=== PATIENT | female | born 1955 | race Caucasian/White ===

== ENCOUNTER → 2023-05-16 12:22 | Outpatient (BNVA) | payer MEDICARE, OTHER, SELFPAY | PROVIDERS: Visit Provider Physical Therapy Assistant ==

== ENCOUNTER 2023-05-16 15:34 | Outpatient (CLI) | payer MEDICARE, SELFPAY ==
[2023-05-16 14:25] LABS: Abs Immature Grans 0.03 10^3/uL (0.0-0.06); Absolute Basophil Count 0.03 10^3/uL (0.0-0.2); Absolute Eosinophil Count 0.03 10^3/uL (0.0-0.7); Absolute Lymphocyte Count 2.27 10^3/uL (1.2-3.4); Absolute Monocyte Count 0.96 10^3/uL (0.1-0.8); Basophils % 0.4; ESR 16 mm/hr (0-30); Eosinophils % 0.4; HCT 35.2 % (36.0-46.0); HGB 11.5 g/dL (11.2-15.7); Immature Grans % 0.4; Lymphocytes % 32.3; MCH 31.7 pg (27.0-33.0); MCHC 32.7 % (32.0-36.0); MCV 97 fL (80-95); MPV 10.1 fL (8.0-11.0); Monocytes % 13.7; Neutrophils % 52.8; Platelet Count 176 10^3/uL (130-400); RBC 3.63 10^6/uL (3.93-5.22); RDW 13.3 % (11.7-14.6); RDW-SD 47.7 fL; WBC 7.02 10^3/uL (4.4-10.8)
[2023-05-16 14:40] LABS: Hemoglobin A1C 5.8 % (<5.7)
[2023-05-16 14:55] LABS: ALT 18 U/L (14-59); AST 19 U/L (15-37); Albumin 3.2 g/dL (3.4-5.0); Alkaline Phosphatase 75 U/L (46-116); Anion Gap 7.2 mmol/L (3-11); BUN 14 mg/dL (7-18); Bilirubin, Total 0.3 mg/dL (0.2-1.0); CO2 28.8 mmol/L (21.0-32.0); CREATININE 0.8 mg/dL (0.55-1.02); Calcium 8.7 mg/dL (8.5-10.1); Chloride 102 mmol/L (98-107); Estimated GFR 80.71 (mL/min/1.73m2); Glucose 91 mg/dL (74-106); Potassium 4.3 mmol/L (3.5-5.1); Sodium 138 mmol/L (136-145); Total Protein 6.6 g/dL (6.4-8.2)
--- OUTSIDE RECORDS SUMMARY | 2023-05-16 15:42 | XMS_ITS | Continuity of Care Document ---
Author Name [facility] Address [address] [place] [id number] Care Team Providers Care Chemistry Quality Control Analyst Name Role Phone Avila Gomez Primary Care Physician [phone] Encounter 07/08/20 - 07/08/[address] [address]- Discharge Disposition: Home Attending Physician: MAHAMED DE LEON Admitting Physician: MAHAMED DE LEON Allergies, Adverse Reactions, Alerts Substance Reaction Severity Status NSAIDs Active sulfa drug Anaphyllaxis Active Medications albuterol 90 mcg/inh inhalation aerosol 2 puff(s), INH, q4hr (interval), PRN PRN: for wheezing, # 8 gm, 0 Refill(s), Aerosol Start Date: 07/24/19 Status: Ordered Belsomra 20 mg oral tablet mg ) tab(s), Oral, Once a day (at bedtime) Start Date: 07/24/19 Status: Ordered Dexilant 60 mg oral delayed release capsule ( 60 mg ) 1 cap(s), Oral, Daily, Cap-DR Start Date: 07/24/19 Status: Ordered Lyrica 150 mg oral capsule ( 150 mg ) 1 cap(s), Oral, TID, Cap Start Date: 07/24/19 Status: Ordered SEROquel 300 mg oral tablet ( 300 mg ) 1 tab(s), Oral, Once a day (at bedtime), Tab Start Date: 07/24/19 Status: Ordered traZODone ( 250 mg ), Oral Start Date: 07/24/19 Status: Ordered Trintellix 20 mg oral tablet ( 20 mg ) 1 tab(s), Oral, Daily, Tab Start Date: 07/24/19 Status: Ordered valACYclovir 500 mg oral tablet ( 500 mg ) 1 tab(s), Oral, BID, Tab Start Date: 07/24/19 Status: Ordered Problem List Condition Effective Dates Status Health Status Inform ant COPD (chronic obstructive pu lmonary disease)(Confirmed) Active Bone marrow transplant status(Confirmed) Active Non Hodgkin's lymphoma(Confirmed) Active Procedures Procedure Date Related Diagnosis Body Site Status Foot 1 Completed Hysterectomy Completed Neck 2 Completed 1surgery 2surgery Results Radiology Reports true* Exam Date Time Procedure Performing Provider Status 07/08/20 11:[address] PE Chest w/Cont Robbie Marques (Verified) Notes: (CT PE Chest w/Cont) Reason For Exam: Chronic respiratory failure with hypoxia CT PE Chest w/Cont CT PE Chest w/Cont 07/08/2020 HISTORY: Chronic respiratory failure with hypoxia. COMPARISON: CT chest 05/27/2020 TECHNIQUE: Thin multi detector images of the thorax have been obtained following a bolus of nonionic contrast with sagittal, coronal, 3D and MIP reconstructions. FINDINGS: There is good opacification of the pulmonary arterial system. No pulmonary emboli or aortic dissection is noted. The examination reveals scattered areas of mixed interstitial and alveolar infiltrate throughout the right lung. There is a small area of rounded soft tissue density in the medial aspect of the rightupper lobe. This most likely represents rounded consolidation since this region was clear on previous study on 05/27. No pleural fluid collection is present. The left lung is completely clear at this time. No mediastinal or perihilar adenopathy is present. Partial images of the upper abdomen are unremarkable at this time. IMPRESSION: No CT evidence pulmonary embolus. Scattered infiltrates throughout the right lung. Small area of rounded consolidation in the right upper lobe. No left-sided infiltrate. Correlate for possible Covid infection/pneumonia. Follow-up chest x-ray recommended This CT exam was performed using one or more of the following dose reduction techniques: Automated exposure control, adjustment to the mA and/or kV according to patient size, or use of iterative reconstruction technique. Final Signed (Electronic Signature): Aramis Eastman MD 07/08/20 11:12 a Technologist: XIAO Social History Social History Type Response Smoking Status Former smoker, quit more than 30 days ago entered on: 07/24/19 Sex
--- OUTSIDE RECORDS SUMMARY | 2023-05-16 15:42 | XMS_ITS | Continuity of Care Document ---
Author Name Unknown Organization [facility] Address [address] [place] [id number] Care Team Providers Care Board Certified Family Physician Name Role Phone vAila Gomez Primary Care Physician Encounter 09/01/22 - 09/06/[address] [id number]- Encounter Diagnosis Chronic obstructive pulmonary disease with (acute) exacerbation(Final) - Hypoxemia(Final) - COPD exacerbation(Discharge Diagnosis) - 09/01/22 Discharge Disposition: Home Attending Physician: Reuben Lai MD Admitting Physician: Reuben Lai MD Allergies, Adverse Reactions, Alerts Substance Reaction Severity Status codeine Unknown Active Macrobid Mild Active Nalbuphine Hydrochloride Unknown Act gwendolyn NSAIDs Bleeding Moderate Active sulfa drug Anaphyllaxis Active Assessment and Plan Extracted from: Title:Discharge Note Author:Robinson Vasquez MD Date:11/06/21 Discharge Plan Discharge home on September 06, 2022 AECOPD -Likely secondary to??acute bronchitis -Portable chest x-ray on September 01 reveals no acute cardiopulmonary process -CRP 8.46->2.32->0.25 -Procalcitonin 0.25->6.54->0.30 -Sputum culture requested 09/01 (gram stain comments on 1+ GPC, 3+ WBC), small amount mixed aaliyah with??no pathogen recovered to date -[employer] resp swab requested 09/01, RSV positive -Influenza swab negative 09/01 -COVID-19 swab negative 09/01 -Patient given dose of??IV Rocephin in emergency department.?? 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 With no evidence of invasive Pseudomonas infection identified to date, will discontinue Levaquin on??November 5,??continue treatment with??empiric ceftriaxone and azithromycin -Solu-Medrol 40 mg IV every 8 hours, increased to 60 mg IV every 8 hours on??September 02 -Schedule bronchodilator -Patient request to??continue Trelegy Ellipta 100/62.5/25 mcg 1 puff daily -Patient request to have albuterol MDI at bedside, continue 2 puffs up to every 4 hours as needed??as rescue inhaler -Antitussive as needed -Supplemental oxygen as needed -Patient is comfortable returning home on September 06, 2022.?? Patient specifically requests refills of Robaxin and diazepam??at discharge until she can see her PCP??within the next month.?? To this extent, prescription for Robaxin 750 mg 1 p.o. 3 times daily number 90 tablets no refills,??diazepam 5 mg strength 1/2 tablet twice daily number 30 tablets no refills written.?? Patient will continue cefdinir??300 mg twice daily for 6 days, azithromycin 250 mg daily for??6 days, prednisone taper??at 20 mg twice daily for 3 days then 10 mg twice daily for 3 days then 10 mg every morning x4 days.?? She may continue Tessalon 200 mg??4 times daily??scheduled for the next 10 days, with Tussionex 5 mL up to every 12 hours as needed for refractory cough number 4 ounces no refills.?? She will continue nystatin 5 mL swish and swallow??4 times daily for 10 days, continue probiotic of choice for the next 10 days.?? Resume other home medication as prior to admission.?? Continue home oxygen 1 L flow at rest, 2 L with exertion.?? 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 I did agree to enter this order in EMR as outpatient??radiologic procedure.?? Follow-up primary care provider within the next week. ??Follow-up outpatient pulmonology within the next 2 to 4 weeks. ?? Acute on chronic hypoxia -Chronically maintained on 2 L flow at night and as needed for daytime dyspnea. ??Admitted on 4 L flow BNC -On 2 liter BNC continuous 09/04 -Admission ABG on September 01 reveals pH 7.38 PCO2 46 PO2 88,??bicarb 27.2 oxygen saturation 97% on 40% FiO2 -Treatment above -Supplemental oxygen as needed -Walk oximetry prior to discharge ?? Hypomagnesemia -Magnesium 1.4, 1.8, 1.8, 2.1, 2.5 -Replace and trend ?? Mild thrombocytopenia -Platelet 137, 141, 144, 141, 143 -Trend ?? Mild elevation liver function test -Total bilirubin 0.73, 0.38, 0.39, 0.34, 0.39 -AST 107, no reagent, 20, 17, no reagent -ALT 77, 50, 18, 29, 38 -Trend ?? Chronic pain syndrome (chronic neck pain) -Patient reports that she is scheduled for cervical spine surgery in the upcoming months -Continue oxycodone 10 mg strength up to every 4 hours as needed for pain -Continue Robaxin-750 milligrams 3 times daily, hold for excess sedation -Continue Lyrica 150 mg 3 times daily, hold for excess sedation ?? GERD -Substitute Protonix 40 mg daily for home medication??dexlansoprazole??60 mg daily ?? Mood disorder -Continue Valium 2.5 mg twice daily (on 2mg BID at home), hold for excess sedation ?? Essential hypertension -Continue diltiazem ER 120 mg daily ?? Chronic insomnia -Continue trazodone 100 mg daily at bedtime -Patient request-to continue Belsomra 20 mg daily at bedtime,??may use home supply ?? Chronic constipation -Continue MiraLAX 17 g daily -Continue Colace 100 mg up to twice daily as needed ?? All Diagnoses This Visit COPD exacerbation Patient Discharge Condition Stable Discharge Disposition Follow-up primary care provider within the next week. ??Home oxygen with portable tank, 1 L at rest, 2 L with exertion. ??Follow-up outpatient pulmonology within the next month Patient Education Smoking Tobacco Information, Adult Health Risks of Smoking Steps to Quit Smoking, [id number] Admission Education Packet (JASKARAN) EKG Copy at discharge (JASKARAN) Chronic Obstructive Pulmonary Disease Exacerbation, [id number] Follow Up With When Contact Information CT chest Within 10 to 12 days Additional Instructions: Outpatient CT chest in 2 weeks (I put in order) Avila Gomez MD Within 1 to 2 weeks [address] [place] [address]- Additional Instructions: Pulmonology Within 1 month Additional Instructions: Extracted from: Title:ED Provider Note Author:Dwight Delgadillo Date:09/01/22 1.??COPD exacerbation??J44.1 Ordered: Decision to Admit, 09/01/22 13:06:00 EDT, Med/Surg, AEMing RIBERA Laneau MD, Observation ?? Orders: Sodium Chloride 0.9% 1,000 mL, 1,000, mL, IV, STAT, Start date 09/01/22 10:10:00 EDT, 999 mL/hr, 1, hr, Total volume (mL): 1,000, 80.29 kg, 1.92, m2, 09/01/22 10:10:00 EDT Diet Order, 09/01/22 12:30:00 EDT, Regular, Constant Indicator Midline Catheter Insert, 09/01/22 11:00:00 EDT, Once Review with Dr Lai?? admit med surg obs Diagnostic Tests Pending * CBC w/Diff Standard 09/02/22 * Comprehensive Metabolic Panel Standard 09/02/22 * Magnesium Level 09/02/22 Future Scheduled Tests Radiology* US Renal Comp 03/03/22 * US Bladder +Residual Post Voiding 03/03/22 * CT Chest w/o Cont 07/14/22 * CT Chest Hi-Res w/o Contrast 09/20/22 Functional Status 09/06/22 History of Fall in Last 3 Months Green N o 09/05/22 ADLs Independent 09/02/22 Toileting ADL Index Independent (2) Continence ADL Index Independent (2) 09/01/22 Level of Assistance - Self Care-Mobility No change from baseline Bathing ADL Index Independent (2) Dressing ADL Index Independent (2) Transferring Bed or Chair ADL Index Inde pendent (2) Recent Travel History No recent travel Other exposure to Infectious Disease COV ID-19 Symptoms Present Family Member Travel History No recent t ravel Medications !-Zofran ODT 4 mg oral tablet, disintegrating ( 4 mg ) 1 tab(s), Oral, q8hr (scheduled), PRN PRN: as needed for nausea/vomiting, # 20 tab(s), 0 Refill(s), 02/15/23, Tab-DIS Start Date: 02/15/22 Stop Date: 02/15/23 Status: Ordered acetaminophen-oxycodone 325 mg-10 mg oral tablet 1 tab(s), Oral, q4hr (interval), Instructions: TAKE 1 TABLET BY MOUTH EVERY 4 HOURS NEEDED FOR PAIN, PRN: Pain - Severe Start Date: 09/01/22 Status: Ordered albuterol 0.083% inhalation solution ( 2.5 mg ), NEB, q6hr (scheduled), Instructions: J44.9, PRN PRN: as needed for wheezing, # 120 EA, 1 Refill(s), Pharmacy: [place], [place], Soln, 165.1, cm, 09/01/22 14:54:00 EDT, Height/Length Dosing, 80.29, kg, 09/01/22 14:... Start Date: 09/06/22 Stop Date: 11/05/22 Status: Ordered albuterol 90 mcg/inh inhalation aerosol 2 puff(s), INH, q4hr (interval), PRN PRN: for wheezing, # 8 gm, 0 Refill(s), Aerosol Start Date: 07/24/19 Status: Ordered azithromycin 250 mg oral tablet ( 250 mg ) 1 tab(s), Oral, Daily, # 6 tab(s), 0 Refill(s), Pharmacy: [place], [place], Tab, 165.1, cm, 09/01/22 14:54:00 EDT, Height/Length Dosing, 80.29, kg, 09/01/22 14:54:00 EDT, Weight Dosing Start Date: 09/06/22 Stop Date: 09/12/22 Status: Ordered Belsomra 20 mg oral tablet ( 20 mg ) 1 tab(s), Oral, Once a day (at bedtime) Start Date: 01/04/22 Status: Ordered benzonatate 200 mg oral capsule ( 200 mg ) 1 cap(s), Oral, QID, PRN PRN: as needed for cough, # 40 cap(s), 0 Refill(s), Pharmacy: [facility], [place], Cap, 165.1, cm, 09/01/22 14:54:00 EDT, Height/Length Dosing, 80.29, kg, 09/01/22 14:54:00 EDT, Weight Dosing Start Date: 09/06/22 Stop Date: 09/16/22 Status: Ordered cefdinir 300 mg oral capsule ( 300 mg ) 1 cap(s), Oral, q12hr (scheduled), # 12 cap(s), 0 Refill(s), Pharmacy: [facility], [place], Cap, 165.1, cm, 09/01/22 14:54:00 EDT, Height/Length Dosing, 80.29, kg, 09/01/22 14:54:00 EDT, Weight Dosing Start Date: 09/06/22 Stop Date: 09/12/22 Status: Ordered chlorpheniramine-hydrocodone 8 mg-10 mg/5 mL oral suspension, extended release 5 mL, Oral, q12hr (interval), x 10 day(s), PRN: for cough, # 120 mL, 0 Refill(s), 09/16/22, Pharmacy: [place], [place], 165.1, cm, 09/01/22 14:54:00 EDT, Height/Length Dosing, 80.29, kg, 09/01/22 14:54:00 EDT, Weight Dosing Start Date: 09/06/22 Stop Date: 09/16/22 Status: Ordered Dexilant 60 mg oral delayed release capsule ( 60 mg ) 1 cap(s), Daily, 0 Refill(s) Start Date: 02/28/22 Status: Ordered diazePAM 5 mg oral tablet ( 2.5 mg ) 0.5 tab(s), Oral, BID, PRN PRN: anxiety, # 30 tab(s), 0 Refill(s), GURU, Pharmacy: [place], [place], Tab, 165.1, cm, 09/01/22 14:54:00 EDT, Height/Length Dosing, 80.29, kg, 09/01/22 14:54:00 EDT, Weight Dosing Start Date: 09/06/22 Stop Date: 10/06/22 Status: Ordered DilTIAZem (Eqv-Cardizem CD) 120 mg/24 hours oral capsule, extended release ( 120 mg ) 1 cap(s), Oral, Daily, 0 Refill(s) Start Date: 09/01/22 Status: Ordered docusate sodium 100 mg oral capsule ( 100 mg ) 1 cap(s), Oral, BID, PRN PRN: constipation, 0 Refill(s), Cap Start Date: 04/06/22 Status: Ordered Florastor 250 mg oral capsule ( 250 mg ) 1 cap(s), Oral, BID, # 20 cap(s), 0 Refill(s), Pharmacy: [place], [place], Cap, 165.1, cm, 09/01/22 14:54:00 EDT, Height/Length Dosing, 80.29, kg, 09/01/22 14:54:00 EDT, Weight Dosing Start Date: 09/06/22 Stop Date: 09/16/22 Status: Ordered magnesium oxide 400 mg oral tablet ( 400 mg ) 1 tab(s), Oral, HS, 0 Refill(s), Tab Start Date: 09/01/22 Status: Ordered methocarbamol 750 mg oral tablet ( 750 mg ) 1 tab(s), Oral, TID, Instructions: TAKE 1 TABLET BY MOUTH THREE TIMES DAILY, # 90 tab(s), 0 Refill(s), Pharmacy: [place], [place], Tab, 165.1, cm, 09/01/22 14:54:00 EDT, Height/Length Dosing, 80.29, kg, 09/01/22 14... Start Date: 09/06/22 Stop Date: 10/06/22 Status: Ordered MiraLax ( 17 gm ) 1 packet(s), Oral, Daily, Instructions: UGH, 0 Refill(s), Powder-Recon Start Date: 04/06/22 Status: Ordered nystatin 100,000 units/mL oral suspension ( 500,000 unit(s) ) 5 mL, Oral, QID, # 200 mL, 0 Refill(s), Pharmacy: [place], [place], Susp, 165.1, cm, 09/01/22 14:54:00 EDT, Height/Length Dosing, 80.29, kg, 09/01/22 14:54:00 EDT, Weight Dosing Start Date: 09/06/22 Stop Date: 09/16/22 Status: Ordered predniSONE 20 mg oral tablet ( 20 mg ) 1 tab(s), Oral, BID, Instructions: 1 tab (20mg) BID x 3 days, then 1/2 tab (10mg) BID x 3days, then 1/2 tab (10mg) qAM x 4 days, # 11 tab(s), 0 Refill(s), Pharmacy: [facility] [place], [place], Tab, 165.1, cm, 09/01/22 14:54:... Start Date: 09/06/22 Stop Date: 09/16/22 Status: Ordered pregabalin 150 mg oral capsule ( 150 mg ) 1 cap(s), Oral, TID Start Date: 01/04/22 Status: Ordered traZODone 100 mg oral tablet ( 100 mg ) 1 tab(s), Oral, Once a day (at bedtime) Start Date: 01/04/22 Status: Ordered Trelegy Ellipta 100 mcg-62.5 mcg-25 mcg/inh inhalation powder 1 puff(s), INH, Daily Start Date: 01/04/22 Status: Ordered Mental Status 09/06/22 Level of Consciousness Alert Problem List Condition Confirmation Course Effective Dates Status Health St atus Informant COPD exacerbation Confirmed Active Arthritis Confirmed Active Chest wall pain Confirmed Active COPD (chronic obstructive pulmonary disease) Confirmed Active Kidney cysts Confirmed Active Dehydration Confirmed Active Diarrhea Confirmed Active Cervical spine disease Confirmed Active Dysphonia Confirmed Active Bone marrow transplant status Confirmed Active Herpes Confirmed Active History of kidney stones Confirmed Active IBS (irritable bowel syndrome) Confirmed Active Nausea and vomiting Confirmed Active Non Hodgkin's lymphoma Confirmed Active Frequent UTI Confirmed Active Urinary retention Confirmed Active Procedures Procedure Date Related Diagnosis Body Site Status Bladder tract Completed Foot 1 Completed Gallbladder absent Comple juan alberto Hysterectomy Completed Neck 2 Completed Shoulder Completed Tonsillectomy Completed 1surgery 2surgery Results Laboratory List Name Date Automated Differential Standard 09/06/22 C-Reactive Protein (CRP) 09/06/22 CBC w/Diff Standard 09/06/22 Comprehensive Metabolic Panel Standard ( CMP Standard) 09/06/22 Magnesium Level 09/06/22 Procalcitonin 09/06/22 .Manual Differential (UGH) 09/05/22 Automated Differential Standard 09/05/22 CBC w/Diff Standard 09/05/22 Comprehensive Metabolic Panel Standard ( CMP Standard) 09/05/22 Magnesium Level 09/05/22 Automated Differential Standard 09/04/22 CBC w/Diff Standard 09/04/22 Comprehensive Metabolic Panel Standard ( CMP Standard) 09/04/22 Magnesium Level 09/04/22 Automated Differential Standard 09/03/22 C-Reactive Protein (CRP) 09/03/22 CBC w/Diff Standard 09/03/22 Comprehensive Metabolic Panel Standard ( CMP Standard) 09/03/22 Magnesium Level 09/03/22 Procalcitonin 09/03/22 Automated Differential Standard 09/02/22 CBC w/Diff Standard 09/02/22 Comprehensive Metabolic Panel Standard 1 11/02/21 Magnesium Level 09/02/22 Arterial Bld Gas (UGH) 09/01/22 Automated Differential Standard 09/01/22 CBC w/Diff Standard 09/01/22 Lactic Acid Screen 09/01/22 Procalcitonin 09/01/22 Automated Differential Standard 09/01/22 C-Reactive Protein 09/01/22 CBC w/Diff Standard 09/01/22 Comprehensive Metabolic Panel Standard ( CMP Standard) 09/01/22 Magnesium Level 09/01/22 NT Pro-BNP (BNP) 09/01/22 Troponin I 09/01/22 Influenza A&B 09/01/22 SARS-CoV-2 (COVID-19) RNA (ID Now) (COVI D-19 SARS-CoV-2 RNA (ID Now)) 09/01/22 Most recent to oldest [Reference Range]: 1 2 3 4 5 6 7 O2 Sat Art [95-99 %] 97 % (09/01/22 10:48 AM) Slide Review? Manual Diff (09/05/22 7:30 AM) Creatinine Level [0.6-1.0 mg/dL] 0.8 mg/dL (09/06/22 8:22 AM) 0.8 mg/dL (09/05/22 7:30 AM) 0.8 mg/dL (09/04/22 7:00 AM) 1.0 mg/dL (09/03/22 12:46 PM) 0.9 mg/dL (09/02/22 9:08 AM) 0.8 mg/dL ( 2 9:44 AM) Puncture Site R Radial (09/01/22 10:48 AM) RDW/CV [11.5-14.5 %] 13.2 % (09/06/22 8:22 AM) 13.6 % (09/05/22 7:30 AM) 13.8 % (09/04/22 7:00 AM) 14.0 % (09/03/22 12:46 PM) 13.4 % (09/02/22 9:08 AM) 13.8 % ( 2 10:25 AM) 13.8 % ( 2 9:44 AM) Corinna. Calcium [8.5-10.2 mg/dL] 9.0 mg/dL (09/06/22 8:22 AM) 9.0 mg/dL (09/05/22 7:30 AM) 9.4 mg/dL (09/04/22 7:00 AM) 9.1 mg/dL (09/03/22 12:46 PM) 8.8 mg/dL (09/02/22 9:08 AM) 9.1 mg/dL ( 2 9:44 AM) RBC Morph Normal (09/05/22 7:30 AM) Albumin Level [3.4-5.0 mg/dL] 3.4 mg/dL (09/06/22 8:22 AM) 3.6 mg/dL (09/05/22 7:30 AM) 3.4 mg/dL (09/04/22 7:00 AM) 3.7 mg/dL (09/03/22 12:46 PM) 3.7 mg/dL (09/02/22 9:08 AM) 3.8 mg/dL ( 2 9:44 AM) Alk Phos [40-120 IU/L] 52 IU/L (09/06/22 8:22 AM) 58 IU/L (09/05/22 7:30 AM) 55 IU/L (09/04/22 7:00 AM) 61 IU/L (09/03/22 12:46 PM) 75 IU/L (09/02/22 9:08 AM) 85 IU/L ( 2 9:44 AM) Band Man [0-2 %] 6 % *HI* (09/05/22 7:30 AM) Bili Total [0.20-1.00 mg/dL] 0.39 mg/dL (09/06/22 8:22 AM) 0.40 mg/dL (09/05/22 7:30 AM) 0.34 mg/dL (09/04/22 7:00 AM) 0.39 mg/dL (09/03/22 12:46 PM) 0.38 mg/dL (09/02/22 9:08 AM) 0.73 mg/dL ( 9:44 AM) BUN [7-18 mg/dL] 21 mg/dL *HI* (09/06/22 8:22 AM) 20 mg/dL *HI* (09/05/22 7:30 AM) 20 mg/dL *HI* (09/04/22 7:00 AM) 21 mg/dL *HI* (09/03/22 12:46 PM) 12 mg/dL (09/02/22 9:08 AM) 14 mg/dL ( 9:44 AM) Chloride Level [98-107 mmol/L] 98 mmol/L (09/06/22 8:22 AM) 99 mmol/L (09/05/22 7:30 AM) 102 mmol/L (09/04/22 7:00 AM) 101 mmol/L (09/03/22 12:46 PM) 101 mmol/L (09/02/22 9:08 AM) 99 mmol/L ( 9:44 AM) CO2 [21.0-32.0 mmol/L] 34.8 mmol/L *HI* (09/06/22:22 AM) 31.6 mmol/L (09/05/22 7:30 AM) 28.2 mmol/L (09/04/22 7:00 AM) 30.6 mmol/L (09/03/22 12:46 PM) 28.7 mmol/L (09/02/22 9:08 AM) 27.5 mmol/L ( 9:44 AM) Glucose Level [70-110 mg/dL] 152 mg/dL *HI* (09/06/22:22 AM) 164 mg/dL *HI* (09/05/22 7:30 AM) 171 mg/dL *HI* (09/04/22 7:00 AM) 194 mg/dL *HI* (09/03/22 12:46 PM) 196 mg/dL *HI* (09/02/22 9:08 AM) 118 mg/dL *HI* ( 9:44 AM) HCO3 Art [22.0-26.0 mmol/L] 27.2 mmol/L *HI* (09/01/22 10:48 AM) Hct [35.0-49.0 %] 44.7 % (09/06/22 8:22 AM) 42.7 % (09/05/22 7:30 AM) 40.8 % (09/04/22 7:00 AM) 39.4 % (09/03/22 12:46 PM) 40.0 % (09/02/22 9:08 AM) 39.6 % ( 10:25 AM) 40.6 % ( 9:44 AM) Hgb [12.0-16.0 g/dL] 14.1 g/dL (09/06/22 8:22 AM) 13.3 g/dL (09/05/22 7:30 AM) 12.5 g/dL (09/04/22 7:00 AM) 12.1 g/dL (09/03/22 12:46 PM) 12.6 g/dL (09/02/22 9:08 AM) 12.7 g/dL ( 10:25 AM) 12.6 g/dL ( 9:44 AM) Lymph Man [12-44 %] 14 % (09/05/22 7:30 AM) Magnesium [1.8-2.4] 2.5 *HI* (09/06/22 8:22 AM) 2.0 (09/05/22 7:30 AM) 2.1 (09/04/22 7:00 AM) 1.8 (09/03/22 12:46 PM) 1.8 (09/02/22 9:08 AM) 1.4 *LOW* ( 9:44 AM) MCH [26.0-33.0 pg] 31.2 pg (09/06/22 8:22 AM) 30.9 pg (09/05/22 7:30 AM) 31.4 pg (09/04/22 7:00 AM) 30.9 pg (09/03/22 12:46 PM) 31.7 pg (09/02/22 9:08 AM) 31.7 pg ( 10:25 AM) 31.3 pg ( 9:44 AM) MCHC [31.0-36.0 g/dL] 31.5 g/dL (09/06/22 8:22 AM) 31.1 g/dL (09/05/22 7:30 AM) 30.6 g/dL *LOW* (09/04/22 7:00 AM) 30.7 g/dL *LOW* (09/03/22 12:46 PM) 31.5 g/dL (09/02/22 9:08 AM) 32.1 g/dL ( 2 10:25 AM) 31.0 g/dL ( 2 9:44 AM) MCV [82-100] 99 (09/06/22 8:22 AM) 99 (09/05/22 7:30 AM) 102 *HI* (09/04/22 7:00 AM) 101 *HI* (09/03/22 12:46 PM) 100 (09/02/22 9:08 AM) 99 ( 10:25 AM) 101 *HI* ( 9:44 AM) Monocyte Man [0-10 %] 6 % (09/05/22 7:30 AM) MPV [8.0-12.3 fL] 10.3 fL (09/06/22 8:22 AM) 10.5 fL (09/05/22 7:30 AM) 10.5 fL (09/04/22 7:00 AM) 10.4 fL (09/03/22 12:46 PM) 10.3 fL (09/02/22 9:08 AM) 10.4 fL ( 2 10:25 AM) 10.3 fL ( 2 9:44 AM) pCO2 Art [35.0-45.0 mmHg] 46.0 mmHg 1 *CRIT* (09/01/22 10:48 AM) pH Art [7.35-7.45] 7.38 (09/01/22 10:48 AM) Platelet [150-450 x10^3/mcL] 143 x10^3/mcL *LOW* (09/06/22 8:22 AM) 146 x10^3/mcL *LOW* (09/05/22 7:30 AM) 141 x10^3/mc L *LOW* (09/04/22 7:00 AM) 144 x10^3/mc L *LOW* (09/03/22 12:46 PM) 141 x10^3/mcL *LOW* (09/02/22 9:08 AM) 137 x10^3/m cL *LOW* ( 10:25 AM) 137 x10^3/m cL *LOW* ( 9:44 AM) pO2 Art [80-100 mmHg] 88 mmHg (09/01/22 10:48 AM) Potassium Level [3.5-5.2 mmol/L] 4.2 mmol/L (09/06/22 8:22 AM) 4.1 mmol/L (09/05/22 7:30 AM) 4.3 mmol/L (09/04/22 7:00 AM) 3.8 mmol/L (09/03/22 12:46 PM) 3.8 mmol/L (09/02/22 9:08 AM) 4.5 mmol/L ( 9:44 AM) RBC [4.00-5.20 x10^6/mcL] 4.52 x10^6/mcL (09/06/22 8:22 AM) 4.30 x10^6/mcL (09/05/22 7:30 AM) 3.98 x10^6/mc L *LOW* (09/04/22 7:00 AM) 3.91 x10^6/mc L *LOW* (09/03/22 12:46 PM) 3.98 x10^6/mcL *LOW* (09/02/22 9:08 AM) 4.01 x10^6/m cL (11/3/2 2 10:25 AM) 4.03 x10^6/m cL ( 2 9:44 AM) Segs Man [55-75 %] 74 % (09/05/22 7:30 AM) Sodium Level [136-145 mEq/L] 137 mEq/L (09/06/22 8:22 AM) 136 mEq/L (09/05/22 7:30 AM) 139 mEq/L (09/02/22 9:08 AM) Sodium Level [136-145] 135 *LOW* (09/04/22 7:00 AM) 138 (09/03/22 12:46 PM) 136 (09/01/22 9:44 AM) Protein Total [6.4-8.2 g/dL] 6.7 g/dL (09/06/22 8:22 AM) 7.4 g/dL (09/05/22 7:30 AM) 6.9 g/dL (09/04/22 7:00 AM) 6.9 g/dL (09/03/22 12:46 PM) 7.1 g/dL (09/02/22 9:08 AM) 7.5 g/dL ( 9:44 AM) WBC [4.3-11.0 x10^3/mcL] 7.0 x10^3/mcL (09/06/22 8:22 AM) 6.8 x10^3/mcL (09/05/22 7:30 AM) 7.0 x10^3/mc L (09/04/22 7:00 AM) 8.7 x10^3/mc L (09/03/22 12:46 PM) 6.9 x10^3/mcL (09/02/22 9:08 AM) 7.9 x10^3/m cL ( 2 10:25 AM) 8.0 x10^3/m cL ( 2 9:44 AM) Fio2 Art [21-100 %] 40 % (09/01/22 10:48 AM) Troponin-I [0.00-60.40 pg/mL] 7.50 pg/mL (09/01/22 9:44 AM) Anion Gap 8 *NA* (09/06/22 8:22 AM) 10 *NA* (09/05/22 7:30 AM) 9 *NA* (09/04/22 7:00 AM) 10 *NA* (09/03/22 12:46 PM) 13 *NA* (09/02/22 9:08 AM) 14 *NA* ( 9:44 AM) Calcium Level [8.5-10.2 mg/dL] 8.5 mg/dL (09/06/22 8:22 AM) 8.7 mg/dL (09/05/22 7:30 AM) 8.9 mg/dL (09/04/22 7:00 AM) 8.9 mg/dL (09/03/22 12:46 PM) 8.6 mg/dL (09/02/22 9:08 AM) 8.9 mg/dL ( 9:44 AM) ALT/SGPT [12-78 IU/L] 38 IU/L (09/06/22 8:22 AM) 27 IU/L (09/05/22 7:30 AM) 29 IU/L (09/04/22 7:00 AM) 18 IU/L (09/03/22 12:46 PM) 50 IU/L (09/02/22 9:08 AM) 77 IU/L ( 9:44 AM) AST/SGOT [15-37 IU/L] no reagent IU/L *NA* (09/06/22 8:22 AM) no reagent IU/L *NA* (09/05/22 7:30 AM) 17 IU/L (09/04/22 7:00 AM) 20 IU/L (09/03/22 12:46 PM) no reagent IU/L *NA* (09/02/22 9:08 AM) 107 IU/L *HI* ( 9:44 AM) Auto Eos % [0.0-7.0 %] 0.1 % (09/06/22 8:22 AM) 0.0 % (09/05/22 7:30 AM) 0.1 % (09/04/22 7:00 AM) 0.0 % (09/03/22 12:46 PM) 0.1 % (09/02/22 9:08 AM) 0.1 % ( 10:25 AM) 0.3 % ( 9:44 AM) Auto Lymph % [10.0-50.0 %] 15.8 % (09/06/22 8:22 AM) 14.8 % (09/05/22 7:30 AM) 13.8 % (09/04/22 7:00 AM) 8.4 % *LOW* (09/03/22 12:46 PM) 7.2 % *LOW* (09/02/22 9:08 AM) 9.3 % *LOW* ( 10:25 AM) 13.1 % ( 9:44 AM) Auto Neut % [37.0-80.0 %] 69.8 % (09/06/22 8:22 AM) 74.3 % (09/05/22 7:30 AM) 77.9 % (09/04/22 7:00 AM) 84.8 % *HI* (09/03/22 12:46 PM) 84.9 % *HI* (09/02/22 9:08 AM) 84.0 % *HI* ( 10:25 AM) 79.4 % ( 9:44 AM) Eos Abs# [0.00-0.50 K/uL] 0.01 K/uL (09/06/22 8:22 AM) 0.00 K/uL (09/05/22 7:30 AM) 0.01 K/uL (09/04/22 7:00 AM) 0.00 K/uL (09/03/22 12:46 PM) 0.01 K/uL (09/02/22 9:08 AM) 0.01 K/uL ( 10:25 AM) 0.02 K/uL ( 9:44 AM) Lymph Abs# [1.00-4.00 K/uL] 1.11 K/uL (09/06/22 8:22 AM) 1.01 K/uL (09/05/22 7:30 AM) 0.97 K/uL *LOW* (09/04/22 7:00 AM) 0.73 K/uL *LOW* (09/03/22 12:46 PM) 0.50 K/uL *LOW* (09/02/22 9:08 AM) 0.73 K/uL *LOW* ( 10:25 AM) 1.05 K/uL ( 9:44 AM) Dolores Abs# [0.20-1.00 K/uL] 0.60 K/uL (09/06/22 8:22 AM) 0.43 K/uL (09/05/22 7:30 AM) 0.46 K/uL (09/04/22 7:00 AM) 0.52 K/uL (09/03/22 12:46 PM) 0.50 K/uL (09/02/22 9:08 AM) 0.48 K/uL ( 10:25 AM) 0.53 K/uL ( 9:44 AM) Plt Morph [Normal] Normal (09/05/22 7:30 AM) Auto Baso % [0.0-2.5 %] 0.4 % (09/06/22 8:22 AM) 0.6 % (09/05/22 7:30 AM) 0.1 % (09/04/22 7:00 AM) 0.0 % (09/03/22 12:46 PM) 0.0 % (09/02/22 9:08 AM) 0.1 % ( 10:25 AM) 0.3 % ( 9:44 AM) Auto Dolores % [0.0-12.0 %] 8.5 % (09/06/22 8:22 AM) 6.3 % (09/05/22 7:30 AM) 6.5 % (09/04/22 7:00 AM) 6.0 % (09/03/22 12:46 PM) 7.2 % (09/02/22 9:08 AM) 6.1 % ( 10:25 AM) 6.6 % ( 9:44 AM) Baso Abs# [0.00-0.20 K/uL] 0.03 K/uL (09/06/22 8:22 AM) 0.04 K/uL (09/05/22 7:30 AM) 0.01 K/uL (09/04/22 7:00 AM) 0.00 K/uL (09/03/22 12:46 PM) 0.00 K/uL (09/02/22 9:08 AM) 0.01 K/uL ( 10:25 AM) 0.02 K/uL ( 9:44 AM) Neut Abs# [2.00-7.50 K/uL] 4.90 K/uL (09/06/22 8:22 AM) 5.06 K/uL (09/05/22 7:30 AM) 5.48 K/uL (09/04/22 7:00 AM) 7.35 K/uL (09/03/22 12:46 PM) 5.86 K/uL (09/02/22 9:08 AM) 6.60 K/uL ( 10:25 AM) 6.36 K/uL ( 9:44 AM) CRP [0.05-0.80 mg/dL] 0.25 mg/dL (09/06/22 8:22 AM) 2.32 mg/dL *HI* (09/03/22 12:46 PM) 8.46 mg/dL *HI* (09/01/22 9:44 AM) Lactic Acid [0.4-1.9 mmol/L] 0.7 mmol/L (09/01/22 10:25 AM) TCO2 Art [23.0-27.0 mmol/L] 28.6 mmol/L *HI* (09/01/22 10:48 AM) Base Excess Art [-2.0-2.0 mEq/L] 1.6 mEq/L (09/01/22 10:48 AM) Influenza A [negative] negative (09/01/22 9:29 AM) Influenza B [negative] negative (09/01/22 9:29 AM) Rik Test Art Not Indicated (09/01/22 10:48 AM) GFR AA [>=60 mL/min/1.73 ] 83 mL/min/1.73 (09/06/22 8:22 AM) 82 mL/min/1.73 (09/05/22 7:30 AM) 84 mL/min/1 .73 ( 7:00 AM) 64 mL/min/1 .73 ( 12:46 PM) 72 mL/min/1.73 (09/02/22 9:08 AM) 83 mL/min/ 1.73 ( 9:44 AM) GFR Non AA [>=60 mL/min/1.73 ] 69 mL/min/1.73 (09/06/22 8:22 AM) 68 mL/min/1.73 (09/05/22 7:30 AM) 70 mL/min/1 .73 ( 7:00 AM) 53 mL/min/1 .73 *LOW* (09/03/22 12:46 PM) 59 mL/min/1.73 *LOW* (09/02/22 9:08 AM) 69 mL/min/ 1.73 ( 9:44 AM) NT Pro-BNP [<=125 pg/mL] 221 pg/mL *HI* (09/01/22 9:44 AM) NRBC Abs # 0 K/uL *NA* (09/06/22 8:22 AM) 0 K/uL *NA* (09/05/22 7:30 AM) 0 K/uL *NA* (09/04/22 7:00 AM) 0 K/uL *NA* (09/03/22 12:46 PM) 0 K/uL *NA* (09/02/22 9:08 AM) 0 K/uL *NA* ( 10:25 AM) 0 K/uL *NA* ( 9:44 AM) IG Auto [0.00-0.50 K/uL] 0.38 K/uL (09/06/22 8:22 AM) 0.27 K/uL (09/05/22 7:30 AM) 0.11 K/uL (09/04/22 7:00 AM) 0.07 K/uL (09/03/22 12:46 PM) 0.04 K/uL (09/02/22 9:08 AM) 0.03 K/uL ( 10:25 AM) 0.02 K/uL ( 9:44 AM) Auto IG % [0.0-5.0 %] 5.4 % *HI* (09/06/22 8:22 AM) 4.0 % (09/05/22 7:30 AM) 1.6 % (09/04/22 7:00 AM) 0.8 % (09/03/22 12:46 PM) 0.6 % (09/02/22 9:08 AM) 0.4 % ( 10:25 AM) 0.3 % ( 9:44 AM) SARS-CoV-2 (COVID-19) RNA (ID Now) [Negative] Negative (09/01/22 9:29 AM) Employed in healthcare? No *NA* (09/01/22 9:29 AM) Symptomatic as defined by CDC? Yes *NA* (09/01/22 9:29 AM) Date of onset (Lab) 31-AUG-2022 *Unknown* (09/01/22 9:29 AM) Hospitalized due to COVID-19? Unknown *NA* (09/01/22 9:29 AM) In ICU? No *NA* (09/01/22 9:29 AM) Group care resident? No *NA* (09/01/22 9:29 AM) status? Not *NA* (09/01/22 9:29 AM) Procalcitonin [<=0.50 ng/mL] 0.30 ng/mL (09/06/22 8:22 AM) 6.54 ng/mL *HI* (09/03/22 12:46 PM) 0.25 ng/mL (09/01/22 10:25 AM) 1Result Comment: Results called to arnel corley by mem at 09/01/2022 10:59:19 EDT. Read back and verified. Orders for Microbiology Reports Name Date Sputum Culture 09/01/22 Microbiology Reports TEST:Sputum Culture STATUS:Auth (Verified) BODY SITE: SOURCE:Sputum COLLECTED DATE/TIME:09/01/22 8:58 PM FINAL REPORT Small amount Mixed aaliyah with no predominant organism No pathogens recovered at 48 hours STAIN REPORT Gram Positive Cocci - 1+. WBC - 3+. Radiology Reports * Exam Date Time Procedure Performing Provider Status 09/01/22 10:14 AM XR Chest 1 View Portable Rossana Santizo; Auth (Verified) Notes: (XR Chest 1 View Portable) Reason For Exam: Shortness of Breath XR Chest 1 View Portable XR Chest 1 View Portable HISTORY: Shortness of Breath Study: Single view of the chest. Comparison:None Findings: The cardiomediastinal silhouette is normal.No focal consolidations, pleural effusions or pneumothorax. Osseous structures demonstrate no acute abnormality. IMPRESSION: 1. No acute cardiopulmonary process. Electronically signed by: ANNE RUEDA (Sep 01, 2022 10:25:53) Final Signed (Electronic Signature): Anne Rueda MD 09/01/22 10:25 a Technologist: [place] SANCHEZ Vital Signs Most recent to oldest [Reference Range]: 1 2 3 Temperature Oral [35.8-37.3 DegC] 36.4 DegC (09/06/22 11:12 AM) 36.5 DegC (09/06/22 8:46 AM) 36.5 DegC (09/06/22 4:07 AM) Temperature Oral (DegF) [96.4-99.1 DegF] 97.52 DegF (09/06/22 11:12 AM) 97.7 DegF (09/06/22 8:46 AM) 97.7 DegF (09/06/22 4:07 AM) Peripheral Pulse Rate [60-100 bpm] 77 bpm (09/06/22 12:40 PM) 88 bpm (09/06/22 11:12 AM) 75 bpm (09/06/22 8:46 AM) Heart Rate Monitored [60-100 bpm] 77 bpm (09/06/22 12:27 PM) 100 bpm (09/01/22 2:00 PM) 99 bpm (09/01/22 1:30 PM) Respiratory Rate [14-20 br/min] 20 br/min (09/06/22 12:40 PM) 17 br/min (09/06/22 11:12 AM) 15 br/min (09/06/22 8:46 AM) Blood Pressure [90-140/60-90 mmHg] 139/75mmHg (09/06/22 11:12 AM) 168/80mmHg *HI* (09/06/22 8:46 AM) 156/78mmHg *HI* (09/06/22 4:07 AM) Mean Arterial Pressure, Cuff [65-100 mmHg] 104 mmHg *HI* (09/06/22 4:07 AM) 106 mmHg *HI* (09/05/22 8:00 PM) 103 mmHg *HI* (09/05/22 3:38 PM) BP Site Left arm (09/06/22 11:12 AM) Right arm (09/06/22 8:46 AM) Right arm (09/06/22 4:07 AM) SpO2 [92-100 %] 92 % (09/06/22 12:40 PM) 90 % *LOW* (09/06/22 12:13 PM) 92 % (09/06/22 11:12 AM) Oxygen Flow Rate 1 L/min (09/06/22 2:34 PM) 1 L/min (09/06/22 12:40 PM) 1 L/min (09/06/22 12:13 PM) Oxygen Therapy Nasal cannula (09/06/22 2:34 PM) Nasal cannula (09/06/22 12:40 PM) Nasal cannula (09/06/22 12:27 PM) FIO2. 24 % (09/05/22 8:03 PM) 24 % (09/05/22 7:54 PM) 24 % (09/05/22 7:54 PM) BP Method Automatic (09/06/22 11:12 AM) Automatic (09/06/22 8:46 AM) Automatic (09/03/22 4:00 AM) Height 165.100 cm (09/01/22 2:54 PM) 165.100 cm (09/01/22 9:53 AM) Height/Length Dosing 165.100 cm (09/01/22 2:54 PM) 165.100 cm (09/01/22 9:57 AM) Weight 89.5 kg (09/05/22 6:21 AM) 88.3 kg (09/04/22 5:38 AM) 86 kg (09/03/22 6:15 AM) Weight Measured (lbs) 194.668 lb (09/04/22 5:38 AM) 189.597 lb (09/03/22 6:15 AM) 190.479 lb (09/03/22 2:45 AM) Weight Dosing 80.290 kg (09/01/22 2:54 PM) 80.290 kg (09/01/22 9:57 AM) Scale Type Bed (09/01/22 2:54 PM) Weight Estimated 83.460 kg (09/01/22 3:17 PM) Body Mass Index 29.460 kg/m2 (09/01/22 2:54 PM) 29.460 kg/m2 (09/01/22 9:53 AM) Admission Height/Length 165.10 cm (09/01/22 2:54 PM) Admission Weight 80.29 kg (09/01/22 2:54 PM) Admission Body Mass Index 29.46 kg/m2 (09/01/22 2:54 PM) Triage Ht 165.10 cm (09/01/22 9:53 AM) Triage Weight 80.29 kg (09/01/22 9:53 AM) Triage BMI 29.46 (09/01/22 9:53 AM) Social History Social History Type Response Smoking Status Smoking tobacco use: Former tobacco user;Never; Number used per day: 1 PPD; Number of years: 40; 1 entered on: 09/01/22 Sex 1currently smoking 5-6 per day 09/01/22 Hospital Discharge Instructions Patient Education 09/06/2022 16:31:26 Smoking Tobacco Information, Adult Smoking Tobacco Information, Adult Smoking tobacco can be harmful to your health. Tobacco contains a poisonous (toxic), colorless chemical called nicotine. Nicotine is addictive. It changes the brain and can make it hard to stop smoking. Tobacco also has other toxic chemicals that can hurt your body and raise your risk of many cancers. How can smoking tobacco affect me? Smoking tobacco puts you at risk for: ??? Cancer. Smoking is most commonly associated with lung cancer, but can also lead to cancer in other parts of the body. ??? Chronic obstructive pulmonary disease (COPD). This is a long-term lung condition that makes it hard to breathe. It also gets worse over time. ??? High blood pressure (hypertension), heart disease, stroke, or heart attack. ??? Lung infections, such as pneumonia. ??? Cataracts. This is when the lenses in the eyes become clouded. ??? Digestive problems. This may include peptic ulcers, heartburn, and gastroesophageal reflux disease (GERD). ??? Oral health problems, such as gum disease and tooth loss. ??? Loss of taste and smell. Smoking can affect your appearance by causing: ??? Wrinkles. ??? Yellow or stained teeth, fingers, and fingernails. Smoking tobacco can also affect your social life, because: ??? It may be challenging to find places to smoke when away from home. Many workplaces, restaurants, hotels, and public places are tobacco-free. ??? Smoking is expensive. This is due to the cost of tobacco and the long-term costs of treating health problems from smoking. ??? Secondhand smoke may affect those around you. Secondhand smoke can cause lung cancer, breathingproblems, and heart disease. Children of smokers have a higher risk for: ??? Sudden infant syndrome (SIDS). ??? Ear infections. ??? Lung infections. If you currently smoke tobacco, quitting now can help you: ??? Lead a longer and healthier life. ??? Look, smell, breathe, and feel better over time. ??? Save money. ??? Protect others from the harms of secondhand smoke. What actions can I take to prevent health problems? Quit smoking ??? Do not start smoking. Quit if you already do. ??? Make a plan to quit smoking and commit to it. Look for programs to help you and ask your healthcare provider for recommendations and ideas. ??? Set a date and write down all the reasons you want to quit. ??? Let your friends and family know you are quitting so they can help and support you. Consider finding friends who also want to quit. It can be easier to quit with someone else, so that you can support each other. ??? Talk with your health care provider about using nicotine replacement medicines to help you quit, such as gum, lozenges, patches, sprays, or pills. ??? Do not replace cigarette smoking with electronic cigarettes, which are commonly called e-cigarettes. The safety of e-cigarettes is not known, and some may contain harmful chemicals. ??? If you try to quit but return to smoking, stay positive. It is common to slip up when you firstquit, so take it one day at a time. ??? Be prepared for cravings. When you feel the urge to smoke, chew gum or suck on hard candy. Lifestyle ??? Stay busy and take care of your body. ??? Drink enough fluid to keep your urine pale yellow. ??? Get plenty of exercise and eat a healthy diet. This can help prevent weight gain after quitting. ??? Monitor your eating habits. Quitting smoking can cause you to have a larger appetite than when you smoke. ??? Find ways to relax. Go out with friends or family to a movie or a restaurant where people do not smoke. ??? Ask your health care provider about having regular tests (screenings) to check for cancer. Thismay include blood tests, imaging tests, and other tests. ??? Find ways to manage your stress, such as meditation, yoga, or exercise. Where to find support To get support to quit smoking, consider: ??? Asking your health care provider for more information and resources. ??? Taking classes to learn more about quitting smoking. ??? Looking for local organizations that offer resources about quitting smoking. ??? Joining a support group for people who want to quit smoking in your local community. ??? Calling the [employer] counselor helpline: 4-176-Idhn-Now ( ) Where to find more information You may find more information about quitting smoking from: ??? HelpGuide.org: www.helpguide.org ??? Smokefree.gov: smokefree.gov ??? [place] Lung Association: www.lung.org Contact a health care provider if you: ??? Have problems breathing. ??? Notice that your lips, nose, or fingers turn blue. ??? Have chest pain. ??? Are coughing up blood. ??? Feel faint or you pass out. ??? Have other health changes that cause you to worry. Summary ??? Smoking tobacco can negatively affect your health, the health of those around you, your finances, and your social life. ??? Do not start smoking. Quit if you already do. If you need help quitting, ask your health care provider. ??? Think about joining a support group for people who want to quit smoking in your local community. There are many effective programs that will help you to quit this behavior. This information is not intended to replace advice given to you by your health care provider. Make sure you discuss any questions you have with your health care provider. Document Revised: 01/05/2022 Document Reviewed: 09/07/2021 [employer] Patient Education ?? 2021 [employer]. 09/06/2022 16:31:26 Health Risks of Smoking Health Risks of Smoking Smoking tobacco is very bad for your health. Tobacco smoke contains many toxic chemicals that can damage every part of your body. Secondhand smoke can be harmful to those around you. Tobacco or nicotine use can cause many long-term (chronic) diseases. Smoking is difficult to quit because a chemical in tobacco, called nicotine, causes addiction or dependence. When you smoke and inhale, nicotine is absorbed quickly into the bloodstream through your lungs. Both inhaled and non-inhaled nicotine may be addictive. How can quitting affect me? There are health benefits of quitting smoking. Some benefits happen right away and others take time. Benefits may include: ??? Blood flow, blood pressure, heart rate, and lung capacity may begin to improve. However, any lung damage that has already occurred cannot be repaired. ??? Temporary respiratory symptoms, such as nasal congestion and cough, may improve over time. ??? Your risk of heart disease, stroke, and cancer is reduced. ??? The overall quality of your health may improve. ??? You may save money, as you will not spend money on tobacco products and may spend less money onsmoking-related health issues. What can increase my risk? Smoking harms nearly every organ in the body. People who smoke tobacco have a shorter life expectancy and an increased risk of many serious medical problems. These include: ??? More respiratory infections, such as colds and pneumonia. ??? Cancer. ??? Heart disease. ??? Stroke. ??? Chronic respiratory diseases. ??? Delayed wound healing and increased risk of complications during surgery. ??? Problems with reproduction, , and childbirth, such as infertility, early (premature) births, stillbirths, and defects. Secondhand smoke exposure to children increases the risk of: ??? Sudden syndrome (SIDS). ??? Infections in the nose, throat, or airways (respiratory infections). ??? Chronic respiratory symptoms. What actions can I take to quit? Smoking is an addiction that affects both your body and your mind, and long-time habits can be hardto change. Your health care provider can recommend: ??? Nicotine replacement products, such as patches, gum, and nasal sprays. Use these products only as directed. Do not replace cigarette smoking with electronic cigarettes, which are commonly called e-cigarettes. The safety of e- cigarettes is not known, and some may contain harmful chemicals. ??? Programs and community resources, which may include group support, education, or talk therapy. ??? Prescription medicines to help reduce cravings. ??? A combination of two or more quit methods, which will increase the success of quitting. Where to find support Follow the recommendations from your health care provider about support groups and other assistance. You can also visit: ??? [place] Quitline Consortium: www.SpeakGloballine.[employer] or call 5-388-GFWL-NOW. ??? U.S. Department of Health and Human Services: www.smokefree.gov ??? [place] Lung Association: www.freedomfromsmoking.org ??? [place] Heart Association: www.heart.org Where to find more information ??? Centers for Disease Control and Prevention: www.cdc.gov ??? World Health Organization: www.who.int Summary ??? Smoking tobacco is very bad for your health. Tobacco smoke contains many toxic chemicals that can damage every part of the body. ??? Smoking is difficult to quit because a chemical in tobacco, called nicotine, causes addiction or dependence. ??? There are immediate and long-term health benefits of quitting smoking. ??? A combination of two or more quit methods increases the success of quitting. This information is not intended to replace advice given to you by your health care provider. Make sure you discuss any questions you have with your health care provider. Document Revised: 11/30/2020 Document Reviewed: 11/30/2020 [employer] Patient Education ?? 2021 [employer] 09/06/2022 16:31:26 Steps to Quit Smoking, [id number] Steps to Quit Smoking Smoking tobacco is the leading cause of preventable . It can affect almost every organ in the body. Smoking puts you and people around you at risk for many serious, long-lasting (chronic) diseases. Quitting smoking can be hard, but it is one of the best things that you can do for your health. It is never too late to quit. How do I get ready to quit? When you decide to quit smoking, make a plan to help you succeed. Before you quit: ??? Pick a date to quit. Set a date within the next 2 weeks to give you time to prepare. ??? Write down the reasons why you are quitting. Keep this list in places where you will see it often. ??? Tell your family, friends, and co-workers that you are quitting. Their support is important. ??? Talk with your doctor about the choices that may help you quit. ??? Find out if your health insurance will pay for these treatments. ??? Know the people, places, things, and activities that make you want to smoke (triggers). Avoid them. What first steps can I take to quit smoking? Throw away all cigarettes at home, at work, and in your car. ??? Throw away the things that you use when you smoke, such as ashtrays and lighters. ??? Clean your car. Make sure to empty the ashtray. ??? Clean your home, including curtains and carpets. What can I do to help me quit smoking? Talk with your doctor about taking medicines and seeing a counselor at the same time. You are more likely to succeed when you do both. ??? If you are or , talk with your doctor about counseling or other ways to quit smoking. Do not take medicine to help you quit smoking unless your doctor tells you to do so. To quit smoking: Quit right away ??? Quit smoking totally, instead of slowly cutting back on how much you smoke over a period of time. ??? Go to counseling. You are more likely to quit if you go to counseling sessions regularly. Take medicine You may take medicines to help you quit. Some medicines need a prescription, and some you can buy [id number]. Some medicines may contain a drug called nicotine to replace the nicotine in cigarettes. Medicines may: ??? Help you to stop having the desire to smoke (cravings). ??? Help to stop the problems that come when you stop smoking (withdrawal symptoms). Your doctor may ask you to use: ??? Nicotine patches, gum, or lozenges. ??? Nicotine inhalers or sprays. ??? Non-nicotine medicine that is taken by mouth. Find resources Find resources and other ways to help you quit smoking and remain smoke-free after you quit. These resources are most helpful when you use them often. They include: ??? Online chats with a counselor. ??? Phone quitlines. ??? Printed self-help materials. ??? Support groups or group counseling. ??? Text messaging programs. ??? Mobile phone apps. Use apps on your mobile phone or tablet that can help you stick to your quitplan. There are many free apps for mobile phones and tablets as well as websites. Examples include Quit Guide from the CDC and smokefree.gov What things can I do to make it easier to quit? Talk to your family and friends. Ask them to support and encourage you. ??? Call a phone quitline (0-871-BWLINOW), reach out to support groups, or work with a counselor. ??? Ask people who smoke to not smoke around you. ??? Avoid places that make you want to smoke, such as: ??? Bars. ??? Parties. ??? Smoke-break areas at work. ??? Spend time with people who do not smoke. ??? Lower the stress in your life. Stress can make you want to smoke. Try these things to help yourstress: ??? Getting regular exercise. ??? Doing deep-breathing exercises. ??? Doing yoga. ??? Meditating. ??? Doing a body scan. To do this, close your eyes, focus on one area of your body at a time from head to toe. Notice which parts of your body are tense. Try to relax the muscles in those areas. How will I feel when I quit smoking? Day 1 to 3 weeks Within the first 24 hours, you may start to have some problems that come from quitting tobacco. These problems are very bad 2???3 days after you quit, but they do not often last for more than 2???3 weeks. You may get these symptoms: ??? Mood swings. ??? Feeling restless, nervous, angry, or annoyed. ??? Trouble concentrating. ??? Dizziness. ??? Strong desire for high-sugar foods and nicotine. ??? Weight gain. ??? Trouble pooping (constipation). ??? Feeling like you may vomit (nausea). ??? Coughing or a sore throat. ??? Changes in how the medicines that you take for other issues work in your body. ??? Depression. ??? Trouble sleeping (insomnia). Week 3 and afterward After the first 2???3 weeks of quitting, you may start to notice more positive results, such as: ??? Better sense of smell and taste. ??? Less coughing and sore throat. ??? Slower heart rate. ??? Lower blood pressure. ??? Clearer skin. ??? Better breathing. ??? Fewer sick days. Quitting smoking can be hard. Do not give up if you fail the first time. Some people need to try a few times before they succeed. Do your best to stick to your quit plan, and talk with your doctor ifyou have any questions or concerns. Summary ??? Smoking tobacco is the leading cause of preventable . Quitting smoking can be hard, but itis one of the best things that you can do for your health. ??? When you decide to quit smoking, make a plan to help you succeed. ??? Quit smoking right away, not slowly over a period of time. ??? When you start quitting, seek help from your doctor, family, or friends. This information is not intended to replace advice given to you by your health care provider. Make sure you discuss any questions you have with your health care provider. Document Revised: 07/10/2020 Document Reviewed: 01/04/2020 [employer] Patient Education ?? 2021 [employer]. 09/01/2022 12:13:14 Admission Education Packet (JASKARAN) [facility] Brochure [facility] Safety Awareness Program Information Sheet 09/01/2022 12:13:14 EKG Copy at discharge (JASKARAN) Copy of EKG given to patient. 09/01/2022 12:13:14 Chronic Obstructive Pulmonary Disease Exacerbation, [id number] Chronic Obstructive Pulmonary Disease Exacerbation Chronic obstructive pulmonary disease (COPD) is a long-term (chronic) lung problem. In COPD, the flow of air from the lungs is limited. COPD exacerbations are times that breathing gets worse and you need more than your normal treatment. Without treatment, they can be life-threatening. If they happen often, your lungs can become more damaged. What are the causes? Having infections that affect your airways and lungs. ??? Being exposed to: ??? Smoke. ??? Air pollution. ??? Chemical fumes. ??? Dust. ??? Things that can cause an allergic reaction (allergens). ??? Not taking your usual COPD medicines as told. ??? Having medical problems already, such as heart failure or infections not involving the lungs. In many cases, the cause is not known. What increases the risk? Smoking. ??? Being an older adult. ??? Having frequent prior COPD exacerbations. What are the signs or symptoms? Increased coughing. ??? Increased mucus from your lungs. ??? Increased wheezing. ??? Increased shortness of breath. ??? Fast breathing and finding it hard to breathe. ??? Chest tightness. ??? Less energy than usual. ??? Sleep disruption from symptoms. ??? Confusion. ??? Increased sleepiness. Often, these symptoms happen or get worse even with the use of medicines. How is this treated? Treatment for this condition depends on how bad it is and the cause of the symptoms. You may need to stay in the hospital for treatment. Treatment may include: ??? Taking medicines. ??? Using oxygen. ??? Being treated with different ways to clear your airway, such as using a mask to deliver oxygen. Follow these instructions at home: Medicines ??? Take [id number] and prescription medicines only as told by your doctor. ??? Use all inhaled medicines the correct way. ??? If you were prescribed an antibiotic or steroid medicine, take it as told by your doctor. Do not stop taking it even if you start to feel better. Lifestyle ??? Do not smoke or use any products that contain nicotine or tobacco. If you need help quitting, ask your doctor. ??? Eat healthy foods. ??? Exercise regularly. ??? Get enough sleep. Most adults need 7 or more hours per night. ??? Avoid tobacco smoke and other things that can bother your lungs. ??? Several times a day, wash your hands with soap and water for at least 20 seconds. If you cannotuse soap and water, use hand packing and final assembly supervisor. This may help keep you from getting an infection. ??? During flu season, avoid areas that are crowded with people. General instructions ??? Drink enough fluid to keep your pee (urine) pale yellow. Do not do this if your doctor has toldyou not to. ??? Use a cool mist machine (vaporizer). ??? If you use oxygen or a machine that turns medicine into a mist (nebulizer), continue to use it as told. ??? Keep all follow-up visits. How is this prevented? Keep up with shots (vaccinations) as told by your doctor. Be sure to get a yearly flu (influenza) shot. ??? If you smoke, quit smoking. Smoking makes the problem worse. ??? Follow all instructions for rehabilitation. These are steps you can take to make your body workbetter. ??? Work with your doctor to develop and follow an action plan. This tells you what steps to take when you experience certain symptoms. Contact a doctor if: ??? Your COPD symptoms get worse than normal. Get help right away if: ??? You are short of breath and it gets worse, even when you are resting. ??? You have trouble talking. ??? You have chest pain. ??? You cough up blood. ??? You have a fever. ??? You keep vomiting. ??? You feel weak or you pass out (faint). ??? You feel confused. ??? You are not able to sleep because of your symptoms. ??? You have trouble doing daily activities. These symptoms may be an emergency. Get help right away. Call your local emergency services (911 int [place] ??? Do not wait to see if the symptoms will go away. ??? Do not drive yourself to the hospital. Summary ??? COPD exacerbations are times that breathing gets worse and you need more treatment than normal. ??? COPD exacerbations can be very serious and may cause your lungs to become more damaged. ??? Do not smoke. If you need help quitting, ask your doctor. ??? Stay up to date on your shots. Get a flu shot every year. This information is not intended to replace advice given to you by your health care provider. Make sure you discuss any questions you have with your health care provider. Document Revised: 09/08/2021 Document Reviewed: 08/24/2021 [employer] Patient Education ?? 2021 [employer]. Follow Up Care 09/01/2022 09:21:13 With:CT chest Address: When:10 to 12 days Comments:Outpatient CT chest in 2 weeks (I put in order) With:Avila Gomez MD Address: [address] [place] [address]- When:1 to 2 weeks With:Pulmonology Address: When:1 month Discharge summary * Robinson Vasquez MD: PERFORM Event Display: Discharge Summary Authored Date: [id number] ALINSAYDA Reynolds :1955 Age:67 years Sex:Female Visit Date:09/01/2022 Primary Care Physician: Avila Gomez MD Hospital Course This is a 67-year-old female??who presents as an admission from the emergency department for concerns of COPD exacerbation.?? Patient has a history of O2 dependent COPD, typically maintained on 2 L at night??and as needed for daytime dyspnea.?? Patient noted??increasing shortness of breath, cough and congestion starting Monday of this week.?? She had to wear her??oxygen at 2 L flow continuous throughout the day on Monday.?? By Monday, she had to increase her oxygen to 3 L flow continuous dueto worsening dyspnea, and patient woke up this morning with??worsening shortness of breath, having to turn her supplemental oxygen up to 4 L flow??to help with persistent dyspnea.?? Her respiratory sy mptoms have been associated with increasing??congested cough, occasionally productive with dark thick sputum. ??She denies any fever or chills. ??She denies any chest pain. ??She denies any increase in peripheral edema, orthopnea or PND. ??She denies any acute abdominal complaints other than??decrease in urine output over the course of the last??week or so.?? Patient can identify no aggravatingor relieving factors behind her symptoms, other than shortness of breath continues to worsen despite??treatment at home to date. ?? Patient presented to emergency department with oxygen saturation as low as 82% on room air.?? She was ultimately??placed on 4 L flow??by nasal cannula.?? Screening labs were benign??other than magnesium of 1.4.?? ABG revealed pH 7.38, PCO2 46, PO2 88,??bicarb 27.2 oxygen saturation 97% on 40% FiO2.?? Influenza and COVID-19 swabs were negative. ??Portable chest x-ray reveals??no acute cardiopulmonary process.?? Patient was placed on IV fluids in emergency department, given dose of IV Rocephin, hydrocodone 10 mg strength, single DuoNeb, and Solu-Medrol??125 mg IV.?? Emergency department provider requested IMS admission for concerns of COPD exacerbation ?? Patient was admitted to [facility] on September 01. ??She was placed on??IV Levaquin,??IV Solu-Medrol,??inhaled corticosteroid, scheduled bronchodilator. ??Patient required??scheduled doses of several different antitussives to control cough.?? She was continued on home medication regimen, including her??her??home dose of oxycodone 10 mg strength up to every 4 hours as needed for pain.?? She was??continued on??diazepam 2.5 mg??twice daily to help with anxiety.?? Chest x- ray revealed no focal pulmonary consolidation.?? Work-up for acute pulmonary infection included??bio [facility] respiratory panel,returning positive for RSV.?? Sputum culture??returned with no pathologic growth.?? With no evidence of invasive Pseudomonas??lower respiratory tract infection,??Levaquin was discontinued and patient??changed to IV Rocephin with IV azithromycin. ?? Respiratory symptoms??slowly improved over the next several days. ??Supplemental oxygen needs improved.?? Patient remains afebrile with benign chemistries.?? Walk oximetry??September 06 revealed??patient does reasonably well on 1 L supplemental oxygen at rest, 2 L supplemental oxygen with exertion. ?? Patient is comfortable returning home on September 06, 2022.?? Patient specifically requests refills of Robaxin and diazepam??at discharge until she can see her PCP??within the next month.?? To this extent, prescription for Robaxin 750 mg 1 p.o. 3 times daily number 90 tablets no refills,??diazepam 5mg strength 1/2 tablet twice daily number 30 tablets no refills written.?? Patient will continue cefdinir??300 mg twice daily for 6 days, azithromycin 250 mg daily for??6 days, prednisone taper??at 20 mg twice daily for 3 days then 10 mg twice daily for 3 days then 10 mg every morning x4 days.?? She may continue Tessalon 200 mg??4 times daily??scheduled for the next 10 days, with Tussionex 5 mL up to every 12 hours as needed for refractory cough number 4 ounces no refills.?? She will continue nystatin 5 mL swish and swallow??4 times daily for 10 days, continue probiotic of choice for the next10 days.?? Resume other home medication as prior to admission.?? Continue home oxygen 1 L flow at rest, 2 L with exertion.?? 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 I did agree to enter this order in EMR as outpatient??radiologic procedure.?? Follow-up primary care provider within the next week. ??Follow-up outpatient pulmonology within the next 2 to 4 weeks. Physical Exam Vitals & Measurements T:??36.4?C ??(Oral)?? TMIN:??36.4?C ??(Oral)?? TMAX:??36.5?C ??(Oral)?? HR:??77??(Peripheral)?? RR:??20?? BP:??139/75?? SpO2:??92%?? O2 Flow Rate:??1?? O2 Therapy:??Nasal cannula?? General: Alert and oriented, well nourished,??Noacute distress?? Eye:??PERRL, EOMI,??Normalconjunctiva?? HENT: Normocephalic,??Normalhearing, moist oral mucosa,Noscleral icterus,Nosinus tenderness?? Neck: Supple, non-tender,Nocarotid bruits,No?? JVD,Nolymphadenopathy?? Lungs: Mild residual bronchial congestion, much improved from admission. ??Resolved expiratory wheeze,Non-laboredrespiration?? Heart:Normalrate,Regularrhythm,Nomurmur,Nogallop,Noedema?? Abdomen: Soft, non-tender, non-distended,Normal??bowel sounds,Nomasses Musculoskeletal:Normalrange of motion and strength,Notenderness,Noswelling?? Skin: Skin is warm, dry and pink,Norashes,Nolesions?? Neurologic: Awake, alert and oriented X4, CN II-XII intact,Noacute focal neurologic deficit?? Psychiatric: Cooperative, appropriate mood and affect Medications Inpatient !-DuoNeb, 3 mL, NEB, QID !-Robitussin DM, 10 mL, Oral, QID, PRN !-Rocephin !-Tessalon, 200 mg= 2 cap(s), Oral, QID, PRN acetaminophen-oxycodone 325 mg-10 mg oral tablet, 1 tab(s), Oral, q4hr (interval), PRN albuterol 0.083% inhalation solution, 2.5 mg= 3 mL, NEB, q2hr (interval), PRN albuterol 90 mcg/inh inhalation aerosol, 180 mcg= 2 puff(s), INH, q4hr (interval), PRN Belsomra 20 mg oral tablet, 1 tab, Oral, Once a day (at bedtime) diazePAM, 2.5 mg= 0.5 tab(s), Oral, BID dilTIAZem, 120 mg= 1 cap(s), Oral, Daily docusate, 100 mg= 1 cap(s), Oral, BID, PRN heparin, 5000 unit(s)= 1 mL, Subcutaneous, q12hr (scheduled) magnesium oxide, 400 mg, Oral, HS methocarbamol, 750 mg= 1.5 tab(s), Oral, TID MiraLax, 17 gm= 1 packet(s), Oral, Daily Mucinex, 600 mg= 1 tab(s), Oral, BID nystatin 100,000 units/mL oral susp., [id number] unit(s)= 5 mL, Oral, QID pantoprazole, 40 mg= 1 tab(s), Oral, Daily patient specific respiratory, 1 EA, N/A, As Directed, PRN pregabalin, 150 mg= 3 cap(s), Oral, TID refrigerated med, 1 EA, N/A, As Directed, PRN refrigerated med, 1 EA, N/A, As Directed, PRN SOLU-Medrol, 40 mg= 1 mL, IV Push, q8hr (interval) traZODone, 100 mg= 2 tab(s), Oral, Once a day (at bedtime) Trelegy Ellipta 100 mcg-62.5 mcg-25 mcg/inh inhalation powder, 1 puff, INH, Daily Tussionex, 5 mL, Oral, q12hr (scheduled) Tylenol, 650 mg= 2 tab(s), Oral, q4hr (interval), PRN Zithromax + Sodium Chloride 0.9% 250 mL Zofran, 4 mg= 2 mL, IV Push, q6hr (interval), PRN Home !-Zofran ODT 4 mg oral tablet, disintegrating, 4 mg= 1 tab(s), Oral, q8hr (scheduled), PRN acetaminophen-oxycodone 325 mg-10 mg oral tablet, 1 tab(s), Oral, q4hr (interval), PRN albuterol 0.083% inhalation solution, 2.5 mg, NEB, q6hr (scheduled), PRN, 1 refills albuterol 90 mcg/inh inhalation aerosol, 2 puff(s), INH, q4hr (interval), PRN azithromycin 250 mg oral tablet, 250 mg= 1 tab(s), Oral, Daily Belsomra 20 mg oral tablet, 20 mg= 1 tab(s), Oral, Once a day (at bedtime) benzonatate 200 mg oral capsule, 200 mg= 1 cap(s), Oral, QID, PRN cefdinir 300 mg oral capsule, 300 mg= 1 cap(s), Oral, q12hr (scheduled) chlorpheniramine-hydrocodone 8 mg-10 mg/5 mL oral suspension, extended release, 5 mL, Oral, q12hr (interval), PRN Dexilant 60 mg oral delayed release capsule, 60 mg= 1 cap(s), Daily diazePAM 5 mg oral tablet, 2.5 mg= 0.5 tab(s), Oral, BID, PRN DilTIAZem (Eqv-Cardizem CD) 120 mg/24 hours oral capsule, extended release, 120 mg= 1 cap(s), Oral,Daily docusate sodium 100 mg oral capsule, 100 mg= 1 cap(s), Oral, BID, PRN Florastor 250 mg oral capsule, 250 mg= 1 cap(s), Oral, BID magnesium oxide 400 mg oral tablet, 400 mg= 1 tab(s), Oral, HS methocarbamol 750 mg oral tablet, 750 mg= 1 tab(s), Oral, TID MiraLax, 17 gm= 1 packet(s), Oral, Daily nystatin 100,000 units/mL oral suspension, 599459 unit(s)= 5 mL, Oral, QID predniSONE 20 mg oral tablet, 20 mg= 1 tab(s), Oral, BID pregabalin 150 mg oral capsule, 150 mg= 1 cap(s), Oral, TID traZODone 100 mg oral tablet, 100 mg= 1 tab(s), Oral, Once a day (at bedtime) Trelegy Ellipta 100 mcg-62.5 mcg-25 mcg/inh inhalation powder, 1 puff(s), INH, Daily Procedure/Surgical History ???Bladder tract???Foot???Gallbladder absent???Hysterectomy???Neck???Shoulder???Tonsillectomy Social History Alcohol Current, Liquor, Daily Electronic Cigarette/Vaping Electronic Cigarette Use: Never. 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 Nutrition/Health Caffeine intake amount: 6-8 12 oz of coffee daily,UnSweet tea a lot daily, sodas occasiona. Substance Abuse Never Tobacco Former tobacco user Tobacco Use:. 1 PPD per day. 40 year(s). Never Smokeless Tobacco Use:.- Comments: currently smoking 5-6 per day 09/01/22 Lab Results Last 24 Hours?? Chemistry ? Event Name?? Event Result?? Date/Time?? Sodium Level 137 mEq/L 09/06/22 08:22:00 Potassium Level 4.2 mmol/L 09/06/22 08:22:00 Chloride Level 98 mmol/L 09/06/22 08:22:00 CO2 34.8 mmol/L??High 09/06/22 08:22:00 Anion Gap 8 09/06/22 08:22:00 Glucose Level 152 mg/dL??High 09/06/22 08:22:00 BUN 21 mg/dL??High 09/06/22 08:22:00 Creatinine Level 0.8 mg/dL 09/06/22 08:22:00 GFR AA 83 mL/min/1.73 09/06/22 08:22:00 GFR Non AA 69 mL/min/1.73 09/06/22 08:22:00 Calcium Level 8.5 mg/dL 09/06/22 08:22:00 Magnesium 2.5??High 09/06/22 08:22:00 Bili Total 0.39 mg/dL 09/06/22 08:22:00 Alk Phos 52 IU/L 09/06/22 08:22:00 AST/SGOT no reagent 09/06/22 08:22:00 ALT/SGPT 38 IU/L 09/06/22 08:22:00 Protein Total 6.7 g/dL 09/06/22 08:22:00 Albumin Level 3.4 mg/dL 09/06/22 08:22:00 Corinna. Calcium 9 mg/dL 09/06/22 08:22:00 Procalcitonin 0.3 ng/mL 09/06/22 08:22:00 CRP 0.25 mg/dL 09/06/22 08:22:00 ? Hematology ? Event Name?? Event Result?? Date/Time?? WBC 7 x10^3/mcL 09/06/22 08:22:00 RBC 4.52 x10^6/mcL 09/06/22 08:22:00 Hgb 14.1 g/dL 09/06/22 08:22:00 Hct 44.7 % 09/06/22 08:22:00 MCV 99 09/06/22 08:22:00 MCH 31.2 pg 09/06/22 08:22:00 MCHC 31.5 g/dL 09/06/22 08:22:00 RDW/CV 13.2 % 09/06/22 08:22:00 Platelet 143 x10^3/mcL??Low 09/06/22 08:22:00 MPV 10.3 fL 09/06/22 08:22:00 Auto Lymph % 15.8 % 11/08/22 08:22:00 Auto Neut % 69.8 % 09/06/22 08:22:00 Auto Dolores % 8.5 % 09/06/22 08:22:00 Auto Eos % 0.1 % 09/06/22 08:22:00 Auto Baso % 0.4 % 09/06/22 08:22:00 Auto IG % 5.4 %??High 09/06/22 08:22:00 Lymph Abs# 1.11 K/uL 09/06/22 08:22:00 Neut Abs# 4.9 K/uL 09/06/22 08:22:00 Dolores Abs# 0.6 K/uL 09/06/22 08:22:00 Eos Abs# 0.01 K/uL 09/06/22 08:22:00 Baso Abs# 0.03 K/uL 09/06/22 08:22:00 IG Auto 0.38 K/uL 09/06/22 08:22:00 NRBC Abs # 0 K/uL 09/06/22 08:22:00 ? Diagnostic Results X-Ray: ?? XR Chest 1 View Portable ?? 09/01/22 10:25:53 XR Chest 1 View Portable ?? HISTORY: Shortness of Breath ?? Study: Single view of the chest. ?? Comparison:None ?? Findings: ?? The cardiomediastinal silhouette is normal.No focal consolidations, pleural effusions or pneumothorax. Osseous structures demonstrate no acute abnormality. ?? IMPRESSION: ?? 1. No acute cardiopulmonary process. ? Electronically signed by: ?? Signed By: Anne Rueda MD Computed Tomography:?? Ultrasound:?? MRI:?? Echo:?? Nuclear Medicine:?? Mammography:? Discharge Plan Discharge home on September 06, 2022 AECOPD -Likely secondary to??acute bronchitis -Portable chest x-ray on September 01 reveals no acute cardiopulmonary process -CRP 8.46->2.32->0.25 -Procalcitonin 0.25->6.54->0.30 -Sputum culture requested 09/01 (gram stain comments on 1+ GPC, 3+ WBC), small amount mixed aaliyah with??no pathogen recovered to date -[employer] resp swab requested 09/01, RSV positive -Influenza swab negative 09/01 -COVID-19 swab negative 09/01 -Patient given dose of??IV Rocephin in emergency department.?? 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 With no evidence of invasive Pseudomonas infection identified to date, will discontinue Levaquin on??September 03,??continue treatment with??empiric ceftriaxone and azithromycin -Solu-Medrol 40 mg IV every 8 hours, increased to 60 mg IV every 8 hours on??September 02 -Schedule bronchodilator -Patient request to??continue Trelegy Ellipta 100/62.5/25 mcg 1 puff daily -Patient request to have albuterol MDI at bedside, continue 2 puffs up to every 4 hours as needed??as rescue inhaler -Antitussive as needed -Supplemental oxygen as needed -Patient is comfortable returning home on September 06, 2022.?? Patient specifically requests refillsof Robaxin and diazepam??at discharge until she can see her PCP??within the next month.?? To this extent, prescription for Robaxin 750 mg 1 p.o. 3 times daily number 90 tablets no refills,??diazepam 5 mg strength 1/2 tablet twice daily number 30 tablets no refills written.?? Patient will continue cefdinir??300 mg twice daily for 6 days, azithromycin 250 mg daily for??6 days, prednisone taper??at 20 mg twice daily for 3 days then 10 mg twice daily for 3 days then 10 mg every morning x4 days.?? She may continue Tessalon 200 mg??4 times daily??scheduled for the next 10 days, with Tussionex 5 mL up to every 12 hours as needed for refractory cough number 4 ounces no refills.?? She will continue nystatin 5 mL swish and swallow??4 times daily for 10 days, continue probiotic of choice for the next 10 days.?? Resume other home medication as prior to admission.?? Continue home oxygen 1 L flow at rest, 2 L with exertion.?? 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 I did agree to enter this order in EMR as outpatient??radiologic procedure.?? Follow-up primary care provider within the next week. ??Follow-up outpatient pulmonology within the next 2 to 4 weeks. ?? Acute on chronic hypoxia -Chronically maintained on 2 L flow at night and as needed for daytime dyspnea. ??Admitted on 4 L flow BNC -On 2 liter BNC continuous 09/04 -Admission ABG on September 01 reveals pH 7.38 PCO2 46 PO2 88,??bicarb 27.2 oxygen saturation 97% on 40% FiO2 -Treatment above -Supplemental oxygen as needed -Walk oximetry prior to discharge ?? Hypomagnesemia -Magnesium 1.4, 1.8, 1.8, 2.1, 2.5 -Replace and trend ?? Mild thrombocytopenia -Platelet 137, 141, 144, 141, 143 -Trend ?? Mild elevation liver function test -Total bilirubin 0.73, 0.38, 0.39, 0.34, 0.39 -AST 107, no reagent, 20, 17, no reagent -ALT 77, 50, 18, 29, 38 -Trend ?? Chronic pain syndrome (chronic neck pain) -Patient reports that she is scheduled for cervical spine surgery in the upcoming months -Continue oxycodone 10 mg strength up to every 4 hours as needed for pain -Continue Robaxin-750 milligrams 3 times daily, hold for excess sedation -Continue Lyrica 150 mg 3 times daily, hold for excess sedation ?? GERD -Substitute Protonix 40 mg daily for home medication??dexlansoprazole??60 mg daily ?? Mood disorder -Continue Valium 2.5 mg twice daily (on 2mg BID at home), hold for excess sedation ?? Essential hypertension -Continue diltiazem ER 120 mg daily ?? Chronic insomnia -Continue trazodone 100 mg daily at bedtime -Patient request-to continue Belsomra 20 mg daily at bedtime,??may use home supply ?? Chronic constipation -Continue MiraLAX 17 g daily -Continue Colace 100 mg up to twice daily as needed ?? All Diagnoses This Visit COPD exacerbation Patient Discharge Condition Stable Discharge Disposition Follow-up primary care provider within the next week. ??Home oxygen with portable tank, 1 L at rest, 2 L with exertion. ??Follow-up outpatient pulmonology within the next month Patient Education Smoking Tobacco Information, Adult Health Risks of Smoking Steps to Quit Smoking, [id number] Admission Education Packet (JASKARAN) EKG Copy at discharge (JASKARAN) Chronic Obstructive Pulmonary Disease Exacerbation, [id number] Follow Up With When Contact Information CT chest Within 10 to 12 days Additional Instructions: Outpatient CT chest in 2 weeks (I put in order) Aivla Gomez MD Within 1 to 2 weeks [address] [place] [id number] Additional Instructions: Pulmonology Within 1 month Additional Instructions: Medication Reconciliation New Prescription azithromycin (azithromycin 250 mg oral tablet)1 tab(s) Oral Daily for 6 Days. Refills: 0. ?? benzonatate (benzonatate 200 mg oral capsule)1 cap Oral 4 times a day as needed as needed for coughfor 10 Days. Refills: 0. ?? cefdinir (cefdinir 300 mg oral capsule)1 cap Oral Every 12 hours for 6 Days. Refills: 0. ?? chlorpheniramine-hydrocodone (chlorpheniramine-hydrocodone 8 mg-10 mg/5 mL oral suspension, extended release)5 Milliliter Oral every 12 hours as needed for cough for 10 Days. Refills: 0. ?? nystatin (nystatin 100,000 units/mL oral suspension)5 Milliliter Oral 4 times a day for 10 Days. Refills: 0. ?? predniSONE (predniSONE 20 mg oral tablet)1 tab(s) Oral 2 times a day for 10 Days. 1 tab (20mg) BID x 3 days, then 1/2 tab (10mg) BID x 3 days, then 1/2 tab (10mg) qAM x 4 days. Refills: 0. ?? saccharomyces boulardii lyo (Florastor 250 mg oral capsule)1 cap Oral 2 times a day for 10 Days. Refills: 0. ?? Changed albuterol (albuterol 0.083% inhalation solution)2.5 Milligram Nebulized inhalation Every 6 hours asneeded as needed for wheezing for 30 Days. J44.9. Refills: 1. ?? albuterol (albuterol 90 mcg/inh inhalation aerosol)2 puff(s) Inhalation every 4 hours as needed forwheezing. Refills: 0. ?? diazePAM (diazePAM 5 mg oral tablet)0.5 tab(s) Oral 2 times a day as needed anxiety for 30 Days. Refills: 0. ?? magnesium oxide (magnesium oxide 400 mg oral tablet)1 tab(s) Oral At bedtime. ?? methocarbamol (methocarbamol 750 mg oral tablet)1 tab(s) Oral 3 times a day for 30 Days. TAKE 1 TABLET BY MOUTH THREE TIMES DAILY. Refills: 0. ?? Unchanged acetaminophen-oxycodone (acetaminophen-oxycodone 325 mg-10 mg oral tablet)1 tab(s) Oral every 4 hours as needed Pain - Severe. TAKE 1 TABLET BY MOUTH EVERY 4 HOURS NEEDED FOR PAIN. ?? dexlansoprazole (Dexilant 60 mg oral delayed release capsule)1 cap Daily. ?? dilTIAZem (DilTIAZem (Eqv-Cardizem CD) 120 mg/24 hours oral capsule, extended release)1 cap Oral Daily. ?? docusate (docusate sodium 100 mg oral capsule)1 cap Oral 2 times a day as needed constipation. ?? fluticasone/umeclidinium/vilanterol (Trelegy Ellipta 100 mcg-62.5 mcg-25 mcg/inh inhalation powder)1 puff(s) Inhalation Daily. ?? ondansetron (!-Zofran ODT 4 mg oral tablet, disintegrating)1 tab(s) Oral Every 8 hours as needed asneeded for nausea/vomiting. Refills: 0. ?? polyethylene glycol 3350 (MiraLax)17 gram Oral Daily. UGH. ?? pregabalin (pregabalin 150 mg oral capsule)1 cap Oral 3 times a day. ?? suvorexant (Belsomra 20 mg oral tablet)1 tab(s) Oral once a day (at bedtime). ?? traZODone (traZODone 100 mg oral tablet)1 tab(s) Oral once a day (at bedtime). ?? Discontinued estradiol (Depo-Estradiol 5 mg/mL intramuscular solution)5 Milligram Intramuscular every 4 weeks. INJECT 1ML (5mg) INTRAMUSCULARLY ONCE EVERY 28 DAYS DIRECTED. ?? guaiFENesin (Mucinex)600 Milligram Oral 2 times a day as needed congestion for 7 Days. UGH. [Electronically Signed by: 09/06/2022 15:52 EST] Robinson Vasquez MD, MD [Verified on: 09/06/2022 15:52 EST] Robinson Vasquez MD, MD Discharge instructions * Event Display: Discharge Instructions Authored Date: [id number] architect manager Note * Madalyn Verdin: PERFORM Event Display: Case Management Note Authored Date: [id number] * Madalyn Verdin: PERFORM Event Display: Case Management Note Authored Date: [id number] * Madalyn Verdin: PERFORM Event Display: Case Management Note Authored Date: [id number] Physician Emergency department Note * Dwight Delgadillo MD: PERFORM Event Display: ED Note - Physician Authored Date: [id number] SAYDA OGDEN :1955 Age:67 years Sex:Female Visit Date:09/01/2022 Primary Care Physician: Avila Gomez MD Basic Information Time Seen: Dwight Delgadillo MD / 09/01/2022 09:55 Chief Complaint Pt c/o sore throat, cough, chest congestion, and shortness of breath since 08/29. Pt saw PCP and was given Zithromax History Of Present Illness: Cough congestion Dyspnea getting worse; VACCINATED uses home O2 Review of Systems: Constitutional: [No fevers, chills, sweats] Eye: [No recent visual problems] ENT: [No ear pain, nasal congestion, sore throat] Respiratory: [No shortness of breath, cough] COPD Cardiovascular: [No Chest pain, palpitations, syncope] Gastrointestinal: [No nausea, vomiting, diarrhea] Genitourinary: [No hematuria] Elder/Lymph: [Negative for bruising tendency, swollen lymph glands] Endocrine: [Negative for excessive thirst, excessive hunger]?? Lymphoma;; bone marrow transplant 2013 Musculoskeletal: [No back pain, neck pain, joint pain, muscle pain, decreased range of motion] Integumentary: [No rash, pruritus, abrasions] Neurologic: [Alert & oriented X 4] Psychiatric: [No anxiety, depression] Physical Exam Vitals & Measurements T:??36.7?C ??(Oral)?? HR:??100??(Peripheral)?? HR:??100??(Monitored)?? RR:??18?? BP:??118/100??SpO2:??92%?? HT:??165.100??cm?? WT:??80.290??kg?? BMI:??29.460?? O2 Flow Rate:??92?? O2 Therapy:??Nasal cannula?? General: Alert and oriented, well nourished, no acute distress._ Eye: PERRL, EOMI, normal conjunctiva._ HEENT: Normocephalic, clear tympanic membranes, normal hearing, moist oral mucosa, no scleral icterus, no sinus tenderness._ Neck: Supple, non-tender, no carotid bruits, no JVD, no lymphadenopathy._ Lungs: expiratory wheezing; rhonchi, non-labored respiration._ Heart: Normal rate, regular rhythm, no murmur, gallop or edema._ Genitourinary: No CVA tenderness, Abdomen: Soft, non-tender, non-distended, normal bowel sounds, no masses._ Musculoskeletal: Normal range of motion and strength, no tenderness or swelling._ Skin: Skin is warm, dry and pink, no rashes or lesions._ Neurologic: Awake, alert and oriented X4, CN II-XII intact._ Psychiatric: Cooperative, appropriate mood and affect._ Assessment/Plan 1.??COPD exacerbation??J44.1 Ordered: Decision to Admit, 09/01/22 13:06:00 EDT, Med/Surg, AEBACILIO, Reuben Lai MD, Observation ?? Orders: Sodium Chloride 0.9% 1,000 mL, 1,000, mL, IV, STAT, Start date 09/01/22 10:10:00 EDT, 999 mL/hr, 1,hr, Total volume (mL): 1,000, 80.29 kg, 1.92, m2, 09/01/22 10:10:00 EDT Diet Order, 09/01/22 12:30:00 EDT, Regular, Constant Indicator Midline Catheter Insert, 09/01/22 11:00:00 EDT, Once Review with Dr Lai?? admit med surg obs Medication Reconciliation Unchanged acetaminophen-oxycodone (acetaminophen-oxycodone 325 mg-10 mg oral tablet)1 tab(s) Oral every 4 hours as needed Pain - Severe. TAKE 1 TABLET BY MOUTH EVERY 4 HOURS NEEDED FOR PAIN. ?? albuterol (albuterol 90 mcg/inh inhalation aerosol)2 puff(s) Inhalation every 4 hours as needed forwheezing. Refills: 0. ?? dexlansoprazole (Dexilant 60 mg oral delayed release capsule)1 cap Daily. ?? diazePAM (diazePAM 2 mg oral tablet)1 tab(s) Oral 2 times a day. ?? dilTIAZem (DilTIAZem (Eqv-Cardizem CD) 120 mg/24 hours oral capsule, extended release)1 cap Oral Daily. ?? docusate (docusate sodium 100 mg oral capsule)1 cap Oral 2 times a day as needed constipation. ?? estradiol (Depo-Estradiol 5 mg/mL intramuscular solution)INJECT 1ML (5mg) INTRAMUSCULARLY ONCE EVERY 28 DAYS DIRECTED. ?? fluticasone/umeclidinium/vilanterol (Trelegy Ellipta 100 mcg-62.5 mcg-25 mcg/inh inhalation powder)INHALE 1 PUFF ONCE DAILY. ?? guaiFENesin (Mucinex)600 Milligram Oral 2 times a day for 7 Days. UGH. ?? magnesium oxide (magnesium oxide 400 mg oral tablet)400 Milligram Oral 2 times a day for 30 Days. UGH. Refills: 0. ?? methocarbamol (methocarbamol 750 mg oral tablet)1 tab(s). TAKE 1 TABLET BY MOUTH THREE TIMES DAILY. ?? ondansetron (!-Zofran ODT 4 mg oral tablet, disintegrating)1 tab(s) Oral Every 8 hours as needed asneeded for nausea/vomiting. Refills: 0. ?? polyethylene glycol 3350 (MiraLax)17 gram Oral Daily. UGH. ?? pregabalin (pregabalin 150 mg oral capsule)TAKE 1 CAPSULE BY MOUTH THREE TIMES DAILY. ?? suvorexant (Belsomra 20 mg oral tablet)TAKE 1 TABLET BY MOUTH AT BEDTIME. ?? traZODone (traZODone 100 mg oral tablet)1 tab(s) Oral once a day (at bedtime). TAKE 2 & 1/2 (TWO & ONE-HALF) TABLETS BY MOUTH ONCE DAILY AT NIGHT. Problem List/Past Medical History Ongoing Arthritis Bone marrow transplant status Cervical spine disease Chest wall pain COPD (chronic obstructive pulmonary disease) COPD exacerbation Dehydration Diarrhea Dysphonia Frequent UTI Herpes History of kidney stones IBS (irritable bowel syndrome) Kidney cysts Nausea and vomiting Non Hodgkin's lymphoma Urinary retention Historical No qualifying data Procedure/Surgical History ???Bladder tract???Foot???Gallbladder absent???Hysterectomy???Neck???Shoulder???Tonsillectomy Medication Administration Given Sodium Chloride 0.9%, 1000 mL, IV !-DuoNeb, 3 mL, NEB !-Rocephin, IV Piggyback Lortab 10/325 mg, 1 tab(s), Oral SOLU-Medrol, 125 mg, IV Push Allergies NSAIDs??(Bleeding) Macrobid sulfa drug Nalbuphine Hydrochloride codeine Social History Alcohol Current, Liquor, Daily Electronic Cigarette/Vaping Electronic Cigarette Use: Never. 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 Nutrition/Health Caffeine intake amount: 6-8 12 oz of coffee daily,UnSweet tea a lot daily, sodas occasiona. Tobacco Former tobacco user Tobacco Use:. Family History COPD - Chronic obstructive pulmonary disease: Father. Heart disease: Mother. Family Member(s): ?? MOTHER, at age: 80 Years. Cause of : Heart disease Family Member(s): ?? FATHER, at age: 81 Years. Cause of : COPD Diagnostic Results XR Chest 1 View Portable 09/01/2022 10:27 EDT XR Chest 1 View Portable ?? 09/01/22 10:25:53 XR Chest 1 View Portable ?? HISTORY: Shortness of Breath ?? Study: Single view of the chest. ?? Comparison:None ?? Findings: ?? The cardiomediastinal silhouette is normal.No focal consolidations, pleural effusions or pneumothorax. Osseous structures demonstrate no acute abnormality. ?? IMPRESSION: ?? 1. No acute cardiopulmonary process. ? Electronically signed by: ?? Signed By: Anne Rueda MD ECG EKG?? 1010 Rhythm: [Normal] Rate: [109_] [place]: [Normal] [place]: [Normal] Lab Results COVID-19 Testing?? LATEST RESULTS?? HISTORICAL RESULTS?? SARS-CoV-2 (COVID-19) RNA (ID Now)?? 09/01/22 09:29?? Negative?? 04/19/22?? Negative?? Employed in healthcare??? 09/01/22 09:29?? No?? 04/19/22?? No?? Symptomatic as defined by CDC??? 09/01/22 09:29?? Yes?? 04/19/22?? Unknown?? Date of onset (Lab)?? 09/01/22 09:29?? 08/31/22?? 04/19/22?? 04/18/22?? Hospitalized due to COVID-19??? 09/01/22 09:29?? Unknown?? 04/19/22?? No?? In ICU??? 09/01/22 09:29?? No?? 04/19/22?? No?? Group care resident??? 09/01/22 09:29?? No?? 04/19/22?? No?? status??? 09/01/22 09:29?? Not ?? 04/19/22?? Not ? Routine Chemistry?? LATEST RESULTS?? HISTORICAL RESULTS?? Sodium Level?? 09/01/22 09:44?? 136?? 04/21/22?? 137?? Potassium Level?? 09/01/22 09:44?? 4.5?? 04/21/22?? 4.7?? Chloride Level?? 09/01/22 09:44?? 99?? 04/21/22?? 102?? CO2?? 09/01/22 09:44?? 27.5?? 04/21/22?? 27.9?? Anion Gap?? 09/01/22 09:44?? 14?? 04/21/22?? 12?? Glucose Level?? 09/01/22 09:44?? 118 ??High?? 04/21/22?? 150 ??High?? BUN?? 09/01/22 09:44?? 14?? 04/21/22?? 22 ??High?? Creatinine Level?? 09/01/22 09:44?? 0.8?? 04/21/22?? 1.1 ??High?? GFR AA?? 09/01/22 09:44?? 83?? 04/21/22?? 63?? GFR Non AA?? 09/01/22 09:44?? 69?? 04/21/22?? 52 ??Low?? Calcium Level?? 09/01/22 09:44?? 8.9?? 04/21/22?? 9.1?? Magnesium?? 09/01/22 09:44?? 1.4 ??Low?? 04/21/22?? 1.5 ??Low?? Bili Total?? 09/01/22 09:44?? 0.73?? 04/21/22?? 0.37?? Alk Phos?? 09/01/22 09:44?? 85?? 04/21/22?? 43?? AST/SGOT?? 09/01/22 09:44?? 107 ??High?? 04/21/22?? 8 ??Low?? ALT/SGPT?? 09/01/22 09:44?? 77?? 04/21/22?? 23?? Protein Total?? 09/01/22 09:44?? 7.5?? 04/21/22?? 6.5?? Albumin Level?? 09/01/22 09:44?? 3.8?? 04/21/22?? 3.2 ??Low?? Lactic Acid?? 09/01/22 10:25?? 0.7?? 04/15/22?? 1.4?? Corinna. Calcium?? 09/01/22 09:44?? 9.1?? 04/21/22?? 9.7? Cardiac Isoenzymes?? LATEST RESULTS?? HISTORICAL RESULTS?? Troponin-I?? 09/01/22 09:44?? 7.50?? 04/19/22?? 10.60?? NT Pro-BNP?? 09/01/22 09:44?? 221 ??High?? 04/19/22?? 219 ??High? Other Chemistry?? LATEST RESULTS?? HISTORICAL RESULTS?? CRP?? 09/01/22 09:44?? 8.46 ??High?? 03/26/22?? 3.18 ??High? CBC?? LATEST RESULTS?? HISTORICAL RESULTS?? WBC?? 09/01/22 10:25?? 7.9?? 04/21/22?? 8.8?? RBC?? 09/01/22 10:25?? 4.01?? 04/21/22?? 3.54 ??Low?? Hgb?? 09/01/22 10:25?? 12.7?? 04/21/22?? 11.3 ??Low?? Hct?? 09/01/22 10:25?? 39.6?? 04/21/22?? 36.5?? MCV?? 09/01/22 10:25?? 99?? 04/21/22?? 103 ??High?? MCH?? 09/01/22 10:25?? 31.7?? 04/21/22?? 31.9?? MCHC?? 09/01/22 10:25?? 32.1?? 04/21/22?? 31.0?? RDW/CV?? 09/01/22 10:25?? 13.8?? 04/21/22?? 14.9 ??High?? Platelet?? 09/01/22 10:25?? 137 ??Low?? 04/21/22?? 121 ??Low?? MPV?? 09/01/22 10:25?? 10.4?? 04/21/22?? 11.4? Differential?? LATEST RESULTS?? HISTORICAL RESULTS?? Auto Lymph %?? 09/01/22 10:25?? 9.3 ??Low?? 04/21/22?? 12.9?? Auto Neut %?? 09/01/22 10:25?? 84.0 ??High?? 04/21/22?? 79.5?? Auto Dolores %?? 09/01/22 10:25?? 6.1?? 04/21/22?? 6.8?? Auto Eos %?? 09/01/22 10:25?? 0.1?? 04/21/22?? 0.0?? Auto Baso %?? 09/01/22 10:25?? 0.1?? 04/21/22?? 0.1?? Auto IG %?? 09/01/22 10:25?? 0.4?? 04/21/22?? 0.7?? Lymph Abs#?? 09/01/22 10:25?? 0.73 ??Low?? 04/21/22?? 1.13?? Neut Abs#?? 09/01/22 10:25?? 6.60?? 04/21/22?? 6.99?? Dolores Abs#?? 09/01/22 10:25?? 0.48?? 04/21/22?? 0.60?? Eos Abs#?? 09/01/22 10:25?? 0.01?? 04/21/22?? 0.00?? Baso Abs#?? 09/01/22 10:25?? 0.01?? 04/21/22?? 0.01?? IG Auto?? 09/01/22 10:25?? 0.03?? 04/21/22?? 0.06?? NRBC Abs #?? 09/01/22 10:25?? 0?? 04/21/22?? 0? Immunology General?? LATEST RESULTS?? HISTORICAL RESULTS?? Influenza A?? 09/01/22 09:29?? negative?? 04/15/22?? negative?? Influenza B?? 09/01/22 09:29?? negative?? 04/15/22?? negative? Blood Gases?? LATEST RESULTS?? HISTORICAL RESULTS?? Rik Test Art?? 09/01/22 10:48?? Not Indicated?? 04/19/22?? Not Indicated?? pH Art?? 11/03/22 10:48?? 7.38?? 04/19/22?? 7.37?? pCO2 Art?? 09/01/22 10:48?? 46.0 ??Critical?? 04/19/22?? 43.6?? pO2 Art?? 09/01/22 10:48?? 88?? 04/19/22?? 110 ??High?? HCO3 Art?? 09/01/22 10:48?? 27.2 ??High?? 04/19/22?? 25.1?? Base Excess Art?? 09/01/22 10:48?? 1.6?? 04/19/22?? 0.0?? TCO2 Art?? 09/01/22 10:48?? 28.6 ??High?? 04/19/22?? 26.0?? Fio2 Art?? 09/01/22 10:48?? 40?? 04/19/22?? 28?? O2 ??Sat Art?? 09/01/22 10:48?? 97?? 04/19/22?? 98?? Puncture Site?? 09/01/22 10:48?? R Radial?? 04/19/22?? R Radial? [Electronically Signed by: 09/01/2022 13:07 EDT] Dwight Delgadillo MD, MD [Verified on: 09/01/2022 13:07 EDT] Dwight Delgadillo MD, MD Electrocardiogram-EKG * Event Display: Electrocardiogram-EKG Please click on link to see image. History and physical note * Robinson Vasquez MD: PERFORM Event Display: History and Physical Authored Date: [id number] SAYDA OGDEN :1955 Age:67 years Sex:Female Visit Date:09/01/2022 Primary Care Physician: Avila Gomez MD Chief Complaint COPD Exacerbation History of Present Illness This is a 67-year-old female??who presents as an admission from the emergency department for concerns of COPD exacerbation.?? Patient has a history of O2 dependent COPD, typically maintained on 2 L at night??and as needed for daytime dyspnea.?? Patient noted??increasing shortness of breath, cough and congestion starting Monday of this week.?? She had to wear her??oxygen at 2 L flow continuous throughout the day on Monday.?? By Monday, she had to increase her oxygen to 3 L flow continuous dueto worsening dyspnea, and patient woke up this morning with??worsening shortness of breath, having to turn her supplemental oxygen up to 4 L flow??to help with persistent dyspnea.?? Her respiratory sy mptoms have been associated with increasing??congested cough, occasionally productive with dark thick sputum. ??She denies any fever or chills. ??She denies any chest pain. ??She denies any increase in peripheral edema, orthopnea or PND. ??She denies any acute abdominal complaints other than??decrease in urine output over the course of the last??week or so.?? Patient can identify no aggravatingor relieving factors behind her symptoms, other than shortness of breath continues to worsen despite??treatment at home to date. ?? Patient presented to emergency department with oxygen saturation as low as 82% on room air.?? She was ultimately??placed on 4 L flow??by nasal cannula.?? Screening labs were benign??other than magnesium of 1.4.?? ABG revealed pH 7.38, PCO2 46, PO2 88,??bicarb 27.2 oxygen saturation 97% on 40% FiO2.?? Influenza and COVID-19 swabs were negative. ??Portable chest x-ray reveals??no acute cardiopulmonary process.?? Patient was placed on IV fluids in emergency department, given dose of IV Rocephin, hydrocodone 10 mg strength, single DuoNeb, and Solu-Medrol??125 mg IV.?? Emergency department provider requested IMS admission for concerns of COPD exacerbation Review of Systems Constitutional:Nofevers,Nochills,Nosweats?? Eye:No?? recent visual problems,Noscotoma?? ENT:Noear pain,Nonasal congestion,Nosore throat?? Respiratory:Positive forshortness of breath,Positive forcough Cardiovascular:NoChest??pain,Nopalpitations,Nosyncope?? Gastrointestinal:Nonausea,Novomiting,Nodiarrhea?? Genitourinary:Nohematuria,Nodysuria Elder/Lymph:Nobruising tendency,Noswollen lymph glands?? Endocrine:Noexcessive thirst,Noexcessive hunger?? Musculoskeletal:Positive forneck pain,Nojoint pain,Nomuscle pain,Nodecreased range of motion?? Integumentary:Norash,Nopruritus,Noabrasions?? Neurologic:??notremor,Noataxia ?? Physical Exam Vitals & Measurements T:??36.8?C ??(Oral)?? TMIN:??36.7?C ??(Oral)?? TMAX:??36.8?C ??(Oral)?? HR:??94??(Peripheral)?? RR:??20?? BP:??120/78?? SpO2:??90%?? HT:??165.100??cm?? WT:??83.460??kg??(Estimated)?? BMI:??29.460?? O2 Flow Rate:??4?? O2 Therapy:??Nasal cannula?? General: Alert and oriented, well nourished,??Noacute distress?? Eye:??PERRL, EOMI,??Normalconjunctiva?? HENT: Normocephalic,??Normalhearing, moist oral mucosa,Noscleral icterus,Nosinus tenderness?? Neck: Supple, non-tender,Nocarotid bruits,No?? JVD,Nolymphadenopathy?? Lungs: Moderate bronchial congestion with end expiratory wheeze,Non-laboredrespiration?? Heart:Normalrate,Regularrhythm,Nomurmur,Nogallop,Noedema?? Abdomen: Soft, non-tender, non-distended,Normal??bowel sounds,Nomasses Musculoskeletal:Normalrange of motion and strength,Notenderness,Noswelling?? Skin: Skin is warm, dry and pink,Norashes,Nolesions?? Neurologic: Awake, alert and oriented X4, CN II-XII intact,Noacute focal neurologic deficit?? Psychiatric: Cooperative, appropriate mood and affect Assessment/Plan AECOPD -Likely secondary to??acute bronchitis -Portable chest x-ray on September 01 reveals no acute cardiopulmonary process -CRP 8.46 -Procalcitonin 0.25 -Sputum culture requested 09/01 -[employer] resp swab requested 09/01 -Influenza swab negative 09/01 -COVID-19 swab negative 09/01 -Patient given dose of??IV Rocephin in emergency department.?? 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 Acute on chronic hypoxia -Chronically maintained on 2 L flow at night and as needed for daytime dyspnea. ??Admitted on 4 L flow [facility] -Admission ABG on September 01 reveals pH 7.38 PCO2 46 PO2 88,??bicarb 27.2 oxygen saturation 97% on 40% FiO2 -Treatment above -Supplemental oxygen as needed -Walk oximetry prior to discharge ?? Hypomagnesemia -Magnesium 1.4 -Replace and trend ?? Mild thrombocytopenia -Platelet 137 -Trend ?? Mild elevation liver function test -Total bilirubin 0.73 -AST 107 -ALT 77 -Trend ?? Chronic pain syndrome (chronic neck pain) -Patient reports that she is scheduled for cervical spine surgery in the upcoming months -Continue oxycodone 10 mg strength up to every 4 hours as needed for pain -Continue Robaxin-750 milligrams 3 times daily, hold for excess sedation -Continue Lyrica 1 and 50 mg 3 times daily, hold for excess sedation ?? GERD -Substitute Protonix 40 mg daily for home medication??dexlansoprazole??60 mg daily ?? Mood disorder -Continue Valium 2 mg twice daily, hold for excess sedation ?? Essential hypertension -Continue diltiazem ER 120 mg daily ?? Chronic insomnia -Continue trazodone 100 mg daily at bedtime -Patient request-to continue Belsomra 20 mg daily at bedtime,??may use home supply ?? Chronic constipation -Continue MiraLAX 17 g daily -Continue Colace 100 mg up to twice daily as needed ?? OTHER -SCDs, heparin subcu for DVT prophylaxis Problem List/Past Medical History Ongoing Arthritis Bone marrow transplant status Cervical spine disease Chest wall pain COPD (chronic obstructive pulmonary disease) COPD exacerbation Dehydration Diarrhea Dysphonia Frequent UTI Herpes History of kidney stones IBS (irritable bowel syndrome) Kidney cysts Nausea and vomiting Non Hodgkin's lymphoma Urinary retention Historical No qualifying data Procedure/Surgical History ???Bladder tract???Foot???Gallbladder absent???Hysterectomy???Neck???Shoulder???Tonsillectomy Medications Inpatient !-DuoNeb, 3 mL, NEB, QID !-Levaquin, 750 mg= 150 mL, IV Piggyback, q24hr (interval) !-Robitussin DM, 10 mL, Oral, q4hr (interval), PRN !-Tessalon, 200 mg= 2 cap(s), Oral, q8hr (interval), PRN acetaminophen-oxycodone 325 mg-10 mg oral tablet, 1 tab(s), Oral, q4hr (interval), PRN albuterol 90 mcg/inh inhalation aerosol, 180 mcg= 2 puff(s), INH, q4hr (interval), PRN Belsomra 20 mg oral tablet, 1 tab, Oral, Once a day (at bedtime) diazePAM, 2.5 mg= 0.5 tab(s), Oral, BID dilTIAZem, 120 mg= 1 cap(s), Oral, Daily docusate, 100 mg= 1 cap(s), Oral, BID, PRN heparin, 5000 unit(s)= 1 mL, Subcutaneous, q12hr (scheduled) magnesium oxide, 400 mg, Oral, HS magnesium sulfate, 1 gm= 100 mL, IV Piggyback, q1hr (interval) methocarbamol, 750 mg= 1.5 tab(s), Oral, TID MiraLax, 17 gm= 1 packet(s), Oral, Daily Mucinex, 600 mg= 1 tab(s), Oral, BID pantoprazole, 40 mg= 1 tab(s), Oral, Daily patient specific respiratory, 1 EA, N/A, As Directed, PRN Pharmacy to Dose - [facility], Pharmacy to dose, N/A, Daily, PRN pregabalin, 150 mg= 3 cap(s), Oral, TID refrigerated med, 1 EA, N/A, As Directed, PRN refrigerated med, 1 EA, N/A, As Directed, PRN SOLU-Medrol, 40 mg= 1 mL, IV Push, q8hr (interval) traZODone, 100 mg= 2 tab(s), Oral, Once a day (at bedtime) Trelegy Ellipta 100 mcg-62.5 mcg-25 mcg/inh inhalation powder, 1 puff, INH, Daily Tylenol, 650 mg= 2 tab(s), Oral, q4hr (interval), PRN Zofran, 4 mg= 2 mL, IV Push, q6hr (interval), PRN Home !-Zofran ODT 4 mg oral tablet, disintegrating, 4 mg= 1 tab(s), Oral, q8hr (scheduled), PRN acetaminophen-oxycodone 325 mg-10 mg oral tablet, 1 tab(s), Oral, q4hr (interval), PRN albuterol 0.083% inhalation solution, 2.5 mg= 3 mL, NEB, q6hr (scheduled), PRN albuterol 90 mcg/inh inhalation aerosol, 2 puff(s), INH, q4hr (interval), PRN Belsomra 20 mg oral tablet, 20 mg= 1 tab(s), Oral, Once a day (at bedtime) Depo-Estradiol 5 mg/mL intramuscular solution, 5 mg, IM, q4wk (scheduled) Dexilant 60 mg oral delayed release capsule, 60 mg= 1 cap(s), Daily diazePAM 2 mg oral tablet, 2 mg= 1 tab(s), Oral, BID DilTIAZem (Eqv-Cardizem CD) 120 mg/24 hours oral capsule, extended release, 120 mg= 1 cap(s), Oral,Daily docusate sodium 100 mg oral capsule, 100 mg= 1 cap(s), Oral, BID, PRN magnesium oxide 400 mg oral tablet, 400 mg= 1 tab(s), Oral, HS methocarbamol 750 mg oral tablet, 750 mg= 1 tab(s) MiraLax, 17 gm= 1 packet(s), Oral, Daily Mucinex, 600 mg= 1 tab(s), Oral, BID, PRN pregabalin 150 mg oral capsule, 150 mg= 1 cap(s), Oral, TID traZODone 100 mg oral tablet, 100 mg= 1 tab(s), Oral, Once a day (at bedtime) Trelegy Ellipta 100 mcg-62.5 mcg-25 mcg/inh inhalation powder, 1 puff(s), INH, Daily Allergies NSAIDs??(Bleeding) Macrobid sulfa drug Nalbuphine Hydrochloride codeine Social History Alcohol Current, Liquor, Daily Electronic Cigarette/Vaping Electronic Cigarette Use: Never. 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 Nutrition/Health Caffeine intake amount: 6-8 12 oz of coffee daily,UnSweet tea a lot daily, sodas occasiona. Substance Abuse Never Tobacco Former tobacco user Tobacco Use:. 1 PPD per day. 40 year(s). Never Smokeless Tobacco Use:.- Comments: currently smoking 5-6 per day 09/01/22 Family History COPD - Chronic obstructive pulmonary disease: Father. Heart disease: Mother. Family Member(s): ?? MOTHER, at age: 80 Years. Cause of : Heart disease Family Member(s): ?? FATHER, at age: 81 Years. Cause of : COPD Lab Results Last 24 Hours?? Chemistry ? Event Name?? Event Result?? Date/Time?? Sodium Level 136 09/01/22 09:44:00 Potassium Level 4.5 mmol/L 09/01/22 09:44:00 Chloride Level 99 mmol/L 09/01/22 09:44:00 CO2 27.5 mmol/L 09/01/22 09:44:00 Anion Gap 14 09/01/22 09:44:00 Glucose Level 118 mg/dL??High 09/01/22 09:44:00 BUN 14 mg/dL 09/01/22 09:44:00 Creatinine Level 0.8 mg/dL 09/01/22 09:44:00 GFR AA 83 mL/min/1.73 09/01/22 09:44:00 GFR Non AA 69 mL/min/1.73 09/01/22 09:44:00 Calcium Level 8.9 mg/dL 09/01/22 09:44:00 Magnesium 1.4??Low 09/01/22 09:44:00 Bili Total 0.73 mg/dL 09/01/22 09:44:00 Alk Phos 85 IU/L 09/01/22 09:44:00 AST/SGOT 107 IU/L??High 09/01/22 09:44:00 ALT/SGPT 77 IU/L 09/01/22 09:44:00 Protein Total 7.5 g/dL 09/01/22 09:44:00 Albumin Level 3.8 mg/dL 09/01/22 09:44:00 Lactic Acid 0.7 mmol/L 09/01/22 10:25:00 Corinna. Calcium 9.1 mg/dL 09/01/22 09:44:00 Troponin-I 7.5 pg/mL 09/01/22 09:44:00 NT Pro-BNP 221 pg/mL??High 09/01/22 09:44:00 Procalcitonin 0.25 ng/mL 09/01/22 10:25:00 CRP 8.46 mg/dL??High 09/01/22 09:44:00 ? Hematology ? Event Name?? Event Result?? Date/Time?? WBC 7.9 x10^3/mcL 09/01/22 10:25:00 RBC 4.01 x10^6/mcL 09/01/22 10:25:00 Hgb 12.7 g/dL 09/01/22 10:25:00 Hct 39.6 % 09/01/22 10:25:00 MCV 99 09/01/22 10:25:00 MCH 31.7 pg 09/01/22 10:25:00 MCHC 32.1 g/dL 09/01/22 10:25:00 RDW/CV 13.8 % 09/01/22 10:25:00 Platelet 137 x10^3/mcL??Low 09/01/22 10:25:00 MPV 10.4 fL 09/01/22 10:25:00 Auto Lymph % 9.3 %??Low 09/01/22 10:25:00 Auto Neut % 84 %??High 09/01/22 10:25:00 Auto Dolores % 6.1 % 09/01/22 10:25:00 Auto Eos % 0.1 % 09/01/22 10:25:00 Auto Baso % 0.1 % 09/01/22 10:25:00 Auto IG % 0.4 % 09/01/22 10:25:00 Lymph Abs# 0.73 K/uL??Low 09/01/22 10:25:00 Neut Abs# 6.6 K/uL 09/01/22 10:25:00 Dolores Abs# 0.48 K/uL 09/01/22 10:25:00 Eos Abs# 0.01 K/uL 09/01/22 10:25:00 Baso Abs# 0.01 K/uL 09/01/22 10:25:00 IG Auto 0.03 K/uL 09/01/22 10:25:00 NRBC Abs # 0 K/uL 09/01/22 10:25:00 ? Blood Gases ? Event Name?? Event Result?? Date/Time?? Rik Test Art Not Indicated 09/01/22 10:48:00 pH Art 7.38 09/01/22 10:48:00 pCO2 Art 46 mmHg??Critical 09/01/22 10:48:00 pO2 Art 88 mmHg 09/01/22 10:48:00 HCO3 Art 27.2 mmol/L??High 09/01/22 10:48:00 Base Excess Art 1.6 mEq/L 09/01/22 10:48:00 TCO2 Art 28.6 mmol/L??High 09/01/22 10:48:00 Fio2 Art 40 % 09/01/22 10:48:00 O2 ??Sat Art 97 % 09/01/22 10:48:00 Puncture Site R Radial 09/01/22 10:48:00 ? All Other Results ? Event Name?? Event Result?? Date/Time?? Influenza A negative - [place] 09/01/22 09:29:00 Influenza B negative - [place] 09/01/22 09:29:00 ? COVID-19 Results ? Event Name?? Event Result?? Date/Time?? SARS-CoV-2 (COVID-19) RNA (ID Now) Negative 09/01/22 09:29:00 Employed in healthcare? No 09/01/22 09:29:00 Symptomatic as defined by CDC? Yes 09/01/22 09:29:00 Date of onset (Lab) 08/31/22 09/01/22 09:29:00 Hospitalized due to COVID-19? Unknown 09/01/22 09:29:00 In ICU? No 09/01/22 09:29:00 Group care resident? No 09/01/22 09:29:00 status? Not 09/01/22 09:29:00 ? Diagnostic Results X-Ray: ?? XR Chest 1 View Portable ?? 09/01/22 10:25:53 XR Chest 1 View Portable ?? HISTORY: Shortness of Breath ?? Study: Single view of the chest. ?? Comparison:None ?? Findings: ?? The cardiomediastinal silhouette is normal.No focal consolidations, pleural effusions or pneumothorax. Osseous structures demonstrate no acute abnormality. ?? IMPRESSION: ?? 1. No acute cardiopulmonary process. ? Electronically signed by: ANNE RUEDA (Sep 01, 2022 10:25:53) ?? Signed By: Anne Rueda MD Computed Tomography:?? Ultrasound:?? MRI:?? Echo:?? Nuclear Medicine:?? Mammography:? [Electronically Signed by: 09/01/2022 18:04 EDT] Robinson Vasquez MD, MD [Verified on: 09/01/2022 18:04 EDT] Robinson Vasquez MD, MD Progress note * Robinson Vasquez MD: PERFORM Event Display: Progress Note-Physician Authored Date: [id number] SAYDA OGDEN :1955 Age:67 years Sex:Female Visit Date:09/01/2022 Primary Care Physician: Avila Gomez MD Subjective This is a 67-year-old female seen in follow-up on??September 05. ??Patient is resting comfortably. ??She reports improved cough (and improved neck pain) scheduled Tussionex. ??She remained afebrile overnight.?? Supplemental oxygen needs at rest continue to improve, patient titrated down to 1 L flow by nasal cannula.?? Not unexpectedly??in my opinion,??she continues to notice??increased??O2 demand with exertion (beyond 1 L).?? She denies any acute abdominal complaints. ?? We discussed possibly going home as early as tomorrow. ??We will schedule formal walk oximetry tomorrow morning. ??I would not be surprised if patient??requires??higher flow O2 at discharge than her baseline, though I do expect this to be a transient??increase in supplemental O2 requirement that will improve over time??as she gets further out of this acute exacerbation Objective Vitals & Measurements T:??36.5?C ??(Oral)?? TMIN:??36.1?C ??(Oral)?? TMAX:??36.7?C ??(Oral)?? HR:??80??(Peripheral)?? RR:??15?? BP:??162/74?? SpO2:??95%?? WT:??89.5??kg?? O2 Flow Rate:??1?? O2 Therapy:??Nasal cannula?? Physical Exam General: Alert and oriented, well nourished,??Noacute distress?? Eye:??PERRL, EOMI,??Normalconjunctiva?? HENT: Normocephalic,??Normalhearing, moist oral mucosa,Noscleral icterus,Nosinus tenderness?? Neck: Supple, non-tender,Nocarotid bruits,No?? JVD,Nolymphadenopathy?? Lungs: Residual bronchial congestion, though improved from admission. ??Expiratory wheeze??resolvedat present,Non-laboredrespiration?? Heart:Normalrate,Regularrhythm,Nomurmur,Nogallop,Noedema?? Abdomen: Soft, non-tender, non-distended,Normal??bowel sounds,Nomasses Musculoskeletal:Normalrange of motion and strength,Notenderness,Noswelling?? Skin: Skin is warm, dry and pink,Norashes,Nolesions?? Neurologic: Awake, alert and oriented X4, CN II-XII intact,Noacute focal neurologic deficit?? Psychiatric: Cooperative, appropriate mood and affect Lab Results Last 24 Hours?? Chemistry ? Event Name?? Event Result?? Date/Time?? Sodium Level 136 mEq/L 09/05/22 07:30:00 Potassium Level 4.1 mmol/L 09/05/22 07:30:00 Chloride Level 99 mmol/L 09/05/22 07:30:00 CO2 31.6 mmol/L 09/05/22 07:30:00 Anion Gap 10 09/05/22 07:30:00 Glucose Level 164 mg/dL??High 09/05/22 07:30:00 BUN 20 mg/dL??High 09/05/22 07:30:00 Creatinine Level 0.8 mg/dL 09/05/22 07:30:00 GFR AA 82 mL/min/1.73 09/05/22 07:30:00 GFR Non AA 68 mL/min/1.73 09/05/22 07:30:00 Calcium Level 8.7 mg/dL 09/05/22 07:30:00 Magnesium 2 09/05/22 07:30:00 Bili Total 0.4 mg/dL 09/05/22 07:30:00 Alk Phos 58 IU/L 09/05/22 07:30:00 AST/SGOT no reagent 09/05/22 07:30:00 ALT/SGPT 27 IU/L 09/05/22 07:30:00 Protein Total 7.4 g/dL 09/05/22 07:30:00 Albumin Level 3.6 mg/dL 09/05/22 07:30:00 Corinna. Calcium 9 mg/dL 09/05/22 07:30:00 ? Hematology ? Event Name?? Event Result?? Date/Time?? WBC 6.8 x10^3/mcL 09/05/22 07:30:00 RBC 4.3 x10^6/mcL 09/05/22 07:30:00 Hgb 13.3 g/dL 09/05/22 07:30:00 Hct 42.7 % 09/05/22 07:30:00 MCV 99 09/05/22 07:30:00 MCH 30.9 pg 09/05/22 07:30:00 MCHC 31.1 g/dL 09/05/22 07:30:00 RDW/CV 13.6 % 09/05/22 07:30:00 Platelet 146 x10^3/mcL??Low 09/05/22 07:30:00 MPV 10.5 fL 09/05/22 07:30:00 Auto Lymph % 14.8 % 09/05/22 07:30:00 Auto Neut % 74.3 % 09/05/22 07:30:00 Auto Dolores % 6.3 % 09/05/22 07:30:00 Auto Eos % 0 % 09/05/22 07:30:00 Auto Baso % 0.6 % 09/05/22 07:30:00 Auto IG % 4 % 09/05/22 07:30:00 Lymph Abs# 1.01 K/uL 09/05/22 07:30:00 Neut Abs# 5.06 K/uL 09/05/22 07:30:00 Dolores Abs# 0.43 K/uL 09/05/22 07:30:00 Eos Abs# 0 K/uL 09/05/22 07:30:00 Baso Abs# 0.04 K/uL 09/05/22 07:30:00 IG Auto 0.27 K/uL 09/05/22 07:30:00 Lymph Man 14 % 09/05/22 07:30:00 Monocyte Man 6 % 09/05/22 07:30:00 Segs Man 74 % 09/05/22 07:30:00 Band Man 6 %??High 09/05/22 07:30:00 NRBC Abs # 0 K/uL 09/05/22 07:30:00 RBC Morph Normal 09/05/22 07:30:00 Plt Morph Normal 09/05/22 07:30:00 Slide Review? Manual Diff 09/05/22 07:30:00 ? Assessment/Plan AECOPD -Likely secondary to??acute infectious bronchitis -Portable chest x-ray on September 01 reveals no acute cardiopulmonary process -CRP 8.46->2.32 -Procalcitonin 0.25->6.54 -Sputum culture requested 09/01 (gram stain comments on 1+ GPC, 3+ WBC), small amount mixed aaliyah with??no pathogen recovered to date -[employer] resp swab requested 09/01, RSV positive -Influenza swab negative 09/01 -COVID-19 swab negative 09/01 -Patient given dose of??IV Rocephin in emergency department.?? 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 With no evidence of invasive Pseudomonas infection identified to date, will discontinue Levaquin on??September 03,??continue treatment with??empiric ceftriaxone and azithromycin -Solu-Medrol 40 mg IV every 8 hours, increased to 60 mg IV every 8 hours on??September 02, decrease to 40 mg IV every 8 hours on 09/05 -Schedule bronchodilator -Patient request to??continue Trelegy Ellipta 100/62.5/25 mcg 1 puff daily -Patient request to have albuterol MDI at bedside, continue 2 puffs up to every 4 hours as needed??as rescue inhaler -Antitussive as needed.?? Scheduled Tussionex 5 mL??every 12 hours started??September 04 -Supplemental oxygen as needed ?? Acute on chronic hypoxia -Chronically maintained on 2 L flow at night and as needed for daytime dyspnea. ??Admitted on 4 L flow BNC -On 2 liter BNC continuous at rest 09/04 -On 1 liter flow BNC continuous at rest 09/05 -Admission ABG on September 01 reveals pH 7.38 PCO2 46 PO2 88,??bicarb 27.2 oxygen saturation 97% on 40% FiO2 -Treatment above -Supplemental oxygen as needed -Walk oximetry prior to discharge ?? Hypomagnesemia -Magnesium 1.4, 1.8, 1.8, 2.1, 2.0 -Replace and trend ?? Mild thrombocytopenia -Platelet 137, 141, 144, 141, 146 -Trend ?? Mild elevation liver function test -Total bilirubin 0.73, 0.38, 0.39, 0.34, 0.40 -AST 107, no reagent, 20, 17, no reagent -ALT 77, 50, 18, 29, 27 -Trend ?? Chronic pain syndrome (chronic neck pain) -Patient reports that she is scheduled for cervical spine surgery in the upcoming months -Continue oxycodone 10 mg strength up to every 4 hours as needed for pain -Continue Robaxin-750 milligrams 3 times daily, hold for excess sedation -Continue Lyrica 150 mg 3 times daily, hold for excess sedation ?? GERD -Substitute Protonix 40 mg daily for home medication??dexlansoprazole??60 mg daily ?? Mood disorder -Continue Valium 2.5 mg twice daily (on 2mg BID at home), hold for excess sedation ?? Essential hypertension -Continue diltiazem ER 120 mg daily ?? Chronic insomnia -Continue trazodone 100 mg daily at bedtime -Patient request-to continue Belsomra 20 mg daily at bedtime,??may use home supply ?? Chronic constipation -Continue MiraLAX 17 g daily -Continue Colace 100 mg up to twice daily as needed ?? OTHER -SCDs, heparin subcu for DVT prophylaxis [Electronically Signed by: 09/05/2022 15:51 EST] Robinson Vasquez MD, MD [Verified on: 09/05/2022 15:51 EST] Robinson Vasquez MD, MD * Robinson Vasquez MD: PERFORM Event Display: Progress Note-Physician Authored Date: [id number] ALIN SAYDA A :1955 Age:67 years Sex:Female Visit Date:09/01/2022 Primary Care Physician: Avila Gomez MD Subjective This is a 67-year-old female seen in follow-up on??September 04. ??Patient is resting comfortably. ??She continues to have??congested but rarely productive cough.?? She perceives the cough is??exacerbating chronic neck pain.?? She otherwise reports slowly improving??shortness of breath and dyspnea onexertion. ??She denies any acute abdominal complaints. ??She remained afebrile overnight. ?? Patient remains on 2 L??supplemental oxygen.?? She typically only requires 2 L supplemental oxygen at night Objective Vitals & Measurements T:??36.6?C ??(Oral)?? TMIN:??36.3?C ??(Oral)?? TMAX:??36.6?C ??(Oral)?? HR:??86??(Peripheral)?? RR:??20?? BP:??154/72?? SpO2:??95%?? WT:??88.3??kg?? O2 Flow Rate:??2?? O2 Therapy:??Nasal cannula?? Physical Exam General: Alert and oriented, well nourished,??Noacute distress?? Eye:??PERRL, EOMI,??Normalconjunctiva?? HENT: Normocephalic,??Normalhearing, moist oral mucosa,Noscleral icterus,Nosinus tenderness?? Neck: Supple, non-tender,Nocarotid bruits,No?? JVD,Nolymphadenopathy?? Lungs:??Slowly improving bronchial congestion, slowly improving expiratory wheeze,Non-laboredrespiration?? Heart:Normalrate,Regularrhythm,Nomurmur,Nogallop,Noedema?? Abdomen: Soft, non-tender, non-distended,Normal??bowel sounds,Nomasses Musculoskeletal:Normalrange of motion and strength,Notenderness,Noswelling?? Skin: Skin is warm, dry and pink,Norashes,Nolesions?? Neurologic: Awake, alert and oriented X4, CN II-XII intact,Noacute focal neurologic deficit?? Psychiatric: Cooperative, appropriate mood and affect Lab Results Last 24 Hours?? Chemistry ? Event Name?? Event Result?? Date/Time?? Sodium Level 135??Low 09/04/22 07:00:00 Potassium Level 4.3 mmol/L 09/04/22 07:00:00 Chloride Level 102 mmol/L 09/04/22 07:00:00 CO2 28.2 mmol/L 09/04/22 07:00:00 Anion Gap 9 09/04/22 07:00:00 Glucose Level 171 mg/dL??High 09/04/22 07:00:00 BUN 20 mg/dL??High 09/04/22 07:00:00 Creatinine Level 0.8 mg/dL 09/04/22 07:00:00 GFR AA 84 mL/min/1.73 09/04/22 07:00:00 GFR Non AA 70 mL/min/1.73 09/04/22 07:00:00 Calcium Level 8.9 mg/dL 09/04/22 07:00:00 Magnesium 2.1 09/04/22 07:00:00 Bili Total 0.34 mg/dL 09/04/22 07:00:00 Alk Phos 55 IU/L 09/04/22 07:00:00 AST/SGOT 17 IU/L 09/04/22 07:00:00 ALT/SGPT 29 IU/L 09/04/22 07:00:00 Protein Total 6.9 g/dL 09/04/22 07:00:00 Albumin Level 3.4 mg/dL 09/04/22 07:00:00 Corinna. Calcium 9.4 mg/dL 09/04/22 07:00:00 ? Hematology ? Event Name?? Event Result?? Date/Time?? WBC 7 x10^3/mcL 09/04/22 07:00:00 RBC 3.98 x10^6/mcL??Low 09/04/22 07:00:00 Hgb 12.5 g/dL 09/04/22 07:00:00 Hct 40.8 % 09/04/22 07:00:00 MCV 102??High 09/04/22 07:00:00 MCH 31.4 pg 09/04/22 07:00:00 MCHC 30.6 g/dL??Low 09/04/22 07:00:00 RDW/CV 13.8 % 09/04/22 07:00:00 Platelet 141 x10^3/mcL??Low 09/04/22 07:00:00 MPV 10.5 fL 09/04/22 07:00:00 Auto Lymph % 13.8 % 09/04/22 07:00:00 Auto Neut % 77.9 % 09/04/22 07:00:00 Auto Dolores % 6.5 % 09/04/22 07:00:00 Auto Eos % 0.1 % 09/04/22 07:00:00 Auto Baso % 0.1 % 09/04/22 07:00:00 Auto IG % 1.6 % 09/04/22 07:00:00 Lymph Abs# 0.97 K/uL??Low 09/04/22 07:00:00 Neut Abs# 5.48 K/uL 09/04/22 07:00:00 Dolores Abs# 0.46 K/uL 09/04/22 07:00:00 Eos Abs# 0.01 K/uL 09/04/22 07:00:00 Baso Abs# 0.01 K/uL 09/04/22 07:00:00 IG Auto 0.11 K/uL 09/04/22 07:00:00 NRBC Abs # 0 K/uL 09/04/22 07:00:00 ? Assessment/Plan AECOPD -Likely secondary to??acute bronchitis -Portable chest x-ray on September 01 reveals no acute cardiopulmonary process -CRP 8.46->2.32 -Procalcitonin 0.25->6.54 -Sputum culture requested 09/01 (gram stain comments on 1+ GPC, 3+ WBC), small amount mixed aaliyah with??no pathogen recovered to date -[employer] resp swab requested 09/01, RSV positive -Influenza swab negative 09/01 -COVID-19 swab negative 09/01 -Patient given dose of??IV Rocephin in emergency department.?? 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 With no evidence of invasive Pseudomonas infection identified to date, will discontinue Levaquin on??September 03,??continue treatment with??empiric ceftriaxone and azithromycin -Solu-Medrol 40 mg IV every 8 hours, increased to 60 mg IV every 8 hours on??September 02 -Schedule bronchodilator -Patient request to??continue Trelegy Ellipta 100/62.5/25 mcg 1 puff daily -Patient request to have albuterol MDI at bedside, continue 2 puffs up to every 4 hours as needed??as rescue inhaler -Antitussive as needed -Supplemental oxygen as needed ?? Acute on chronic hypoxia -Chronically maintained on 2 L flow at night and as needed for daytime dyspnea. ??Admitted on 4 L flow BNC -On 2 liter BNC continuous 09/04 -Admission ABG on September 01 reveals pH 7.38 PCO2 46 PO2 88,??bicarb 27.2 oxygen saturation 97% on 40% FiO2 -Treatment above -Supplemental oxygen as needed -Walk oximetry prior to discharge ?? Hypomagnesemia -Magnesium 1.4, 1.8, 1.8, 2.1 -Replace and trend ?? Mild thrombocytopenia -Platelet 137, 141, 144, 141 -Trend ?? Mild elevation liver function test -Total bilirubin 0.73, 0.38, 0.39, 0.34 -AST 107, no reagent, 20, 17 -ALT 77, 50, 18, 29 -Trend ?? Chronic pain syndrome (chronic neck pain) -Patient reports that she is scheduled for cervical spine surgery in the upcoming months -Continue oxycodone 10 mg strength up to every 4 hours as needed for pain -Continue Robaxin-750 milligrams 3 times daily, hold for excess sedation -Continue Lyrica 150 mg 3 times daily, hold for excess sedation ?? GERD -Substitute Protonix 40 mg daily for home medication??dexlansoprazole??60 mg daily ?? Mood disorder -Continue Valium 2.5 mg twice daily (on 2mg BID at home), hold for excess sedation ?? Essential hypertension -Continue diltiazem ER 120 mg daily ?? Chronic insomnia -Continue trazodone 100 mg daily at bedtime -Patient request-to continue Belsomra 20 mg daily at bedtime,??may use home supply ?? Chronic constipation -Continue MiraLAX 17 g daily -Continue Colace 100 mg up to twice daily as needed ?? OTHER -SCDs, heparin subcu for DVT prophylaxis [Electronically Signed by: 09/04/2022 15:38 EST] Robinson Vasquez MD, MD [Verified on: 09/04/2022 15:38 EST] Robinson Vasquez MD, MD * Robinson Vasquez MD: PERFORM Event Display: Progress Note-Physician Authored Date: [id number] SAYDA OGDEN :1955 Age:67 years Sex:Female Visit Date:09/01/2022 Primary Care Physician: Avila Gomez MD Subjective This is a 67-year-old female??seen in follow-up on September 03. ??Patient is sitting??at bedside, finishing lunch. ??She reports slow but gradual improvement in cough, congestion, dyspnea on exertion.?? Supplemental oxygen needs are stable, currently on 3 L flow. ??She remained afebrile overnight. ??She denies any acute abdominal complaints. ?? Sputum culture??reveals??no pathogens to date.?? We did discuss that??patient may have viral??(RSV)induced??COPD exacerbation.?? With no invasive Pseudomonas identified to date, patient would??prefer to??switch empiric antibiotic from Levaquin to??ceftriaxone and azithromycin, which seems reasonable Objective Vitals & Measurements T:??36.5?C ??(Oral)?? TMIN:??36.5?C ??(Oral)?? TMAX:??36.8?C ??(Oral)?? HR:??92??(Peripheral)?? RR:??15?? BP:??118/64?? SpO2:??95%?? WT:??86??kg?? O2 Flow Rate:??3?? O2 Therapy:??Nasal cannula?? Physical Exam General: Alert and oriented, well nourished,??Noacute distress?? Eye:??PERRL, EOMI,??Normalconjunctiva?? HENT: Normocephalic,??Normalhearing, moist oral mucosa,Noscleral icterus,Nosinus tenderness?? Neck: Supple, non-tender,Nocarotid bruits,No?? JVD,Nolymphadenopathy?? Lungs: Improved??bronchial congestion, no audible wheeze??at present,Non-laboredrespiration?? Heart:Normalrate,Regularrhythm,Nomurmur,Nogallop,Noedema?? Abdomen: Soft, non-tender, non-distended,Normal??bowel sounds,Nomasses Musculoskeletal:Normalrange of motion and strength,Notenderness,Noswelling?? Skin: Skin is warm, dry and pink,Norashes,Nolesions?? Neurologic: Awake, alert and oriented X4, CN II-XII intact,Noacute focal neurologic deficit?? Psychiatric: Cooperative, appropriate mood and affect Assessment/Plan AECOPD -Likely secondary to??acute bronchitis -Portable chest x-ray on September 01 reveals no acute cardiopulmonary process -CRP 8.46 -Procalcitonin 0.25 -Sputum culture requested 09/01 (gram stain comments on 1+ GPC, 3+ WBC), small amount mixed aaliyah with??no pathogen recovered today -[employer] resp swab requested 09/01, RSV positive -Influenza swab negative 09/01 -COVID-19 swab negative 09/01 -Patient given dose of??IV Rocephin in emergency department.?? 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 With no evidence of invasive Pseudomonas infection identified to date, will discontinue Levaquin on??September 03,??continue treatment with??empiric ceftriaxone and azithromycin -Solu-Medrol 40 mg IV every 8 hours, increased to 60 mg IV every 8 hours on??September 02 -Schedule bronchodilator -Patient request to??continue Trelegy Ellipta 100/62.5/25 mcg 1 puff daily -Patient request to have albuterol MDI at bedside, continue 2 puffs up to every 4 hours as needed??as rescue inhaler -Antitussive as needed -Supplemental oxygen as needed ?? Acute on chronic hypoxia -Chronically maintained on 2 L flow at night and as needed for daytime dyspnea. ??Admitted on 4 L flow [facility] -Admission ABG on September 01 reveals pH 7.38 PCO2 46 PO2 88,??bicarb 27.2 oxygen saturation 97% on 40% FiO2 -Treatment above -Supplemental oxygen as needed -Walk oximetry prior to discharge ?? Hypomagnesemia -Magnesium 1.4, 1.8 -Replace and trend ?? Mild thrombocytopenia -Platelet 137, 141 -Trend ?? Mild elevation liver function test -Total bilirubin 0.73, 0.38 -AST 107, no reagent -ALT 77, 50 -Trend ?? Chronic pain syndrome (chronic neck pain) -Patient reports that she is scheduled for cervical spine surgery in the upcoming months -Continue oxycodone 10 mg strength up to every 4 hours as needed for pain -Continue Robaxin-750 milligrams 3 times daily, hold for excess sedation -Continue Lyrica 1 and 50 mg 3 times daily, hold for excess sedation ?? GERD -Substitute Protonix 40 mg daily for home medication??dexlansoprazole??60 mg daily ?? Mood disorder -Continue Valium 2.5 mg twice daily (on 2mg BID at home), hold for excess sedation ?? Essential hypertension -Continue diltiazem ER 120 mg daily ?? Chronic insomnia -Continue trazodone 100 mg daily at bedtime -Patient request-to continue Belsomra 20 mg daily at bedtime,??may use home supply ?? Chronic constipation -Continue MiraLAX 17 g daily -Continue Colace 100 mg up to twice daily as needed ?? OTHER -SCDs, heparin subcu for DVT prophylaxis [Electronically Signed by: 09/03/2022 12:39 EDT] Robinson Vasquez MD, MD [Verified on: 09/03/2022 12:39 EDT] Robinson Vasquez MD, MD Portable XR Chest Views * Anne Rueda MD: VERIFY, VERIFY Anne Rueda MD: VERIFY DomainUser, Generated: PERFORM Event Display: Radiology Report Authored Date: [id number] XR Chest 1 View Portable HISTORY: Shortness of Breath Study: Single view of the chest. Comparison:None Findings: The cardiomediastinal silhouette is normal.No focal consolidations, pleural effusions or pneumothorax. Osseous structures demonstrate no acute abnormality. IMPRESSION: 1. No acute cardiopulmonary process. Electronically signed by: ANNE RUEDA (Sep 01, 2022 10:25:53) Final Signed (Electronic Signature): Anne Rueda MD 09/01/22 10:25 a Technologist: [place] SANCHEZ Patient Care team information Personnel Name: Avila Gomez MD Address: Address: [address] [place] [address]
--- OUTSIDE RECORDS SUMMARY | 2023-05-16 15:42 | XMS_ITS | Continuity of Care Document ---
Author Name Unknown Organization [facility] Address [address] [place] [id number] Care Team Providers Care Director Of Employee Development Name Role Phone Avila Gomez Primary Care Physician Encounter 09/15/22 - 12/25/[address] [id number]- Discharge Disposition: Home Attending Physician: Robinson Vasquez MD Admitting Physician: Robinson Vasquez MD Allergies, Adverse Reactions, Alerts Substance Reaction Severity Status codeine Unknown Active Macrobid Mild Active Nalbuphine Hydrochloride Unknown Act gwendolyn NSAIDs Bleeding Moderate Active sulfa drug Anaphyllaxis Active Assessment and Plan Future Scheduled Tests Radiology* US Renal Comp 03/03/22 * US Bladder +Residual Post Voiding 03/03/22 * CT Chest w/o Cont 07/14/22 * CT Chest Hi-Res w/o Contrast 09/26/22 Medications !-Zofran ODT 4 mg oral tablet, [...] wheezing, # 120 EA, 1 Refill(s), Pharmacy: [place], Soln, 165.1, cm, 09/01/22 14:54:00 EDT, [...] Daily, # 6 tab(s), 0 Refill(s), [place], Tab, 165.1, cm, 09/01/22 14:54:00 EDT, [...] cough, # 40 cap(s), 0 Refill(s), Pharmacy: [place], Cap, 165.1, cm, 09/01/22 14:54:00 EDT, Height/Length Dosing, 80.29, kg, 09/01/22 14:54:00 EDT, Weight Dosing Start Date: 09/06/22 Stop Date: 09/16/22 Status: Ordered cefdinir 300 mg oral capsule ( 300 mg ) 1 cap(s), Oral, q12hr (scheduled), # 12 cap(s), 0 Refill(s), Pharmacy: [place], Cap, 165.1, cm, 09/01/22 14:54:00 EDT, Height/Length Dosing, 80.29, kg, 09/01/22 14:54:00 EDT, Weight Dosing Start Date: 09/06/22 Stop Date: 09/12/22 Status: Ordered Dexilant 60 mg oral delayed release capsule ( 60 mg ) 1 cap(s), Daily, 0 Refill(s) Start Date: 02/28/22 Status: Ordered diazePAM 5 mg oral tablet ( 2.5 mg ) 0.5 tab(s), Oral, BID, PRN PRN: anxiety, # 30 tab(s), 0 Refill(s), GURU, Pharmacy: [place], [place], Tab, 165.1, cm, 09/01/22 14:54:00 EDT, [...] BID, # 20 cap(s), 0 Refill(s), Pharmacy: [facility] [place], [place], Cap, 165.1, cm, 09/01/22 14:54:00 EDT, [...] DAILY, # 90 tab(s), 0 Refill(s), Pharmacy: [place], Tab, 165.1, cm, 09/01/22 14:54:00 EDT, Height/Length Dosing, 80.29, kg, 09/01/22 14... Start Date: 09/06/22 Stop Date: 10/06/22 Status: Ordered MiraLax ( 17 gm ) 1 packet(s), Oral, Daily, Instructions: UGH, 0 Refill(s), Powder-Recon Start Date: 04/06/22 Status: Ordered nystatin 100,000 units/mL oral suspension ( 500,000 unit(s) ) 5 mL, Oral, QID, # 200 mL, 0 Refill(s), Pharmacy: [place], Susp, 165.1, cm, 09/01/22 14:54:00 EDT, [...] days, # 11 tab(s), 0 Refill(s), Pharmacy: [place], Tab, 165.1, cm, 09/01/22 14:54:... Start [...] INH, Daily Start Date: 01/04/22 Status: Ordered Problem List Condition Confirmation Course Effective Dates [...] Completed Shoulder Completed Tonsillectomy Completed 1surgery 2surgery Social History Social History Type Response Smoking Status Smoking tobacco use: Former tobacco user;Never; Number used per day: 1 PPD; Number of years: 40; 1 entered on: 09/01/22 Sex 1currently smoking 5-6 per day 09/01/22 Patient Care team information Care Team Personnel Name: Avila Gomez MD Position: [facility] Physician OB LP Member Role: Primary Care Physician Address: Address: [address] [place] [address] Name: Lizzie Cancino Position: [facility] Care Management Member Role: Hair Stylist Care Team Related Persons Name: TAMELA OGDEN Address: Home [address] [place] [address] [address] [place], [place] [id number]
--- OUTSIDE RECORDS SUMMARY | 2023-05-16 15:42 | XMS_ITS | Continuity of Care Document ---
Author Name Unknown Organization [facility] Address [address] [place] [id number] Care Team Providers Care Catering Barista Name Role Phone Avila Gomez Primary Care Physician Encounter 08/11/20 - 11/09/20 [place] [id number]- Discharge Disposition: Home Attending Physician: MAHAMED DE LEON Admitting Physician: MAHAMED DE LEON Allergies, Adverse Reactions, Alerts Substance Reaction Severity Status NSAIDs Active sulfa drug Anaphyllaxis Active Medications albuterol 90 mcg/inh inhalation aerosol 2 puff(s), INH, q4hr (interval), PRN PRN: for wheezing, # 8 gm, 0 Refill(s), Aerosol Start Date: 07/24/19 Status: Ordered baclofen ( 20 mg ), Oral, Once a day (at bedtime), 0 Refill(s) Start Date: 07/09/20 Status: Ordered Belsomra 20 mg oral tablet mg ) tab(s), Oral, Once a day (at bedtime) Start Date: 07/24/19 Status: Ordered busPIRone ( 20 mg ), Oral, Once a day (at bedtime), 0 Refill(s) Start Date: 07/09/20 Status: Ordered Dexilant 60 mg oral delayed [...] 1 Completed Hysterectomy Completed Neck 2 Completed Shoulder Completed 1surgery 2surgery Social History Social History Type Response Smoking Status Former smoker, quit more than 30 days ago entered on: 07/09/20 Sex
--- OUTSIDE RECORDS SUMMARY | 2023-05-16 15:42 | XMS_ITS | Continuity of Care Document ---
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 Name Role Phone Avila Gomez Primary Care Physician [phone] Encounter 04/26/22 - 04/26/22 [facility] [address] [address] [place] Discharge Disposition: Home Attending Physician: Skinny Mullins MD Allergies, Adverse Reactions, Alerts Substance Reaction Severity Status codeine Unknown Active Macrobid Mild Active Nalbuphine Hydrochloride Unknown Act gwendolyn NSAIDs Bleeding Moderate Active sulfa drug Anaphyllaxis Active Assessment and Plan Future Appointments Future Scheduled Tests Radiology* US Renal Comp 03/03/22 * US Bladder +Residual Post Voiding 03/03/22 * XR Hip Comp Min 2 Views Rt +Pelvis 08/20/21 Medications !-Levaquin 750 mg oral tablet ( 750 mg ) 1 tab(s), Oral, q24hr (interval), # 9 tab(s), 0 Refill(s), Pharmacy: [facility] - [place], [place], Tab, 170, cm, 04/19/22 6:03:00 EDT, Height/Length Dosing, 89.1, kg, 04/19/22 6:03:00 EDT, Weight Dosing Start Date: 04/21/22 Stop Date: 04/30/22 Status: Ordered !-Zofran ODT 4 mg oral tablet, disintegrating ( 4 mg ) 1 tab(s), Oral, q8hr (scheduled), PRN PRN: as needed for nausea/vomiting, # 20 tab(s), 0 Refill(s), 02/15/23, Tab-DIS Start Date: 02/15/22 Stop Date: 02/15/23 Status: Ordered albuterol 90 mcg/inh inhalation aerosol 2 puff(s), INH, q4hr (interval), PRN PRN: for wheezing, # 8 gm, 0 Refill(s), Aerosol Start Date: 07/24/19 Status: Ordered Ativan 1 mg oral tablet ( 1 mg ) 1 tab(s), Oral, BID, Instructions: Take one tab twice daily x5 days, then one tab daily x5days, then 1/2 tab daily x5 days., # 18 tab(s), 0 Refill(s), Tab Start Date: 04/21/22 Stop Date: 05/06/22 Status: Ordered baclofen 20 mg oral tablet Instructions: TAKE 1 TABLET BY MOUTH NIGHTLY Start Date: 01/04/22 Status: Ordered Belsomra 20 mg oral tablet Instructions: TAKE 1 TABLET BY MOUTH AT BEDTIME Start Date: 01/04/22 Status: Ordered benzonatate 200 mg oral capsule ( 200 mg ) 1 cap(s), Oral, TID, PRN PRN: as needed for cough, # 30 cap(s), 0 Refill(s), Pharmacy: [place], [place], Cap, 170, cm, 04/19/22 6:03:00 EDT, Height/Length Dosing,89.1, kg, 04/19/22 6:03:00 EDT, Weight Dosing Start Date: 04/21/22 Stop Date: 05/01/22 Status: Ordered Depo-Estradiol 5 mg/mL intramuscular solution Instructions: INJECT 1ML (5mg) INTRAMUSCULARLY ONCE EVERY 28 DAYS DIRECTED Start Date: 04/02/22 Status: Ordered Dexilant 60 mg oral delayed release capsule ( 60 mg ) 1 cap(s), Daily, 0 Refill(s) Start Date: 02/28/22 Status: Ordered Diflucan 100 mg oral tablet ( 100 mg ) 1 tab(s), Oral, Daily, # 10 tab(s), 0 Refill(s), Pharmacy: [place], [place], Tab, 170, cm, 04/19/22 6:03:00 EDT, Height/Length Dosing, 89.1, kg, 04/19/22 6:03:00 EDT, Weight Dosing Start Date: 04/21/22 Stop Date: 05/01/22 Status: Ordered docusate sodium 100 mg oral capsule ( 100 mg ) 1 cap(s), Oral, BID, PRN PRN: constipation, 0 Refill(s), Cap Start Date: 04/06/22 Status: Ordered Estrace Vaginal 0.1 mg/g vaginal cream See Instructions, Instructions: 0.5 gm VAG twice a week (at bedtime), # 42.5 gm, 11 Refill(s), Pharmacy: [place], [place], 165, cm, 02/15/22 17:19:00 EDT, Height/Length Dosing, 84.8, kg, 02/15/22 17:19:00 EDT, Weight Dosing Start Date: 02/28/22 Status: Ordered fenofibrate 54 mg oral tablet Instructions: TAKE 1 TABLET BY MOUTH ONCE DAILY Start Date: 01/04/22 Status: Ordered Florastor 250 mg oral capsule ( 250 mg ) 1 cap(s), Oral, BID, Instructions: UGH, # 60 cap(s), 0 Refill(s), Pharmacy: [place], [place], Cap, 170, cm, 04/19/22 6:03:00 EDT, Height/Length Dosing, 89.1, kg, 04/19/22 6:03:00 EDT, Weight Dosing Start Date: 04/21/22 Status: Ordered losartan 50 mg oral tablet ( 50 mg ) 1 tab(s), Oral, Daily, # 30 tab(s), 5 Refill(s), Pharmacy: [place], [place], Tab, 165, cm, 04/02/22 8:42:00 EDT, Height/Length Dosing, 85.8, kg, 04/02/22 11:45:00 EDT, Weight Dosing Start Date: 04/11/22 Status: Ordered magnesium oxide 400 mg oral tablet ( 400 mg ), Oral, BID, Instructions: UGH, # 60 tab(s), 0 Refill(s), Pharmacy: [place], [place], Tab, 170, cm, 04/19/22 6:03:00 EDT, Height/Length Dosing, 89.1, kg, 04/19/22 6:03:00 EDT, Weight Dosing Start Date: 04/21/22 Stop Date: 05/21/22 Status: Ordered MiraLax ( 17 gm ) 1 packet(s), Oral, Daily, Instructions: UGH, 0 Refill(s), Powder-Recon Start Date: 04/06/22 Status: Ordered Mucinex ( 600 mg ) 1 tab(s), Oral, BID, Instructions: UGH, 0 Refill(s), Tab-ER Start Date: 04/06/22 Stop Date: 04/13/22 Status: Ordered Percocet 10 mg-325 mg oral tablet 1 tab(s), Oral, q6hr (interval), # 12 tab(s), 0 Refill(s), 04/15/23, Tab Start Date: 04/15/22 Stop Date: 04/15/23 Status: Ordered predniSONE 20 mg oral tablet ( 20 mg ) 1 tab(s), Oral, BID, Instructions: Take one tab twice daily x5 days, then one tab daily x5 days, then 1/2 tab daily x5 days., # 18 tab(s), 0 Refill(s), Pharmacy: [facility] - [place], [place], 170, cm, 04/19/22 6:03:00 EDT, Leonila. Start Date: 04/21/22 Stop Date: 05/06/22 Status: Ordered pregabalin 150 mg oral capsule Instructions: TAKE 1 CAPSULE BY MOUTH THREE TIMES DAILY Start Date: 01/04/22 Status: Ordered tiZANidine 4 mg oral tablet Instructions: TAKE 1 TABLET BY MOUTH EVERY 6 HOURS NEEDED FOR PAIN -- NOT TO EXCEED TWICE DAILY Start Date: 01/04/22 Status: Ordered traZODone 100 mg oral tablet ( 100 mg ) 1 tab(s), Oral, Once a day (at bedtime), Instructions: TAKE 2 & 1/2 (TWO & ONE-HALF) TABLETS BY MOUTH ONCE DAILY AT NIGHT Start Date: 01/04/22 Status: Ordered Trelegy Ellipta 100 mcg-62.5 mcg-25 mcg/inh inhalation powder Instructions: INHALE 1 PUFF ONCE DAILY Start Date: 01/04/22 Status: Ordered Problem List Condition Effective Dates Status Health Status Inform ant COPD exacerbation(Confirmed) Active Arthritis(Confirmed) Active Chest wall pain(Confirmed) Active COPD (chronic obstructive pu lmonary disease)(Confirmed) Active Kidney cysts(Confirmed) Active Dehydration(Confirmed) Active Diarrhea(Confirmed) Active 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 Sex Care Team Personnel Name: Avila Gomez MD Address: [address] [place] [id number]
--- OUTSIDE RECORDS SUMMARY | 2023-05-16 15:42 | XMS_ITS | Continuity of Care Document ---
Author Name Unknown Organization [facility] Address [address] [place] [id number] Care Team Providers Care House Designer Name Role Phone Avila Gomez Primary Care Physician Encounter 04/15/22 - 04/15/[address] [id number]- Encounter Diagnosis COPD exacerbation(Discharge Diagnosis) - 04/15/22 Chest wall pain(Discharge Diagnosis) - 04/15/22 Discharge Disposition: Home Attending Physician: Chris Roldan MD Admitting Physician: Chris Roldan MD Allergies, Adverse Reactions, Alerts Substance Reaction Severity Status codeine Unknown Active morphine Unknown Active Macrobid Mild Active Nalbuphine Hydrochloride Unknown Act gwendolyn NSAIDs Bleeding Moderate Active sulfa drug Anaphyllaxis Active Assessment and Plan Extracted from: Title:ED Provider Note Author:Rober Caldwell NP Date:04/15/22 Assessment/Plan 1.??COPD exacerbation??J44.1 2.??Chest wall pain??R07.89 Orders: Percocet 10 mg-325 mg oral tablet, 1 tab(s), Oral, q6hr (interval), # 12 tab(s), 0 Refill(s), 04/15/23, Tab azithromycin 500 mg oral tablet, ( 500 mg ) 1 tab(s), Oral, Daily, x 7 day(s), # 7 tab(s), 0 Refill(s), 04/22/22, Tab nitroglycerin 0.4 mg sublingual tablet, 0.4 mg = 1 tab(s), Tab, Sublingual, q5min (interval), PRN chest pain, Start date 04/15/22 15:33:00 EDT, 04/15/22 15:33:00 EDT Discharge Patient, 04/15/22 18:53:00 EDT, Condition on Discharge: Stable, to Home Troponin I, Blood, Timed Study collect, 04/15/22 15:38:00 EDT, Once, Stop date 04/15/22 15:38:00 EDT, Lab Collect Patient Education Chronic Obstructive Pulmonary Disease Exacerbation, [id number] Follow Up With When Contact Information Tylenol/Motrin for Pain/Fever relief Additional Instructions: Drink Fluids Additional Instructions: Future Appointments Diagnostic Tests Pending * C-Reactive Protein QST 04/15/22 Future Scheduled Tests Radiology* US Renal Comp 03/03/22 * US Bladder +Residual Post Voiding 03/03/22 * XR Hip Comp Min 2 Views Rt +Pelvis 08/20/21 Functional Status 04/15/22 Recent Travel History No recent travel Other exposure to Infectious Disease Non e Family Member Travel History No recent t [...] Aerosol Start Date: 07/24/19 Status: Ordered azithromycin 500 mg oral tablet ( 500 mg ) 1 tab(s), Oral, Daily, x 7 day(s), # 7 tab(s), 0 Refill(s), 04/22/22, Tab Start Date: 04/15/22 Stop Date: 04/22/22 Status: Ordered baclofen 20 mg oral tablet Instructions: TAKE 1 TABLET BY MOUTH NIGHTLY Start Date: 01/04/22 Status: Ordered Belsomra 20 mg oral tablet Instructions: TAKE 1 TABLET BY MOUTH AT BEDTIME Start Date: 01/04/22 Status: Ordered chlorpheniramine-hydrocodone 8 mg-10 mg/5 mL oral suspension, extended release 5 mL, Oral, q12hr (interval), PRN: for cough, # 120 mL, 0 Refill(s), 04/22/22, Pharmacy: [facility] - [place], [place], 165, cm, 04/02/22 8:42:00 EDT, Height/Length Dosing, 85.8, kg, 04/02/22 11:45:00 EDT, Weight Dosing Start Date: 04/11/22 Stop Date: 04/22/22 Status: Ordered Depo-Estradiol 5 mg/mL intramuscular solution Instructions: INJECT 1ML (5mg) INTRAMUSCULARLY ONCE EVERY 28 DAYS DIRECTED Start Date: 04/02/22 Status: Ordered Dexilant 60 mg oral delayed release capsule ( 60 mg ) 1 cap(s), Daily, 0 Refill(s) Start Date: 02/28/22 Status: Ordered docusate sodium 100 mg oral capsule ( 100 mg ) 1 cap(s), Oral, BID, PRN PRN: constipation, 0 Refill(s), Cap Start Date: 04/06/22 Status: Ordered Estrace Vaginal 0.1 mg/g vaginal cream See Instructions, Instructions: 0.5 gm VAG twice a week (at bedtime), # 42.5 gm, 11 Refill(s), Pharmacy: [facility] [place], [place], 165, cm, 02/15/22 17:19:00 EDT, Height/Length Dosing, 84.8, kg, 02/15/22 17:19:00 EDT, Weight Dosing Start Date: 02/28/22 Status: Ordered fenofibrate 54 mg oral tablet Instructions: TAKE 1 TABLET BY MOUTH ONCE DAILY Start Date: 01/04/22 Status: Ordered losartan 50 mg oral tablet ( 50 mg ) 1 tab(s), Oral, Daily, # 30 tab(s), 5 Refill(s), Pharmacy: [facility] - [place], [place], Tab, 165, cm, 04/02/22 8:42:00 EDT, Height/Length Dosing, 85.8, kg, 04/02/22 11:45:00 EDT, Weight Dosing Start Date: 04/11/22 Status: Ordered MiraLax ( 17 gm ) [...] Status: Ordered predniSONE 20 mg oral tablet See Instructions, Instructions: Take 20mg BID x7 days, then 10mg (1/2tab) BID x7 days, then 10mg (1/2tab) daily x7 days, # 25 tab(s), 0 Refill(s), 04/27/22, Pharmacy: [place], [place], Tab, 165, cm, 04/02/22 8:42:00 Derrell LOPES Start Date: 04/06/22 Stop Date: 04/27/22 Status: Ordered pregabalin 150 mg oral capsule [...] 1surgery 2surgery Results Laboratory List Name Date Troponin I 04/15/22 Influenza A&B 04/15/22 SARS-CoV-2 (COVID-19) RNA (ID Now) (COVI D-19 SARS-CoV-2 RNA (ID Now)) 04/15/22 Arterial Bld Gas (UGH) 04/15/22 Automated Differential Standard 04/15/22 CBC w/Diff Standard 04/15/22 Comprehensive Metabolic Panel Standard ( CMP Standard) 04/15/22 D-Dimer 04/15/22 Lactic Acid Screen 04/15/22 Magnesium Level 04/15/22 NT Pro-BNP (BNP) 04/15/22 PT/INR 04/15/22 Troponin I 04/15/22 Most recent to oldest [Reference Range]: 1 2 O2 Sat Art [95-99 %] 93 % *LOW* (04/15/22 3:50 PM) Creatinine Level [0.6-1.0 mg/dL] 0.8 mg/ dL (04/15/22 3:50 PM) Puncture Site LT Brachial (04/15/22 3:50 PM) RDW/CV [11.5-14.5 %] 14.7 % *HI* (04/15/22 3:50 PM) Corinna. Calcium [8.5-10.2 mg/dL] 9.1 mg/dL (04/15/22 3:50 PM) D-Dimer [0.19-0.50 mg/L] 0.56 mg/L 1 *CRIT* (04/15/22 3:50 PM) INR 0.96 *NA* (04/15/22 3:50 PM) Albumin Level [3.4-5.0 mg/dL] 3.3 mg/dL *LOW* (04/15/22 3:50 PM) Alk Phos [40-120 IU/L] 53 IU/L (04/15/22 3:50 PM) Bili Total [0.20-1.00 mg/dL] 0.32 mg/dL (04/15/22 3:50 PM) BUN [7-18 mg/dL] 17 mg/dL (04/15/22 3:50 PM) Chloride Level [98-107 mmol/L] 102 mmol/ L (04/15/22 3:50 PM) CO2 [21.0-32.0 mmol/L] 29.8 mmol/L (04/15/22 3:50 PM) Glucose Level [70-110 mg/dL] 97 mg/dL (04/15/22 3:50 PM) HCO3 Art [22.0-26.0 mmol/L] 25.1 mmol/L (04/15/22 3:50 PM) Hct [35.0-49.0 %] 41.1 % (04/15/22 3:50 PM) Hgb [12.0-16.0 g/dL] 13.2 g/dL (04/15/22 3:50 PM) Magnesium [1.8-2.4] 1.5 *LOW* (04/15/22 3:50 PM) MCH [26.0-33.0 pg] 31.5 pg (04/15/22 3:50 PM) MCHC [31.0-36.0 g/dL] 32.1 g/dL (04/15/22 3:50 PM) MCV [82-100] 98 (04/15/22 3:50 PM) MPV [8.0-12.3 fL] 10.5 fL (04/15/22 3:50 PM) pCO2 Art [35.0-45.0 mmHg] 32.3 mmHg *LOW* (04/15/22 3:50 PM) pH Art [7.35-7.45] 7.50 *HI* (04/15/22 3:50 PM) Platelet [150-450 x10^3/mcL] 176 x10^3/m cL (04/15/22 3:50 PM) pO2 Art [80-100 mmHg] 61 mmHg 2 *CRIT* (04/15/22 3:50 PM) Potassium Level [3.5-5.2 mmol/L] 4.2 mmo l/L (04/15/22 3:50 PM) PT 10.1 second(s) *NA* (04/15/22 3:50 PM) RBC [4.00-5.20 x10^6/mcL] 4.19 x10^6/mcL (04/15/22 3:50 PM) Sodium Level [136-145 mEq/L] 136 mEq/L (04/15/22 3:50 PM) Protein Total [6.4-8.2 g/dL] 6.6 g/dL (04/15/22 3:50 PM) WBC [4.3-11.0 x10^3/mcL] 10.2 x10^3/mcL (04/15/22 3:50 PM) Fio2 Art [21-100 %] 24 % (04/15/22 3:50 PM) Troponin-I [0.00-60.40 pg/mL] 5.40 pg/mL (04/15/22 4:33 PM) 6.10 pg/mL (04/15/22 3:50 PM) Anion Gap 8 *NA* (04/15/22 3:50 PM) Calcium Level [8.5-10.2 mg/dL] 8.5 mg/dL (04/15/22 3:50 PM) ALT/SGPT [12-78 IU/L] 30 IU/L (04/15/22 3:50 PM) AST/SGOT [15-37 IU/L] No Reagent IU/L *NA* (04/15/22 3:50 PM) Auto Eos % [0.0-7.0 %] 0.4 % (04/15/22 3:50 PM) Auto Lymph % [10.0-50.0 %] 15.4 % (04/15/22 3:50 PM) Auto Neut % [37.0-80.0 %] 73.7 % (04/15/22 3:50 PM) Eos Abs# [0.00-0.50 K/uL] 0.04 K/uL (04/15/22 3:50 PM) Lymph Abs# [1.00-4.00 K/uL] 1.57 K/uL (04/15/22 3:50 PM) Starr Abs# [0.20-1.00 K/uL] 0.88 K/uL (04/15/22 3:50 PM) Auto Baso % [0.0-2.5 %] 0.2 % (04/15/22 3:50 PM) Auto Starr % [0.0-12.0 %] 8.6 % (04/15/22 3:50 PM) Baso Abs# [0.00-0.20 K/uL] 0.02 K/uL (04/15/22 3:50 PM) Neut Abs# [2.00-7.50 K/uL] 7.50 K/uL (04/15/22 3:50 PM) Lactic Acid [0.4-1.9 mmol/L] 1.4 mmol/L (04/15/22 3:50 PM) TCO2 Art [23.0-27.0 mmol/L] 26.0 mmol/L (04/15/22 3:50 PM) Base Excess Art [-2.0-2.0 mEq/L] 2.0 mEq /L (04/15/22 3:50 PM) Influenza A [negative] negative (04/15/22 4:14 PM) Influenza B [negative] negative (04/15/22 4:14 PM) Rik Test Art Not Indicated (04/15/22 3:50 PM) GFR AA [>=60 mL/min/1.73 ] 83 mL/min/1.73 (04/15/22 3:50 PM) GFR Non AA [>=60 mL/min/1.73 ] 69 mL/min/1.73 (04/15/22 3:50 PM) NT Pro-BNP [<=125 pg/mL] 582 pg/mL *HI* (04/15/22 3:50 PM) NRBC Abs # 0 K/uL *NA* (04/15/22 3:50 PM) IG Auto [0.00-0.50 K/uL] 0.17 K/uL (04/15/22 3:50 PM) Auto IG % [0.0-5.0 %] 1.7 % (04/15/22 3:50 PM) SARS-CoV-2 (COVID-19) RNA (ID Now) [Nega tive] Negative (04/15/22 4:14 PM) Employed in healthcare? No *NA* (04/15/22 4:14 PM) Symptomatic as defined by CDC? Yes *NA* (04/15/22 4:14 PM) Date of onset (Lab) 13-APR-2022 *Unknown* (04/15/22 4:14 PM) Hospitalized due to COVID-19? Unknown *NA* (04/15/22 4:14 PM) In ICU? No *NA* (04/15/22 4:14 PM) Group care resident? No *NA* (04/15/22 4:14 PM) status? Not *NA* (04/15/22 4:14 PM) 1Result Comment: Results called to prisca campa by tdg_ at 1636_. Read back and verified. 2Result Comment: Results called to Ailin Truong by ANQL_ at 04/15/2022 16:31:48 EDT_. Read back and verified. Radiology Reports * Exam Date Time Procedure Performing Provider Status 04/15/22 6:[address] PE Chest w/Cont Rahel Snow; Auth ( Verified) Notes: (CT PE Chest w/Cont) Reason For Exam: shortness of breath CT PE Chest w/Cont CT PE Chest w/Cont CLINICAL INDICATION: shortness of breath PROCEDURE: Non gated axial images of the chest were obtained with intravenous contrast according topulmonary embolism protocol. MIPS were reconstructed Dose reduction techniques including Automated Exposure Control (AEC) and adjustment of mA and kV were utlized. COMPARISON:None FINDINGS: No evidence of a pulmonary embolism to the level of the segmental pulmonary arteries. The heart is normal in size . No pericardial effusion . No suspicious mediastinal or axillary lymphnodes. Scattered subtle tree-in-bud nodularity. No focal consolidations, pleural effusions or pneumothorax .Airways are patent . No suspicious pulmonary nodules or masses . Limited images of the upper abdomen are unremarkable. No aggressive osseous lesions. IMPRESSION: 1. No evidence of pulmonary embolism. 2. Scattered subtle tree-in-bud nodularity for which acute infection is suspected. Electronically signed by: KHALIF RUEDA (Apr 15, 2022 18:26:29) Final Signed (Electronic Signature): Khalif Rueda MD 04/15/22 6:26 pm Technologist: DG * Exam Date Time Procedure Performing Provider Status 04/15/22 3:53 PM XR Chest 1 View Portable Michael Ballard; Auth (Verified) Notes: (XR Chest 1 View Portable) Reason For Exam: Shortness of Breath, Chest Pain XR Chest 1 View Portable XR Chest 1 View Portable HISTORY: Shortness of Breath, Chest Pain Study: PA and lateral views of the chest. Comparison:None Findings: The cardiomediastinal silhouette is normal.No focal consolidations, pleural effusions or pneumothorax. Osseous structures demonstrate no acute abnormality. IMPRESSION: 1. No acute cardiopulmonary process. Electronically signed by: KHALIF RUEDA (Apr 15, 2022 17:22:24) Final Signed (Electronic Signature): Khalif Rueda MD 04/15/22 5:22 pm Technologist: NOA Vital Signs Most recent to oldest [Reference Range]: 1 2 3 Temperature Temporal [36.3-37.8 DegC] 36.8 DegC (04/15/22 3:10 PM) Peripheral Pulse Rate [60-100 bpm] 85 bpm (04/15/22 5:13 PM) 87 bpm (04/15/22 4:45 PM) 87 bpm (04/15/22 4:00 PM) Heart Rate Monitored [60-100 bpm] 86 bpm (04/15/22 5:51 PM) 88 bpm (04/15/22 5:13 PM) 87 bpm (04/15/22 4:45 PM) Respiratory Rate [14-20 br/min] 14 br/min (04/15/22 5:51 PM) 13 br/min *LOW* (04/15/22 5:13 PM) 14 br/min (04/15/22 4:45 PM) Blood Pressure [90-140/60-90 mmHg] 155/57mmHg *HI* (04/15/22 6:03 PM) 147/54mmHg *HI* (04/15/22 5:51 PM) 181/76mmHg *HI* (04/15/22 5:13 PM) Mean Arterial Pressure, Cuff [65-100 mmHg] 90 mmHg (04/15/22 6:03 PM) 85 mmHg (04/15/22 5:51 PM) 111 mmHg *HI* (04/15/22 5:13 PM) SpO2 [92-100 %] 99 % (04/15/22 5:13 PM) 99 % (04/15/22 4:45 PM) 94 % (04/15/22 4:00 PM) Oxygen Flow Rate 2 L/min (04/15/22 3:10 PM) Oxygen Therapy Nasal cannula (04/15/22 3:10 PM) Height 165.000 cm (04/15/22 3:10 PM) Height/Length Dosing 165.000 cm (04/15/22 3:14 PM) Weight 83.000 kg (04/15/22 3:10 PM) Weight Dosing 83.000 kg (04/15/22 3:14 PM) Triage Ht 165 cm (04/15/22 3:10 PM) Triage Weight 83 kg (04/15/22 3:10 PM) Triage BMI 30.49 (04/15/22 3:10 PM) Social History Social History Type Response Smoking Status Smoking tobacco use: Former tobacco user;Never; Number used per day: 1 PPD; Number of years: 40; entered on: 04/11/22 Sex Hospital Discharge Instructions Patient Education 04/15/2022 17:55:02 Chronic Obstructive Pulmonary Disease Exacerbation, [id number]-[id number] Chronic Obstructive Pulmonary Disease Exacerbation Chronic obstructive pulmonary disease (COPD) is a long-term (chronic) lung problem. In COPD, the flow of air from the lungs is limited. COPD exacerbations are times that breathing gets worse and you need more than your normal treatment. Without treatment, they can be life threatening. If they happen often, your lungs can become more damaged. If your COPD gets worse, your doctor may treat you with: ??? Medicines. ??? Oxygen. ??? Different ways to clear your airway, such as using a mask. Follow these instructions at home: Medicines ??? Take [id number] and prescription medicines only as told by your doctor. ??? If you take an antibiotic or steroid medicine, do not stop taking the medicine even if you start to feel better. ??? Keep up with shots (vaccinations) as told by your doctor. Be sure to get a yearly (annual) flu shot. Lifestyle ??? Do not smoke. If you need help quitting, ask your doctor. ??? Eat healthy foods. ??? Exercise regularly. ??? Get plenty of sleep. ??? Avoid tobacco smoke and other things that can bother your lungs. ??? Wash your hands often with soap and water. This will help keep you from getting an infection. If you cannot use soap and water, use hand mechanical maintenance worker. ??? During flu season, avoid areas that are crowded with people. General instructions ??? Drink enough fluid to keep your pee (urine) clear or pale yellow. Do not do this if your doctorhas told you not to. ??? Use a cool mist machine (vaporizer). ??? If you use oxygen or a machine that turns medicine into a mist (nebulizer), continue to use it as told. ??? Follow all instructions for rehabilitation. These are steps you can take to make your body workbetter. ??? Keep all follow-up visits as told by your doctor. This is important. Contact a doctor if: ??? Your COPD symptoms get worse than normal. Get help right away if: ??? You are short of breath and it gets worse. ??? You have trouble talking. ??? You have chest pain. ??? You cough up blood. ??? You have a fever. ??? You keep throwing up (vomiting). ??? You feel weak or you pass out (faint). ??? You feel confused. ??? You are not able to sleep because of your symptoms. ??? You are not able to do daily activities. Summary ??? COPD exacerbations are times that breathing gets worse and you need more treatment than normal. ??? COPD exacerbations can be very serious and may cause your lungs to become more damaged. ??? Do not smoke. If you need help quitting, ask your doctor. ??? Stay up-to-date on your shots. Get a flu shot every year. This information is not intended to replace advice given to you by your health care provider. Make sure you discuss any questions you have with your health care provider. Document Revised: 09/28/2018 Document Reviewed: 11/20/2017 [employer] Patient Education ?? 2020 [employer] Follow Up Care 04/15/2022 15:10:23 With:Tylenol/Motrin for Pain/Fever relief Address:Unknown When: Unknown With:Drink Fluids Address:Unknown When: Unknown Note * Khalif Rueda MD: VERIFY, VERIFY DomainUser, Generated: PERFORM Event Display: Radiology Report Authored Date: [id number] XR Chest 1 View Portable HISTORY: Shortness of Breath, Chest Pain Study: PA and lateral views of the chest. Comparison:None Findings: The cardiomediastinal silhouette is normal.No focal consolidations, pleural effusions or pneumothorax. Osseous structures demonstrate no acute abnormality. IMPRESSION: 1. No acute cardiopulmonary process. Electronically signed by: KHALIF RUEDA (Apr 15, 2022 17:22:24) Final Signed (Electronic Signature): Khalif Rueda MD 04/15/22 5:22 pm Technologist: NOA HICKS * Khalif Rueda MD: VERIFY, VERIFY Khalif Rueda MD: VERIFY DomainUser, Generated: PERFORM Event Display: Radiology Report Authored Date: [id number] CT PE Chest w/Cont CLINICAL INDICATION: shortness of breath PROCEDURE: Non gated axial images of the chest were obtained with intravenous contrast according topulmonary embolism protocol. MIPS were reconstructed Dose reduction techniques including Automated Exposure Control (AEC) and adjustment of mA and kV were utlized. COMPARISON:None FINDINGS: No evidence of a pulmonary embolism to the level of the segmental pulmonary arteries. The heart is normal in size . No pericardial effusion . No suspicious mediastinal or axillary lymphnodes. Scattered subtle tree-in-bud nodularity. No focal consolidations, pleural effusions or pneumothorax .Airways are patent . No suspicious pulmonary nodules or masses . Limited images of the upper abdomen are unremarkable. No aggressive osseous lesions. IMPRESSION: 1. No evidence of pulmonary embolism. 2. Scattered subtle tree-in-bud nodularity for which acute infection is suspected. Electronically signed by: KHALIF RUEDA (Apr 15, 2022 18:26:29) Final Signed (Electronic Signature): Kahlif Rueda MD 04/15/22 6:26 pm Technologist: Care Team Personnel Name: Avila Gomez MD Address: [address] [place] [address]
--- OUTSIDE RECORDS SUMMARY | 2023-05-16 15:42 | XMS_ITS | Continuity of Care Document ---
Author Name Unknown Organization [facility] Address [address] [place] [id number] Care Team Providers Care Teamcenter Solution Architect Name Role Phone Avila Gomez Primary Care Physician Encounter 07/08/20 - 07/08/[address] [phone]- Discharge Disposition: Home Attending Physician: MAHAMED DE [...]
--- OUTSIDE RECORDS SUMMARY | 2023-05-16 15:42 | XMS_ITS | Continuity of Care Document ---
Author Name Unknown Organization [facility] Address [address] [place] [id number] Care Team Providers Care Mineralogy Professor Name Role Phone Avila Gomez Primary Care Physician Encounter 10/21/21 - 10/21/[address] [phone]- Encounter Diagnosis Musculoskeletal pain(Discharge Diagnosis) - 10/21/21 Discharge Disposition: Home Attending Physician: Deni Vasquez MD Admitting Physician: Deni Vasquez MD Allergies, Adverse Reactions, Alerts Substance Reaction Severity Status NSAIDs Active sulfa drug Anaphyllaxis Active Assessment and Plan Extracted from: Title:ED Provider Note Author:Joselo Barksdale ate:10/21/21 Assessment/Plan 1.??Musculoskeletal pain??M79.18 Orders: Dilaudid, 0.5 mg = 0.5 mL, Syringe, IV Push, Once, Start date 10/21/21 19:09:00 EST, Physician Stop, Stop date 10/21/21 19:09:00 EST, 10/21/21 19:09:[address] PE Chest w/Cont, 10/21/21 17:17:00 EST, Stat, Once, 10/21/21 17:17:00 EST, Chest pain dyspnea, Transport Mode: Wheelchair, Rad Type Patient stable in ED with stable vital signs.?? Patient's creatinine??2.0.?? Unsure what her baseline is.?? Did not want to do a CT PE study??with that degree of renal dysfunction.?? Suggested the patient hospital admission and try and obtain VQ scan tomorrow??but she declines and wants to go home.?? Did stress to patient that I could not rule out??PE??with today's findings??and she would need further work-up for that??but she states she just wants to go home. ??Patient did request??more Dilaudid prior to discharge. Patient Education Myofascial Pain Syndrome and Fibromyalgia Follow Up With When Contact Information Follow up with primary care provider Additional Instructions: Future Scheduled Tests Radiology* XR Hip Comp Min 2 Views Rt +Pelvis 08/20/21 Functional Status 10/21/21 Recent Travel History No recent travel Other exposure to Infectious Disease Non e Family Member Travel History No recent t ravel Medications acetaminophen-oxycodone 325 mg-10 mg oral tablet 0 Refill(s) Start Date: 10/21/21 Status: Ordered albuterol 90 mcg/inh inhalation aerosol [...] Cap-DR Start Date: 07/24/19 Status: Ordered Lyrica Oral, 0 Refill(s) Start Date: 10/21/21 Status: Ordered Lyrica 150 mg oral capsule [...] Neck 2 Completed Shoulder Completed 1surgery 2surgery Results Laboratory List Name Date Troponin I 10/21/21 Automated Differential Standard 10/21/21 CBC w/Diff Standard 10/21/21 Comprehensive Metabolic Panel Standard 1 12/22/20 D-Dimer 10/21/21 Magnesium Level 10/21/21 Troponin I 10/21/21 Most recent to oldest [Reference Range]: 1 2 Creatinine Level [0.6-1.0 mg/dL] 2.0 mg/ dL *HI* (10/21/21 4:43 PM) RDW/CV [11.5-14.5 %] 12.8 % (10/21/21 4:43 PM) Corinna. Calcium [8.5-10.2 mg/dL] 9.2 mg/dL (10/21/21 4:43 PM) D-Dimer [0.19-0.50 mg/L] 0.56 mg/L 1 *CRIT* (10/21/21 4:43 PM) Albumin Level [3.4-5.0 mg/dL] 4.2 mg/dL (10/21/21 4:43 PM) Alk Phos [40-120 IU/L] 69 IU/L (10/21/21 4:43 PM) Bili Total [0.20-1.00 mg/dL] 0.68 mg/dL (10/21/21 4:43 PM) BUN [7-18 mg/dL] 29 mg/dL *HI* (10/21/21 4:43 PM) Chloride Level [98-107 mmol/L] 99 mmol/L (10/21/21 4:43 PM) CO2 [21.0-32.0 mmol/L] 23.3 mmol/L (10/21/21 4:43 PM) Glucose Level [70-110 mg/dL] 123 mg/dL *HI* (10/21/21 4:43 PM) Hct [35.0-49.0 %] 38.3 % (10/21/21 4:43 PM) Hgb [12.0-16.0 g/dL] 12.4 g/dL (10/21/21 4:43 PM) Magnesium [1.8-2.4] 1.7 *LOW* (10/21/21 4:43 PM) MCH [26.0-33.0 pg] 31.4 pg (10/21/21 4:43 PM) MCHC [31.0-36.0 g/dL] 32.4 g/dL (10/21/21 4:43 PM) MCV [82-100] 97 (10/21/21 4:43 PM) MPV [8.0-12.3 fL] 10.9 fL (10/21/21 4:43 PM) Platelet [150-450 x10^3/mcL] 152 x10^3/m cL (10/21/21 4:43 PM) Potassium Level [3.5-5.2 mmol/L] 3.9 mmo l/L (10/21/21 4:43 PM) RBC [4.00-5.20 x10^6/mcL] 3.95 x10^6/mcL *LOW* (10/21/21 4:43 PM) Sodium Level [136-145] 136 (10/21/21 4:43 PM) Protein Total [6.4-8.2 g/dL] 7.4 g/dL (10/21/21 4:43 PM) WBC [4.3-11.0 x10^3/mcL] 6.4 x10^3/mcL (10/21/21 4:43 PM) Troponin-I [00.00-60.40 pg/mL] 10.20 pg/ mL (10/21/21 5:55 PM) 09.80 pg/mL (10/21/21 4:43 PM) Anion Gap 18 *NA* (10/21/21 4:43 PM) Calcium Level [8.5-10.2 mg/dL] 9.4 mg/dL (10/21/21 4:43 PM) ALT/SGPT [12-78 IU/L] 28 IU/L (10/21/21 4:43 PM) AST/SGOT [15-37 IU/L] 37 IU/L (10/21/21 4:43 PM) Auto Eos % [0.0-7.0 %] 1.4 % (10/21/21 4:43 PM) Auto Lymph % [10.0-50.0 %] 32.5 % (10/21/21 4:43 PM) Auto Neut % [37.0-80.0 %] 51.1 % (10/21/21 4:43 PM) Eos Abs# [0.00-0.50 K/uL] 0.09 K/uL (10/21/21 4:43 PM) Lymph Abs# [1.00-4.00 K/uL] 2.09 K/uL (10/21/21 4:43 PM) [place] Abs# [0.20-1.00 K/uL] 0.91 K/uL (10/21/21 4:43 PM) Auto Baso % [0.0-2.5 %] 0.6 % (10/21/21 4:43 PM) Auto [place] % [0.0-12.0 %] 14.1 % *HI* (10/21/21 4:43 PM) Baso Abs# [0.00-0.20 K/uL] 0.04 K/uL (10/21/21 4:43 PM) Neut Abs# [2.00-7.50 K/uL] 3.29 K/uL (10/21/21 4:43 PM) GFR AA [>=60 mL/min/1.73 ] 30 mL/min/1.73 *LOW* (10/21/21 4:43 PM) GFR Non AA [>=60 mL/min/1.73 ] 25 mL/min/1.73 *LOW* (10/21/21 4:43 PM) NRBC Abs # 0 K/uL *NA* (10/21/21 4:43 PM) IG Auto [0.00-0.50 K/uL] 0.02 K/uL (10/21/21 4:43 PM) Auto IG % [0.0-5.0 %] 0.3 % (10/21/21 4:43 PM) 1Result Comment: Results called to alex cavazos rn by [employer] at 10/21/2021 17:39:45 EST. Read back andverified. Radiology Reports * Exam Date Time Procedure Performing Provider Status 10/21/21 4:20 PM XR Chest 1 View Portable Oziel Charles pace; Auth (Verified) Notes: (XR Chest 1 View Portable) Reason For Exam: Chest Pain/STEMI Protocol XR Chest 1 View Portable XR Chest 1 View Portable 10/21/2021 PORTABLE CHEST AP SINGLE VIEW HISTORY: Chest Pain/STEMI Protocol. COMPARISON: No previous studies available for comparison. FINDINGS: A limited, portable AP sitting view of the chest has been obtained. Today's study revealsno acute infiltrate or other active cardiopulmonary process at this time. The mediastinum and pulmonary vessels are unremarkable. A reverse left shoulder arthroplasty is present. Prior ACDF cervical spine IMPRESSION: No acute intrathoracic process noted at this time. Final Signed (Electronic Signature): Aramis Eastman MD 10/21/21 5:44 pm Technologist: Vital Signs Most recent to oldest [Reference Range]: 1 2 3 Temperature Oral [35.8-37.3 DegC] 37.1 DegC (10/21/21 4:04 PM) Peripheral Pulse Rate [60-100 bpm] 101 bpm *HI* (10/21/21 7:20 PM) 110 bpm *HI* (10/21/21 7:00 PM) 108 bpm *HI* (10/21/21 6:45 PM) Heart Rate Monitored [60-100 bpm] 110 bpm *HI* (10/21/21 7:00 PM) 107 bpm *HI* (10/21/21 6:45 PM) 106 bpm *HI* (10/21/21 6:30 PM) Respiratory Rate [14-20 br/min] 18 br/min (10/21/21 7:00 PM) 12 br/min *LOW* (10/21/21 6:45 PM) 19 br/min (10/21/21 6:30 PM) Blood Pressure [90-140/60-90 mmHg] 139/62mmHg (10/21/21 6:45 PM) 139/62mmHg (10/21/21 6:30 PM) 118/51mmHg (10/21/21 6:15 PM) Mean Arterial Pressure, Cuff [65-100 mmHg] 88 mmHg (10/21/21 6:45 PM) 88 mmHg (10/21/21 6:30 PM) 73 mmHg (10/21/21 6:15 PM) SpO2 [92-100 %] 94 % (10/21/21 7:20 PM) 91 % *LOW* (10/21/21 7:00 PM) 93 % (10/21/21 6:45 PM) Oxygen Flow Rate 3 L/min (10/21/21 7:20 PM) 3 L/min (10/21/21 7:17 PM) 3 L/min (10/21/21 7:00 PM) Oxygen Therapy Nasal cannula (10/21/21 7:20 PM) Nasal cannula (10/21/21 7:17 PM) Nasal cannula (10/21/21 7:00 PM) Height 165.100 cm (10/21/21 4:04 PM) Height/Length Dosing 165.100 cm (10/21/21 4:11 PM) Weight 84.820 kg (10/21/21 7:20 PM) 84.820 kg (10/21/21 4:04 PM) Weight Dosing 84.820 kg (10/21/21 7:20 PM) 84.820 kg (10/21/21 4:11 PM) Triage Ht 165.10 cm (10/21/21 4:04 PM) Triage Weight 84.82 kg (10/21/21 4:04 PM) Triage BMI 31.12 (10/21/21 4:04 PM) Social History Social History Type Response Smoking Status Former smoker, quit more than 30 days ago entered on: 10/21/21 Sex Hospital Discharge Instructions Patient Education 10/21/2021 18:12:19 Myofascial Pain Syndrome and Fibromyalgia Myofascial Pain Syndrome and Fibromyalgia Myofascial pain syndrome and fibromyalgia are both pain disorders. This pain may be felt mainly in your muscles. ??? Myofascial pain syndrome: ??? Always has tender points in the muscle that will cause pain when pressed (trigger points). The pain may come and go. ??? Usually affects your neck, upper back, and shoulder areas. The pain often radiates into your arms and hands. ??? Fibromyalgia: ??? Has muscle pains and tenderness that come and go. ??? Is often associated with fatigue and sleep problems. ??? Has trigger points. ??? Tends to be long-lasting (chronic), but is not life-threatening. Fibromyalgia and myofascial pain syndrome are not the same. However, they often occur together. If you have both conditions, each can make the other worse. Both are common and can cause enough pain and fatigue to make day-to-day activities difficult. Both can be hard to diagnose because their symptoms are common in many other conditions. What are the causes? The exact causes of these conditions are not known. What increases the risk? You are more likely to develop this condition if: ??? You have a family history of the condition. ??? You have certain triggers, such as: ??? Spine disorders. ??? An injury (trauma) or other physical stressors. ??? Being under a lot of stress. ??? Medical conditions such as osteoarthritis, rheumatoid arthritis, or lupus. What are the signs or symptoms? Fibromyalgia The main symptom of fibromyalgia is widespread pain and tenderness in your muscles. Pain is sometimes described as stabbing, shooting, or burning. You may also have: ??? Tingling or numbness. ??? Sleep problems and fatigue. ??? Problems with attention and concentration (fibro fog). Other symptoms may include:? Bowel and bladder problems. ??? Headaches. ??? Visual problems. ??? Problems with odors and noises. ??? Depression or mood changes. ??? Painful menstrual periods (dysmenorrhea). ??? Dry skin or eyes. These symptoms can vary over time. Myofascial pain syndrome Symptoms of myofascial pain syndrome include: ??? Tight, ropy bands of muscle. ??? Uncomfortable sensations in muscle areas. These may include aching, cramping, burning, numbness, tingling, and weakness. ??? Difficulty moving certain parts of the body freely (poor range of motion). How is this diagnosed? This condition may be diagnosed by your symptoms and medical history. You will also have a physicalexam. In general: ??? Fibromyalgia is diagnosed if you have pain, fatigue, and other symptoms for more than 3 months,and symptoms cannot be explained by another condition. ??? Myofascial pain syndrome is diagnosed if you have trigger points in your muscles, and those trigger points are tender and cause pain elsewhere in your body (referred pain). How is this treated? Treatment for these conditions depends on the type that you have. ??? For fibromyalgia: ??? Pain medicines, such as NSAIDs. ??? Medicines for treating depression. ??? Medicines for treating seizures. ??? Medicines that relax the muscles. ??? For myofascial pain: ??? Pain medicines, such as NSAIDs. ??? Cooling and stretching of muscles. ??? Trigger point injections. ??? Sound wave (ultrasound) treatments to stimulate muscles. Treating these conditions often requires a team of health care providers. These may include: ??? Your primary care provider. ??? Physical therapist. ??? Complementary health care providers, such as massage therapists or acupuncturists. ??? Psychiatrist for cognitive behavioral therapy. Follow these instructions at home: Medicines ??? Take ungj-gaw-qudwzim and prescription medicines only as told by your health care provider. ??? Do not drive or use heavy machinery while taking prescription pain medicine. ??? If you are taking prescription pain medicine, take actions to prevent or treat constipation. Your health care provider may recommend that you: ??? Drink enough fluid to keep your urine pale yellow. ??? Eat foods that are high in fiber, such as fresh fruits and vegetables, whole grains, and beans. ??? Limit foods that are high in fat and processed sugars, such as fried or sweet foods. ??? Take an ywxf-kdq-jxrvtse or prescription medicine for constipation. Lifestyle ??? Exercise as directed by your health care provider or physical therapist. ??? Practice relaxation techniques to control your stress. You may want to try: ??? Biofeedback. ??? Visual imagery. ??? Hypnosis. ??? Muscle relaxation. ??? Yoga. ??? Meditation. ??? Maintain a healthy lifestyle. This includes eating a healthy diet and getting enough sleep. ??? Do not use any products that contain nicotine or tobacco, such as cigarettes and e-cigarettes. If you need help quitting, ask your health care provider. General instructions ??? Talk to your health care provider about complementary treatments, such as acupuncture or massage. ??? Consider joining a support group with others who are diagnosed with this condition. ??? Do not do activities that stress or strain your muscles. This includes repetitive motions and heavy lifting. ??? Keep all follow-up visits as told by your health care provider. This is important. Where to find more information ??? National Fibromyalgia Association: www.fmaware.org ??? Arthritis Foundation: www.arthritis.org ??? [place] [employer]: www.theacpa.org Contact a health care provider if: ??? You have new symptoms. ??? Your symptoms get worse or your pain is severe. ??? You have side effects from your medicines. ??? You have trouble sleeping. ??? Your condition is causing depression or anxiety. Summary ??? Myofascial pain syndrome and fibromyalgia are pain disorders. ??? Myofascial pain syndrome has tender points in the muscle that will cause pain when pressed (trigger points). Fibromyalgia also has muscle pains and tenderness that come and go, but this conditionis often associated with fatigue and sleep disturbances. ??? Fibromyalgia and myofascial pain syndrome are not the same but often occur together, causing pain and fatigue that make day-to-day activities difficult. ??? Treatment for fibromyalgia includes taking medicines to relax the muscles and medicines for pain, depression, or seizures. Treatment for myofascial pain syndrome includes taking medicines for pain, cooling and stretching of muscles, and injecting medicines into trigger points. ??? Follow your health care provider's instructions for taking medicines and maintaining a healthy lifestyle. This information is not intended to replace advice given to you by your health care provider. Make sure you discuss any questions you have with your health care provider. Document Released: 10/16/2006 Document Revised: 02/07/2020 Document Reviewed: 10/31/2018 [employer] Patient Education ?? 2020 [employer] Follow Up Care 10/21/2021 15:57:55 With:Follow up with primary care provider Address:Unknown When: Unknown
--- OUTSIDE RECORDS SUMMARY | 2023-05-16 15:42 | XMS_ITS | Continuity of Care Document ---
Author Name Unknown Organization [facility] Address [address] [place] [id number] Care Team Providers Care Manager Music Name Role Phone Non-Staff (July 44), Physician Primary Care Ph ysician Unavailable Encounter 05/16/20 - 05/16/[address] [phone]- Encounter Diagnosis Scalp laceration(Discharge Diagnosis) - 05/16/20 Fall from ground level(Discharge Diagnosis) - 05/16/20 Head injury due to trauma(Discharge Diagnosis) - 05/16/20 Discharge Disposition: Home Attending Physician: Chris Roldan MD Admitting Physician: Chris Roldan MD Allergies, Adverse Reactions, Alerts Substance Reaction Severity Status NSAIDs Active sulfa drug Anaphyllaxis Active Assessment and Plan Extracted from: Title:ED Physician Note Author:Joselo Barksdale Date:05/16/20 Assessment/Plan 1.??Fall from ground level??W18.30XA 2.??Scalp laceration??S01.01XA 3.??Head injury due to trauma??S09.90XA Orders: Robaxin, 500 mg = 5 mL, Soln, IM, Daily, Start date 05/16/20 18:50:[address] Head or Brain w/o Cont XR Ribs 3 Views Lt 1 cm stellate laceration to left forehead??cleaned with Hibiclens??and Steri- Strips applied by nursing staff.?? CT of the brain unremarkable.?? Radiographs of the left ribs do not demonstrate obvious acute??process.?? Patient feels better after medications.?? Patient seems stable for discharge??with stable vital signs Patient Education Concussion, Adult, Xkfq-fx-[id number] Follow Up With When Contact Information Follow up with primary care provider Additional Instructions: Functional Status 05/16/20 Other exposure to Infectious Disease Non e Medications albuterol 90 mcg/inh inhalation aerosol 2 [...] Exam Date Time Procedure Performing Provider Status 05/16/20 8:13 PM XR Ribs 3 Views Lt Nix, Mekhi; Auth ( Verified) Notes: (XR Ribs 3 Views Lt) Reason For Exam: fall pain XR Ribs 3 Views Lt XR Ribs 3 Views Lt 05/16/2020 History: Fall, pain. 4 views. No rib fractures are identified. Lungs are clear and fully expanded bilaterally. IMPRESSION: Negative left ribs. Final Signed (Electronic Signature): Donya Montana MD 05/17/20 8:03 am Technologist: CRISTOBAL Vital Signs Most recent to oldest [Reference Range]: 1 2 3 Temperature Tympanic [36.6-38.1 DegC] 36.6 DegC (05/16/20 5:18 PM) Peripheral Pulse Rate [60-100 bpm] 90 bpm (05/16/20 8:30 PM) 92 bpm (05/16/20 8:15 PM) 90 bpm (05/16/20 8:00 PM) Respiratory Rate [14-20 br/min] 18 br/min (05/16/20 5:18 PM) Blood Pressure [90-140/60-90 mmHg] 144/67mmHg *HI* (05/16/20 8:15 PM) 144/72mmHg *HI* (05/16/20 7:45 PM) 149/78mmHg *HI* (05/16/20 7:30 PM) SpO2 [92-100 %] 100 % (05/16/20 8:30 PM) 100 % (05/16/20 8:15 PM) 97 % (05/16/20 8:00 PM) Height 165.000 cm (05/16/20 5:18 PM) Height/Length Dosing 165.000 cm (05/16/20 5:22 PM) Weight 87.000 kg (05/16/20 5:18 PM) Weight Dosing 87.000 kg (05/16/20 5:22 PM) Triage Ht 165 cm (05/16/20 5:18 PM) Triage Weight 87 kg (05/16/20 5:18 PM) Triage BMI 31.96 (05/16/20 5:18 PM) Social History Social History Type Response Smoking Status Former smoker, quit more than 30 days ago entered on: 07/24/19 Sex Hospital Discharge Instructions Patient Education 05/16/2020 18:08:13 Concussion, Adult, Ycoq-ew-Cpvk Concussion, Adult A concussion is a brain injury from a direct hit (blow) to the head or body. This injury causes thebrain to shake quickly back and forth inside the skull. It is caused by: ??? A hit to the head. ??? A quick and sudden movement (jolt) of the head or neck. How fast you will get better from a concussion depends on many things. Recovery can take time. It is important to wait to return to activity until a doctor says it is safe and your symptoms are all gone. Follow these instructions at home: Activity ??? Limit activities that need a lot of thought or concentration. You may need to talk with your work over rig operator or teachers about this. Limit activities such as: ??? Homework or work for your job. ??? Watching TV. ??? Computer work. ??? Playing memory games and puzzles. ??? Rest. Rest helps the brain to heal. Make sure you: ??? Get plenty of sleep at night. Do not stay up late. ??? Rest during the day. Take naps or rest breaks when you feel tired. ??? Do not do activities that could cause a second concussion, such as riding a bike or playing sports. It can be dangerous if you get another concussion before the first one has healed. ??? Ask your doctor when you can return to your normal activities, like driving, riding a bike, or using machinery. Your ability to react may be slower. Do not do these activities if you are dizzy. Your doctor will likely give you a plan for slowly going back to activities. General instructions ??? Take meij-rzg-mcjqlen and prescription medicines only as told by your doctor. ??? Do not drink alcohol until your doctor says you can. ??? Watch your symptoms and tell other people to do the same. Other problems (complications) can happen after a concussion. Older adults with a brain injury may have a higher risk of serious problems, such as a blood clot in the brain. ??? Tell your work over rig operator, teachers, school nurse, school counselor, lean coach, or physical trainer about your injury and symptoms. Tell them about what you can or cannot do. They should watch you for: ??? More problems with attention or concentration. ??? More trouble remembering or learning new information. ??? More time needed to do tasks or assignments. ??? Being more annoyed (irritable) or having a harder time dealing with stress. ??? Any other symptoms that get worse. ??? Keep all follow-up visits as told by your doctor. This is important. Prevention ??? It is very important that you donot get another brain injury, especially before you have healed. In rare cases, another injury can cause permanent brain damage, brain swelling, or . You havethe most risk if you get another head injury in the first 7???10 days after you were hurt before. To avoid injuries: ??? Avoid activities that could make you get a second concussion, like contact sports. ??? When you have returned to sports or activities: ??? Avoid plays or moves that can cause you to crash into another person. This is how most concussions happen. ??? Follow the rules and be respectful of other players. ??? Get regular exercise that includes strength and balance training. ??? Wear a helmet when you do activities like: ??? Biking. ??? Skiing. ??? Skateboarding. ??? Skating. ??? Helmets can help protect you from serious skull and brain injuries, but they do not protect your from a concussion. Even when wearing a helmet, you should avoid being hit in the head. Contact a doctor if: ??? Your symptoms get worse or they do not get better. ??? You have new symptoms. ??? You have another injury. Get help right away if: ??? You have bad headaches or your headaches get worse. ??? You have weakness in any part of your body. ??? You are confused. ??? Your coordination gets worse. ??? You keep throwing up (vomiting). ??? You feel more sleepy than normal. ??? You twitch or shake violently (convulse) or have a seizure. ??? Your speech is not clear (is slurred). ??? You have strange behavior changes. ??? You have changes in how you see (vision). ??? You pass out (lose consciousness). Summary ??? A concussion is a brain injury from a direct hit (blow) to the head or body. ??? This condition is treated with rest and careful watching of symptoms. ??? If you keep having symptoms, call your doctor. This information is not intended to replace advice given to you by your health care provider. Make sure you discuss any questions you have with your health care provider. Document Released: 10/04/2010 Document Revised: 11/27/2018 Document Reviewed: 11/27/2018 [email or web address] Patient Education ?? 2019 [email or web address] Follow Up Care 05/16/2020 17:16:45 With:Follow up with primary care provider Address:Unknown When: Unknown
--- OUTSIDE RECORDS SUMMARY | 2023-05-16 15:42 | XMS_ITS | Continuity of Care Document ---
Author Name Unknown Organization [facility], [place] Address [address] [place] [id number] Care Team Providers [facility] Marker Name Role Phone Avila Gomez Primary Care Physician Encounter 03/18/22 - 03/19/[address] [id number]- Encounter Diagnosis Nausea and vomiting(Discharge Diagnosis) - 03/18/22 Epigastric pain(Discharge Diagnosis) - 03/18/22 Shortness of breath(Discharge Diagnosis) - 03/18/22 Hypomagnesemia(Discharge Diagnosis) - 03/18/22 Discharge Disposition: Home Attending Physician: Chris Roldan MD Admitting Physician: Chris Roldan MD Allergies, Adverse Reactions, Alerts Substance Reaction Severity Status Macrobid Mild Active NSAIDs Bleeding Moderate Active sulfa drug Anaphyllaxis Active Assessment and Plan Extracted from: Title:ED Provider Note Author:RADAMES CARDOZO Date:03/18/22 Assessment/Plan 1.??Epigastric pain??R10.13 Ordered: Discharge Patient, 03/18/22 23:48:00 EDT, Condition on Discharge: Stable, to Home, Epigastric pain Shortness of breath Nausea and vomiting Hypomagnesemia ?? 2.??Shortness of breath??R06.02 Ordered: Discharge Patient, 03/18/22 23:48:00 EDT, Condition on Discharge: Stable, to Home, Epigastric pain Shortness of breath Nausea and vomiting Hypomagnesemia ?? 3.??Nausea and vomiting??R11.2 Ordered: Discharge Patient, 03/18/22 23:48:00 EDT, Condition on Discharge: Stable, to Home, Epigastric pain Shortness of breath Nausea and vomiting Hypomagnesemia ?? 4.??Hypomagnesemia??E83.42 Ordered: Discharge Patient, 03/18/22 23:48:00 EDT, Condition on Discharge: Stable, to Home, Epigastric pain Shortness of breath Nausea and vomiting Hypomagnesemia ?? Orders: Carafate 1 g oral tablet, ( 1 gm ) 1 tab(s), Oral, QIDACHS, # 40 tab(s), 0 Refill(s), Pharmacy: [facility] [place], [place], Tab, 165, cm, 03/18/22 19:17:00 EDT, Height/Length Dosing, 82.5, kg, 03/18/22 19:17:00 EDT, Weight Dosing Blood Culture x 2, Blood, Stat collect, 03/18/22 19:42:00 EDT, Once, Stop date 03/18/22 19:42:00 EDT, Lab Collect Troponin I, Blood, Timed Study collect, 03/18/22 22:42:00 EDT, Once, Stop date 03/18/22 22:42:00 EDT, Lab Collect XR Chest 1 View Portable, 03/18/22 19:43:00 EDT, Stat, Once, 03/18/22 19:43:00 EDT, Shortness of Breath, Transport Mode: Portable, Rad Type Patient Discharge Condition Stable Discharge Disposition Home ?? Pt was discharged in stable condition ?? Patient and/or family were given verbal and written discharge instructions, which include diagnosis, plan of care and appropriate treatment options. They verbalized the understanding. They were encouraged to take any prescribed medicines as directed. They were informed that their ED visit today cannot rule out all pathology and that it is important to see their PCP or the referred provider in the next 1-2 days. They are to return to the Emergency Department for any changes, concerns, or if unable to obtain timely follow-up.? Patient Education Abdominal Pain, Adult, [id number] Follow Up With When Contact Information Avila Gomez MD Within 1 to 2 days [address] [place] [address]- ?? Additional Instructions: Call for follow up appointment??with your primary care provider for close recheck. ??Strict return emergency department??as needed if symptoms worsen, fail to improve, or should you have development??of any other new concerning symptoms. ??You should also follow-up with your GI specialist??in [place] that you have previously been evaluated by for further work-up as indicated. ?? Thank you for choosing our Emergency Department! It is important that you follow up with an outpatient physician so that we can assure your condition improves, as every diagnosis cannot be excluded in your ED visit today. Take your discharge instructions to the follow-up as it has important information about what occurred in your visit today. Please assure you take any medications prescribed as directed. Please return to the ED if you symptoms worsen, change, do not improve, or if you are unable to obtain timely follow-up ? Future Appointments Diagnostic Tests Pending * Blood Culture x 2 03/18/22 Future Scheduled Tests Radiology* US Renal Comp 03/03/22 * US Bladder +Residual Post Voiding 03/03/22 * XR Hip Comp Min 2 Views Rt +Pelvis 08/20/21 Functional Status 03/18/22 Recent Travel History No recent travel Other [...] mg-10 mg oral tablet 1 tab(s), Oral, q6hr (interval), PRN: for pain, 0 Refill(s), Tab Start Date: 02/28/22 Status: Ordered acetaminophen-oxycodone 325 mg-10 mg oral tablet 2 tab(s), Oral, q6hr (interval), PRN: for pain, 0 Refill(s), Tab Start Date: 01/04/22 Status: Ordered albuterol 90 mcg/inh inhalation aerosol 2 puff(s), INH, q4hr (interval), PRN PRN: for wheezing, # 8 gm, 0 Refill(s), Aerosol Start Date: 07/24/19 Status: Ordered baclofen 20 mg oral tablet Instructions: TAKE 1 TABLET BY MOUTH NIGHTLY Start Date: 01/04/22 Status: Ordered Belsomra 20 mg oral tablet Instructions: TAKE 1 TABLET BY MOUTH AT BEDTIME Start Date: 01/04/22 Status: Ordered Belsomra 20 mg oral tablet mg ) tab(s), Oral, Once a day (at bedtime) Start Date: 07/24/19 Status: Ordered Carafate 1 g oral tablet ( 1 gm ) 1 tab(s), Oral, QIDACHS, # 40 tab(s), 0 Refill(s), Pharmacy: [facility] [place], [place], Tab, 165, cm, 03/18/22 19:17:00 EDT, Height/Length Dosing, 82.5, kg, 03/18/22 19:17:00 EDT, Weight Dosing Start Date: 03/18/22 Stop Date: 03/28/22 Status: Ordered Dexilant 60 mg oral delayed release capsule ( 60 mg ) 1 cap(s), Daily, 0 Refill(s) Start Date: 02/28/22 Status: Ordered Estrace Vaginal 0.1 mg/g vaginal cream See Instructions, Instructions: 0.5 gm VAG twice a week (at bedtime), # 42.5 gm, 11 Refill(s), Pharmacy: [place], [place], 165, cm, 02/15/22 17:19:00 EDT, Height/Length Dosing, 84.8, kg, 02/15/22 17:19:00 EDT, Weight Dosing Start Date: 02/28/22 Status: Ordered fenofibrate 54 mg oral tablet Instructions: TAKE 1 TABLET BY MOUTH ONCE DAILY Start Date: 01/04/22 Status: Ordered Lomotil 2.5 mg-0.025 mg oral tablet 1 tab(s), Oral, QID, PRN: for loose stool, # 10 tab(s), 0 Refill(s), 02/15/23, Tab Start Date: 02/15/22 Stop Date: 02/15/23 Status: Ordered LORazepam 0.5 mg oral tablet Instructions: TAKE TWO TABLETS BY MOUTH ONCE NEEDED FOR AGITATION Start Date: 01/04/22 Status: Ordered Lyrica Oral, 0 Refill(s) Start Date: 10/21/21 Status: Ordered Movantik 12.5 mg oral tablet ( 12.5 mg ) 1 tab(s), qAM (scheduled), 0 Refill(s) Start Date: 02/28/22 Status: Ordered Movantik 12.5 mg oral tablet Instructions: TAKE 1 TABLET BY MOUTH ONCE DAILY IN THE MORNING Start Date: 01/04/22 Status: Ordered pregabalin 150 mg oral capsule Instructions: TAKE 1 CAPSULE BY MOUTH THREE TIMES DAILY Start Date: 01/04/22 Status: Ordered promethazine 25 mg oral tablet ( 25 mg ) 1 tab(s), Oral, q4hr (interval), PRN PRN: for nausea/vomiting, # 20 tab(s), 0 Refill(s), Tab Start Date: 02/15/22 Status: Ordered QUEtiapine 400 mg oral tablet, extended release Instructions: TAKE 1 TABLET BY MOUTH NIGHTLY Start Date: 01/04/22 Status: Ordered tiZANidine 4 mg oral tablet Instructions: TAKE 1 TABLET BY MOUTH EVERY 6 HOURS NEEDED FOR PAIN -- NOT TO EXCEED TWICE DAILY Start Date: 01/04/22 Status: Ordered traZODone 100 mg oral tablet Instructions: TAKE 2 & 1/2 (TWO & ONE-HALF) TABLETS BY MOUTH ONCE DAILY AT NIGHT Start Date: 01/04/22 Status: Ordered Trelegy Ellipta 100 mcg-62.5 mcg-25 mcg/inh inhalation powder Instructions: INHALE 1 PUFF ONCE DAILY Start Date: 01/04/22 Status: Ordered Problem List Condition Effective Dates Status Health Status Inform ant Arthritis(Confirmed) Active COPD (chronic obstructive pu lmonary disease)(Confirmed) [...] Results Laboratory List Name Date Troponin I 03/18/22 Troponin I 03/18/22 Arterial Bld Gas (UGH) 03/18/22 Lactic Acid Screen 03/18/22 Automated Differential Standard 03/18/22 C-Reactive Protein 03/18/22 CBC w/Diff Standard 03/18/22 Comprehensive Metabolic Panel Standard ( CMP Standard) 03/18/22 Lipase Level 03/18/22 Magnesium Level 03/18/22 NT Pro-BNP (BNP) 03/18/22 Urinalysis Microscopic 03/18/22 Urinalysis with Culture, If Indicated St [place]ard 03/18/22 Troponin I 03/18/22 Most recent to oldest [Reference Range]: 1 2 3 UA Epithelials [None Seen] Few *ABN* (03/18/22 7:44 PM) O2 Sat Art [95-99 %] 91 % *LOW* (03/18/22 8:25 PM) Urine Source Clean Catch (03/18/22 7:44 PM) Creatinine Level [0.6-1.0 mg/dL] 0.8 mg/dL (03/18/22 7:44 PM) Puncture Site LT Brachial (03/18/22 8:25 PM) RDW/CV [11.5-14.5 %] 14.2 % (03/18/22 7:44 PM) Corin[place]. Calcium [8.5-10.2 mg/dL] 8.7 mg/dL (03/18/22 7:44 PM) UA Bacteria [None Seen] None Seen (03/18/22 7:44 PM) UA Blood [Negative] Negative (03/18/22 7:44 PM) UA Color [Colorless] Yellow (03/18/22 7:44 PM) UA Glucose [Negative] Negative (03/18/22 7:44 PM) UA Ketones [Negative] Negative (03/18/22 7:44 PM) UA Leuk Est [Negative] Negative (03/18/22 7:44 PM) UA Nitrite [Negative] Negative (03/18/22 7:44 PM) UA Protein [Negative] 2+ *ABN* (03/18/22 7:44 PM) UA RBC [0-5] 0-5 (03/18/22 7:44 PM) UA Urobilinogen [0.2] 0.2 (03/18/22 7:44 PM) UA WBC [None Seen] 0-5 (03/18/22 7:44 PM) UA pH 6.0 (03/18/22 7:44 PM) Albumin Level [3.4-5.0 mg/dL] 4.5 mg/dL (03/18/22 7:44 PM) Alk Phos [40-120 IU/L] 72 IU/L (03/18/22 7:44 PM) Bili Total [0.20-1.00 mg/dL] 0.79 mg/dL (03/18/22 7:44 PM) BUN [7-18 mg/dL] 13 mg/dL (03/18/22 7:44 PM) Chloride Level [98-107 mmol/L] 104 mmol/L (03/18/22 7:44 PM) CO2 [21.0-32.0 mmol/L] 26.0 mmol/L (03/18/22 7:44 PM) Glucose Level [70-110 mg/dL] 111 mg/dL *HI* (03/18/22 7:44 PM) HCO3 Art [22.0-26.0 mmol/L] 24.0 mmol/L (03/18/22 8:25 PM) Hct [35.0-49.0 %] 43.8 % (03/18/22 7:44 PM) Hgb [12.0-16.0 g/dL] 13.7 g/dL (03/18/22 7:44 PM) Lipase Level [73-393 IU/L] 98 IU/L (03/18/22 7:44 PM) Magnesium [1.8-2.4] 1.3 *LOW* (03/18/22 7:44 PM) MCH [26.0-33.0 pg] 30.8 pg (03/18/22 7:44 PM) MCHC [31.0-36.0 g/dL] 31.3 g/dL (03/18/22 7:44 PM) MCV [82-100] 98 (03/18/22 7:44 PM) MPV [8.0-12.3 fL] 10.3 fL (03/18/22 7:44 PM) pCO2 Art [35.0-45.0 mmHg] 37.0 mmHg (03/18/22 8:25 PM) pH Art [7.35-7.45] 7.42 (03/18/22 8:25 PM) Platelet [150-450 x10^3/mcL] 187 x10^3/m cL (03/18/22 7:44 PM) pO2 Art [80-100 mmHg] 61 mmHg 1 *CRIT* (03/18/22 8:25 PM) Potassium Level [3.5-5.2 mmol/L] 4.0 mmol/L (03/18/22 7:44 PM) RBC [4.00-5.20 x10^6/mcL] 4.45 x10^6/mcL (03/18/22 7:44 PM) Sodium Level [136-145 mEq/L] 141 mEq/L (03/18/22 7:44 PM) Protein Total [6.4-8.2 g/dL] 7.9 g/dL (03/18/22 7:44 PM) WBC [4.3-11.0 x10^3/mcL] 10.0 x10^3/mcL (03/18/22 7:44 PM) UA Spec Grav 1.020 (03/18/22 7:44 PM) Fio2 Art [21-100 %] 21 % (03/18/22 8:25 PM) Troponin-I [0.00-60.40 pg/mL] 9.10 pg/mL (03/18/22 11:17 PM) 9.20 pg/mL (03/18/22 9:40 PM) 8.20 pg/mL (03/18/22 7:42 PM) Anion Gap 15 *NA* (03/18/22 7:44 PM) Calcium Level [8.5-10.2 mg/dL] 9.1 mg/dL (03/18/22 7:44 PM) ALT/SGPT [12-78 IU/L] 60 IU/L (03/18/22 7:44 PM) AST/SGOT [15-37 IU/L] 96 IU/L *HI* (03/18/22 7:44 PM) Auto Eos % [0.0-7.0 %] 0.0 % (03/18/22 7:44 PM) Auto Lymph % [10.0-50.0 %] 18.0 % (03/18/22 7:44 PM) Auto Neut % [37.0-80.0 %] 75.1 % (03/18/22 7:44 PM) Eos Abs# [0.00-0.50 K/uL] 0.00 K/uL (03/18/22 7:44 PM) Lymph Abs# [1.00-4.00 K/uL] 1.81 K/uL (03/18/22 7:44 PM) [place] Abs# [0.20-1.00 K/uL] 0.59 K/uL (03/18/22 7:44 PM) UA Clarity [Clear] Clear (03/18/22 7:44 PM) Auto Baso % [0.0-2.5 %] 0.5 % (03/18/22 7:44 PM) Auto [place] % [0.0-12.0 %] 5.9 % (03/18/22 7:44 PM) Baso Abs# [0.00-0.20 K/uL] 0.05 K/uL (03/18/22 7:44 PM) Neut Abs# [2.00-7.50 K/uL] 7.53 K/uL *HI* (03/18/22 7:44 PM) Micro? Not Indicated *ABN* (03/18/22 7:44 PM) CRP [0.05-0.80 mg/dL] 0.15 mg/dL (03/18/22 7:44 PM) Lactic Acid [0.4-1.9 mmol/L] 1.2 mmol/L (03/18/22 8:25 PM) TCO2 Art [23.0-27.0 mmol/L] 25.1 mmol/L (03/18/22 8:25 PM) Base Excess Art [-2.0-2.0 mEq/L] -0.2 mEq/L (03/18/22 8:25 PM) Rik Test Art Acceptable (03/18/22 8:25 PM) GFR AA [>=60 mL/min/1.73 ] 82 mL/min/1.73 (03/18/22 7:44 PM) GFR Non AA [>=60 mL/min/1.73 ] 68 mL/min/1.73 (03/18/22 7:44 PM) Culture? [Not Indicated] Not Indicated (03/18/22 7:44 PM) NT Pro-BNP [<=125 pg/mL] 134 pg/mL *HI* (03/18/22 7:44 PM) NRBC Abs # 0 K/uL *NA* (03/18/22 7:44 PM) IG Auto [0.00-0.50 K/uL] 0.05 K/uL (03/18/22 7:44 PM) Auto IG % [0.0-5.0 %] 0.5 % (03/18/22 7:44 PM) UA Bilirubin [Negative] Negative (03/18/22 7:44 PM) 1Result Comment: Results called to marcus villasenor rn by siri barcenas at 03/18/2022 20:43:58 EDT. Read back andverified. Radiology Reports * Exam Date Time Procedure Performing Provider Status 03/18/22 8:12 PM XR Chest 1 View Portable Phuong Griffin; Auth (Verified) Notes: (XR Chest 1 View Portable) Reason For Exam: Shortness of Breath XR Chest 1 View Portable HISTORY Shortness of Breath STUDY XR Chest 1 View Portable COMPARISON October 21, 2021. TECHNIQUE A single frontal view of the chest was obtained. FINDINGS The heart is normal in size. There is no focal infiltrate. There is no effusion. There is no pneumothorax. The osseous structures are intact. The patient is status post remote total left shoulder arthroplasty. There is evidence for anterior cervical interbody fusion of C7 and T1 with a fixation plate held by 4 screws. IMPRESSION No focal infiltrate or effusion. Electronically signed by: Swathi Cesar (March 19, 2022 02:13:38) Final Signed (Electronic Signature): Hyun Cesar MD 03/19/22 2:13 am Technologist: [place] * Exam Date Time Procedure Performing Provider Status 03/18/22 10:[address] Abdomen +Pelvis w/ Cont Fransico Joseph A; Auth (Verified) Notes: (CT Abdomen +Pelvis w/ Cont) Reason For Exam: Abdominal pain, acute, nonlocalized CT Abdomen +Pelvis w/ Cont EXAM: CT ABDOMEN AND PELVIS WITH INTRAVENOUS CONTRAST HISTORY: Acute abdominal pain. TECHNIQUE: Spiral axial CT images are obtained through the abdomen and pelvis with the administration of oral contrast and intravenous contrast. Additional coronal and sagittal reformatted images arereconstructed. DOSIMETRY: Total DLP 637 mGycm; CTDI 12.68 mGy COMPARISON: None available. FINDINGS: GASTROINTESTINAL TRACT: There is no evidence for hiatal hernia, bowel herniation, bowel obstruction, appendicitis: Colitis or diverticulitis. GENITOURINARY SYSTEM: There is an approximately 1.7 cm exophytic left lower pole renal cyst and an approximately 2.3 cm and 7.3 mm intraparenchymal cysts within the left middle pole kidney; approximately 1.8 cm right lower pole renal cyst; multiple tiny bilateral renal cysts. The kidneys are otherwise unremarkable. There is no ureteral calculus or stigmata of obstructive uropathy. Mildly thickened appearance of the urinary bladder wall (9.7 mm) which may represent sequela of incomplete bladder distention, but cannot rule out postinflammatory change or cystitis in the appropriate clinical setting. Clinical correlation is advised. CT ABDOMEN: Status post cholecystectomy. Diffuse hepatic steatosis with hepatomegaly (right lobe measures 20.9 cm CC); rule out nonalcoholic steatosis hepatitis; no focal hepatic mass seen. Severe aortoiliac atherosclerotic disease, without aneurysm formation or dissection. The spleen, pancreas, adrenal glands, gallbladder, and inferior vena cava are within normal limits for a CT scan. There is no intra-abdominal or retroperitoneal lymphadenopathy, free fluid, or free air seen. No abdominal herniation is noted. CT PELVIS: Status post hysterectomy. No pelvic sidewall or inguinal lymphadenopathy is seen. No inguinal herniation is noted. No free fluid or free air is seen. BONES AND JOINTS: The visualized bony structures are within normal limits. LUNG BASES: The lung bases are clear. IMPRESSION: 1. Mildly thickened appearance of the urinary bladder wall (9.7 mm) which may represent sequela of incomplete bladder distention, but cannot rule out postinflammatory change or cystitis in the appropriate clinical setting. Clinical correlation is advised. 2. No evidence for pyelonephritis, renal stone disease or obstructive uropathy. 3. No evidence for acute appendicitis, bowel herniation/obstruction, colitis or diverticulitis seen. 4. No free fluid, free air, mass lesions, or lymphadenopathy seen. 5. Status post cholecystectomy and hysterectomy. 6. Diffuse hepatic steatosis with hepatomegaly (right lobe measures 20.9 cm CC); rule out nonalcoholic steatosis hepatitis; no focal hepatic mass seen. Electronically signed by: Kathy San (March 18, 2022 22:23:16) Final Signed (Electronic Signature): Kathy San MD 03/18/22 10:23 p Technologist: CAR Vital Signs Most recent to oldest [Reference Range]: 1 2 3 Temperature Oral [35.8-37.3 DegC] 37.1 DegC (03/18/22 7:10 PM) Peripheral Pulse Rate [60-100 bpm] 106 bpm *HI* (03/19/22 12:05 AM) 106 bpm *HI* (03/18/22 10:58 PM) 110 bpm *HI* (03/18/22 10:51 PM) Heart Rate Monitored [60-100 bpm] 103 bpm *HI* (03/19/22 12:05 AM) 107 bpm *HI* (03/18/22 10:58 PM) 109 bpm *HI* (03/18/22 10:51 PM) Respiratory Rate [14-20 br/min] 13 br/min *LOW* (03/19/22 12:05 AM) 23 br/min *HI* (03/18/22 10:58 PM) 23 br/min *HI* (03/18/22 10:51 PM) Blood Pressure [90-140/60-90 mmHg] 156/82mmHg *HI* (03/19/22 12:05 AM) 172/83mmHg *HI* (03/18/22 7:10 PM) Mean Arterial Pressure, Cuff [65-100 mmHg] 107 mmHg *HI* (03/19/22 12:05 AM) SpO2 [92-100 %] 95 % (03/19/22 12:05 AM) 96 % (03/18/22 10:58 PM) 97 % (03/18/22 10:51 PM) Oxygen Therapy Room air (03/18/22 7:10 PM) Height 165.000 cm (03/18/22 7:10 PM) Height/Length Dosing 165.000 cm (03/18/22 7:17 PM) Weight 82.500 kg (03/18/22 7:10 PM) Weight Dosing 82.500 kg (03/18/22 7:17 PM) Triage Ht 165 cm (03/18/22 7:10 PM) Triage Weight 82.5 kg (03/18/22 7:10 PM) Triage BMI 30.3 (03/18/22 7:10 PM) Social History Social History Type Response Tobacco Former tobacco user Tobacco Use:. 1/2 per day. 40 year(s). Sex Hospital Discharge Instructions Patient Education 03/18/2022 22:47:50 Abdominal Pain, Adult, [id number]-[id number] Abdominal Pain, Adult Many things can cause belly (abdominal) pain. Most times, belly pain is not dangerous. Many cases of belly pain can be watched and treated at home. Sometimes, though, belly pain is serious. Your doctor will try to find the cause of your belly pain. Follow these instructions at home: Medicines ??? Take bujg-hex-dqubnrg and prescription medicines only as told by your doctor. ??? Do not take medicines that help you poop (laxatives) unless told by your doctor. General instructions ??? Watch your belly pain for any changes. ??? Drink enough fluid to keep your pee (urine) pale yellow. ??? Keep all follow-up visits as told by your doctor. This is important. Contact a doctor if: ??? Your belly pain changes or gets worse. ??? You are not hungry, or you lose weight without trying. ??? You are having trouble pooping (constipated) or have watery poop (diarrhea) for more than 2???3days. ??? You have pain when you pee or poop. ??? Your belly pain wakes you up at night. ??? Your pain gets worse with meals, after eating, or with certain foods. ??? You are vomiting and cannot keep anything down. ??? You have a fever. ??? You have blood in your pee. Get help right away if: ??? Your pain does not go away as soon as your doctor says it should. ??? You cannot stop vomiting. ??? Your pain is only in areas of your belly, such as the right side or the left lower part of the belly. ??? You have bloody or black poop, or poop that looks like tar. ??? You have very bad pain, cramping, or bloating in your belly. ??? You have signs of not having enough fluid or water in your body (dehydration), such as: ??? Dark pee, very little pee, or no pee. ??? Cracked lips. ??? Dry mouth. ??? Sunken eyes. ??? Sleepiness. ??? Weakness. ??? You have trouble breathing or chest pain. Summary ??? Many cases of belly pain can be watched and treated at home. ??? Watch your belly pain for any changes. ??? Take efvw-nem-pwkckfs and prescription medicines only as told by your doctor. ??? Contact a doctor if your belly pain changes or gets worse. ??? Get help right away if you have very bad pain, cramping, or bloating in your belly. This information is not intended to replace advice given to you by your health care provider. Make sure you discuss any questions you have with your health care provider. Document Revised: 02/24/2020 Document Reviewed: 02/24/2020 [employer] Patient Education ?? 2020 [employer]. Follow Up Care 03/18/2022 18:55:12 With:Avila Gomez MD Address: [address] [place] [address]- When:1 to 2 days Comments:Call for follow up appointment??with your primary care provider for close recheck. ??Strict return emergency department??as needed if symptoms worsen, fail to improve, or should you have development??of any other new concerning symptoms. ??You should also follow-up with your GI specialist??in [place] that you have previously been evaluated by for further work-up as indicated.Thank you for choosing our Emergency Department! It is important that you follow up with an outpatient physician so that we can assure your condition improves, as every diagnosis cannot be excluded in your ED visit today.Take your discharge instructions to the follow-up as it has important information about what occurred in your visit today. Please assure you take any medications prescribed as directed. Please returnto the ED if you symptoms worsen, change, do not improve, or if you are unable to obtain timely follow-up Note * Hyun Cesar MD: VERIFY, VERIFY DomainUser, Generated: PERFORM Event Display: Radiology Report Authored Date: HISTORY Shortness of Breath STUDY XR Chest 1 View Portable COMPARISON October 21, 2021. TECHNIQUE A single frontal view of the chest was obtained. FINDINGS The heart is normal in size. There is no focal infiltrate. There is no effusion. There is no pneumothorax. The osseous structures are intact. The patient is status post remote total left shoulder arthroplasty. There is evidence for anterior cervical interbody fusion of C7 and T1 with a fixation plate held by 4 screws. IMPRESSION No focal infiltrate or effusion. Electronically signed by: Swathi Cesar (March 19, 2022 02:13:38) Final Signed (Electronic Signature): Hyun Cesar MD 03/19/22 2:13 am Technologist: Kathy Barrera MD: VERIFY, VERIFY Kathy San MD: VERIFY DomainUser, Generated: PERFORM Event Display: Radiology Report Authored Date: EXAM: CT ABDOMEN AND PELVIS WITH INTRAVENOUS CONTRAST HISTORY: Acute abdominal pain. TECHNIQUE: Spiral axial CT images are obtained through the abdomen and pelvis with the administration of oral contrast and intravenous contrast. Additional coronal and sagittal reformatted images arereconstructed. DOSIMETRY: Total DLP 637 mGycm; CTDI 12.68 mGy COMPARISON: None available. FINDINGS: GASTROINTESTINAL TRACT: There is no evidence for hiatal hernia, bowel herniation, bowel obstruction, appendicitis: Colitis or diverticulitis. GENITOURINARY SYSTEM: There is an approximately 1.7 cm exophytic left lower pole renal cyst and an approximately 2.3 cm and 7.3 mm intraparenchymal cysts within the left middle pole kidney; approximately 1.8 cm right lower pole renal cyst; multiple tiny bilateral renal cysts. The kidneys are otherwise unremarkable. There is no ureteral calculus or stigmata of obstructive uropathy. Mildly thickened appearance of the urinary bladder wall (9.7 mm) which may represent sequela of incomplete bladder distention, but cannot rule out postinflammatory change or cystitis in the appropriate clinical setting. Clinical correlation is advised. CT ABDOMEN: Status post cholecystectomy. Diffuse hepatic steatosis with hepatomegaly (right lobe measures 20.9 cm CC); rule out nonalcoholic steatosis hepatitis; no focal hepatic mass seen. Severe aortoiliac atherosclerotic disease, without aneurysm formation or dissection. The spleen, pancreas, adrenal glands, gallbladder, and inferior vena cava are within normal limits for a CT scan. There is no intra-abdominal or retroperitoneal lymphadenopathy, free fluid, or free air seen. No abdominal herniation is noted. CT PELVIS: Status post hysterectomy. No pelvic sidewall or inguinal lymphadenopathy is seen. No inguinal herniation is noted. No free fluid or free air is seen. BONES AND JOINTS: The visualized bony structures are within normal limits. LUNG BASES: The lung bases are clear. IMPRESSION: 1. Mildly thickened appearance of the urinary bladder wall (9.7 mm) which may represent sequela of incomplete bladder distention, but cannot rule out postinflammatory change or cystitis in the appropriate clinical setting. Clinical correlation is advised. 2. No evidence for pyelonephritis, renal stone disease or obstructive uropathy. 3. No evidence for acute appendicitis, bowel herniation/obstruction, colitis or diverticulitis seen. 4. No free fluid, free air, mass lesions, or lymphadenopathy seen. 5. Status post cholecystectomy and hysterectomy. 6. Diffuse hepatic steatosis with hepatomegaly (right lobe measures 20.9 cm CC); rule out nonalcoholic steatosis hepatitis; no focal hepatic mass seen. Electronically signed by: Kathy San (March 18, 2022 22:23:16) Final Signed (Electronic Signature): Kathy San MD 03/18/22 10:23 p Technologist: CAR Care Team Personnel Name: Aivla Gomez MD Address: [address] [place] [address]
--- OUTSIDE RECORDS SUMMARY | 2023-05-16 15:42 | XMS_ITS | Continuity of Care Document ---
Author Name Unknown Organization [facility] Address [address] [place] [id number] Care Team Providers Care Bench Worker Binding Name Role Phone Avila Gomez Primary Care Physician [phone] Encounter 02/28/22 - 05/29/[address] [address]- Discharge Disposition: Home Attending Physician: Abe Jackson MD Admitting Physician: Abe Jackson MD Allergies, Adverse Reactions, Alerts Substance Reaction Severity Status codeine Unknown Active NSAIDs Bleeding Moderate Active sulfa drug Anaphyllaxis Active Macrobid Mild Active Nalbuphine Hydrochloride Unknown Act gwendolyn Assessment and Plan Future Appointments Future Scheduled Tests Radiology* US Renal Comp 03/03/22 * US Bladder +Residual Post Voiding 03/03/22 * XR Hip Comp Min 2 Views Rt +Pelvis 08/20/21 Medications !-Levaquin 750 mg oral tablet ( 750 mg ) 1 tab(s), Oral, q24hr (interval), # 9 tab(s), 0 Refill(s), Pharmacy: [facility] - [place], [place], Tab, 170, cm, 04/19/22 6:03:00 EDT, [...] cough, # 30 cap(s), 0 Refill(s), Pharmacy: [place], [place], Cap, 170, cm, 04/19/22 6:03:00 EDT, [...] Daily, # 10 tab(s), 0 Refill(s), Pharmacy: [place], [place], Tab, 170, cm, 04/19/22 6:03:00 EDT, [...] bedtime), # 42.5 gm, 11 Refill(s), Pharmacy: [place], [place], 165, cm, 02/15/22 17:19:00 EDT, Height/Length Dosing, 84.8, kg, 02/15/22 17:19:00 EDT, Weight Dosing Start Date: 02/28/22 Status: Ordered fenofibrate 54 mg oral tablet Instructions: TAKE 1 TABLET BY MOUTH ONCE DAILY Start Date: 01/04/22 Status: Ordered Florastor 250 mg oral capsule ( 250 mg ) 1 cap(s), Oral, BID, Instructions: UGH, # 60 cap(s), 0 Refill(s), Pharmacy: [place], [place], Cap, 170, cm, 04/19/22 6:03:00 EDT, Height/Length Dosing, 89.1, kg, 04/19/22 6:03:00 EDT, Weight Dosing Start Date: 04/21/22 Status: Ordered losartan 50 mg oral tablet ( 50 mg ) 1 tab(s), Oral, Daily, # 30 tab(s), 5 Refill(s), Pharmacy: [place], [place], Tab, 165, cm, 04/02/22 8:42:00 EDT, Height/Length Dosing, 85.8, kg, 04/02/22 11:45:00 EDT, Weight Dosing Start Date: 04/11/22 Status: Ordered magnesium oxide 400 mg oral tablet ( 400 mg ), Oral, BID, Instructions: UGH, # 60 tab(s), 0 Refill(s), Pharmacy: [place], [place], Tab, 170, cm, 04/19/22 6:03:00 EDT, [...] days., # 18 tab(s), 0 Refill(s), Pharmacy: [facility] [place], [place], 170, cm, 04/19/22 6:03:00 EDT, Derrell Start Date: 04/21/22 Stop Date: 05/06/22 Status: [...] Active Diarrhea(Confirmed) Active Cervical spine disease(Confirmed) Active Dysphonia(Confirmed) Active Bone marrow transplant status(Confirmed) Active Herpes(Confirmed) [...] Team Personnel Name: Avila Gomez MD Address: [address] [place] [id number]
--- OUTSIDE RECORDS SUMMARY | 2023-05-16 15:42 | XMS_ITS | Continuity of Care Document ---
Author Name Unknown Organization [facility] Address [address] [place] [id number] Care Team Providers Care Peoplesoft Developer Name Role Phone Avila Gomez Primary Care Physician Encounter 07/08/20 - 07/08/[address] [address]- Discharge Disposition: Home Attending Physician: MAHAMED DE [...]
--- OUTSIDE RECORDS SUMMARY | 2023-05-16 15:42 | XMS_ITS | Continuity of Care Document ---
Author Name Unknown Organization [facility] Address [address] [place] [id number] Care Team Providers Care Sports Doctor Name Role Phone Avila Gomez Primary Care Physician Encounter 03/26/22 - 03/26/[address] [id number]- Encounter Diagnosis COPD exacerbation(Discharge Diagnosis) - 03/26/22 Cough(Discharge Diagnosis) - 03/26/22 Discharge Disposition: Home Attending Physician: Chris Roldan MD Admitting Physician: Chris Roldan MD Allergies, Adverse Reactions, Alerts Substance Reaction Severity Status Macrobid Mild Active NSAIDs Bleeding Moderate Active sulfa drug Anaphyllaxis Active Assessment and Plan Extracted from: Title:ED Provider Note Author:Chris Roldan MD Date:03/26/22 Assessment/Plan 1.??COPD exacerbation??J44.1 2.??Cough??R05.9 Orders: magnesium oxide, 800 mg, Tab, Oral, Once, Start date 03/26/22 10:45:00 EDT, Physician Stop, Stop date 03/26/22 10:45:00 EDT, 03/26/22 10:45:00 EDT potassium chloride, 40 mEq = 2 tab(s), Tab-ER, Oral, Once, Start date 03/26/22 10:45:00 EDT, Physician Stop, Stop date 03/26/22 10:45:00 EDT, 03/26/22 10:45:00 EDT Blood Culture x 2, Blood, Stat collect, 03/26/22 9:12:00 EDT, Once, Stop date 03/26/22 9:12:00 EDT, Lab Collect ? * Final Report * ?? Reason For Exam sob cough ?? XR Chest 1 View Portable HISTORY ?Cough SOB? STUDY ?Portable AP chest? COMPARISON ?03/18/2022? FINDINGS ?Continued normal heart size and contour with clear lungs and pleural spaces. There is no mediastinal or hilar lesion identified.? IMPRESSION ?No change; no acute chest findings.? Electronically signed by: HERNANDO MARQUES (March 26, 2022 10:28:11) ?? Signature Line Final ? Signed (Electronic Signature): ??Hernando Marques MD ? 03/26/22 10:28 a Technologist: XIAO LATHAM ? Patient Education Chronic Obstructive Pulmonary Disease Follow Up With When Contact Information Avila Gomez MD [address] [place] [address]- ?? Additional Instructions: Follow-up as needed Future Appointments Diagnostic Tests Pending * Blood Culture x 2 03/26/22 Future Scheduled Tests Radiology* US Renal Comp 03/03/22 * US Bladder +Residual Post Voiding 03/03/22 * XR Hip Comp Min 2 Views Rt +Pelvis 08/20/21 Functional Status 03/26/22 Recent Travel History No recent travel Other exposure to Infectious Disease Non e Family Member Travel History No recent t ravel Medications !-Levaquin 750 mg oral tablet ( 750 mg ) 1 tab(s), Oral, q24hr (interval), x 6 day(s), # 6 tab(s), 0 Refill(s), 04/01/22, Tab Start Date: 03/26/22 Stop Date: 04/01/22 Status: Ordered !-Tussionex PennKinetic 10 mg-8 mg/5 mL oral suspension, extended release 5 mL, Oral, q12hr (scheduled), PRN: as needed for cold symptoms, # 100 mL, 0 Refill(s), 04/05/22, Susp-ER Start Date: 03/26/22 Stop Date: 04/05/22 Status: Ordered !-Zofran ODT 4 mg oral [...] ( 1 mg ) 1 tab(s), Oral, Daily, PRN PRN: as needed for anxiety, # 6 tab(s), 0 Refill(s), 04/01/22, Tab Start Date: 03/26/22 Stop Date: 04/01/22 Status: Ordered baclofen 20 mg oral tablet [...] QIDACHS, # 40 tab(s), 0 Refill(s), Pharmacy: [facility] [place], [place], Tab, 165, cm, 03/18/22 19:17:00 EDT, [...] bedtime), # 42.5 gm, 11 Refill(s), Pharmacy: [place], [place], 165, cm, 02/15/22 17:19:00 EDT, Height/Length [...] 0 Refill(s) Start Date: 10/21/21 Status: Ordered Medrol Dosepak 4 mg oral tablet 1 packet(s), Oral, Daily, x 6 day(s), Instructions: as directed on package labeling, # 21 tab(s), 0Refill(s), 04/01/22, Tab Start Date: 03/26/22 Stop Date: 04/01/22 Status: Ordered Movantik 12.5 mg oral tablet [...] ONCE DAILY Start Date: 01/04/22 Status: Ordered Mental Status 03/26/22 Level of Consciousness Alert Problem List Condition Effective Dates Status Health [...] Laboratory List Name Date Automated Differential Standard 03/26/22 C-Reactive Protein 03/26/22 CBC w/Diff Standard 03/26/22 Comprehensive Metabolic Panel Standard ( CMP Standard) 03/26/22 Lactic Acid Screen 03/26/22 Magnesium Level 03/26/22 Most recent to oldest [Reference Range]: 1 Creatinine Level [0.6-1.0 mg/dL] 0.8 mg/ dL (03/26/22 9:32 AM) RDW/CV [11.5-14.5 %] 14.9 % *HI* (03/26/22 9:32 AM) Corinna. Calcium [8.5-10.2 mg/dL] 9.5 mg/dL (03/26/22 9:32 AM) Albumin Level [3.4-5.0 mg/dL] 4.0 mg/dL (03/26/22 9:32 AM) Alk Phos [40-120 IU/L] 67 IU/L (03/26/22 9:32 AM) Bili Total [0.20-1.00 mg/dL] 0.59 mg/dL (03/26/22 9:32 AM) BUN [7-18 mg/dL] 14 mg/dL (03/26/22 9:32 AM) Chloride Level [98-107 mmol/L] 96 mmol/L *LOW* (03/26/22 9:32 AM) CO2 [21.0-32.0 mmol/L] 33.7 mmol/L *HI* (03/26/22 9:32 AM) Glucose Level [70-110 mg/dL] 117 mg/dL *HI* (03/26/22 9:32 AM) Hct [35.0-49.0 %] 41.6 % (03/26/22 9:32 AM) Hgb [12.0-16.0 g/dL] 13.7 g/dL (03/26/22 9:32 AM) Magnesium [1.8-2.4] 1.6 *LOW* (03/26/22 9:32 AM) MCH [26.0-33.0 pg] 32.0 pg (03/26/22 9:32 AM) MCHC [31.0-36.0 g/dL] 32.9 g/dL (03/26/22 9:32 AM) MCV [82-100] 97 (03/26/22 9:32 AM) MPV [8.0-12.3 fL] 10.2 fL (03/26/22 9:32 AM) Platelet [150-450 x10^3/mcL] 136 x10^3/m cL *LOW* (03/26/22 9:32 AM) Potassium Level [3.5-5.2 mmol/L] 3.2 mmo l/L *LOW* (03/26/22 9:32 AM) RBC [4.00-5.20 x10^6/mcL] 4.28 x10^6/mcL (03/26/22 9:32 AM) Sodium Level [136-145] 135 *LOW* (03/26/22 9:32 AM) Protein Total [6.4-8.2 g/dL] 7.6 g/dL (03/26/22 9:32 AM) WBC [4.3-11.0 x10^3/mcL] 4.4 x10^3/mcL (03/26/22 9:32 AM) Anion Gap 8 *NA* (03/26/22 9:32 AM) Calcium Level [8.5-10.2 mg/dL] 9.5 mg/dL (03/26/22 9:32 AM) ALT/SGPT [12-78 IU/L] 46 IU/L (03/26/22 9:32 AM) AST/SGOT [15-37 IU/L] 42 IU/L *HI* (03/26/22 9:32 AM) Auto Eos % [0.0-7.0 %] 0.5 % (03/26/22 9:32 AM) Auto Lymph % [10.0-50.0 %] 27.1 % (03/26/22 9:32 AM) Auto Neut % [37.0-80.0 %] 51.5 % (03/26/22 9:32 AM) Eos Abs# [0.00-0.50 K/uL] 0.02 K/uL (03/26/22 9:32 AM) Lymph Abs# [1.00-4.00 K/uL] 1.19 K/uL (03/26/22 9:32 AM) [place] Abs# [0.20-1.00 K/uL] 0.88 K/uL (03/26/22 9:32 AM) Auto Baso % [0.0-2.5 %] 0.2 % (03/26/22 9:32 AM) Auto [place] % [0.0-12.0 %] 20.0 % *HI* (03/26/22 9:32 AM) Baso Abs# [0.00-0.20 K/uL] 0.01 K/uL (03/26/22 9:32 AM) Neut Abs# [2.00-7.50 K/uL] 2.26 K/uL (03/26/22 9:32 AM) CRP [0.05-0.80 mg/dL] 3.18 mg/dL *HI* (03/26/22 9:32 AM) Lactic Acid [0.4-1.9 mmol/L] 1.2 mmol/L (03/26/22 9:32 AM) GFR AA [>=60 mL/min/1.73 ] 87 mL/min/1.73 (03/26/22 9:32 AM) GFR Non AA [>=60 mL/min/1.73 ] 72 mL/min/1.73 (03/26/22 9:32 AM) NRBC Abs # 0 K/uL *NA* (03/26/22 9:32 AM) IG Auto [0.00-0.50 K/uL] 0.03 K/uL (03/26/22 9:32 AM) Auto IG % [0.0-5.0 %] 0.7 % (03/26/22 9:32 AM) Radiology Reports * Exam Date Time Procedure Performing Provider Status 03/26/22 10:03 AM XR Chest 1 View Portable Bridges, Ava ly; Auth (Verified) Notes: (XR Chest 1 View Portable) Reason For Exam: sob cough XR Chest 1 View Portable HISTORY Cough SOB STUDY Portable AP chest COMPARISON 03/18/2022 FINDINGS Continued normal heart size and contour with clear lungs and pleural spaces. There is no mediastinal or hilar lesion identified. IMPRESSION No change; no acute chest findings. Electronically signed by: HERNANDO MARQUES (March 26, 2022 10:28:11) Final Signed (Electronic Signature): Hernando Marques MD 03/26/22 10:28 a Technologist: XIAO LATHAM Vital Signs Most recent to oldest [Reference Range]: 1 2 3 Temperature Oral [35.8-37.3 DegC] 36.1 DegC (03/26/22:02 AM) Peripheral Pulse Rate [60-100 bpm] 89 bpm (03/26/22 12:07 PM) 89 bpm (03/26/22 11:30 AM) 85 bpm (03/26/22 11:00 AM) Respiratory Rate [14-20 br/min] 17 br/min (03/26/22 12:07 PM) 18 br/min (03/26/22:02 AM) Blood Pressure [90-140/60-90 mmHg] 120/67mmHg (03/26/22:07 PM) 120/67mmHg (03/26/22 11:30 AM) 115/76mmHg (03/26/22 11:00 AM) Mean Arterial Pressure, Cuff [65-100 mmHg] 89 mmHg (03/26/22 11:00 AM) SpO2 [92-100 %] 95 % (03/26/22:07 PM) 95 % (03/26/22:30 AM) 97 % (03/26/22:00 AM) Oxygen Flow Rate 3 L/min (03/26/22 9:02 AM) Oxygen Therapy Nasal cannula (03/26/22 12:07 PM) Nasal cannula (03/26/22:02 AM) Height 165.000 cm (03/26/22 9:02 AM) Height/Length Dosing 165.000 cm (03/26/22 9:10 AM) Weight 83.000 kg (03/26/22 12:07 PM) 83.000 kg (03/26/22 9:02 AM) Weight Dosing 83.000 kg (03/26/22 12:07 PM) 83.000 kg (03/26/22 9:10 AM) Triage Ht 165 cm (03/26/22 9:02 AM) Triage Weight 83 kg (03/26/22 9:02 AM) Triage BMI 30.49 (03/26/22 9:02 AM) Social History Social History Type Response Tobacco Former tobacco user Tobacco Use:. 1/2 per day. 40 year(s). Sex Hospital Discharge Instructions Patient Education 03/26/2022 09:52:24 Chronic Obstructive Pulmonary Disease Chronic Obstructive Pulmonary Disease Chronic obstructive pulmonary disease (COPD) is a long-term (chronic) condition that affects the lungs. COPD is a general term that can be used to describe many different lung problems that cause lung swelling (inflammation) and limit airflow, including chronic bronchitis and emphysema. If you haveCOPD, your lung function will probably never return to normal. In most cases, it gets worse over time. However, there are steps you can take to slow the progression of the disease and improve your quality of life. What are the causes? This condition may be caused by: ??? Smoking. This is the most common cause. ??? Certain genes passed down through families. What increases the risk? The following factors may make you more likely to develop this condition: ??? Secondhand smoke from cigarettes, pipes, or cigars. ??? Exposure to chemicals and other irritants such as fumes and dust in the work environment. ??? Chronic lung conditions or infections. What are the signs or symptoms? Symptoms of this condition include: ??? Shortness of breath, especially during physical activity. ??? Chronic cough with a large amount of thick mucus. Sometimes the cough may not have any mucus (dry cough). ??? Wheezing. ??? Rapid breaths. ??? Ivan or bluish discoloration (cyanosis) of the skin, especially in your fingers, toes, or lips. ??? Feeling tired (fatigue). ??? Weight loss. ??? Chest tightness. ??? Frequent infections. ??? Episodes when breathing symptoms become much worse (exacerbations). ??? Swelling in the ankles, feet, or legs. This may occur in later stages of the disease. How is this diagnosed? This condition is diagnosed based on: ??? Your medical history. ??? A physical exam. You may also have tests, including: ??? Lung (pulmonary) function tests. This may include a spirometry test, which measures your ability to exhale properly. ??? Chest X-ray. ??? CT scan. ??? Blood tests. How is this treated? This condition may be treated with: ??? Medicines. These may include inhaled rescue medicines to treat acute exacerbations as well as long-term, or maintenance, medicines to prevent flare- ups of COPD. ??? Bronchodilators help treat COPD by dilating the airways to allow increased airflow and make your breathing more comfortable. ??? Steroids can reduce airway inflammation and help prevent exacerbations. ??? Smoking cessation. If you smoke, your health care provider may ask you to quit, and may also recommend therapy or replacement products to help you quit. ??? Pulmonary rehabilitation. This may involve working with a team of health care providers and specialists, such as respiratory, occupational, and physical therapists. ??? Exercise and physical activity. These are beneficial for nearly all people with COPD. ??? Nutrition therapy to gain weight, if you are underweight. ??? Oxygen. Supplemental oxygen therapy is only helpful if you have a low oxygen level in your blood (hypoxemia). ??? Lung surgery or transplant. ??? Palliative care. This is to help people with COPD feel comfortable when treatment is no longer working. Follow these instructions at home: Medicines ??? Take [id number] and prescription medicines (inhaled or pills) only as told by your healthcare provider. ??? Talk to your health care provider before taking any cough or allergy medicines. You may need toavoid certain medicines that dry out your airways. Lifestyle ??? If you are a smoker, the most important thing that you can do is to stop smoking. Do not use any products that contain nicotine or tobacco, such as cigarettes and e-cigarettes. If you need help quitting, ask your health care provider. Continuing to smoke will cause the disease to progress faster. ??? Avoid exposure to things that irritate your lungs, such as smoke, chemicals, and fumes. ??? Stay active, but balance activity with periods of rest. Exercise and physical activity will help you maintain your ability to do things you want to do. ??? Learn and use relaxation techniques to manage stress and to control your breathing. ??? Get the right amount of sleep and get quality sleep. Most adults need 7 or more hours per night. ??? Eat healthy foods. Eating smaller, more frequent meals and resting before meals may help you maintain your strength. Controlled breathing Learn and use controlled breathing techniques as directed by your health care provider. Controlled breathing techniques include: ??? Pursed lip breathing. Start by breathing in (inhaling) through your nose for 1 second. Then, purse your lips as if you were going to whistle and breathe out (exhale) through the pursed lips for 2seconds. ??? Diaphragmatic breathing. Start by putting one hand on your abdomen just above your waist. Inhale slowly through your nose. The hand on your abdomen should move out. Then purse your lips and exhale slowly. You should be able to feel the hand on your abdomen moving in as you exhale. Controlled coughing Learn and use controlled coughing to clear mucus from your lungs. Controlled coughing is a series of short, progressive coughs. The steps of controlled coughing are: 1. Lean your head slightly forward. 2. Breathe in deeply using diaphragmatic breathing. 3. Try to hold your breath for 3 seconds. 4. Keep your mouth slightly open while coughing twice. 5. Spit any mucus out into a tissue. 6. Rest and repeat the steps once or twice as needed. General instructions ??? Make sure you receive all the vaccines that your health care provider recommends, especially the pneumococcal and influenza vaccines. Preventing infection and hospitalization is very important when you have COPD. ??? Use oxygen therapy and pulmonary rehabilitation if directed to by your health care provider. Ifyou require home oxygen therapy, ask your health care provider whether you should purchase a pulse oximeter to measure your oxygen level at home. ??? Work with your health care provider to develop a COPD action plan. This will help you know whatsteps to take if your condition gets worse. ??? Keep other chronic health conditions under control as told by your health care provider. ??? Avoid extreme temperature and humidity changes. ??? Avoid contact with people who have an illness that spreads from person to person (is contagious), such as viral infections or pneumonia. ??? Keep all follow-up visits as told by your health care provider. This is important. Contact a health care provider if: ??? You are coughing up more mucus than usual. ??? There is a change in the color or thickness of your mucus. ??? Your breathing is more labored than usual. ??? Your breathing is faster than usual. ??? You have difficulty sleeping. ??? You need to use your rescue medicines or inhalers more often than expected. ??? You have trouble doing routine activities such as getting dressed or walking around the house. Get help right away if: ??? You have shortness of breath while you are resting. ??? You have shortness of breath that prevents you from: ??? Being able to talk. ??? Performing your usual physical activities. ??? You have chest pain lasting longer than 5 minutes. ??? Your skin color is more blue (cyanotic) than usual. ??? You measure low oxygen saturations for longer than 5 minutes with a pulse oximeter. ??? You have a fever. ??? You feel too tired to breathe normally. Summary ??? Chronic obstructive pulmonary disease (COPD) is a long-term (chronic) condition that affects the lungs. ??? Your lung function will probably never return to normal. In most cases, it gets worse over time. However, there are steps you can take to slow the progression of the disease and improve your quality of life. ??? Treatment for COPD may include taking medicines, quitting smoking, pulmonary rehabilitation, and changes to diet and exercise. As the disease progresses, you may need oxygen therapy, a lung transplant, or palliative care. ??? To help manage your condition, do not smoke, avoid exposure to things that irritate your lungs,stay up to date on all vaccines, and follow your health care provider's instructions for taking medicines. This information is not intended to replace advice given to you by your health care provider. Make sure you discuss any questions you have with your health care provider. Document Revised: 09/28/2018 Document Reviewed: 11/20/2017 [employer] Check Patient Education ?? 2020 [employer]. Follow Up Care 03/26/2022 08:08:16 With:Avila Gomez MD Address: [address] [place] [address]- When: Unknown Comments:Follow-up as needed Note * Hernando Marques MD: VERIFY, VERIFY Hernando Marques MD: VERIFY DomainUser, Generated: PERFORM Event Display: Radiology Report Authored Date: [id number] HISTORY Cough SOB STUDY Portable AP chest COMPARISON 03/18/2022 FINDINGS Continued normal heart size and contour with clear lungs and pleural spaces. There is no mediastinal or hilar lesion identified. IMPRESSION No change; no acute chest findings. Electronically signed by: HERNANDO MARQUES (March 26, 2022 10:28:11) Final Signed (Electronic Signature): Hernando Marques MD 03/26/22 10:28 a Technologist: XIAO LATHAM Care Team Personnel Name: Avila Gomez MD Address: [address] [facility], [place] [address]
--- OUTSIDE RECORDS SUMMARY | 2023-05-16 15:42 | XMS_ITS | Continuity of Care Document ---
Author Name Unknown Organization [facility] Address [address] [place] [id number] Care Team Providers Care District Court Reporter Name Role Phone Avila Gomez Primary Care Physician [phone] Encounter 07/11/22 - 07/11/[address] [address]- Encounter Diagnosis Dizziness and giddiness(Final) - Discharge Disposition: Home Attending Physician: Sharron Nayak ASSISTANT PROFESSOR OF RADIOLOGY Admitting Physician: Sharron Nayak ASSISTANT PROFESSOR OF RADIOLOGY Allergies, Adverse Reactions, Alerts Substance Reaction Severity Status codeine Unknown Active Macrobid Mild Active Nalbuphine Hydrochloride Unknown Act gwendolyn NSAIDs Bleeding Moderate Active sulfa drug Anaphyllaxis Active Assessment and Plan Future Appointments Future Scheduled Tests Radiology* US Renal Comp 03/03/22 * US Bladder +Residual Post Voiding 03/03/22 * CT Chest w/o Cont 07/14/22 * XR Hip Comp Min 2 Views Rt +Pelvis 08/20/21 Medications !-Levaquin 750 mg oral tablet ( 750 mg ) 1 tab(s), Oral, q24hr (interval), # 9 tab(s), 0 Refill(s), Pharmacy: [facility] - [place], [place], Tab, 170, cm, 04/19/22 6:03:00 EDT, [...] cough, # 30 cap(s), 0 Refill(s), Pharmacy: [place], [place], Cap, 170, cm, 04/19/22 6:03:00 EDT, [...] Daily, # 10 tab(s), 0 Refill(s), Pharmacy: [place], [place], Tab, 170, cm, 04/19/22 6:03:00 EDT, [...] bedtime), # 42.5 gm, 11 Refill(s), Pharmacy: [place], [place], 165, cm, 02/15/22 17:19:00 EDT, Height/Length Dosing, 84.8, kg, 02/15/22 17:19:00 EDT, Weight Dosing Start Date: 02/28/22 Status: Ordered fenofibrate 54 mg oral tablet Instructions: TAKE 1 TABLET BY MOUTH ONCE DAILY Start Date: 01/04/22 Status: Ordered Florastor 250 mg oral capsule ( 250 mg ) 1 cap(s), Oral, BID, Instructions: UGH, # 60 cap(s), 0 Refill(s), Pharmacy: [place], [place], Cap, 170, cm, 04/19/22 6:03:00 EDT, Height/Length Dosing, 89.1, kg, 04/19/22 6:03:00 EDT, Weight Dosing Start Date: 04/21/22 Status: Ordered losartan 50 mg oral tablet ( 50 mg ) 1 tab(s), Oral, Daily, # 30 tab(s), 5 Refill(s), Pharmacy: [place], [place], Tab, 165, cm, 04/02/22 8:42:00 EDT, Height/Length Dosing, 85.8, kg, 04/02/22 11:45:00 EDT, Weight Dosing Start Date: 04/11/22 Status: Ordered magnesium oxide 400 mg oral tablet ( 400 mg ), Oral, BID, Instructions: UGH, # 60 tab(s), 0 Refill(s), Pharmacy: [facility] [place], Tab, 170, cm, 04/19/22 6:03:00 EDT, [...] days., # 18 tab(s), 0 Refill(s), Pharmacy: [facility] - [place], [place], 170, cm, 04/19/22 6:03:00 EDT, Heig... Start Date: 04/21/22 Stop Date: 05/06/22 Status: [...] Shoulder Completed Tonsillectomy Completed 1surgery 2surgery Results Radiology Reports * Exam Date Time Procedure Performing Provider Status 07/11/22 11:45 AM MRI Brain w/o Cont Scott Hilliard all; Auth (Verified) Notes: (MRI Brain w/o Cont) Reason For Exam: Dizziness and giddiness MRI Brain w/o Cont HISTORY Dizziness and giddiness STUDY MRI Brain w/o Cont COMPARISON None TECHNIQUE Multiplaner, multisequence MRI of the head is performed without IV contrast. The study quality is degraded by patient associated motion artifact FINDINGS A partially empty, CSF filled sella is observed. The corpus callosum maintains normal overall signal and morphology. The cerebellar tonsils are normal in position. There is no intracranial hemorrhage or extra-axial fluid collection. There is no mass effect, shiftor evidence of cerebral edema. No age advanced degenerative white matter signal changes are appreciated. There is no evidence of restricted diffusion to indicate a recent infarction. No hemosiderin deposition or suspicious calcification forms are identified. There is mild, age-appropriate cortical volume loss affecting the frontal and parietal lobes to the greatest extent. The ventricular size isconcordant to the degree of cortical volume loss. There is mild multi chamber ethmoid air cell mucosal thickening, and a small mucous retention cyst or polyp is seen within the dependent left maxillary sinus. There are trace dependent mastoid effusions. The major flow voids of the anterior and posterior intracranial circulation are adequately maintained on the T2 weighted imaging series. The internal auditory canal landmarks are symmetric. No expansile IAC or CP angle lesions are demonstrated, within limitations of a standard noncontrast head MR. IMPRESSION No acute intracranial abnormalities Chronic age related involutional changes of the brain parenchyma, as described above Electronically signed by: RAYMOND SIMMS (Jul 12, 2022 09:43:44) Final Signed (Electronic Signature): Raymond Simms MD 07/12/22 9:43 am Technologist: SALENA Social History Social History Type Response Tobacco Former tobacco user Tobacco Use:. Sex Imaging * Raymond Simms MD: VERIFY, VERIFY Raymond Simms MD: VERIFY DomainUser, Generated: PERFORM Event Display: Radiology Report Authored Date: [id number] HISTORY Dizziness and giddiness STUDY MRI Brain w/o Cont COMPARISON None TECHNIQUE Multiplaner, multisequence MRI of the head is performed without IV contrast. The study quality is degraded by patient associated motion artifact FINDINGS A partially empty, CSF filled sella is observed. The corpus callosum maintains normal overall signal and morphology. The cerebellar tonsils are normal in position. There is no intracranial hemorrhage or extra-axial fluid collection. There is no mass effect, shiftor evidence of cerebral edema. No age advanced degenerative white matter signal changes are appreciated. There is no evidence of restricted diffusion to indicate a recent infarction. No hemosiderin deposition or suspicious calcification forms are identified. There is mild, age-appropriate cortical volume loss affecting the frontal and parietal lobes to the greatest extent. The ventricular size isconcordant to the degree of cortical volume loss. There is mild multi chamber ethmoid air cell mucosal thickening, and a small mucous retention cyst or polyp is seen within the dependent left maxillary sinus. There are trace dependent mastoid effusions. The major flow voids of the anterior and posterior intracranial circulation are adequately maintained on the T2 weighted imaging series. The internal auditory canal landmarks are symmetric. No expansile IAC or CP angle lesions are demonstrated, within limitations of a standard noncontrast head MR. IMPRESSION No acute intracranial abnormalities Chronic age related involutional changes of the brain parenchyma, as described above Electronically signed by: RAYMOND SIMMS (Jul 12, 2022 09:43:44) Final Signed (Electronic Signature): Raymond Simms MD 07/12/22 9:43 am Technologist: SALENA Patient Care team information Personnel Name: Avila Gomez MD Address: Address: [address] [place], [place] [address]
--- OUTSIDE RECORDS SUMMARY | 2023-05-16 15:43 | XMS_ITS | Continuity of Care Document ---
Author Name Unknown Organization [facility] Address [address] [place] [id number] Care Team Providers Care Ladder Operator Name Role Phone Avila Gomez Primary Care Physician Encounter 04/19/22 - 04/21/[address] [id number]- Encounter Diagnosis Chronic obstructive pulmonary disease with (acute) exacerbation(Final) - Dehydration(Final) - Hyperglycemia, unspecified(Final) - Other specified disorders of bone, unspecified site(Final) - Unspecified osteoarthritis, unspecified site(Final) - Adverse effect of antineoplastic and immunosuppressive drugs, initial encounter (Final) - Gastro-esophageal reflux disease without esophagitis(Final) - Irritable bowel syndrome without diarrhea(Final) - Cyst of kidney, acquired(Final) - Hyperlipidemia, unspecified(Final) - Essential (primary) hypertension(Final) - Psychophysiologic insomnia(Final) - Nicotine dependence, unspecified, uncomplicated(Final) - Personal history of non-Hodgkin lymphomas(Final) - Bone marrow transplant status(Final) - Allergy status to analgesic agent(Final) - Allergy status to other antibiotic agents(Final) - Allergy status to narcotic agent(Final) - Allergy status to sulfonamides(Final) - Allergy status to other drugs, medicaments and biological substances(Final) - Contact with and (suspected) exposure to COVID-19(Final) - Hormone replacement therapy(Final) - COPD exacerbation(Discharge Diagnosis) - 04/19/22 Discharge Disposition: Home Attending Physician: Robinson Vasquez MD Admitting Physician: Robinson Vasquez MD Allergies, Adverse Reactions, Alerts Substance Reaction Severity Status codeine Unknown Active Macrobid Mild Active Nalbuphine Hydrochloride Unknown Act gwendolyn NSAIDs Bleeding Moderate Active sulfa drug Anaphyllaxis Active Assessment and Plan Extracted from: Title:ED Provider Note Author:Chris Roldan MD Date:04/19/22 Assessment/Plan 1.??COPD exacerbation??J44.1 Orders: !-Rocephin, 1 gm = 1 EA, Powder-Inj, IV Piggyback, Once, Antibiotic Indication COPD exacerbation, Routine, Start date 04/19/22 3:26:00 EDT, Physician Stop, Stop date 04/19/22 3:26:00 EDT, 200, mL/hr, Infuse over 30 minute(s), 04/19/22 3:26:00 EDT !-Decadron, 8 mg = 2 mL, Soln, IV Push, Once, Start date 04/19/22 3:27:00 EDT, Physician Stop, Stop date 04/19/22 3:27:00 EDT, 04/19/22 3:27:00 EDT Xopenex, 1.25 mg = 3 mL, Soln, NEB, Once, Start date 04/19/22 3:27:00 EDT, Physician Stop, Stop date 04/19/22 3:27:00 EDT, 04/19/22 3:27:00 EDT NaCl 0.9% 1,000 mL, 1,000, mL, IV, STAT, Start date 04/19/22 2:24:00 EDT, 250 mL/hr, 4, hr, Total volume (mL): 1,000, 83 kg, 1.95, m2, 04/19/22 2:24:00 EDT Blood Culture x 2, Blood, Stat collect, 04/19/22 1:37:00 EDT, Once, Stop date 04/19/22 1:37:00 EDT, Lab Collect SARS-CoV-2 (COVID-19) RNA (ID Now), Nares/Nasal Swab, Stat collect, 04/19/22 1:37:00 EDT, Stop date 04/19/22 1:38:00 EDT, Nurse collect, No, Unknown, 04/18/22, No, No, No, Not Urinalysis with Culture, If Indicated Standard, Urine, Stat collect, 04/19/22 1:37:00 EDT, Once, Stop date 04/19/22 1:38:00 EDT, Nurse collect ? * Final Report * ?? Reason For Exam sob, CP ?? XR Chest 1 View Portable PROCEDURE: Chest X-ray 1 View ?? . ?? HISTORY: Dyspnea and chest pain. ?? TECHNIQUE: AP portable upright done at 1:44 a.m.. ?? COMPARISON: 04/15/2022. ?? TECHNICAL QUALITY: Satisfactory ??. ? FINDINGS: ?? Normal size heart . ?? Mediastinum and hilar regions show no masses or lymphadenopathy ??. ?? Normal central vascularity ??. ?? No pulmonary consolidation, masses, pleural fluid, or pneumothorax ??. ?? Total shoulder arthroplasty on the left. ? IMPRESSION:? No active cardiopulmonary disease ??. ? Electronically signed by: Rosibel Mccann (Apr 19, 2022 03:29:21) ?? Signature Line Final ? Signed (Electronic Signature): ??ROSIBEL MCCANN MD ? 04/19/22 3:29 am Technologist: DLB ? URL This document has an image ? Patient Education Chronic Obstructive Pulmonary Disease Follow Up With When Contact Information Other Additional Instructions: Admit to hospital Future Appointments Diagnostic Tests Pending * Blood Culture x 2 04/19/22 Future Scheduled Tests Radiology* US Renal Comp 03/03/22 * US Bladder +Residual Post Voiding 03/03/22 * XR Hip Comp Min 2 Views Rt +Pelvis 08/20/21 Functional Status 04/20/22 History of Fall in Last 3 Months Green Y es 04/19/22 Bathing ADL Index Independent (2) Dressing ADL Index Independent (2) Toileting ADL Index Independent (2) Transferring Bed or Chair ADL Index Inde pendent (2) Continence ADL Index Independent (2) Recent Travel History No recent travel Other exposure to Infectious Disease Non e Family Member Travel History No recent t ravel Medications !-Levaquin 750 mg oral tablet ( 750 mg ) 1 tab(s), Oral, q24hr (interval), # 9 tab(s), 0 Refill(s), Pharmacy: [facility] - [place], [place], Tab, 170, cm, 04/19/22 6:03:00 EDT, [...] Refill(s), Aerosol Start Date: 07/24/19 Status: Ordered amLODIPine 2.5 mg = 0.5 tab(s), Tab, Oral, NOW, Start date 04/19/22 12:54:00 EDT, 04/19/22 12:54:00 EDT Start Date: 04/19/22 Stop Date: 04/19/22 Status: Completed Ativan 1 mg oral tablet ( 1 [...] cough, # 30 cap(s), 0 Refill(s), Pharmacy: [place], [place], Cap, 170, cm, 04/19/22 6:03:00 EDT, [...] Daily, # 10 tab(s), 0 Refill(s), Pharmacy: [place], [place], Tab, 170, cm, 04/19/22 6:03:00 EDT, [...] bedtime), # 42.5 gm, 11 Refill(s), Pharmacy: [place], [place], 165, cm, 02/15/22 17:19:00 EDT, Height/Length Dosing, 84.8, kg, 02/15/22 17:19:00 EDT, Weight Dosing Start Date: 02/28/22 Status: Ordered fenofibrate 54 mg oral tablet Instructions: TAKE 1 TABLET BY MOUTH ONCE DAILY Start Date: 01/04/22 Status: Ordered Florastor 250 mg oral capsule ( 250 mg ) 1 cap(s), Oral, BID, Instructions: UGH, # 60 cap(s), 0 Refill(s), Pharmacy: [place], [place], Cap, 170, cm, 04/19/22 6:03:00 EDT, Height/Length Dosing, 89.1, kg, 04/19/22 6:03:00 EDT, Weight Dosing Start Date: 04/21/22 Status: Ordered losartan 50 mg oral tablet ( 50 mg ) 1 tab(s), Oral, Daily, # 30 tab(s), 5 Refill(s), Pharmacy: [place], [place], Tab, 165, cm, 04/02/22 8:42:00 EDT, Height/Length Dosing, 85.8, kg, 04/02/22 11:45:00 EDT, Weight Dosing Start Date: 04/11/22 Status: Ordered magnesium oxide 400 mg oral tablet ( 400 mg ), Oral, BID, Instructions: UGH, # 60 tab(s), 0 Refill(s), Pharmacy: [place], [place], Tab, 170, cm, 04/19/22 6:03:00 EDT, [...] days., # 18 tab(s), 0 Refill(s), Pharmacy: [facility] - [place], [place], 170, cm, 04/19/22 6:03:00 Derrell LOPES Start Date: 04/21/22 Stop Date: 05/06/22 Status: [...] Start Date: 01/04/22 Status: Ordered Mental Status 04/20/22 Level of Consciousness Alert Problem List Condition [...] Laboratory List Name Date Automated Differential Standard 04/21/22 CBC w/Diff Standard 04/21/22 Comprehensive Metabolic Panel Standard ( CMP Standard) 04/21/22 Magnesium Level 04/21/22 Automated Differential Standard 04/20/22 CBC w/Diff Standard 04/20/22 Comprehensive Metabolic Panel Standard ( CMP Standard) 04/20/22 Hemoglobin A1c 04/20/22 Magnesium Level 04/20/22 SARS-CoV-2 (COVID-19) RNA (ID Now) Urinalysis Microscopic 04/19/22 Urinalysis with Culture, If Indicated St andard 04/19/22 Arterial Bld Gas (UGH) (ABG) 04/19/22 D-Dimer 04/19/22 Automated Differential Standard 04/19/22 CBC w/Diff Standard 04/19/22 Comprehensive Metabolic Panel Standard ( CMP Standard) 04/19/22 Magnesium Level 04/19/22 NT Pro-BNP (BNP) 04/19/22 PT/PTT 04/19/22 Thyroid Stimulating Hormone (TSH) 2 Troponin I 04/19/22 Most recent to oldest [Reference Range]: 1 2 3 UA Epithelials [None Seen] Moderate *ABN* (04/19/22 3:43 AM) O2 Sat Art [95-99 %] 98 % (04/19/22 1:58 AM) Urine Source RANDOM (04/19/22 3:43 AM) Creatinine Level [0.6-1.0 mg/dL] 1.1 mg/dL *HI* (04/21/22 9:11 AM) 1.1 mg/dL *HI* (04/20/22 5:05 AM) 1.3 mg/dL *HI* (04/19/22 1:15 AM) Puncture Site R Radial (04/19/22 1:58 AM) RDW/CV [11.5-14.5 %] 14.9 % *HI* (04/21/22 9:11 AM) 14.9 % *HI* (04/20/22 5:05 AM) 15.1 % *HI* (04/19/22 1:15 AM) Corinna. Calcium [8.5-10.2 mg/dL] 9.7 mg/dL (04/21/22 9:11 AM) 9.8 mg/dL (04/20/22 5:05 AM) 10.6 mg/dL *HI* (04/19/22 1:15 AM) UA Bacteria [None Seen] Trace *ABN* (04/19/22 3:43 AM) UA Blood [Negative] Trace *ABN* (04/19/22 3:43 AM) UA Color [Colorless] Yellow (04/19/22 3:43 AM) UA Glucose [Negative] Negative (04/19/22 3:43 AM) UA Ketones [Negative] Negative (04/19/22 3:43 AM) UA Leuk Est [Negative] Trace *ABN* (04/19/22 3:43 AM) UA Nitrite [Negative] Negative (04/19/22 3:43 AM) D-Dimer [0.19-0.50 mg/L] 0.74 mg/L 1 *CRIT* (04/19/22 1:18 AM) UA Protein [Negative] Negative (04/19/22 3:43 AM) UA RBC [0-5] 0-5 (04/19/22 3:43 AM) UA Urobilinogen [0.2] 0.2 (04/19/22 3:43 AM) UA WBC [None Seen] 5-10 *ABN* (04/19/22 3:43 AM) INR 0.93 *NA* (04/19/22 1:15 AM) TSH [0.340-4.820 uIU/mL] 5.190 uIU/mL *HI* (04/19/22 1:15 AM) UA pH 5.5 (04/19/22 3:43 AM) Albumin Level [3.4-5.0 mg/dL] 3.2 mg/dL *LOW* (04/21/22 9:11 AM) 2.9 mg/dL *LOW* (04/20/22 5:05 AM) 3.3 mg/dL *LOW* (04/19/22 1:15 AM) Alk Phos [40-120 IU/L] 43 IU/L (04/21/22 9:11 AM) 44 IU/L (04/20/22 5:05 AM) 51 IU/L (04/19/22 1:15 AM) Bili Total [0.20-1.00 mg/dL] 0.37 mg/dL (04/21/22 9:11 AM) 0.26 mg/dL (04/20/22 5:05 AM) 0.50 mg/dL (04/19/22 1:15 AM) BUN [7-18 mg/dL] 22 mg/dL *HI* (04/21/22 9:11 AM) 16 mg/dL (04/20/22 5:05 AM) 25 mg/dL *HI* (04/19/22 1:15 AM) Chloride Level [98-107 mmol/L] 102 mmol/L (04/21/22 9:11 AM) 103 mmol/L (04/20/22 5:05 AM) 104 mmol/L (04/19/22 1:15 AM) CO2 [21.0-32.0 mmol/L] 27.9 mmol/L (04/21/22 9:11 AM) 30.6 mmol/L (04/20/22 5:05 AM) 27.2 mmol/L (04/19/22 1:15 AM) Glucose Level [70-110 mg/dL] 150 mg/dL *HI* (04/21/22 9:11 AM) 217 mg/dL *HI* (04/20/22 5:05 AM) 127 mg/dL *HI* (04/19/22 1:15 AM) HCO3 Art [22.0-26.0 mmol/L] 25.1 mmol/L (04/19/22 1:58 AM) Hct [35.0-49.0 %] 36.5 % (04/21/22 9:11 AM) 33.2 % *LOW* (04/20/22 5:05 AM) 35.9 % (04/19/22 1:15 AM) Hgb [12.0-16.0 g/dL] 11.3 g/dL *LOW* (04/21/22 9:11 AM) 10.7 g/dL *LOW* (04/20/22 5:05 AM) 11.5 g/dL *LOW* (04/19/22 1:15 AM) Hgb A1c [4.0-6.0 %] 6.3 % *HI* (04/20/22 5:05 AM) Magnesium [1.8-2.4] 1.5 *LOW* (04/21/22 9:11 AM) 1.4 *LOW* (04/20/22 5:05 AM) 1.4 *LOW* (04/19/22 1:15 AM) MCH [26.0-33.0 pg] 31.9 pg (04/21/22 9:11 AM) 32.3 pg (04/20/22 5:05 AM) 32.4 pg (04/19/22 1:15 AM) MCHC [31.0-36.0 g/dL] 31.0 g/dL (04/21/22 9:11 AM) 32.2 g/dL (04/20/22 5:05 AM) 32.0 g/dL (04/19/22 1:15 AM) MCV [82-100] 103 *HI* (04/21/22 9:11 AM) 100 (04/20/22 5:05 AM) 101 *HI* (04/19/22 1:15 AM) MPV [8.0-12.3 fL] 11.4 fL (04/21/22 9:11 AM) 10.0 fL (04/20/22 5:05 AM) 10.3 fL (04/19/22 1:15 AM) pCO2 Art [35.0-45.0 mmHg] 43.6 mmHg (04/19/22 1:58 AM) pH Art [7.35-7.45] 7.37 (04/19/22 1:58 AM) Platelet [150-450 x10^3/mcL] 121 x10^3/mcL *LOW* (04/21/22 9:11 AM) 112 x10^3/mcL *LOW* (04/20/22 5:05 AM) 115 x10^3/mcL *LOW* (04/19/22 1:15 AM) pO2 Art [80-100 mmHg] 110 mmHg *HI* (04/19/22 1:58 AM) Potassium Level [3.5-5.2 mmol/L] 4.7 mmol/L (04/21/22 9:11 AM) 4.8 mmol/L (04/20/22 5:05 AM) 4.3 mmol/L (04/19/22 1:15 AM) PT 9.8 second(s) *NA* (04/19/22 1:15 AM) PTT [26.0-38.0 second(s)] 24.7 second(s) *LOW* (04/19/22 1:15 AM) RBC [4.00-5.20 x10^6/mcL] 3.54 x10^6/mcL *LOW* (04/21/22 9:11 AM) 3.31 x10^6/mcL *LOW* (04/20/22 5:05 AM) 3.55 x10^6/mcL *LOW* (04/19/22 1:15 AM) Sodium Level [136-145] 137 (04/21/22 9:11 AM) 139 (04/20/22 5:05 AM) Sodium Level [136-145 mEq/L] 139 mEq/L (04/19/22 1:15 AM) Protein Total [6.4-8.2 g/dL] 6.5 g/dL (04/21/22 9:11 AM) 6.0 g/dL *LOW* (04/20/22 5:05 AM) 7.0 g/dL (04/19/22 1:15 AM) WBC [4.3-11.0 x10^3/mcL] 8.8 x10^3/mcL (04/21/22 9:11 AM) 3.8 x10^3/mcL *LOW* (04/20/22 5:05 AM) 6.4 x10^3/mcL (04/19/22 1:15 AM) UA Spec Grav 1.020 (04/19/22 3:43 AM) Fio2 Art [21-100 %] 28 % (04/19/22 1:58 AM) Troponin-I [0.00-60.40 pg/mL] 10.60 pg/mL 2 (04/19/22 1:15 AM) Anion Gap 12 *NA* (04/21/22 9:11 AM) 10 *NA* (04/20/22 5:05 AM) 12 *NA* (04/19/22 1:15 AM) Calcium Level [8.5-10.2 mg/dL] 9.1 mg/dL (04/21/22 9:11 AM) 8.9 mg/dL (04/20/22 5:05 AM) 10.0 mg/dL (04/19/22 1:15 AM) ALT/SGPT [12-78 IU/L] 23 IU/L (04/21/22 9:11 AM) 23 IU/L (04/20/22 5:05 AM) 33 IU/L (04/19/22 1:15 AM) AST/SGOT [15-37 IU/L] 8 IU/L *LOW* (04/21/22 9:11 AM) no reagent IU/L *NA* (04/20/22 5:05 AM) no reagent IU/L *NA* (04/19/22 1:15 AM) Auto Eos % [0.0-7.0 %] 0.0 % (04/21/22 9:11 AM) 0.0 % (04/20/22 5:05 AM) 0.6 % (04/19/22 1:15 AM) Auto Lymph % [10.0-50.0 %] 12.9 % (04/21/22 9:11 AM) 11.4 % (04/20/22 5:05 AM) 18.7 % (04/19/22 1:15 AM) Auto Neut % [37.0-80.0 %] 79.5 % (04/21/22 9:11 AM) 82.1 % *HI* (04/20/22 5:05 AM) 68.7 % (04/19/22 1:15 AM) Eos Abs# [0.00-0.50 K/uL] 0.00 K/uL (04/21/22 9:11 AM) 0.00 K/uL (04/20/22 5:05 AM) 0.04 K/uL (04/19/22 1:15 AM) Lymph Abs# [1.00-4.00 K/uL] 1.13 K/uL (04/21/22 9:11 AM) 0.44 K/uL *LOW* (04/20/22 5:05 AM) 1.20 K/uL (04/19/22 1:15 AM) Lasalle Abs# [0.20-1.00 K/uL] 0.60 K/uL (04/21/22 9:11 AM) 0.19 K/uL *LOW* (04/20/22 5:05 AM) 0.71 K/uL (04/19/22 1:15 AM) UA Clarity [Clear] Clear (04/19/22 3:43 AM) Auto Baso % [0.0-2.5 %] 0.1 % (04/21/22 9:11 AM) 0.0 % (04/20/22 5:05 AM) 0.2 % (04/19/22 1:15 AM) Auto Lasalle % [0.0-12.0 %] 6.8 % (04/21/22 9:11 AM) 4.9 % (04/20/22 5:05 AM) 11.0 % (04/19/22 1:15 AM) Baso Abs# [0.00-0.20 K/uL] 0.01 K/uL (04/21/22 9:11 AM) 0.00 K/uL (04/20/22 5:05 AM) 0.01 K/uL (04/19/22 1:15 AM) Neut Abs# [2.00-7.50 K/uL] 6.99 K/uL (04/21/22 9:11 AM) 3.16 K/uL (04/20/22 5:05 AM) 4.42 K/uL (04/19/22 1:15 AM) Micro? Indicated (04/19/22 3:43 AM) TCO2 Art [23.0-27.0 mmol/L] 26.0 mmol/L (04/19/22 1:58 AM) Base Excess Art [-2.0-2.0 mEq/L] 0.0 mEq/L (04/19/22 1:58 AM) Rik Test Art Not Indicated (04/19/22 1:58 AM) GFR AA [>=60 mL/min/1.73 ] 63 mL/min/1.73 (04/21/22 9:11 AM) 62 mL/min/1.73 (04/20/22 5:05 AM) 50 mL/min/1.73 *LOW* (04/19/22 1:15 AM) GFR Non AA [>=60 mL/min/1.73 ] 52 mL/min/1.73 *LOW* (04/21/22 9:11 AM) 51 mL/min/1.73 *LOW* (04/20/22 5:05 AM) 42 mL/min/1.73 *LOW* (04/19/22 1:15 AM) Culture? [Not Indicated] Indicated *ABN* (04/19/22 3:43 AM) NT Pro-BNP [<=125 pg/mL] 219 pg/mL *HI* (04/19/22 1:15 AM) NRBC Abs # 0 K/uL *NA* (04/21/22 9:11 AM) 0 K/uL *NA* (04/20/22 5:05 AM) 0 K/uL *NA* (04/19/22 1:15 AM) IG Auto [0.00-0.50 K/uL] 0.06 K/uL (04/21/22 9:11 AM) 0.06 K/uL (04/20/22 5:05 AM) 0.05 K/uL (04/19/22 1:15 AM) Auto IG % [0.0-5.0 %] 0.7 % (04/21/22 9:11 AM) 1.6 % (04/20/22 5:05 AM) 0.8 % (04/19/22 1:15 AM) SARS-CoV-2 (COVID-19) RNA (ID Now) [Negative] Negative (04/19/22 3:43 AM) UA Bilirubin [Negative] Negative (04/19/22 3:43 AM) Employed in healthcare? No *NA* (04/19/22 3:43 AM) Symptomatic as defined by CDC? Unknown *NA* (04/19/22 3:43 AM) Date of onset (Lab) 18-APR-2022 *Unknown* (04/19/22 3:43 AM) Hospitalized due to COVID-19? No *NA* (04/19/22 3:43 AM) In ICU? No *NA* (04/19/22 3:43 AM) Group care resident? No *NA* (04/19/22 3:43 AM) status? Not *NA* (04/19/22 3:43 AM) 1Result Comment: Results called to toby allen by chuy at 04/19/2022 03:05:32 EDT. Read back and verified. 2Result Comment: ack Orders for Microbiology Reports Name Date Sputum Culture 04/19/22 Urine Culture 04/19/22 Blood Culture 04/19/22 Blood Culture 04/19/22 Microbiology Reports TEST:Sputum Culture STATUS:Auth (Verified) BODY SITE: SOURCE:Sputum COLLECTED DATE/TIME:04/19/22 8:22 PM FINAL REPORT Light growth Pseudomonas aeruginosa STAIN REPORT Gram Negative Rods 1+. Gram Positive Cocci 1+ WBC 1+. in SPUTUM sample. Results called to Sharron Art @ 04/19/2022 21:06:02. ORGANISM:Pseudomonas aeruginosa TEST:Urine Culture STATUS:Auth (Verified) BODY SITE: SOURCE:Urine COLLECTED DATE/TIME:04/19/22 3:43 AM FINAL REPORT 30,000 cfu/ml Mixed aaliyah with no predominant organism TEST:Blood Culture STATUS:Order in Progress BODY SITE:Left Arm SOURCE:Blood COLLECTED DATE/TIME:04/19/22 2:07 AM PRELIMINARY REPORT No growth at 3 days. TEST:Blood Culture STATUS:Order in Progress BODY SITE:Right Arm SOURCE:Blood COLLECTED DATE/TIME:04/19/22 1:58 AM PRELIMINARY REPORT No growth at 3 days. Radiology Reports * Exam Date Time Procedure Performing Provider Status 04/19/22 9:45 AM US LE Veins Duplex Carlin Geri Estrada; Auth (Verified) Notes: (US LE Veins Duplex Carlin) Reason For Exam: Elevated DDImer US LE Veins Duplex Carlin HISTORY Elevated DDImer Extremity pain, swelling, and edema Study: Bilateral lower extremity Doppler venous ultrasound. TECHNIQUE: Multiple ivan scale and color flow Doppler images of the deep venous system were obtained of the [right and left] lower extremity. FINDINGS: The deep venous system of the [right and left lower extremities were] evaluated from the level of the common femoral veins through the popliteal veins, bilaterally. Normal color flow and augmentationcan be observed. In addition, normal compression is seen throughout the deep venous system. No Al's cyst is seen. IMPRESSION: 1. Negative examination for DVT. Electronically signed by: JAKE CORBETT III (Apr 19, 2022 10:00:16) Final Signed (Electronic Signature): Jake Corbett MD 04/19/22 10:00 a Technologist: ASPEN Heredia Exam Date Time Procedure Performing Provider Status 04/19/22 2:11 AM XR Chest 1 View Portable Juan Daniel Mcconnell; Auth (Verified) Notes: (XR Chest 1 View Portable) Reason For Exam: sob, CP XR Chest 1 View Portable PROCEDURE: Chest X-ray 1 View . HISTORY: Dyspnea and chest pain. TECHNIQUE: AP portable upright done at 1:44 a.m.. COMPARISON: 04/15/2022. TECHNICAL QUALITY: Satisfactory . FINDINGS: Normal size heart . Mediastinum and hilar regions show no masses or lymphadenopathy . Normal central vascularity . No pulmonary consolidation, masses, pleural fluid, or pneumothorax . Total shoulder arthroplasty on the left. IMPRESSION: No active cardiopulmonary disease . Electronically signed by: Rosibel Mccann (Apr 19, 2022 03:29:21) Final Signed (Electronic Signature): ROSIBEL MCCANN MD 04/19/22 3:29 am Technologist: PHILLIP Vital Signs Most recent to oldest [Reference Range]: 1 2 3 Temperature Oral [35.8-37.3 DegC] 36.5 DegC (04/21/22 8:03 AM) 36.5 DegC (04/21/22 4:34 AM) 36.4 DegC (04/21/22 12:00 AM) Temperature Oral (DegF) [96.4-99.1 DegF] 97.7 DegF (04/21/22 8:03 AM) 97.7 DegF (04/21/22 4:34 AM) 97.52 DegF (04/21/22 12:00 AM) Apical Heart Rate [60-100 bpm] 92 bpm (04/19/22 1:47 PM) Peripheral Pulse Rate [60-100 bpm] 85 bpm (04/21/22 8:03 AM) 87 bpm (04/21/22 4:34 AM) 84 bpm (04/21/22 2:27 AM) Heart Rate Monitored [60-100 bpm] 111 bpm *HI* (04/19/22 3:45 AM) 115 bpm *HI* (04/19/22 3:30 AM) 119 bpm *HI* (04/19/22 3:15 AM) Respiratory Rate [14-20 br/min] 15 br/min (04/21/22 4:34 AM) 16 br/min (04/21/22 12:00 AM) 18 br/min (04/20/22 7:37 PM) Blood Pressure [90-140/60-90 mmHg] 154/73mmHg *HI* (04/21/22 8:03 AM) 149/78mmHg *HI* (04/21/22 4:34 AM) 158/82mmHg *HI* (04/21/22 12:00 AM) Mean Arterial Pressure, Cuff [65-100 mmHg] 100 mmHg (04/21/22 8:03 AM) 88 mmHg (04/20/22 11:34 AM) 90 mmHg (04/19/22 7:25 PM) BP Site Right arm (04/21/22 8:03 AM) Left arm (04/21/22 4:34 AM) Right arm (04/21/22 12:00 AM) Patient Position BP Sitting (04/20/22 11:34 AM) SpO2 [92-100 %] 98 % (04/21/22 8:03 AM) 96 % (04/21/22 5:56 AM) 99 % (04/21/22 4:34 AM) Oxygen Flow Rate 2 L/min (04/21/22 8:03 AM) 2 L/min (04/21/22 5:56 AM) 2 L/min (04/21/22 4:34 AM) Oxygen Therapy Nasal cannula (04/21/22 8:03 AM) Nasal cannula (04/21/22 5:56 AM) Nasal cannula (04/21/22 4:34 AM) FIO2. 21 % (04/20/22 9:50 AM) 21 % (04/20/22 9:42 AM) Height 170.000 cm (04/19/22 5:57 AM) 170.000 cm (04/19/22 4:48 AM) 165.000 cm (04/19/22 1:00 AM) Height/Length Dosing 170.000 cm (04/19/22 5:57 AM) 170.000 cm (04/19/22 4:48 AM) 165.000 cm (04/19/22 1:04 AM) Weight 89.100 kg (04/19/22 5:57 AM) 89.100 kg (04/19/22 4:48 AM) 83.000 kg (04/19/22 1:00 AM) Weight Dosing 89.100 kg (04/19/22 5:57 AM) 89.100 kg (04/19/22 4:48 AM) 83.000 kg (04/19/22 1:04 AM) Scale Type Bed scale (04/19/22 4:48 AM) Weight Estimated 83.460 kg (04/19/22 5:56 AM) Body Mass Index 30.830 kg/m2 (04/19/22 5:57 AM) 30.830 kg/m2 (04/19/22 4:48 AM) Admission Height/Length 170 cm (04/19/22 5:57 AM) 170 cm (04/19/22 4:48 AM) Admission Weight 89.1 kg (04/19/22 5:57 AM) 89.1 kg (04/19/22 4:48 AM) Admission Body Mass Index 30.83 kg/m2 (04/19/22 5:57 AM) 30.83 kg/m2 (04/19/22 4:48 AM) Triage Ht 165 cm (04/19/22 1:00 AM) Triage Weight 83 kg (04/19/22 1:00 AM) Triage BMI 30.49 (04/19/22 1:00 AM) Social History Social History Type Response Tobacco Former tobacco user Tobacco Use:. Sex Hospital Discharge Instructions Patient Education 04/20/2022 08:21:11 Admission Education Packet (JASKARAN) [facility] Bro[facility] Safety Awareness Program Information Sheet 04/19/2022 02:38:54 Chronic Obstructive Pulmonary Disease Chronic Obstructive Pulmonary [...] these instructions at home: Medicines ??? Take [id number] and prescription medicines (inhaled or pills) only [...] provider. Document Revised: 09/28/2018 Document Reviewed: 11/20/2017 [employer] Patient Education ?? 2020 [employer]. Follow Up Care 04/19/2022 00:53:09 With:Avila Gomez MD Address: [address] [place] [id number]- When:04/26/2022 14:00:00 Comments:patient has appt on 04/26/2022 @3:00pm With:Sera Goddard MD Address: [facility] [address] [place] [phone]- When:07/18/2022 10:30:00 Comments:patient has appt scheduled for 07/18/2022 @ 12:30pm With:Skinny Mullins MD Address: [address] [place] [phone] When:04/26/2022 11:30:00 Comments:follow up for Dr. Stock off Note * ROSIBEL MCCANN MD: VERIFY, VERIFY ROSIBEL MCCANN MD: VERIFY DomainUser, Generated: PERFORM Event Display: Radiology Report Authored Date: [id number] PROCEDURE: Chest X-ray 1 View . HISTORY: Dyspnea and chest pain. TECHNIQUE: AP portable upright done at 1:44 a.m.. COMPARISON: 04/15/2022. TECHNICAL QUALITY: Satisfactory . FINDINGS: Normal size heart . Mediastinum and hilar regions show no masses or lymphadenopathy . Normal central vascularity . No pulmonary consolidation, masses, pleural fluid, or pneumothorax . Total shoulder arthroplasty on the left. IMPRESSION: No active cardiopulmonary disease . Electronically signed by: Rosibel Mccann (Apr 19, 2022 03:29:21) Final Signed (Electronic Signature): ROSIBEL MCCANN MD 04/19/22 3:29 am Technologist: PHILLIP * Jake Corbett MD: VERIFY, VERIFY Jake Corbett MD: VERIFY DomainUser, Generated: PERFORM Event Display: Radiology Report Authored Date: HISTORY Elevated DDImer Extremity pain, swelling, and edema Study: Bilateral lower extremity Doppler venous ultrasound. TECHNIQUE: Multiple ivan scale and color flow Doppler images of the deep venous system were obtained of the [right and left] lower extremity. FINDINGS: The deep venous system of the [right and left lower extremities were] evaluated from the level of the common femoral veins through the popliteal veins, bilaterally. Normal color flow and augmentationcan be observed. In addition, normal compression is seen throughout the deep venous system. No Al's cyst is seen. IMPRESSION: 1. Negative examination for DVT. Electronically signed by: JAKE CORBETT III (Apr 19, 2022 10:00:16) Final Signed (Electronic Signature): Jake Corbett MD 04/19/22 10:00 a Technologist: CR Care Team Personnel Name: Avila Gomez MD Address: [address] [place] [address]
--- OUTSIDE RECORDS SUMMARY | 2023-05-16 15:43 | XMS_ITS | Continuity of Care Document ---
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 Name Role Phone Avila Gomez Primary Care Physician Encounter 07/09/20 - 07/12/20 [place] [phone]- Encounter Diagnosis Chronic hypoxemic respiratory failure(Discharge Diagnosis) - 07/12/20 COPD with exacerbation(Discharge Diagnosis) - 07/10/20 Shoulder pain, left(Discharge Diagnosis) - 07/11/20 Suspected COVID-19 virus infection(Discharge Diagnosis) - 07/09/20 Hypomagnesemia(Discharge Diagnosis) - 07/09/20 Pneumonia(Discharge Diagnosis) - 07/09/20 Discharge Disposition: Home Attending Physician: Oneal Conley MD Admitting Physician: Oneal Conley MD Allergies, Adverse Reactions, Alerts Substance Reaction Severity Status NSAIDs Active sulfa drug Anaphyllaxis Active Assessment and Plan Extracted from: Title:Discharge Note Author:Oneal Conley MD D ate:07/12/20 Discharge Plan 1.??Pneumonia??J18.9 -finish cefdinir and azithromycin 2.??Chronic hypoxemic respiratory failure??J96.11 -continue home oxygen 3.??COPD with exacerbation??J44.1 4.??Suspected COVID-19 virus infection??Z20.828 -covid negative 07/09/2020 5.??Hypomagnesemia??E83.42 6.??Shoulder pain, left??M25.512 Orders: azithromycin 500 mg oral tablet, ( 500 mg ) 1 tab(s), Oral, Daily, x 5 day(s), # 5 tab(s), 0 Refill(s), 07/17/20, Pharmacy: [facility]/pharmacy #[id number], Tab cefdinir 300 mg oral capsule, ( 300 mg ) 1 cap(s), Oral, q12hr (interval), x 5 day(s), # 10 cap(s), 0 Refill(s), 07/17/20, Pharmacy: [facility]/pharmacy #[id number] Vistaril 25 mg oral capsule, ( 25 mg ) 1 cap(s), Oral, Daily, PRN PRN: as needed for anxiety, # 30 cap(s), 0 Refill(s), 07/19/20, Pharmacy: [facility]/pharmacy #[id number], Cap Patient Discharge Condition Stable Discharge Disposition Discharge Home Patient Education Admission Education Packet (JASKARAN) COVID-19 Community-Acquired Pneumonia, Adult Follow Up With When Contact Information Other Additional Instructions: Admit to the hospital Extracted from: Title:Admission H & P Author:Oneal Conley MD Date:07/10/20 1.??Pneumonia??J18.9 -Continue abx for empiric coverage -While PUI for COVID continue Remdesivir -Decadron 6 mg IV QD -Continue albuterol inhaler -She is currently stable on 2 LIters NC -Wean oxygen as able 2.??Acute on chronic respiratory failure with hypoxia??J96.21 3.??COPD with exacerbation??J44.1 4.??Suspected COVID-19 virus infection??Z20.828 5.??Hypomagnesemia??E83.42 Orders: acetaminophen, 650 mg = 2 tab(s), Tab, Oral, q6hr (interval), PRN Other (see comment), Routine, Start date 07/09/20 23:36:00 EDT albuterol 90 mcg/inh inhalation aerosol, 180 mcg = 2 puff(s), Aerosol, INH, q4hr (interval), PRN wheezing, Routine, Start date 07/10/20 5:46:00 EDT azithromycin, 500 mg = 1 EA, IV Piggyback, q24hr (interval), Antibiotic Indication Pneumonia- CAP, Routine, Start date 07/10/20 0:00:00 EDT, 250, mL/hr, Infuse over 60 minute(s) baclofen, 20 mg = 2 tab(s), Tab, Oral, Once a day (at bedtime), Routine, Start date 07/10/20 21:00:00 EDT Belsomra 20 mg oral tablet, Belsomra 20 mg oral tablet, 20 mg, Oral, Once a day (at bedtime), Routine, Start date 07/10/20 21:00:00 EDT busPIRone, 20 mg = 4 tab(s), Tab, Oral, Once a day (at bedtime), Routine, Start date 07/10/20 21:00:00 EDT Decadron, 6 mg = 1.5 mL, Soln, IV Push, Daily, Routine, Start date 07/10/20 9:00:00 EDT Dilaudid, 1 mg = 1 mL, Soln, Oral, q6hr (interval), PRN Pain - Moderate, Routine, Start date 07/10/20 8:35:00 EDT docusate, 100 mg = 1 cap(s), Cap, Oral, BID, PRN constipation, Routine, Start date 07/09/20 23:36:00 EDT influenza virus vaccine; inactivated, 0.5, mL, Susp, IM, As Directed, PRN, Other (see comment), Start date 07/10/20 3:39:00 EDT Lyrica, 150 mg = 3 cap(s), Cap, Oral, TID, Routine, Start date 07/10/20 8:00:00 EDT ondansetron, 4 mg = 2 mL, Soln, IV, q6hr (interval), PRN nausea/vomiting, Routine, Start date 07/09/20 23:36:00 EDT pantoprazole, 40 mg = 1 tab(s), Tab-EC, Oral, Daily, Routine, Start date 07/10/20 9:00:00 EDT Percocet 10/325 oral tablet, 1, tab(s), Tab, Oral, q6hr (interval), PRN, Breakthrough Pain, Routine, Start date 07/10/20 8:36:00 EDT SEROquel, 300 mg = 3 tab(s), Tab, Oral, Once a day (at bedtime), Routine, Start date 07/10/20 21:00:00 EDT Sodium Chloride 0.9% 1,000 mL, 1,000, mL, IV, STAT, Start date 07/09/20 23:36:00 EDT, 125 mL/hr, 8, hr, Total volume (mL): 1,000, 86.18 kg, 1.99, m2 traZODone, 250 mg = 5 tab(s), Tab, Oral, Once a day (at bedtime), Routine, Start date 07/10/20 21:00:00 EDT Trintellix 20 mg oral tablet, Trintellix 20 mg oral tablet, 20 mg, Tab, Oral, Daily, Routine, Start date 07/10/20 9:00:00 EDT Vistaril, 25 mg = 1 cap(s), Cap, Oral, Daily, Routine, Start date 07/10/20 9:00:00 EDT Admission Medication Reconciliation to be completed by admitting physician once verified by nursing Bathroom Privileges BMP Standard BMP Standard Cardiac Monitoring CBC w/Diff Standard CBC w/Diff Standard Consult to Case Management Diet Order Dietary Supplements IMS Adult Potassium and Magnesium Electrolyte Replacement Protocol as needed Nursing Isolation Precautions Place in Observation Resuscitation Status SCD's Vital Signs Extracted from: Title:ED Physician Note Author:Chris Roldan MD Date:07/09/20 Assessment/Plan 1.??Suspected COVID-19 virus infection??Z20.828 2.??Pneumonia??J18.9 3.??Hypoxia??R09.02 4.??History of COPD??Z87.09 5.??Hypomagnesemia??E83.42 Orders: Ativan, 0.5 mg = 0.25 mL, Soln, IV Push, Once, Start date 07/09/20 20:50:00 EDT, Physician Stop, Stop date 07/09/20 20:50:00 EDT Dilaudid, 1 mg = 1 mL, Soln, IV Push, Once, Start date 07/09/20 20:50:00 EDT, Physician Stop, Stop date 07/09/20 20:50:00 EDT magnesium sulfate, 1 gm = 100 mL, Soln, IV Piggyback, Once, Start date 07/09/20 20:43:00 EDT, Physician Stop, Stop date 07/09/20 20:43:00 EDT, 100 mL/hr, Infuse over 1 hr Rocephin, 1 gm = 1 EA, Powder-Inj, IV Piggyback, q24hr (interval), Antibiotic Indication Pneumonia- CAP, Routine, Start date 07/09/20 19:00:00 EDT, 200, mL/hr, Infuse over 30 minute(s) Blood Culture x 2 SARS-CoV-2 Send Out DSL ?? * Final Report * ?? Reason For Exam Chronic respiratory failure with hypoxia ?? CT PE Chest w/Cont CT PE Chest w/Cont 07/08/2020 ?? HISTORY: Chronic respiratory failure with hypoxia. ?? COMPARISON: ??CT chest 05/27/2020 ?? TECHNIQUE: Thin multi detector images of the thorax have been obtained following a bolus of nonionic contrast with sagittal, coronal, 3D and MIP reconstructions. ?? FINDINGS:?? There is good opacification of the pulmonary arterial system. No pulmonary emboli or aortic dissection is noted.? The examination reveals scattered areas of mixed interstitial and alveolar infiltrate throughout the right lung. There is a small area of rounded soft tissue density in the medial aspect of the right upper lobe. This most likely represents rounded consolidation since this region was clear on previous study on 05/27. No pleural fluid collection is present. The left lung is completely clear at this time. No mediastinal or perihilar adenopathy is present. ?? Partial images of the upper abdomen are unremarkable at this time. ?? IMPRESSION: No CT evidence pulmonary embolus.?? Scattered infiltrates throughout the right lung. Small area of rounded consolidation in the right upper lobe. No left-sided infiltrate. Correlate for possible Covid infection/pneumonia. Follow-up chest x-ray recommended ?? This CT exam was performed using one or more of the following dose reduction techniques: Automated exposure control, adjustment to the mA and/or kV according to patient size, or use of iterative reconstruction technique. ?? Signature Line Final ? Patient Education Community-Acquired Pneumonia, Adult Follow Up With When Contact Information Other Additional Instructions: Admit to the hospital Diagnostic Tests Pending * Blood Culture x 2 07/09/20 Functional Status 07/12/20 History of Fall in Last 3 Months Norma Jang es 07/10/20 Recent Travel History No recent travel Other exposure to Infectious Disease COV ID-19 Symptoms Present Family Member Travel History No recent t ravel Medications albuterol 90 mcg/inh inhalation aerosol 2 puff(s), INH, q4hr (interval), PRN PRN: for wheezing, # 8 gm, 0 Refill(s), Aerosol Start Date: 07/24/19 Status: Ordered azithromycin 500 mg oral tablet ( 500 mg ) 1 tab(s), Oral, Daily, x 5 day(s), # 5 tab(s), 0 Refill(s), 07/17/20, Pharmacy: [facility]/pharmacy #[id number], Tab Start Date: 07/12/20 Stop Date: 07/17/20 Status: Ordered baclofen ( 20 mg ), Oral, Once a day (at bedtime), 0 Refill(s) Start Date: 07/09/20 Status: Ordered Belsomra 20 mg oral tablet mg ) tab(s), Oral, Once a day (at bedtime) Start Date: 07/24/19 Status: Ordered busPIRone ( 20 mg ), Oral, Once a day (at bedtime), 0 Refill(s) Start Date: 07/09/20 Status: Ordered cefdinir 300 mg oral capsule ( 300 mg ) 1 cap(s), Oral, q12hr (interval), x 5 day(s), # 10 cap(s), 0 Refill(s), 07/17/20, Pharmacy: [facility]/pharmacy #[id number] Start Date: 07/12/20 Stop Date: 07/17/20 Status: Ordered Dexilant 60 mg oral delayed release capsule ( 60 mg ) 1 cap(s), Oral, Daily, Cap-DR Start Date: 07/24/19 Status: Ordered Lyrica 150 mg oral capsule ( 150 mg ) 1 cap(s), Oral, TID, Cap Start Date: 07/24/19 Status: Ordered predniSONE 20 mg oral tablet ( 40 mg ) 2 tab(s), Oral, Daily, x 3 day(s), # 6 tab(s), 0 Refill(s), 07/15/20, Pharmacy: [facility]/pharmacy #[id number], Tab Start Date: 07/12/20 Stop Date: 07/15/20 Status: Ordered SEROquel 300 mg oral tablet [...] BID, Tab Start Date: 07/24/19 Status: Ordered Vistaril 25 mg oral capsule ( 25 mg ) 1 cap(s), Oral, Daily, PRN PRN: as needed for anxiety, # 30 cap(s), 0 Refill(s), 07/19/20, Pharmacy: [facility]/pharmacy #[id number], Cap Start Date: 07/12/20 Stop Date: 07/19/20 Status: Ordered Mental Status 07/12/20 Level of Consciousness Alert Problem List Condition Effective Dates Status Health Status Inform ant COPD (chronic obstructive pu lmonary disease)(Confirmed) Active Bone marrow transplant status(Confirmed) Active Non Hodgkin's lymphoma(Confirmed) Active Procedures Procedure Date Related Diagnosis Body Site Status Foot 1 Completed Hysterectomy Completed Neck 2 Completed Shoulder Completed 1surgery 2surgery Results Laboratory List Name Date Automated Differential Standard 07/11/20 Basic Metabolic Panel Standard (BMP Nathaniel dard) 07/11/20 CBC w/Diff Standard 07/11/20 Automated Differential Standard 07/10/20 Basic Metabolic Panel Standard (BMP Nathaniel dard) 07/10/20 CBC w/Diff Standard 07/10/20 COVID-19 Testing Send Out DSL (SARS-CoV- 2 Send Out DSL) 07/09/20 Influenza A&B 07/09/20 Automated Differential Standard 07/09/20 C-Reactive Protein 07/09/20 CBC w/Diff Standard 07/09/20 Comprehensive Metabolic Panel Standard ( CMP Standard) 07/09/20 Magnesium Level 07/09/20 NT Pro-BNP 07/09/20 PT/INR 07/09/20 Troponin I 07/09/20 Arterial Bld Gas (UGH) (ABG) 07/09/20 Lactic Acid Screen 07/09/20 Most recent to oldest [Reference Range]: 1 2 3 O2 Sat Art [95-99 %] 93 % *LOW* (07/09/20 7:49 PM) Creatinine Level [0.6-1.0 mg/dL] 0.8 mg/dL (07/11/20 4:24 AM) 0.8 mg/dL (07/10/20 5:20 AM) 0.7 mg/dL (07/09/20 8:08 PM) Puncture Site L Radial (07/09/20 7:49 PM) RDW/CV [11.5-14.5 %] 13.2 % (07/11/20 4:24 AM) 13.1 % (07/10/20 5:20 AM) 13.3 % (07/09/20 8:08 PM) Corinna. Calcium [8.5-10.2 mg/dL] 9.5 mg/dL (07/09/20 8:08 PM) INR 1.00 *NA* (07/09/20 8:08 PM) Albumin Level [3.4-5.0 mg/dL] 3.0 mg/dL *LOW* (07/09/20 8:08 PM) Alk Phos [40-120 IU/L] 89 IU/L (07/09/20 8:08 PM) Bili Total [0.20-1.00 mg/dL] 0.20 mg/dL (07/09/20 8:08 PM) BUN [7-18 mg/dL] 17 mg/dL (07/11/20 4:24 AM) 15 mg/dL (07/10/20 5:20 AM) 16 mg/dL (07/09/20 8:08 PM) Chloride Level [98-107 mmol/L] 102 mmol/L (07/11/20 4:24 AM) 102 mmol/L (07/10/20 5:20 AM) 101 mmol/L (07/09/20 8:08 PM) CO2 [21.0-32.0 mmol/L] 29.4 mmol/L (07/11/20 4:24 AM) 28.1 mmol/L (07/10/20 5:20 AM) 24.1 mmol/L (07/09/20 8:08 PM) Glucose Level [70-110 mg/dL] 116 mg/dL *HI* (07/11/20 4:24 AM) 205 mg/dL *HI* (07/10/20 5:20 AM) 110 mg/dL (07/09/20 8:08 PM) HCO3 Art [22.0-26.0 mmol/L] 26.6 mmol/L *HI* (07/09/20 7:49 PM) Hct [35.0-49.0 %] 33.2 % *LOW* (07/11/20 4:24 AM) 38.4 % (07/10/20 5:20 AM) 36.7 % (07/09/20 8:08 PM) Hgb [12.0-16.0 g/dL] 10.3 g/dL *LOW* (07/11/20 4:24 AM) 11.8 g/dL *LOW* (07/10/20:20 AM) 11.6 g/dL *LOW* (07/09/20 8:08 PM) Magnesium [1.8-2.4] 1.6 *LOW* (07/09/20 8:08 PM) MCH [26.0-33.0 pg] 31.0 pg (07/11/20 4:24 AM) 31.0 pg (07/10/20:20 AM) 30.9 pg (07/09/20 8:08 PM) MCHC [31.0-36.0 g/dL] 31.0 g/dL (07/11/20 4:24 AM) 30.7 g/dL *LOW* (07/10/20: AM) 31.6 g/dL (07/09/20 8:08 PM) MCV [82-100] 100 (07/11/20 4:24 AM) 101 *HI* (07/10/20 5:20 AM) 98 (07/09/20 8:08 PM) MPV [8.0-12.3 fL] 10.4 fL (07/11/20 4:24 AM) 9.9 fL (07/10/20 5:20 AM) 10.5 fL (07/09/20 8:08 PM) pCO2 Art [35.0-45.0 mmHg] 42.0 mmHg (07/09/20 7:49 PM) pH Art [7.35-7.45] 7.41 (07/09/20 7:49 PM) Platelet [150-450 x10^3/mcL] 254 x10^3/m cL (07/11/20 4:24 AM) 278 x10^3/mcL (07/10/20 5:20 AM) 277 x10^3/mcL (07/09/20 8:08 PM) pO2 Art [80-100 mmHg] 68 mmHg 1 *CRIT* (07/09/20 7:49 PM) Potassium Level [3.5-5.2 mmol/L] 4.3 mmol/L (07/11/20 4:24 AM) 4.7 mmol/L (07/10/20 5:20 AM) 4.3 mmol/L (07/09/20 8:08 PM) PT 10.7 second(s) *NA* (07/09/20 8:08 PM) RBC [4.00-5.20 x10^6/mcL] 3.32 x10^6/mcL *LOW* (07/11/20 4:24 AM) 3.81 x10^6/mcL *LOW* (07/10/20 5:20 AM) 3.76 x10^6/mcL *LOW* (07/09/20 8:08 PM) Sodium Level [136-145] 137 (07/11/20 4:24 AM) Sodium Level [136-145 mEq/L] 138 mEq/L (07/10/20 5:20 AM) 138 mEq/L (07/09/20 8:08 PM) Protein Total [6.4-8.2 g/dL] 6.4 g/dL (07/09/20 8:08 PM) WBC [4.3-11.0 x10^3/mcL] 9.8 x10^3/mcL (07/11/20 4:24 AM) 9.3 x10^3/mcL (07/10/20 5:20 AM) 9.7 x10^3/mcL (07/09/20 8:08 PM) Fio2 Art [21-100 %] 32 % (07/09/20 7:49 PM) Troponin-I [0.000-0.060 ng/mL] <0.017 ng/mL (07/09/20 8:08 PM) Anion Gap 10 *NA* (07/11/20 4:24 AM) 13 *NA* (07/10/20 5:20 AM) 17 *NA* (07/09/20 8:08 PM) Calcium Level [8.5-10.2 mg/dL] 8.6 mg/dL (07/11/20 4:24 AM) 9.0 mg/dL (07/10/20 5:20 AM) 8.7 mg/dL (07/09/20 8:08 PM) ALT/SGPT [12-78 IU/L] 19 IU/L (07/09/20 8:08 PM) AST/SGOT [15-37 IU/L] 19 IU/L (07/09/20 8:08 PM) Auto Eos % [0.0-7.0 %] 0.0 % (07/11/20 4:24 AM) 0.0 % (07/10/20 5:20 AM) 1.0 % (07/09/20 8:08 PM) Auto Lymph % [10.0-50.0 %] 18.1 % (07/11/20 4:24 AM) 12.4 % (07/10/20 5:20 AM) 21.6 % (07/09/20 8:08 PM) Auto Neut % [37.0-80.0 %] 72.9 % (07/11/20 4:24 AM) 84.1 % *HI* (07/10/20 5:20 AM) 67.0 % (07/09/20 8:08 PM) Eos Abs# [0.00-0.50 K/uL] 0.00 K/uL (07/11/20 4:24 AM) 0.00 K/uL (07/10/20 5:20 AM) 0.10 K/uL (07/09/20 8:08 PM) Lymph Abs# [1.00-4.00 K/uL] 1.77 K/uL (07/11/20 4:24 AM) 1.15 K/uL (07/10/20 5:20 AM) 2.10 K/uL (07/09/20 8:08 PM) King Abs# [0.20-1.00 K/uL] 0.76 K/uL (07/11/20 4:24 AM) 0.13 K/uL *LOW* (07/10/20 5:20 AM) 0.87 K/uL (07/09/20 8:08 PM) Auto Baso % [0.0-2.5 %] 0.2 % (07/11/20 4:24 AM) 0.1 % (07/10/20 5:20 AM) 0.3 % (07/09/20 8:08 PM) Auto King % [0.0-12.0 %] 7.8 % (07/11/20 4:24 AM) 1.4 % (07/10/20 5:20 AM) 9.0 % (07/09/20 8:08 PM) Baso Abs# [0.00-0.20 K/uL] 0.02 K/uL (07/11/20 4:24 AM) 0.01 K/uL (07/10/20 5:20 AM) 0.03 K/uL (07/09/20 8:08 PM) Neut Abs# [2.00-7.50 K/uL] 7.11 K/uL (07/11/20 4:24 AM) 7.82 K/uL *HI* (07/10/20 5:20 AM) 6.51 K/uL (07/09/20 8:08 PM) CRP [0.05-0.80 mg/dL] 3.08 mg/dL *HI* (07/09/20 8:08 PM) Lactic Acid [0.4-1.9 mmol/L] 1.7 mmol/L (07/09/20 7:49 PM) TCO2 Art [23.0-27.0 mmol/L] 27.9 mmol/L *HI* (07/09/20 7:49 PM) Base Excess Art [-2.0-2.0 mEq/L] 1.7 mEq/L (07/09/20 7:49 PM) Influenza A [negative] negative (07/09/20 8:12 PM) Influenza B [negative] negative (07/09/20 8:12 PM) Rik Test Art Acceptable (07/09/20 7:49 PM) GFR AA [>=60 mL/min/1.73 ] 93 mL/min/1.73 (07/11/20 4:24 AM) 84 mL/min/1.73 (07/10/20 5:20 AM) 96 mL/min/1.73 (07/09/20 8:08 PM) GFR Non AA [>=60 mL/min/1.73 ] 77 mL/min/1.73 (07/11/20 4:24 AM) 69 mL/min/1.73 (07/10/20 5:20 AM) 79 mL/min/1.73 (07/09/20 8:08 PM) NT Pro-BNP [<=125 pg/mL] 76 pg/mL (07/09/20 8:08 PM) NRBC Abs # 0 K/uL *NA* (07/11/20 4:24 AM) 0 K/uL *NA* (07/10/20 5:20 AM) 0 K/uL *NA* (07/09/20 8:08 PM) IG Auto [0.00-0.50 K/uL] 0.10 K/uL (07/11/20 4:24 AM) 0.19 K/uL (07/10/20 5:20 AM) 0.11 K/uL (07/09/20 8:08 PM) Auto IG % [0.0-5.0 %] 1.0 % (07/11/20 4:24 AM) 2.0 % (07/10/20 5:20 AM) 1.1 % (07/09/20 8:08 PM) COVID-19 Testing SO DSL [Negative] Negative (07/09/20 8:12 PM) Employed in healthcare? No *NA* (07/09/20 8:12 PM) Symptomatic as defined by CDC? Yes *NA* (07/09/20 8:12 PM) Hospitalized due to COVID-19? Unknown *NA* (07/09/20 8:12 PM) In ICU? No *NA* (07/09/20 8:12 PM) Group care resident? No *NA* (07/09/20 8:12 PM) status? Not *NA* (07/09/20 8:12 PM) 1Result Comment: Results called to Sydney Montero RN by RYANNE at 07/09/2020 20:11:30 EDT. Read back and verified. Orders for Microbiology Reports Name Date Blood Culture 07/09/20 Blood Culture 07/09/20 Microbiology Reports TEST:Blood Culture STATUS:Order in Progress BODY SITE:Right Arm SOURCE:Blood COLLECTED DATE/TIME:07/09/20 8:08 PM PRELIMINARY REPORT No growth at 3 days. TEST:Blood Culture STATUS:Order in Progress BODY SITE:Right Arm SOURCE:Blood COLLECTED DATE/TIME:07/09/20 7:49 PM PRELIMINARY REPORT No growth at 3 days. Radiology Reports true* Exam Date Time Procedure Performing Provider Status 07/11/20 9:49 AM XR Shoulder Comp Min 2 Views Lt Koko Evans; Auth (Verified) Notes: (XR Shoulder Comp Min 2 Views Lt) Reason For Exam: shoulder pain, about 4 weeks post-op XR Shoulder Comp Min 2 Views Lt XR Shoulder Comp Min 2 Views Lt 07/11/2020 History: Shoulder pain, postop. 3 views. The previous postoperative views of the left shoulder are not available for comparison. Patient has had left shoulder arthroplasty. The humeral component appears inferior in location but appears to articulate with the glenoid component. No fractures identified. IMPRESSION: Previous left shoulder arthroplasty. Humeral component appears to be inferior in position. Please compare with previous postoperative shoulder views to determine if interval change. Final Signed (Electronic Signature): Donya Montana MD 07/11/20 9:59 am Technologist: JAM JAIN Vital Signs Most recent to oldest [Reference Range]: 1 2 3 Temperature Axillary [36.1-38.2 DegC] 36.5 DegC (07/10/20 8:35 AM) Temperature Axillary (DegF) [97-100.9 DegF] 97.7 DegF (07/10/20 8:35 AM) Temperature Oral [35.8-37.3 DegC] 36.4 DegC (07/12/20 7:25 AM) 36.5 DegC (07/12/20 4:00 AM) 36.8 DegC (07/11/20 9:42 PM) Temperature Oral (DegF) [96.4-99.1 DegF] 97.52 DegF (07/12/20 7:25 AM) 98.24 DegF (07/11/20 7:47 PM) 98.24 DegF (07/11/20 4:15 AM) Peripheral Pulse Rate [60-100 bpm] 72 bpm (07/12/20 7:52 AM) 72 bpm (07/12/20 7:25 AM) 74 bpm (07/12/20 4:00 AM) Respiratory Rate [14-20 br/min] 16 br/min (07/12/20 7:52 AM) 16 br/min (07/12/20 7:25 AM) 21 br/min *HI* (07/12/20 4:00 AM) Blood Pressure [90-140/60-90 mmHg] 169/85mmHg *HI* (07/12/20 7:25 AM) 176/81mmHg *HI* (07/12/20 4:00 AM) 174/78mmHg *HI* (07/11/20 9:42 PM) BP Site Right arm (07/12/20 4:00 AM) Right arm (07/11/20 9:42 PM) Right arm (07/11/20 4:15 AM) Patient Position BP Supine (07/12/20 4:00 AM) Supine (07/11/20 9:42 PM) SpO2 [92-100 %] 98 % (07/12/20 7:52 AM) 98 % (07/12/20 7:25 AM) 97 % (07/12/20 4:00 AM) Oxygen Flow Rate 3 L/min 1 (07/12/20 7:52 AM) 2 L/min (07/12/20 7:25 AM) 2 L/min (07/12/20 6:01 AM) Oxygen Therapy Nasal cannula (07/12/20 7:52 AM) Nasal cannula (07/12/20 7:25 AM) Nasal cannula (07/12/20 6:01 AM) Oxygen Activity Ongoing (07/12/20 7:52 AM) Initiate (07/09/20 8:08 PM) Height 165.100 cm (07/10/20 3:28 AM) 165.100 cm (07/09/20 11:42 PM) 165.000 cm (07/09/20 6:36 PM) Height/Length Dosing 165.100 cm (07/10/20 3:28 AM) 165.100 cm (07/09/20 11:42 PM) 165.000 cm (07/09/20 6:39 PM) Weight 88.200 kg (07/10/20 3:28 AM) 88.200 kg (07/09/20 11:42 PM) 86.180 kg (07/09/20 6:36 PM) Weight Dosing 88.200 kg (07/10/20 3:28 AM) 88.200 kg (07/09/20 11:42 PM) 86.180 kg (07/09/20 6:39 PM) Scale Type Bed scale (07/09/20 11:42 PM) Weight Estimated 83.460 kg (07/10/20 3:28 AM) Body Mass Index 32.360 kg/m2 (07/10/20 3:28 AM) 32.360 kg/m2 (07/09/20 11:42 PM) Admission Height/Length 165.1 cm (07/10/20 3:28 AM) 165.1 cm (07/09/20 11:42 PM) Admission Weight 88.2 kg (07/10/20 3:28 AM) 88.2 kg (07/09/20 11:42 PM) Admission Body Mass Index 32.36 kg/m2 (07/10/20 3:28 AM) 32.36 kg/m2 (07/09/20 11:42 PM) Triage Ht 165.0 cm (07/09/20 6:36 PM) Triage Weight 86.18 kg (07/09/20 6:36 PM) Triage BMI 31.65 (07/09/20 6:36 PM) 1Result Comment: wean to 2Lpm Social History Social History Type Response Smoking Status Former smoker, quit more than 30 days ago entered on: 07/09/20 Sex Hospital Discharge Instructions Patient Education 07/12/2020 10:39:12 Shoulder Pain, [id number] Shoulder Pain Many things can cause shoulder pain, including: ??? An injury. ??? Moving the shoulder in the same way again and again (overuse). ??? Joint pain (arthritis). Pain can come from: ??? Swelling and irritation (inflammation) of any part of the shoulder. ??? An injury to the shoulder joint. ??? An injury to: ??? Tissues that connect muscle to bone (tendons). ??? Tissues that connect bones to each other (ligaments). ??? Bones. Follow these instructions at home: Watch for changes in your symptoms. Let your doctor know about them. Follow these instructions to help with your pain. If you have a sling: ??? Wear the sling as told by your doctor. Remove it only as told by your doctor. ??? Loosen the sling if your fingers: ??? Tingle. ??? Become numb. ??? Turn cold and blue. ??? Keep the sling clean. ??? If the sling is not waterproof: ??? Do not let it get wet. ??? Take the sling off when you shower or bathe. Managing pain, stiffness, and swelling ??? If told, put ice on the painful area: ??? Put ice in a plastic bag. ??? Place a towel between your skin and the bag. ??? Leave the ice on for 20 minutes, 2???3 times a day. Stop putting ice on if it does not help with the pain. ??? Squeeze a soft ball or a foam pad as much as possible. This prevents swelling in the shoulder. It also helps to strengthen the arm. General instructions ??? Take [id number] and prescription medicines only as told by your doctor. ??? Keep all follow-up visits as told by your doctor. This is important. Contact a doctor if: ??? Your pain gets worse. ??? Medicine does not help your pain. ??? You have new pain in your arm, hand, or fingers. Get help right away if: ??? Your arm, hand, or fingers: ??? Tingle. ??? Are numb. ??? Are swollen. ??? Are painful. ??? Turn white or blue. Summary ??? Shoulder pain can be caused by many things. These include injury, moving the shoulder in the same away again and again, and joint pain. ??? Watch for changes in your symptoms. Let your doctor know about them. ??? This condition may be treated with a sling, ice, and pain medicine. ??? Contact your doctor if the pain gets worse or you have new pain. Get help right away if your arm, hand, or fingers tingle or get numb, swollen, or painful. ??? Keep all follow-up visits as told by your doctor. This is important. This information is not intended to replace advice given to you by your health care provider. Make sure you discuss any questions you have with your health care provider. Document Released: 04/03/2009 Document Revised: 04/30/2019 Document Reviewed: 04/30/2019 [employer] Patient Education ?? 2019 [employer]. 07/12/2020 10:39:12 Hypomagnesemia Hypomagnesemia Hypomagnesemia is a condition in which the level of magnesium in the blood is low. Magnesium is a mineral that is found in many foods. It is used in many different processes in the body. Hypomagnesemia can affect every organ in the body. In severe cases, it can cause life-threatening problems. What are the causes? This condition may be caused by: ??? Not getting enough magnesium in your diet. ??? Malnutrition. ??? Problems with absorbing magnesium from the intestines. ??? Dehydration. ??? Alcohol abuse. ??? Vomiting. ??? Severe or chronic diarrhea. ??? Some medicines, including medicines that make you urinate more (diuretics). ??? Certain diseases, such as kidney disease, diabetes, celiac disease, and overactive thyroid. What are the signs or symptoms? Symptoms of this condition include: ??? Loss of appetite. ??? Nausea and vomiting. ??? Involuntary shaking or trembling of a body part (tremor). ??? Muscle weakness. ??? Tingling in the arms and legs. ??? Sudden tightening of muscles (muscle spasms). ??? Confusion. ??? Psychiatric issues, such as depression, irritability, or psychosis. ??? A feeling of fluttering of the heart. ??? Seizures. These symptoms are more severe if magnesium levels drop suddenly. How is this diagnosed? This condition may be diagnosed based on: ??? Your symptoms and medical history. ??? A physical exam. ??? Blood and urine tests. How is this treated? Treatment depends on the cause and the severity of the condition. It may be treated with: ??? A magnesium supplement. This can be taken in pill form. If the condition is severe, magnesium is usually given through an IV. ??? Changes to your diet. You may be directed to eat foods that have a lot of magnesium, such as green leafy vegetables, peas, beans, and nuts. ??? Stopping any intake of alcohol. Follow these instructions at home: ??? Make sure that your diet includes foods with magnesium. Foods that have a lot of magnesium in them include: ??? Green leafy vegetables, such as spinach and broccoli. ??? Beans and peas. ??? Nuts and seeds, such as almonds and sunflower seeds. ??? Whole grains, such as whole grain bread and fortified cereals. ??? Take magnesium supplements if your health care provider tells you to do that. Take them as directed. ??? Take ulxs-jvn-vwfvdqh and prescription medicines only as told by your health care provider. ??? Have your magnesium levels monitored as told by your health care provider. ??? When you are active, drink fluids that contain electrolytes. ??? Avoid drinking alcohol. ??? Keep all follow-up visits as told by your health care provider. This is important. Contact a health care provider if: ??? You get worse instead of better. ??? Your symptoms return. Get help right away if you: ??? Develop severe muscle weakness. ??? Have trouble breathing. ??? Feel that your heart is racing. Summary ??? Hypomagnesemia is a condition in which the level of magnesium in the blood is low. ??? Hypomagnesemia can affect every organ in the body. ??? Treatment may include eating more foods that contain magnesium, taking magnesium supplements, and not drinking alcohol. ??? Have your magnesium levels monitored as told by your health care provider. This information is not intended to replace advice given to you by your health care provider. Make sure you discuss any questions you have with your health care provider. Document Released: 07/12/2006 Document Revised: 09/28/2018 Document Reviewed: 09/17/2018 Access Mobile Patient Education ?? 2020 [employer]. 07/12/2020 10:39:12 Community-Acquired Pneumonia, Adult, [id number] Community-Acquired Pneumonia, Adult Pneumonia is an infection of the lungs. It causes swelling in the airways of the lungs. Mucus and fluid may also build up inside the airways. One type of pneumonia can happen while a person is in a hospital. A different type can happen when a person is not in a hospital (community-acquired pneumonia). What are the causes? This condition is caused by germs (viruses, bacteria, or fungi). Some types of germs can be passed from one person to another. This can happen when you breathe in droplets from the cough or sneeze ofan infected person. What increases the risk? You are more likely to develop this condition if you: ??? Have a long-term (chronic) disease, such as: ??? Chronic obstructive pulmonary disease (COPD). ??? Asthma. ??? Cystic fibrosis. ??? Congestive heart failure. ??? Diabetes. ??? Kidney disease. ??? Have HIV. ??? Have sickle cell disease. ??? Have had your spleen removed. ??? Do not take good care of your teeth and mouth (poor dental hygiene). ??? Have a medical condition that increases the risk of breathing in droplets from your own mouth and nose. ??? Have a weakened body defense system (immune system). ??? Are a smoker. ??? Travel to areas where the germs that cause this illness are common. ??? Are around certain animals or the places they live. What are the signs or symptoms? A dry cough. ??? A wet (productive) cough. ??? Fever. ??? Sweating. ??? Chest pain. This often happens when breathing deeply or coughing. ??? Fast breathing or trouble breathing. ??? Shortness of breath. ??? Shaking chills. ??? Feeling tired (fatigue). ??? Muscle aches. How is this treated? Treatment for this condition depends on many things. Most adults can be treated at home. In some cases, treatment must happen in a hospital. Treatment may include: ??? Medicines given by mouth or through an IV tube. ??? Being given extra oxygen. ??? Respiratory therapy. In rare cases, treatment for very bad pneumonia may include: ??? Using a machine to help you breathe. ??? Having a procedure to remove fluid from around your lungs. Follow these instructions at home: Medicines ??? Take zixa-xdv-qdsytgg and prescription medicines only as told by your doctor. ??? Only take cough medicine if you are losing sleep. ??? If you were prescribed an antibiotic medicine, take it as told by your doctor. Do not stop taking the antibiotic even if you start to feel better. General instructions ??? Sleep with your head and neck raised (elevated). You can do this by sleeping in a recliner or by putting a few pillows under your head. ??? Rest as needed. Get at least 8 hours of sleep each night. ??? Drink enough water to keep your pee (urine) pale yellow. ??? Eat a healthy diet that includes plenty of vegetables, fruits, whole grains, low-fat dairy products, and lean protein. ??? Do not use any products that contain nicotine or tobacco. These include cigarettes, e-cigarettes, and chewing tobacco. If you need help quitting, ask your doctor. ??? Keep all follow-up visits as told by your doctor. This is important. How is this prevented? A shot (vaccine) can help prevent pneumonia. Shots are often suggested for: ??? People older than 65 years of age. ??? People older than 19 years of age who: ??? Are having cancer treatment. ??? Have long-term (chronic) lung disease. ??? Have problems with their body's defense system. You may also prevent pneumonia if you take these actions: ??? Get the flu (influenza) shot every year. ??? Go to the dentist as often as told. ??? Wash your hands often. If you cannot use soap and water, use hand hardware trainer. Contact a doctor if: ??? You have a fever. ??? You lose sleep because your cough medicine does not help. Get help right away if: ??? You are short of breath and it gets worse. ??? You have more chest pain. ??? Your sickness gets worse. This is very serious if: ??? You are an older adult. ??? Your body's defense system is weak. ??? You cough up blood. Summary ??? Pneumonia is an infection of the lungs. ??? Most adults can be treated at home. Some will need treatment in a hospital. ??? Drink enough water to keep your pee pale yellow. ??? Get at least 8 hours of sleep each night. This information is not intended to replace advice given to you by your health care provider. Make sure you discuss any questions you have with your health care provider. Document Released: 04/03/2009 Document Revised: 02/05/2020 Document Reviewed: 06/13/2019 Access Mobile Patient Education ?? 2020 [employer] 07/12/2020 10:39:12 EKG Copy at discharge (JASKARAN) Copy of EKG given to patient. 07/10/2020 02:15:20 Admission Education Packet (JASKARAN) [facility] Brochure [facility] Safety Awareness Program Information Sheet 07/10/2020 02:15:20 COVID-19 COVID-19 COVID-19, also known as coronavirus disease or novel coronavirus, is caused by a type of virus thatcauses respiratory illness. This may lead to inflammation and the buildup of mucus and fluids in the airway of the lungs (pneumonia). There are many different coronaviruses. Most of these viruses only affect animals, but sometimes these viruses can change and infect people. What are the causes? This illness is caused by a virus. You may catch the virus by: ??? Breathing in droplets from an infected person's cough or sneeze. ??? Touching something, like a table or a doorknob, that was exposed to the virus (contaminated) and then touching your mouth, nose, or eyes. ??? Being around animals that carry the virus, or eating uncooked or undercooked meat or animal products that contain the virus. What increases the risk? You are more likely to develop this condition if you: ??? Live in or travel to an area with a COVID-19 outbreak. ??? Come in contact with a sick person who recently traveled to an area with a COVID-19 outbreak. ??? Provide care for or live with a person who is infected with COVID-19. What are the signs or symptoms? COVID-19 causes respiratory illness that can lead to pneumonia. Symptoms of pneumonia may include: ??? A fever. ??? A cough. ??? Difficulty breathing. How is this diagnosed? This condition may be diagnosed based on: ??? Your signs and symptoms, especially if: ??? You live in an area with a COVID-19 outbreak. ??? You recently traveled to or from an area where the virus is common. ??? You provide care for or live with a person who was diagnosed with COVID-19. ??? A physical exam. ??? Lab tests, which may include: ??? A nasal swab to take a sample of fluid from your nose. ??? A throat swab to take a sample of fluid from your throat. ??? A sample of mucus from your lungs (sputum). ??? Blood tests. How is this treated? There is no medicine to treat COVID-19. Your health care provider will talk with you about ways to treat your symptoms. This may include rest, fluids, and awmc-bhq-nivzayz medicines. Follow these instructions at home: Lifestyle ??? Use a cool-mist humidifier to add moisture to the air. This can help you breathe more easily. ??? Do not use any products that contain nicotine or tobacco, such as cigarettes, e-cigarettes, andchewing tobacco. If you need help quitting, ask your health care provider. ??? Rest at home as told by your health care provider. ??? Return to your normal activities as told by your health care provider. Ask your health care provider what activities are safe for you. General instructions ??? Take saxw-bhh-guooyet and prescription medicines only as told by your health care provider. ??? Drink enough fluid to keep your urine pale yellow. ??? Keep all follow-up visits as told by your health care provider. This is important. How is this prevented? There is no vaccine to help prevent COVID-19 infection. However, there are steps you can take to protect yourself and others from this virus. To protect yourself: ??? Do not travel to areas where COVID-19 is a risk. The areas where COVID-19 is reported change often. To identify high-risk areas, check the CDC travel website: wwwnc.cdc.gov/travel/notices ??? If you live in, or must travel to, an area where COVID-19 is a risk, take precautions to avoid infection. ??? Stay away from people who are sick. ??? Stay away from places where there are animals that may carry the virus. This includes places where animals and animal products are sold. Note that both living and animals can carry the virus. ??? Wash your hands often with soap and water. If soap and water are not available, use an alcohol-based hand hardware trainer. ??? Avoid touching your mouth, face, eyes, or nose. To protect others: If you have symptoms, take steps to prevent the virus from spreading to others. ??? If you think you have a COVID-19 infection, contact your health care provider right away. Tell your health care team that you think you may have a COVID-19 infection. ??? Stay home. Leave your house only to seek medical care. ??? Do not travel while you are sick. ??? Wash your hands often with soap and water. If soap and water are not available, use alcohol-based hand hardware trainer. ??? Stay away from other members of your household. If possible, stay in your own room, separate from others. Use a different bathroom. ??? Make sure that all people in your household wash their hands well and often. ??? Cough or sneeze into a tissue or your sleeve or elbow. Do not cough or sneeze into your hand orinto the air. ??? Wear a face mask. Where to find more information ??? Centers for Disease Control and Prevention: www.cdc.gov/coronavirus/2019-ncov/index.html ??? World Health Organization: www.who.int/health-topics/coronavirus Contact a health care provider if: ??? You have traveled to an area where COVID-19 is a risk and you have symptoms of the infection. ??? You have contact with someone who has traveled to an area where COVID-19 is a risk and you havesymptoms of the infection. Get help right away if: ??? You have trouble breathing. ??? You have chest pain. Summary ??? COVID-19 is caused by a type of virus that causes respiratory illness. This may lead to inflammation and the buildup of mucus and fluids in the airway of the lungs (pneumonia). ??? You are more likely to develop this condition if you live in or travel to an area with a COVID-19 outbreak. ??? There is no medicine to treat COVID-19. Your health care provider will talk with you about waysto treat your symptoms. ??? Take steps to protect yourself and others from infection. Wash your hands often. Stay away fromother people who are sick and wear a mask if you are sick. This information is not intended to replace advice given to you by your health care provider. Make sure you discuss any questions you have with your health care provider. Document Released: 11/21/2019 Document Revised: 02/11/2020 Document Reviewed: 11/21/2019 Access Mobile Patient Education ?? 2020 [employer]. 07/09/2020 20:13:51 Community-Acquired Pneumonia, Adult Community-Acquired Pneumonia, Adult Pneumonia is an infection of the lungs. There are different types of pneumonia. One type can develop while a person is in a hospital. A different type, called community-acquired pneumonia, develops in people who are not, or have not recently been, in the hospital or other health care facility. What are the causes? Pneumonia may be caused by bacteria, viruses, or funguses. Community-acquired pneumonia is often caused by Streptococcus pneumonia bacteria. These bacteria are often passed from one person to anotherby breathing in droplets from the cough or sneeze of an infected person. What increases the risk? The condition is more likely to develop in: ??? People who have??chronic diseases, such as chronic obstructive pulmonary disease (COPD), asthma, congestive heart failure, cystic fibrosis, diabetes, or kidney disease. ??? People who have??early-stage or late-stage HIV. ??? People who have??sickle cell disease. ??? People who have??had their spleen removed (splenectomy). ??? People who have??poor dental hygiene. ??? People who have??medical conditions that increase the risk of breathing in (aspirating) secretions their own mouth and nose. ??? People who have??a weakened immune system (immunocompromised). ??? People who smoke. ??? People who??travel to areas where pneumonia-causing germs commonly exist. ??? People who??are around animal habitats or animals that have pneumonia- causing germs, including birds, bats, rabbits, cats, and farm animals. What are the signs or symptoms? Symptoms of this condition include: ??? A??dry cough. ??? A wet (productive) cough. ??? Fever. ??? Sweating. ??? Chest pain, especially when breathing deeply or coughing. ??? Rapid breathing or difficulty breathing. ??? Shortness of breath. ??? Shaking chills. ??? Fatigue. ??? Muscle aches. How is this diagnosed? Your health care provider will take a medical history and perform a physical exam. You may also have other tests, including: ??? Imaging studies of your chest, including X-rays. ??? Tests to check your blood oxygen level and other blood gases. ??? Other tests on blood, mucus (sputum), fluid around your lungs (pleural fluid), and urine. If your pneumonia is severe, other tests may be done to identify the specific cause of your illness. How is this treated? The type of treatment that you receive depends on many factors, such as the cause of your pneumonia, the medicines you take, and other medical conditions that you have. For most adults, treatment andrecovery from pneumonia may occur at home. In some cases, treatment must happen in a hospital. Treatment may include: ??? Antibiotic medicines, if the pneumonia was caused by bacteria. ??? Antiviral medicines, if the pneumonia was caused by a virus. ??? Medicines that are given by mouth or through an IV tube. ??? Oxygen. ??? Respiratory therapy. Although rare, treating severe pneumonia may include: ??? Mechanical ventilation. This is done if you are not breathing well on your own and you cannot maintain a safe blood oxygen level. ??? Thoracentesis. This procedure??removes fluid around one lung or both lungs to help you breathe better. Follow these instructions at home: ??? Take grnc-frd-glznxbu and prescription medicines only as told by your health care provider. ??? Only take??cough medicine if you are losing sleep. Understand that cough medicine can prevent your body???s natural ability to remove mucus from your lungs. ??? If you were prescribed an antibiotic medicine, take it as told by your health care provider. Donot stop taking the antibiotic even if you start to feel better. ??? Sleep in a semi-upright position at night. Try sleeping in a reclining chair, or place a few pillows under your head. ??? Do not use tobacco products, including cigarettes, chewing tobacco, and e- cigarettes. If you need help quitting, ask your health care provider. ??? Drink enough water to keep your urine clear or pale yellow. This will help to thin out mucus secretions in your lungs. How is this prevented? There are ways that you can decrease your risk of developing community-acquired pneumonia. Considergetting a pneumococcal vaccine if: ??? You are older than 65 years of age. ??? You are older than 19 years of age and are undergoing cancer treatment, have chronic lung disease, or have other medical conditions that affect your immune system. Ask your health care provider if this applies to you. There are different types and schedules of pneumococcal vaccines. Ask your health care provider which vaccination option is best for you. You may also prevent community-acquired pneumonia if you take these actions: ??? Get an influenza vaccine every year. Ask your health care provider which type of influenza vaccine is best for you. ??? Go to the dentist on a regular basis. ??? Wash your hands often. Use hand hardware trainer if soap and water are not available. Contact a health care provider if: ??? You have a fever. ??? You are losing sleep because you cannot control your cough with cough medicine. Get help right away if: ??? You have worsening shortness of breath. ??? You have increased chest pain. ??? Your sickness becomes worse, especially if you are an older adult or have a weakened immune system. ??? You cough up blood. This information is not intended to replace advice given to you by your health care provider. Make sure you discuss any questions you have with your health care provider. Document Released: 10/16/2006 Document Revised: 07/05/2018 Document Reviewed: 02/10/2016 Access Mobile Interactive Patient Education ?? 2019 [employer] Follow Up Care 07/09/2020 18:29:10 With:Avila Gomez Address:Unknown When:As needed
--- OUTSIDE RECORDS SUMMARY | 2023-05-16 15:43 | XMS_ITS | Continuity of Care Document ---
Author Name Unknown Organization [facility] Address [address] [place] [id number] Care Team Providers Care Shuttle Preparation Supervisor Name Role Phone Avila Gomez Primary Care Physician Encounter 02/28/22 - 06/01/[address] [address]- Discharge Disposition: Home Attending Physician: Abe Jackson [...] (interval), # 9 tab(s), 0 Refill(s), Pharmacy: [facility] - [place], [place], Tab, 170, cm, 04/19/22 6:03:00 [...] cough, # 30 cap(s), 0 Refill(s), Pharmacy: [place], [place], Cap, 170, cm, 04/19/22 6:03:00 EDT, [...] Daily, # 10 tab(s), 0 Refill(s), Pharmacy: [place], [place], Tab, 170, cm, 04/19/22 6:03:00 EDT, [...] bedtime), # 42.5 gm, 11 Refill(s), Pharmacy: [place], [place], 165, cm, 02/15/22 17:19:00 EDT, Height/Length Dosing, 84.8, kg, 02/15/22 17:19:00 EDT, Weight Dosing Start Date: 02/28/22 Status: Ordered fenofibrate 54 mg oral tablet Instructions: TAKE 1 TABLET BY MOUTH ONCE DAILY Start Date: 01/04/22 Status: Ordered Florastor 250 mg oral capsule ( 250 mg ) 1 cap(s), Oral, BID, Instructions: UGH, # 60 cap(s), 0 Refill(s), Pharmacy: [place], [place], Cap, 170, cm, 04/19/22 6:03:00 EDT, Height/Length Dosing, 89.1, kg, 04/19/22 6:03:00 EDT, Weight Dosing Start Date: 04/21/22 Status: Ordered losartan 50 mg oral tablet ( 50 mg ) 1 tab(s), Oral, Daily, # 30 tab(s), 5 Refill(s), Pharmacy: [place], [place], Tab, 165, cm, 04/02/22 8:42:00 EDT, Height/Length Dosing, 85.8, kg, 04/02/22 11:45:00 EDT, Weight Dosing Start Date: 04/11/22 Status: Ordered magnesium oxide 400 mg oral tablet ( 400 mg ), Oral, BID, Instructions: UGH, # 60 tab(s), 0 Refill(s), Pharmacy: [place], [place], Tab, 170, cm, 04/19/22 6:03:00 EDT, [...] days., # 18 tab(s), 0 Refill(s), Pharmacy: [facility] [place], [place], 170, cm, 04/19/22 6:03:00 EDT, Derrell [...] Team Personnel Name: Avila Gomez MD Address: [address] [place] [id number]
--- OUTSIDE RECORDS SUMMARY | 2023-05-16 15:43 | XMS_ITS | Continuity of Care Document ---
Author Name Unknown Organization [facility] Address [address] [place] [id number] Care Team Providers Care Rubber Press Operator Name Role Phone Avila Gomez Primary Care Physician [phone] Encounter 04/12/22 - 10/06/[address] [id number]- Discharge Disposition: Home Attending Physician: Skinny Mullins MD Admitting Physician: Skinny Mullins MD Allergies, Adverse Reactions, [...] wheezing, # 120 EA, 1 Refill(s), Pharmacy: [place], [place], Soln, 165.1, cm, 09/01/22 14:54:00 EDT, [...] Daily, # 6 tab(s), 0 Refill(s), Pharmacy: [place], [place], Tab, 165.1, cm, 09/01/22 14:54:00 EDT, [...] cough, # 40 cap(s), 0 Refill(s), Pharmacy: [place], [place], Cap, 165.1, cm, 09/01/22 14:54:00 EDT, Height/Length Dosing, 80.29, kg, 09/01/22 14:54:00 EDT, Weight Dosing Start Date: 09/06/22 Stop Date: 09/16/22 Status: Ordered cefdinir 300 mg oral capsule ( 300 mg ) 1 cap(s), Oral, q12hr (scheduled), # 12 cap(s), 0 Refill(s), Pharmacy: [place], [place], Cap, 165.1, cm, 09/01/22 14:54:00 EDT, [...] # 30 tab(s), 0 Refill(s), GURU, Pharmacy: [place], [place], Tab, 165.1, cm, 09/01/22 14:54:00 EDT, [...] BID, # 20 cap(s), 0 Refill(s), Pharmacy: [facility] [place], [place], Cap, 165.1, cm, 09/01/22 14:54:00 EDT, [...] DAILY, # 90 tab(s), 0 Refill(s), Pharmacy: [place], [place], Tab, 165.1, cm, 09/01/22 14:54:00 EDT, Height/Length Dosing, 80.29, kg, 09/01/22 14... Start Date: 09/06/22 Stop Date: 10/06/22 Status: Ordered MiraLax ( 17 gm ) 1 packet(s), Oral, Daily, Instructions: UGH, 0 Refill(s), Powder-Recon Start Date: 04/06/22 Status: Ordered nystatin 100,000 units/mL oral suspension ( 500,000 unit(s) ) 5 mL, Oral, QID, # 200 mL, 0 Refill(s), Pharmacy: [place], [place], Susp, 165.1, cm, 09/01/22 14:54:00 EDT, [...] days, # 11 tab(s), 0 Refill(s), Pharmacy: [place], [place], Tab, 165.1, cm, 09/01/22 14:54:... Start [...] per day 09/01/22 Patient Care team information Personnel Name: Avila Gomez MD Address: Address: [address] [place] [id number]
--- OUTSIDE RECORDS SUMMARY | 2023-05-16 15:43 | XMS_ITS | Continuity of Care Document ---
Author Name Unknown Organization [facility] Address [address] [place] [address]- Care Team Providers Care Straddle Buggy Operator Name Role Phone Avila Gomez Primary Care Physician [phone] Encounter 05/27/20 - 05/27/20 [facility] [address] [place] [address]- Encounter Diagnosis Intercostal pain(Final) - Discharge Disposition: Home Attending Physician: Avila Gomez MD Admitting Physician: Avila Gomez MD Allergies, Adverse Reactions, Alerts Substance Reaction [...] Completed Neck 2 Completed 1surgery 2surgery Results Laboratory List Name Date Automated Differential Standard 05/27/20 CBC w/Diff Standard 05/27/20 Comprehensive Metabolic Panel Standard Most recent to oldest [Reference Range]: 1 Creatinine Level [0.60-1.30 mg/dL] 0.92 mg/dL (05/27/20 12: PM) Corinna. Calcium [8.5-10.1 mg/dL] 9.2 mg/dL (05/27/20 12: PM) Albumin Level [3.4-5.0 g/dL] 3.7 g/dL (05/27/20 12: PM) Alk Phos [20-125 unit/L] 67 unit/L (05/27/20 12: PM) Bili Total [0.20-1.50 mg/dL] 0.40 mg/dL (05/27/20 12:21 PM) BUN [7-18 mg/dL] 19 mg/dL *HI* (05/27/20 12: PM) Chloride Level [98-107 mmol/L] 101 mmol/ L (05/27/20 12:21 PM) CO2 [21.0-32.0 mmol/L] 27.0 mmol/L (05/27/20 12: PM) Glucose Level [60-115 mg/dL] 114 mg/dL (05/27/20 12: PM) Hct [37.0-47.0 %] 38.1 % (05/27/20 12: PM) Hgb [12.0-16.0 g/dL] 12.4 g/dL (05/27/20 12: PM) MCH [27.0-31.0 pg] 32.1 pg *HI* (05/27/20 12: PM) MCHC [32.0-36.0 g/dL] 32.5 g/dL (05/27/20 PM) MCV [81-99 fL] 99 fL (05/27/20 PM) MPV [7.4-10.4 fL] 10.2 fL (05/27/20 PM) Platelet [130-400 K/uL] 155 K/uL (05/27/20 PM) Potassium Level [3.5-5.1 mmol/L] 3.8 mmo l/L (05/27/20 PM) RBC [4.20-5.30 M/uL] 3.86 M/uL *LOW* (05/27/20) RDW [11.5-15.5 %] 12.9 % (05/27/20) Sodium Level [136-145 mmol/L] 138 mmol/L (05/27/20 PM) Protein Total [6.4-8.2 g/dL] 7.1 g/dL (05/27/20) WBC [4.8-10.8 K/uL] 8.5 K/uL (05/27/20 PM) Calcium Level [8.5-10.1 mg/dL] 9.0 mg/dL (05/27/20 PM) ALT/SGPT [12-78 unit/L] 26 unit/L (05/27/20 PM) AST/SGOT [10-37 unit/L] 21 unit/L (05/27/20 PM) Auto Eos % [0.9-2.9 %] 0.8 % *LOW* (05/27/20) Auto Lymph % [20.5-45.5 %] 25.9 % (05/27/20 PM) Auto Neut % [43.0-65.0 %] 61.7 % (05/27/20 PM) Eos Abs# [0.00-0.50] 0.07 (05/27/20 PM) Lymph Abs# [1.00-4.00] 2.20 (05/27/20 PM) [place] Abs# [0.20-1.00] 0.93 (7/29/20 12:21 PM) Auto Baso % [0.2-1.0 %] 0.4 % (05/27/20 12:21 PM) Auto [place] % [5.5-11.7 %] 11.0 % (05/27/20 12:21 PM) Baso Abs# [0.00-0.20] 0.03 (05/27/20 12:21 PM) Neut Abs# [2.0-7.5] 5.2 (05/27/20 12:21 PM) GFR AA [>=59] 74 (05/27/20 12:21 PM) GFR Non AA [>=59] 61 (05/27/20 12:21 PM) Auto IG % [0.0-5.0 %] 0.2 % (05/27/20 12:21 PM) Social History Social History Type Response Smoking Status Former smoker, quit more than 30 days ago entered on: 07/24/19 Sex
--- OUTSIDE RECORDS SUMMARY | 2023-05-16 15:43 | XMS_ITS | Continuity of Care Document ---
Author [facility] [address] [place] [id number] Care Team Providers Care Winch Derrick Operator Name Role Phone Avila Gomez Primary Care Physician [phone] Encounter 08/11/20 - 11/09/20 [place] [id number]- Discharge Disposition: Home Attending Physician: MAHAMED DE [...]
--- OUTSIDE RECORDS SUMMARY | 2023-05-16 15:43 | XMS_ITS | Continuity of Care Document ---
Author Name Unknown Organization [facility] Address [address] [place] [address] Care Team Providers Care Enrober Name Role Phone Avila Goemz Primary Care Physician [phone] Encounter 04/11/22 - 04/11/22 [facility] [address] [address] [place] Encounter Diagnosis Hypertension(Discharge Diagnosis) - 04/11/22 COPD (chronic obstructive pulmonary disease)(Discharge Diagnosis) - 04/11/22 Cough(Discharge Diagnosis) - 04/11/22 Discharge Disposition: Home Attending Physician: Skinny Mullins MD Referring Physician: Avila Gomez MD Allergies, Adverse Reactions, [...] 2 Views Rt +Pelvis 08/20/21 Functional Status 04/11/22 Recent Travel History No recent travel Other exposure to Infectious Disease Non e Medications !-Zofran ODT 4 mg oral tablet, [...] # 120 mL, 0 Refill(s), 04/22/22, Pharmacy: [facility] [place], [place], 165, cm, 04/02/22 8:42:00 EDT, Height/Length [...] bedtime), # 42.5 gm, 11 Refill(s), Pharmacy: [facility] [place], [place], 165, cm, 02/15/22 17:19:00 EDT, Height/Length Dosing, 84.8, kg, 02/15/22 17:19:00 EDT, Weight Dosing Start Date: 02/28/22 Status: Ordered fenofibrate 54 mg oral tablet Instructions: TAKE 1 TABLET BY MOUTH ONCE DAILY Start Date: 01/04/22 Status: Ordered GuaiFENesin DM 20 mg-200 mg/10 mL oral liquid 10 mL, Oral, q4hr (scheduled), Instructions: not to exceed 6 doses/day, PRN: as needed for cough, #120 mL, 0 Refill(s), 04/16/22, Pharmacy: [place], [place], Liquid, 165, cm, 04/02/22 8:42:00 EDT, Height/Length Dosing, 85.8,... Start Date: 04/11/22 Stop Date: 04/16/22 Status: Ordered losartan 50 mg oral tablet ( 50 mg ) 1 tab(s), Oral, Daily, # 30 tab(s), 5 Refill(s), Pharmacy: [place], [place], Tab, 165, cm, 04/02/22 8:42:00 EDT, Height/Length Dosing, 85.8, kg, 04/02/22 11:45:00 EDT, Weight Dosing Start Date: 04/11/22 Status: Ordered MiraLax ( 17 gm ) 1 packet(s), Oral, Daily, Instructions: UGH, 0 Refill(s), Powder-Recon Start Date: 04/06/22 Status: Ordered Mucinex ( 600 mg ) 1 tab(s), Oral, BID, Instructions: UGH, 0 Refill(s), Tab-ER Start Date: 04/06/22 Stop Date: 04/13/22 Status: Ordered nystatin 100,000 units/mL oral suspension ( 500,000 unit(s) ) 5 mL, Oral, QID, x 10 day(s), # 200 mL, 0 Refill(s), 04/16/22, Pharmacy: [place], [place], Susp, 165, cm, 04/02/22 8:42:00 EDT, Height/Length Dosing, 85.8, kg, 04/02/22 11:45:00 EDT, Weight Dosing Start Date: 04/06/22 Stop Date: 04/16/22 Status: Ordered Percocet 10 mg-325 mg oral tablet q6hr (interval), 0 Refill(s) Start Date: 04/02/22 Status: Ordered predniSONE 20 mg oral tablet See Instructions, Instructions: Take 20mg BID x7 days, then 10mg (1/2tab) BID x7 days, then 10mg (1/2tab) daily x7 days, # 25 tab(s), 0 Refill(s), 04/27/22, Pharmacy: [facility] [place], [place], Tab, 165, cm, 04/02/22 8:42:00 Derrell [...] Foot 1 Completed Gallbladder absent Comple juan laberto Hysterectomy Completed Neck 2 Completed Shoulder Completed Tonsillectomy Completed 1surgery 2surgery Vital Signs Most recent to oldest [Reference Range]: 1 Peripheral Pulse Rate [60-100 bpm] 105 b pm *HI* (04/11/22 3:21 PM) Respiratory Rate [14-20 br/min] 22 br/mi n *HI* (04/11/22 3:21 PM) Blood Pressure [90-140/60-90 mmHg] 123/5 5mmHg (04/11/22 3:21 PM) SpO2 [92-100 %] 92 % (04/11/22 3:21 PM) Height 165.10 cm (04/11/22 3:21 PM) Weight 83.19 kg (04/11/22 3:21 PM) Body Mass Index 30.52 kg/m2 (04/11/22 3:21 PM) Social History Social History Type Response Smoking Status Smoking tobacco use: Former tobacco user;Never; Number used per day: 1 PPD; Number of years: 40; entered on: 04/11/22 Sex Care Team Personnel Name: Avila Gomez MD Address: [address] [place] [address]
--- OUTSIDE RECORDS SUMMARY | 2023-05-16 15:43 | XMS_ITS | Continuity of Care Document ---
Author Name Unknown Organization [facility] Address [address] [place] [id number] Care Team Providers Care Building Maintenance Engineer Name Role Phone Avila Gomez Primary Care Physician Encounter 01/04/22 - 01/04/[address] [address] Encounter Diagnosis Fracture of rib of left side(Discharge Diagnosis) - 01/04/22 Discharge Disposition: Home Attending Physician: Dwight Delgadillo MD Admitting Physician: Dwight Delgadillo MD Allergies, Adverse Reactions, Alerts Substance Reaction Severity Status NSAIDs Active sulfa drug Anaphyllaxis Active Assessment and Plan Extracted from: Title:ED Provider Note Author:Joselo Barksdale ate:01/04/22 Assessment/Plan 1.??Fracture of rib of left side??S22.32XA Orders: Dilaudid, 1 mg = 1 mL, Soln, IV Push, Once, Start date 01/04/22 16:46:00 EST, Physician Stop, Stop date 01/04/22 16:46:00 EST, 01/04/22 16:46:00 EST Patient stable in the ED with stable vital signs. ??Patient uses home O2 at night at home. ??Patient has Percocets already prescribed. ??Patient given Dilaudid in the ED.?? Will provide Rx for tramadol follow-up as needed Patient Education Rib Fracture, [id number] Follow Up With When Contact Information Follow up with primary care provider Additional Instructions: Future Scheduled Tests Radiology* XR Hip Comp Min 2 Views Rt +Pelvis 08/20/21 Functional Status 01/04/22 Recent Travel History No recent travel Other exposure to Infectious Disease Non e Family Member Travel History No recent t ravel Medications acetaminophen-oxycodone 325 mg-10 mg oral tablet 2 [...] (at bedtime) Start Date: 07/24/19 Status: Ordered fenofibrate 54 mg oral tablet Instructions: TAKE 1 TABLET BY MOUTH ONCE DAILY Start Date: 01/04/22 Status: Ordered LORazepam 0.5 mg oral tablet [...] TIMES DAILY Start Date: 01/04/22 Status: Ordered QUEtiapine 400 mg oral tablet, extended release Instructions: TAKE 1 TABLET BY MOUTH NIGHTLY Start Date: 01/04/22 Status: Ordered tiZANidine 4 mg oral tablet Instructions: TAKE 1 TABLET BY MOUTH EVERY 6 HOURS NEEDED FOR PAIN -- NOT TO EXCEED TWICE DAILY Start Date: 01/04/22 Status: Ordered traMADol 50 mg oral tablet ( 50 mg ) 1 tab(s), Oral, q4hr (interval), PRN PRN: for pain, # 30 tab(s), 0 Refill(s), 01/18/22, Tab Start Date: 01/04/22 Stop Date: 01/18/22 Status: Ordered traZODone 100 mg oral tablet [...] 2 Completed Shoulder Completed 1surgery 2surgery Results Radiology Reports * Exam Date Time Procedure Performing Provider Status 01/04/22 4:17 PM XR Ribs Min 3 Views Lt w/ PA Chest Rossana Santizo; Auth (Verified) Notes: (XR Ribs Min 3 Views Lt w/ PA Chest) Reason For Exam: fall injury pain XR Ribs Min 3 Views Lt w/ PA Chest HISTORY fall injury pain Relevant Clinical Information STUDY XR Ribs Min 3 Views Lt w/ PA Chest COMPARISON 10/21/2021. FINDINGS The heart size is normal. Pulmonary blood flow is normal. Lungs are grossly clear. There are fractures of the left 4th and 5th ribs. There is no pneumothorax. IMPRESSION Left 4th and 5th rib fractures.. Electronically signed by: Paul Al (Jan 04, 2022 16:25:48) Final Signed (Electronic Signature): Bonnie Herrera 01/04/22 4:25 pm Technologist: ALVINO SANCHEZ Vital Signs Most recent to oldest [Reference Range]: 1 2 3 Temperature Temporal [36.3-37.8 DegC] 36.7 DegC (01/04/22 3:18 PM) Peripheral Pulse Rate [60-100 bpm] 88 bpm (01/04/22 5:03 PM) 88 bpm (01/04/22 4:29 PM) 89 bpm (01/04/22 3:50 PM) Heart Rate Monitored [60-100 bpm] 88 bpm (01/04/22 5:03 PM) 88 bpm (01/04/22 4:29 PM) 88 bpm (01/04/22 3:50 PM) Respiratory Rate [14-20 br/min] 18 br/min (01/04/22 3:50 PM) 16 br/min (01/04/22 3:18 PM) Blood Pressure [90-140/60-90 mmHg] 147/72mmHg *HI* (01/04/22 5:03 PM) 136/70mmHg (01/04/22 4:29 PM) 134/65mmHg (01/04/22 3:50 PM) Mean Arterial Pressure, Cuff [65-100 mmHg] 97 mmHg (01/04/22 5:03 PM) 92 mmHg (01/04/22 4:29 PM) 88 mmHg (01/04/22 3:50 PM) SpO2 [92-100 %] 92 % (01/04/22 5:03 PM) 92 % (01/04/22 4:29 PM) 93 % (01/04/22 3:50 PM) Height 165.000 cm (01/04/22 3:18 PM) Height/Length Dosing 165.000 cm (01/04/22 3:20 PM) Weight 84.000 kg (01/04/22 3:18 PM) Weight Dosing 84.000 kg (01/04/22 3:20 PM) Triage Ht 165 cm (01/04/22 3:18 PM) Triage Weight 84 kg (01/04/22 3:18 PM) Triage BMI 30.85 (01/04/22 3:18 PM) Social History Social History Type Response Smoking Status Former smoker, quit more than 30 days ago entered on: 10/21/21 Sex Hospital Discharge Instructions Patient Education 01/04/2022 16:02:01 Rib Fracture, [id number] Rib Fracture A rib fracture is a break or crack in one of the bones of the ribs. The ribs are like a cage that goes around your upper chest. A broken or cracked rib is often painful, but most do not cause other problems. Most rib fractures usually heal on their own in 1???3 months. Follow these instructions at home: Managing pain, stiffness, and swelling ??? If directed, apply ice to the injured area. ??? Put ice in a plastic bag. ??? Place a towel between your skin and the bag. ??? Leave the ice on for 20 minutes, 2???3 times a day. ??? Take [id number] and prescription medicines only as told by your doctor. Activity ??? Avoid activities that cause pain to the injured area. Protect your injured area. ??? Slowly increase activity as told by your doctor. General instructions ??? Do deep breathing as told by your doctor. You may be told to: ??? Take deep breaths many times a day. ??? Cough many times a day while hugging a pillow. ??? Use a device (incentive spirometer) to do deep breathing many times a day. ??? Drink enough fluid to keep your pee (urine) clear or pale yellow. ??? Do not wear a rib belt or binder. These do not allow you to breathe deeply. ??? Keep all follow-up visits as told by your doctor. This is important. Contact a doctor if: ??? You have a fever. Get help right away if: ??? You have trouble breathing. ??? You are short of breath. ??? You cannot stop coughing. ??? You cough up thick or bloody spit (sputum). ??? You feel sick to your stomach (nauseous), throw up (vomit), or have belly (abdominal) pain. ??? Your pain gets worse and medicine does not help. Summary ??? A rib fracture is a break or crack in one of the bones of the ribs. ??? Apply ice to the injured area and take medicines for pain as told by your doctor. ??? Take deep breaths and cough many times a day. Hug a pillow every time you cough. This information is not intended to replace advice given to you by your health care provider. Make sure you discuss any questions you have with your health care provider. Document Revised: 09/28/2018 Document Reviewed: 01/16/2018 [employer] Patient Education ?? 2020 [employer] Follow Up Care 01/04/2022 15:17:48 With:Follow up with primary care provider Address:Unknown When: Unknown
--- OUTSIDE RECORDS SUMMARY | 2023-05-16 15:43 | XMS_ITS | Continuity of Care Document ---
[facility] [address] [place] [id number] Care Team Providers Care Produce Production Team Member Name Role Phone Avila Gomez Primary Care Physician Encounter 08/11/20 - 11/09/20 [place] [id number]- Discharge Disposition: Home Attending Physician: MAHAMED DE [...]
--- OUTSIDE RECORDS SUMMARY | 2023-05-16 15:43 | XMS_ITS | Continuity of Care Document ---
Author Name Unknown Organization [facility] Address [address] [place] [address] Care Team Providers Care Electric Car Operator Name Role Phone Avila Gomez Primary Care Physician Encounter 07/11/22 - 07/11/22 [facility] [address] [phone] [place] Discharge Disposition: Home Attending Physician: Skinny Mullins MD Allergies, Adverse Reactions, Alerts Substance Reaction Severity Status codeine Unknown Active sulfa drug Anaphyllaxis Active Macrobid Mild Active Nalbuphine Hydrochloride Unknown Act gwendolyn NSAIDs Bleeding Moderate Active Assessment and Plan Future Appointments Future Scheduled Tests Radiology* US Renal Comp 03/03/22 * US Bladder +Residual Post Voiding 03/03/22 * CT Chest w/o Cont 07/14/22 * XR Hip Comp Min 2 Views Rt +Pelvis 08/20/21 Medications !-Levaquin 750 mg oral tablet ( 750 mg ) 1 tab(s), Oral, q24hr (interval), # 9 tab(s), 0 Refill(s), Pharmacy: [facility] [place], [place], Tab, 170, cm, 04/19/22 6:03:00 EDT, [...] cough, # 30 cap(s), 0 Refill(s), Pharmacy: [place], [place], Cap, 170, cm, 04/19/22 6:03:00 EDT, [...] Daily, # 10 tab(s), 0 Refill(s), Pharmacy: [place], [place], Tab, 170, cm, 04/19/22 6:03:00 EDT, [...] bedtime), # 42.5 gm, 11 Refill(s), Pharmacy: [place], [place], 165, cm, 02/15/22 17:19:00 EDT, Height/Length Dosing, 84.8, kg, 02/15/22 17:19:00 EDT, Weight Dosing Start Date: 02/28/22 Status: Ordered fenofibrate 54 mg oral tablet Instructions: TAKE 1 TABLET BY MOUTH ONCE DAILY Start Date: 01/04/22 Status: Ordered Florastor 250 mg oral capsule ( 250 mg ) 1 cap(s), Oral, BID, Instructions: UGH, # 60 cap(s), 0 Refill(s), Pharmacy: [place], [place], Cap, 170, cm, 04/19/22 6:03:00 EDT, Height/Length Dosing, 89.1, kg, 04/19/22 6:03:00 EDT, Weight Dosing Start Date: 04/21/22 Status: Ordered losartan 50 mg oral tablet ( 50 mg ) 1 tab(s), Oral, Daily, # 30 tab(s), 5 Refill(s), Pharmacy: [place], [place], Tab, 165, cm, 04/02/22 8:42:00 EDT, Height/Length Dosing, 85.8, kg, 04/02/22 11:45:00 EDT, Weight Dosing Start Date: 04/11/22 Status: Ordered magnesium oxide 400 mg oral tablet ( 400 mg ), Oral, BID, Instructions: UGH, # 60 tab(s), 0 Refill(s), Pharmacy: [place], [place], Tab, 170, cm, 04/19/22 6:03:00 EDT, [...] days., # 18 tab(s), 0 Refill(s), Pharmacy: [facility] [place], [place], 170, cm, 04/19/22 6:03:00 EDT, Derrell [...] Tobacco Former tobacco user Tobacco Use:. Sex Patient Care team information Personnel Name: Avila Gomez MD Address: Address: [address], [place] [address]
--- OUTSIDE RECORDS SUMMARY | 2023-05-16 15:43 | XMS_ITS | Continuity of Care Document ---
Author Name Unknown Organization [facility] Address [address] [place] [id number] Care Team Providers Care Psychological Examiner Name Role Phone Avila Gomez Primary Care Physician Encounter 02/15/22 - 02/15/[address] [address]- Encounter Diagnosis Dehydration(Discharge Diagnosis) - 02/15/22 Diarrhea(Discharge Diagnosis) - 02/15/22 Nausea and vomiting(Discharge Diagnosis) - 02/15/22 COPD (chronic obstructive pulmonary disease)(Discharge Diagnosis) - 02/15/22 Dehydration(Final) - Nausea with vomiting, unspecified(Final) - Diarrhea, unspecified(Final) - Chronic obstructive pulmonary disease, unspecified(Final) - Personal history of nicotine dependence(Final) - Allergy status to sulfonamides(Final) - Discharge Disposition: Home Attending Physician: Dwight Delgadillo MD Admitting Physician: Dwight Delgadillo MD Allergies, Adverse Reactions, Alerts Substance Reaction Severity Status NSAIDs Active sulfa drug Anaphyllaxis Active Assessment and Plan Extracted from: Title:ED Provider Note Author:Rober Caldwell PAINT GRINDER Date:02/15/22 Assessment/Plan 1.??Dehydration??E86.0 2.??Nausea and vomiting??R11.2 3.??Diarrhea??R19.7 4.??COPD (chronic obstructive pulmonary disease)??J44.9 Orders: Lomotil 2.5 mg-0.025 mg oral tablet, 1 tab(s), Oral, QID, PRN: for loose stool, # 10 tab(s), 0 Refill(s), 02/15/23, Tab !-Zofran ODT 4 mg oral tablet, disintegrating, ( 4 mg ) 1 tab(s), Oral, q8hr (scheduled), PRN PRN: as needed for nausea/vomiting, # 20 tab(s), 0 Refill(s), 02/15/23, Tab-DIS promethazine 25 mg oral tablet, ( 25 mg ) 1 tab(s), Oral, q4hr (interval), PRN PRN: for nausea/vomiting, # 20 tab(s), 0 Refill(s), Tab NS 1,000 mL, 1,000, mL, IV, STAT, Start date 02/15/22 17:26:00 EDT, 999 mL/hr, 1, hr, Total volume (mL): 1,000, 84.8 kg, 1.97, m2, 02/15/22 17:26:00 EDT NS 1,000 mL, 1,000, mL, IV, STAT, Start date 02/15/22 18:09:00 EDT, 999 mL/hr, 1, hr, Total volume (mL): 1,000, 84.8 kg, 1.97, m2, 02/15/22 18:09:00 EDT Urinalysis with Culture, If Indicated Standard, Urine, Stat collect, 02/15/22 16:59:00 EDT, Stop date 02/15/22 16:59:00 EDT, Nurse collect Patient Education Dehydration, Adult, Ylgu-xj-Zxsi Follow Up With When Contact Information Avila Gomez MD [address] [place] [address]- ?? Additional Instructions: Call for follow up appointment. Drink Fluids Additional Instructions: Future Scheduled Tests Radiology* XR Hip Comp Min 2 Views Rt +Pelvis 08/20/21 Functional Status 02/15/22 Recent Travel History No recent travel Other [...] COPD (chronic obstructive pu lmonary disease)(Confirmed) Active Dehydration(Confirmed) Active Diarrhea(Confirmed) Active Bone marrow transplant status(Confirmed) Active Nausea and vomiting(Confirmed) Active Non Hodgkin's lymphoma(Confirmed) Active Procedures Procedure Date Related Diagnosis Body Site Status Foot 1 Completed Hysterectomy Completed Neck 2 Completed Shoulder Completed 1surgery 2surgery Results Laboratory List Name Date Automated Differential Standard 02/15/22 CBC w/Diff Standard 02/15/22 Comprehensive Metabolic Panel Standard ( CMP Standard) 02/15/22 Magnesium Level 02/15/22 Most recent to oldest [Reference Range]: 1 Creatinine Level [0.6-1.0 mg/dL] 1.5 mg/ dL *HI* (02/15/22 5:15 PM) RDW/CV [11.5-14.5 %] 13.6 % (02/15/22 5:15 PM) Corinna. Calcium [8.5-10.2 mg/dL] 8.1 mg/dL *LOW* (02/15/22 5:15 PM) Albumin Level [3.4-5.0 mg/dL] 4.2 mg/dL (02/15/22 5:15 PM) Alk Phos [40-120 IU/L] 70 IU/L (02/15/22 5:15 PM) Bili Total [0.20-1.00 mg/dL] 0.60 mg/dL (02/15/22 5:15 PM) BUN [7-18 mg/dL] 28 mg/dL *HI* (02/15/22 5:15 PM) Chloride Level [98-107 mmol/L] 97 mmol/L *LOW* (02/15/22 5:15 PM) CO2 [21.0-32.0 mmol/L] 25.4 mmol/L (02/15/22 5:15 PM) Glucose Level [70-110 mg/dL] 161 mg/dL *HI* (02/15/22 5:15 PM) Hct [35.0-49.0 %] 41.7 % (02/15/22 5:15 PM) Hgb [12.0-16.0 g/dL] 13.8 g/dL (02/15/22 5:15 PM) Magnesium [1.8-2.4] 1.8 (02/15/22 5:15 PM) MCH [26.0-33.0 pg] 31.7 pg (02/15/22 5:15 PM) MCHC [31.0-36.0 g/dL] 33.1 g/dL (02/15/22 5:15 PM) MCV [82-100] 96 (02/15/22 5:15 PM) MPV [8.0-12.3 fL] 9.9 fL (02/15/22 5:15 PM) Platelet [150-450 x10^3/mcL] 125 x10^3/m cL *LOW* (02/15/22 5:15 PM) Potassium Level [3.5-5.2 mmol/L] 4.2 mmo l/L (02/15/22 5:15 PM) RBC [4.00-5.20 x10^6/mcL] 4.36 x10^6/mcL (02/15/22 5:15 PM) Sodium Level [136-145 mEq/L] 135 mEq/L *LOW* (02/15/22 5:15 PM) Protein Total [6.4-8.2 g/dL] 7.5 g/dL (02/15/22 5:15 PM) WBC [4.3-11.0 x10^3/mcL] 11.7 x10^3/mcL *HI* (02/15/22 5:15 PM) Anion Gap 17 *NA* (02/15/22 5:15 PM) Calcium Level [8.5-10.2 mg/dL] 8.3 mg/dL *LOW* (02/15/22 5:15 PM) ALT/SGPT [12-78 IU/L] no reagent IU/L *NA* (02/15/22 5:15 PM) AST/SGOT [15-37 IU/L] 82 IU/L *HI* (02/15/22 5:15 PM) Auto Eos % [0.0-7.0 %] 0.3 % (02/15/22 5:15 PM) Auto Lymph % [10.0-50.0 %] 31.0 % (02/15/22 5:15 PM) Auto Neut % [37.0-80.0 %] 57.8 % (02/15/22 5:15 PM) Eos Abs# [0.00-0.50 K/uL] 0.03 K/uL (02/15/22 5:15 PM) Lymph Abs# [1.00-4.00 K/uL] 3.63 K/uL (02/15/22 5:15 PM) Hughes Abs# [0.20-1.00 K/uL] 1.21 K/uL *HI* (02/15/22 5:15 PM) Auto Baso % [0.0-2.5 %] 0.3 % (02/15/22 5:15 PM) Auto Hughes % [0.0-12.0 %] 10.3 % (02/15/22 5:15 PM) Baso Abs# [0.00-0.20 K/uL] 0.03 K/uL (02/15/22 5:15 PM) Neut Abs# [2.00-7.50 K/uL] 6.77 K/uL (02/15/22 5:15 PM) GFR AA [>=60 mL/min/1.73 ] 42 mL/min/1.73 *LOW* (02/15/22 5:15 PM) GFR Non AA [>=60 mL/min/1.73 ] 34 mL/min/1.73 *LOW* (02/15/22 5:15 PM) NRBC Abs # 0 K/uL *NA* (02/15/22 5:15 PM) IG Auto [0.00-0.50 K/uL] 0.04 K/uL (02/15/22 5:15 PM) Auto IG % [0.0-5.0 %] 0.3 % (02/15/22 5:15 PM) Vital Signs Most recent to oldest [Reference Range]: 1 Height 165.000 cm (02/15/22 5:16 PM) Height/Length Dosing 165.000 cm (02/15/22 5:19 PM) Weight 84.800 kg (02/15/22 5:16 PM) Weight Dosing 84.800 kg (02/15/22 5:19 PM) Triage Ht 165 cm (02/15/22 5:16 PM) Triage Weight 84.8 kg (02/15/22 5:16 PM) Triage BMI 31.15 (02/15/22 5:16 PM) Social History Social History Type Response Smoking Status Former smoker, quit more than 30 days ago entered on: 10/21/21 Sex Hospital Discharge Instructions Patient Education 02/15/2022 17:57:44 Dehydration, Adult, Cvyq-pd-Ltso Dehydration, Adult Dehydration is condition in which there is not enough water or other fluids in the body. This happens when a person loses more fluids than he or she takes in. Important body parts cannot work right without the right amount of fluids. Any loss of fluids from the body can cause dehydration. Dehydration can be mild, worse, or very bad. It should be treated right away to keep it from getting very bad. What are the causes? This condition may be caused by: ??? Conditions that cause loss of water or other fluids, such as: ??? Watery poop (diarrhea). ??? Vomiting. ??? Sweating a lot. ??? Peeing (urinating) a lot. ??? Not drinking enough fluids, especially when you: ??? Are ill. ??? Are doing things that take a lot of energy to do. ??? Other illnesses and conditions, such as fever or infection. ??? Certain medicines, such as medicines that take extra fluid out of the body (diuretics). ??? Lack of safe drinking water. ??? Not being able to get enough water and food. What increases the risk? The following factors may make you more likely to develop this condition: ??? Having a long-term (chronic) illness that has not been treated the right way, such as: ??? Diabetes. ??? Heart disease. ??? Kidney disease. ??? Being 65 years of age or older. ??? Having a disability. ??? Living in a place that is high above the ground or sea (high in altitude). The thinner, dried air causes more fluid loss. ??? Doing exercises that put stress on your body for a long time. What are the signs or symptoms? Symptoms of dehydration depend on how bad it is. Mild or worse dehydration ??? Thirst. ??? Dry lips or dry mouth. ??? Feeling dizzy or light-headed, especially when you stand up from sitting. ??? Muscle cramps. ??? Your body making: ??? Dark pee (urine). Pee may be the color of tea. ??? Less pee than normal. ??? Less tears than normal. ??? Headache. Very bad dehydration ??? Changes in skin. Skin may: ??? Be cold to the touch (clammy). ??? Be blotchy or pale. ??? Not go back to normal right after you lightly pinch it and let it go. ??? Little or no tears, pee, or sweat. ??? Changes in vital signs, such as: ??? Fast breathing. ??? Low blood pressure. ??? Weak pulse. ??? Pulse that is more than 100 beats a minute when you are sitting still. ??? Other changes, such as: ??? Feeling very thirsty. ??? Eyes that look hollow (sunken). ??? Cold hands and feet. ??? Being mixed up (confused). ??? Being very tired (lethargic) or having trouble waking from sleep. ??? Short-term weight loss. ??? Loss of consciousness. How is this treated? Treatment for this condition depends on how bad it is. Treatment should start right away. Do not wait until your condition gets very bad. Very bad dehydration is an emergency. You will need to go to a hospital. ??? Mild or worse dehydration can be treated at home. You may be asked to: ??? Drink more fluids. ??? Drink an oral rehydration solution (ORS). This drink helps get the right amounts of fluids and salts and minerals in the blood (electrolytes). ??? Very bad dehydration can be treated: ??? With fluids through an IV tube. ??? By getting normal levels of salts and minerals in your blood. This is often done by giving salts and minerals through a tube. The tube is passed through your nose and into your stomach. ??? By treating the root cause. Follow these instructions at home: Oral rehydration solution If told by your doctor, drink an ORS: ??? Make an ORS. Use instructions on the package. ??? Start by drinking small amounts, about ?? cup (120 mL) every 5???10 minutes. ??? Slowly drink more until you have had the amount that your doctor said to have. Eating and drinking ??? Drink enough clear fluid to keep your pee pale yellow. If you were told to drink an ORS, finishthe ORS first. Then, start slowly drinking other clear fluids. Drink fluids such as: ??? Water. Do not drink only water. Doing that can make the salt (sodium) level in your body get too low. ??? Water from ice chips you suck on. ??? Fruit juice that you have added water to (diluted). ??? Low-calorie sports drinks. ??? Eat foods that have the right amounts of salts and minerals, such as: ??? Bananas. ??? Oranges. ??? Potatoes. ??? Tomatoes. ??? Spinach. ??? Do not drink alcohol. ??? Avoid: ??? Drinks that have a lot of sugar. These include: ??? High-calorie sports drinks. ??? Fruit juice that you did not add water to. ??? Soda. ??? Caffeine. ??? Foods that are greasy or have a lot of fat or sugar. General instructions ??? Take axov-pcx-cbxmhni and prescription medicines only as told by your doctor. ??? Do not take salt tablets. Doing that can make the salt level in your body get too high. ??? Return to your normal activities as told by your doctor. Ask your doctor what activities are safe for you. ??? Keep all follow-up visits as told by your doctor. This is important. Contact a doctor if: ??? You have pain in your belly (abdomen) and the pain: ??? Gets worse. ??? Stays in one place. ??? You have a rash. ??? You have a stiff neck. ??? You get angry or annoyed (irritable) more easily than normal. ??? You are more tired or have a harder time waking than normal. ??? You feel: ??? Weak or dizzy. ??? Very thirsty. Get help right away if you have: ??? Any symptoms of very bad dehydration. ??? Symptoms of vomiting, such as: ??? You cannot eat or drink without vomiting. ??? Your vomiting gets worse or does not go away. ??? Your vomit has blood or green stuff in it. ??? Symptoms that get worse with treatment. ??? A fever. ??? A very bad headache. ??? Problems with peeing or pooping (having a bowel movement), such as: ??? Watery poop that gets worse or does not go away. ??? Blood in your poop (stool). This may cause poop to look black and tarry. ??? Not peeing in 6???8 hours. ??? Peeing only a small amount of very dark pee in 6???8 hours. ??? Trouble breathing. These symptoms may be an emergency. Do not wait to see if the symptoms will go away. Get medical help right away. Call your local emergency services (911 in the [place] Do not drive yourself to the hospital. Summary ??? Dehydration is a condition in which there is not enough water or other fluids in the body. Thishappens when a person loses more fluids than he or she takes in. ??? Treatment for this condition depends on how bad it is. Treatment should be started right away. Do not wait until your condition gets very bad. ??? Drink enough clear fluid to keep your pee pale yellow. If you were told to drink an oral rehydration solution (ORS), finish the ORS first. Then, start slowly drinking other clear fluids. ??? Take wmfy-dar-rpaxjdk and prescription medicines only as told by your doctor. ??? Get help right away if you have any symptoms of very bad dehydration. This information is not intended to replace advice given to you by your health care provider. Make sure you discuss any questions you have with your health care provider. Document Revised: 05/28/2020 Document Reviewed: 05/28/2020 [employer] Patient Education ?? 2020 [employer] Follow Up Care 02/15/2022 16:37:16 With:Avila Gomez MD Address: [address] [place] [address]- When: Unknown Comments:Call for follow up appointment. With:Drink Fluids Address:Unknown When: Unknown Care Team Personnel Name: Avila Gomez MD Address: [address] [place] [address]-
--- OUTSIDE RECORDS SUMMARY | 2023-05-16 15:43 | XMS_ITS | Continuity of Care Document ---
Author Name Unknown Organization [facility] Address [address] [place] [phone] Care Team Providers Care Manager Rn Name Role Phone Avila Gomez Primary Care Physician Encounter 07/12/22 - 07/12/[address] [address]- Encounter Diagnosis Dizziness and giddiness(Final) - Discharge Disposition: Home Attending Physician: Sharron Nayak APPLIANCE SERVICE TECHNICIAN Admitting Physician: Sharron Nayak APPLIANCE SERVICE TECHNICIAN Allergies, Adverse Reactions, Alerts Substance Reaction Severity [...] (interval), # 9 tab(s), 0 Refill(s), Pharmacy: [facility] - [place], [place], Tab, 170, cm, 04/19/22 6:03:00 EDT, [...] cough, # 30 cap(s), 0 Refill(s), Pharmacy: [place], [place], Cap, 170, cm, 04/19/22 6:03:00 EDT, [...] Daily, # 10 tab(s), 0 Refill(s), Pharmacy: [place], [place], Tab, 170, cm, 04/19/22 6:03:00 EDT, [...] bedtime), # 42.5 gm, 11 Refill(s), Pharmacy: [place], [place], 165, cm, 02/15/22 17:19:00 EDT, Height/Length Dosing, 84.8, kg, 02/15/22 17:19:00 EDT, Weight Dosing Start Date: 02/28/22 Status: Ordered fenofibrate 54 mg oral tablet Instructions: TAKE 1 TABLET BY MOUTH ONCE DAILY Start Date: 01/04/22 Status: Ordered Florastor 250 mg oral capsule ( 250 mg ) 1 cap(s), Oral, BID, Instructions: UGH, # 60 cap(s), 0 Refill(s), Pharmacy: [place], [place], Cap, 170, cm, 04/19/22 6:03:00 EDT, Height/Length Dosing, 89.1, kg, 04/19/22 6:03:00 EDT, Weight Dosing Start Date: 04/21/22 Status: Ordered losartan 50 mg oral tablet ( 50 mg ) 1 tab(s), Oral, Daily, # 30 tab(s), 5 Refill(s), Pharmacy: [place], [place], Tab, 165, cm, 04/02/22 8:42:00 EDT, Height/Length Dosing, 85.8, kg, 04/02/22 11:45:00 EDT, Weight Dosing Start Date: 04/11/22 Status: Ordered magnesium oxide 400 mg oral tablet ( 400 mg ), Oral, BID, Instructions: UGH, # 60 tab(s), 0 Refill(s), Pharmacy: [facility] [place], Tab, 170, cm, 04/19/22 6:03:00 EDT, [...] days., # 18 tab(s), 0 Refill(s), Pharmacy: [facility] [place], [place], 170, cm, 04/19/22 6:03:00 EDT, Heig... [...] Personnel Name: Avila Gomez MD Address: Address: [address] [place] [id number]
--- OUTSIDE RECORDS SUMMARY | 2023-05-16 15:43 | XMS_ITS | Continuity of Care Document ---
Author Name Unknown Organization [facility] Address [address] [place] [id number] Care Team Providers Care Tool Lathe Operator Name Role Phone Avila Gomez Primary Care Physician [phone] Encounter 07/09/20 - 07/12/20 [place] [id number]- Encounter Diagnosis Chronic hypoxemic respiratory failure(Discharge Diagnosis) [...] # 5 tab(s), 0 Refill(s), 07/17/20, Pharmacy: [facility]/pharmacy #[id number], Tab cefdinir 300 mg oral capsule, ( 300 mg ) 1 cap(s), Oral, q12hr (interval), x 5 day(s), # 10 cap(s), 0 Refill(s), 07/17/20, Pharmacy: [facility]/pharmacy #[id number] Vistaril 25 mg oral capsule, ( 25 mg ) 1 cap(s), Oral, Daily, PRN PRN: as needed for anxiety, # 30 cap(s), 0 Refill(s), 07/19/20, Pharmacy: [facility]/pharmacy #[id number], Cap Patient Discharge Condition Stable Discharge [...] # 5 tab(s), 0 Refill(s), 07/17/20, Pharmacy: [facility]/pharmacy #[id number], Tab Start Date: 07/12/20 Stop Date: [...] # 10 cap(s), 0 Refill(s), 07/17/20, Pharmacy: [facility]/pharmacy #[id number] Start Date: 07/12/20 Stop Date: 07/17/20 [...] # 6 tab(s), 0 Refill(s), 07/15/20, Pharmacy: [facility]/pharmacy #[id number], Tab Start Date: 07/12/20 Stop Date: [...] # 30 cap(s), 0 Refill(s), 07/19/20, Pharmacy: [facility]/pharmacy #[id number], Cap Start Date: 07/12/20 Stop Date: [...] 5:20 AM) 2.10 K/uL (07/09/20 8:08 PM) Erie Abs# [0.20-1.00 K/uL] 0.76 K/uL (07/11/20 4:24 AM) 0.13 K/uL *LOW* (07/10/20 5:20 AM) 0.87 K/uL (07/09/20 8:08 PM) Auto Baso % [0.0-2.5 %] 0.2 % (07/11/20 4:24 AM) 0.1 % (07/10/20 5:20 AM) 0.3 % (07/09/20 8:08 PM) Auto Erie % [0.0-12.0 %] 7.8 % (07/11/20 4:24 [...] Instructions Patient Education 07/12/2020 10:39:12 Shoulder Pain, Hgoz-fj-Gdfp Shoulder Pain Many things can cause shoulder [...] strengthen the arm. General instructions ??? Take oyne-obt-pakzvxv and prescription medicines only as told by [...] 04/03/2009 Document Revised: 04/30/2019 Document Reviewed: 04/30/2019 [employer] Patient Education ?? 2019 [employer]. 07/12/2020 10:39:12 Hypomagnesemia Hypomagnesemia Hypomagnesemia is a [...] that. Take them as directed. ??? Take mcze-som-dzdmrns and prescription medicines only as told by [...] 07/12/2006 Document Revised: 09/28/2018 Document Reviewed: 09/17/2018 [employer] Patient Education ?? 2020 [employer]. 07/12/2020 10:39:12 Community-Acquired Pneumonia, Adult, Bvtn-fp-Jqeh Community-Acquired Pneumonia, Adult Pneumonia is an infection [...] these instructions at home: Medicines ??? Take ueuk-euj-yttcszz and prescription medicines only as told by [...] cannot use soap and water, use hand hay rake operator. Contact a doctor if: ??? You have [...] 04/03/2009 Document Revised: 02/05/2020 Document Reviewed: 06/13/2019 [employer] Patient Education ?? 2020 [employer] 07/12/2020 10:39:12 EKG Copy at discharge (JASKARAN) Copy of EKG given to patient. 07/10/2020 02:15:20 Admission Education Packet (JASKARAN) [facility] Brochure [facility] Safety Awareness Program Information Sheet 07/10/2020 02:15:20 [...] symptoms. This may include rest, fluids, and ezxh-kvb-yrvvjtx medicines. Follow these instructions at home: Lifestyle [...] safe for you. General instructions ??? Take ddvp-oup-wujyqlt and prescription medicines only as told by [...] are not available, use an alcohol-based hand hay rake operator. ??? Avoid touching your mouth, face, eyes, [...] water are not available, use alcohol-based hand hay rake operator. ??? Stay away from other members of [...] 11/21/2019 Document Revised: 02/11/2020 Document Reviewed: 11/21/2019 [employer] Patient Education ?? 2020 [employer]. 07/09/2020 20:13:51 Community-Acquired Pneumonia, Adult Community-Acquired Pneumonia, [...] Follow these instructions at home: ??? Take sbiv-djq-wcynnyz and prescription medicines only as told by [...] ??? Wash your hands often. Use hand hay rake operator if soap and water are not available. [...] 10/16/2006 Document Revised: 07/05/2018 Document Reviewed: 02/10/2016 [employer] Interactive Patient Education ?? 2019 [employer] Follow Up Care 07/09/2020 18:29:10 With:Avila Gomez Address:Unknown When:As needed
--- OUTSIDE RECORDS SUMMARY | 2023-05-16 15:43 | XMS_ITS | Continuity of Care Document ---
Author Name Unknown Organization [facility] Address [address] [place] [address] Care Team Providers Care Adult Psychiatrist Name Role Phone Avila Gomez Primary Care Physician [phone] Encounter 04/21/22 - 10/16/22 [facility] [address] [place] [address] [place] Discharge Disposition: Home Attending Physician: Sera Goddard MD Admitting Physician: Sera Goddard MD Allergies, Adverse Reactions, Alerts Substance Reaction [...] wheezing, # 120 EA, 1 Refill(s), Pharmacy: [place], [place], Soln, 165.1, cm, 09/01/22 14:54:00 EDT, [...] Daily, # 6 tab(s), 0 Refill(s), Pharmacy: [place], [place], Tab, 165.1, cm, 09/01/22 14:54:00 EDT, [...] cough, # 40 cap(s), 0 Refill(s), Pharmacy: [place], [place], Cap, 165.1, cm, 09/01/22 14:54:00 EDT, Height/Length Dosing, 80.29, kg, 09/01/22 14:54:00 EDT, Weight Dosing Start Date: 09/06/22 Stop Date: 09/16/22 Status: Ordered cefdinir 300 mg oral capsule ( 300 mg ) 1 cap(s), Oral, q12hr (scheduled), # 12 cap(s), 0 Refill(s), Pharmacy: [place], [place], Cap, 165.1, cm, 09/01/22 14:54:00 EDT, [...] # 30 tab(s), 0 Refill(s), GURU, Pharmacy: [facility] [place], [place], Tab, 165.1, cm, 09/01/22 14:54:00 EDT, [...] BID, # 20 cap(s), 0 Refill(s), Pharmacy: [facility] [place], [place], Cap, 165.1, cm, 09/01/22 14:54:00 EDT, [...] DAILY, # 90 tab(s), 0 Refill(s), Pharmacy: [place], [place], Tab, 165.1, cm, 09/01/22 14:54:00 EDT, Height/Length Dosing, 80.29, kg, 09/01/22 14... Start Date: 09/06/22 Stop Date: 10/06/22 Status: Ordered MiraLax ( 17 gm ) 1 packet(s), Oral, Daily, Instructions: UGH, 0 Refill(s), Powder-Recon Start Date: 04/06/22 Status: Ordered nystatin 100,000 units/mL oral suspension ( 500,000 unit(s) ) 5 mL, Oral, QID, # 200 mL, 0 Refill(s), Pharmacy: [place], [place], Susp, 165.1, cm, 09/01/22 14:54:00 EDT, [...] days, # 11 tab(s), 0 Refill(s), Pharmacy: [place], [place], Tab, 165.1, cm, 09/01/22 14:54:... Start [...] Personnel Name: Avila Gomez MD Address: Address: [address], [place] [address] [place]
--- OUTSIDE RECORDS SUMMARY | 2023-05-16 15:43 | XMS_ITS | Continuity of Care Document ---
Author Name Unknown Organization [facility] Address [address] [place] [id number] Care Team Providers Care Rn Documentation Name Role Phone Avila Gomez Primary Care Physician [phone] Encounter 04/02/22 - 04/06/[address] [address]- Encounter Diagnosis COPD with exacerbation(Discharge Diagnosis) - 04/02/22 Hypoxemia(Discharge Diagnosis) - 04/02/22 Chronic obstructive pulmonary disease with (acute) exacerbation(Final) - Hypoxemia(Final) - Unspecified osteoarthritis, unspecified site(Final) - Candidal stomatitis(Final) - Gastro-esophageal reflux disease without esophagitis(Final) - Candidiasis of vulva and vagina(Final) - Non-Hodgkin lymphoma, unspecified, unspecified site(Final) - Other specified abnormal findings of blood chemistry(Final) - Other chronic pain(Final) - Other specified disorders of bone, unspecified site(Final) - Personal history of nicotine dependence(Final) - Discharge Disposition: Home Attending Physician: Dandre Glez MD Admitting Physician: Dandre Glez MD Allergies, Adverse Reactions, Alerts Substance Reaction Severity Status codeine Unknown Active morphine Unknown Active Macrobid Mild Active Nalbuphine Hydrochloride Unknown Act gwendolyn NSAIDs Bleeding Moderate Active sulfa drug Anaphyllaxis Active Assessment and Plan Extracted from: Title:Discharge Note Author:Alondra Wolfe Date:04/06/22 Discharge Plan Acute hypoxia due to COPD exacerbation -failed outpatient treatment with levaquin and methylprednisolone x 7 days -inpatient admission -CXR negative and wbc normal -2 view CXR on 04/05 negative for acute infiltrate -COVID negative -AB.48/49/46/36.5/85% RA -BNP 161, no hx of CHF and no clinical evidence of CHF -troponin 5.8 -d dimer 0.48 -Rocephin 1 g IV daily -Azithromycin 500mg po daily -solumedrol 40mg IV BID; 04/03 increased to q6h, 04/04 increased to 80mg Q8H -ativan 1mg po BID with solumedrol so the patient doesn't attack someone, increased to Q8H dosing on 04/04 -duoneb QID and albuterol q2hrs prn -changed cough syrup to tussionex BID prn, continue tessalon perles 200mg TID, and added robitussin DM q6hrs prn?? -mucinex 600mg BID, continue at discharge for 7 more days -IS and flutter valve, continue at discharge -O2 to maintain sats -hold Trelegy while on nebs -consult Dr Mullins, appreciate his recommendations -patient has requested prescriptions for ativan and tussionex at discharge -She also been discharged on a 3 week prednisone taper (20mg BID x7 days, 10mg BID x7 days, 10mg daily x7days), azithromycin 500mg daily x 3 days, cefdinir 300mg BID x3 days -recommend f/u with Dr Mullins in 2 weeks and PCP in 1 week ?? Non-Hodgkins Lymphoma s/p chemotherapy that resulted in chronic bone??pain, DJD,??OA -continue percocet QID, lyrica 150mg TID, Belsomra 20mg qhs, baclofen 20mg qhs -held tizanidine since the patient is on several other medications ?? GERD -continue PPI ?? Elevated BPs without hx of HTN -BPs 120s-150s/70s-80s -04/03 add lisinopril 10mg daily, continued at discharge -hydralazine 10mg IV q6hrs prn SbP >160 ?? Candidiasis -patient c/o thrush and s/s of vaginal yeast infection on afternoon of 04/05 -placed on diflucan 100mg PO daily, continued for 3 more days at discharge -placed on oral nystatin QID, continued at discharge for 10 more days ?? prophylaxis: lovenox, SCDs ?? Patient Discharge Condition stable Discharge Disposition home Patient Education EKG Copy at discharge (JASKARAN) Admission Education Packet (JULIEHAYES) Chronic Obstructive Pulmonary Disease, Maox-uc-Brpd COPD and Physical Activity Follow Up With When Contact Information Skinny Mullins MD Within 10 to 12 days Additional Instructions: Call for follow up appointment Avila Gomez MD Within 1 week [address] [facility] [place] [address]- Additional Instructions: Call for follow up appointment Extracted from: Title:ED Provider Note Author:Fareed Estrada MD Date: 04/02/22 Assessment/Plan 1.??COPD with exacerbation??J44.1 Ordered: azithromycin, 500 mg = 1 EA, Powder-Inj, IV Piggyback, Once, Antibiotic Indication Empiric Therapy - Unclear Source, Routine, Start date 04/02/22 10:17:00 EDT, Physician Stop, Stop date 04/02/22 10:17:00 EDT, 250, mL/hr, Infuse over 60 minute(s), 04/02/22 10:17:00 EDT !-Rocephin, 1 gm = 1 EA, Powder-Inj, IV Piggyback, Once, Antibiotic Indication Empiric Therapy - Unclear Source, Routine, Start date 04/02/22 10:17:00 EDT, Physician Stop, Stop date 04/02/22 10:17:00 EDT, 200, mL/hr, Infuse over 30 minute(s), 04/02/22 10:17:00 EDT Decision to Admit, 04/02/22 10:20:00 EDT, Med/Surg, copd exacerbation, hypoxemia, Dandre Glez MD, Inpatient ?? 2.??Hypoxemia??R09.02 Ordered: azithromycin, 500 mg = 1 EA, Powder-Inj, IV Piggyback, Once, Antibiotic Indication Empiric Therapy - Unclear Source, Routine, Start date 04/02/22 10:17:00 EDT, Physician Stop, Stop date 04/02/22 10:17:00 EDT, 250, mL/hr, Infuse over 60 minute(s), 04/02/22 10:17:00 EDT !-Rocephin, 1 gm = 1 EA, Powder-Inj, IV Piggyback, Once, Antibiotic Indication Empiric Therapy - Unclear Source, Routine, Start date 04/02/22 10:17:00 EDT, Physician Stop, Stop date 04/02/22 10:17:00 EDT, 200, mL/hr, Infuse over 30 minute(s), 04/02/22 10:17:00 EDT Decision to Admit, 04/02/22 10:20:00 EDT, Med/Surg, copd exacerbation, hypoxemia, Dandre Glez MD, Inpatient ?? Follow Up No qualifying data available Future Appointments Future Scheduled Tests Radiology* US Renal Comp 03/03/22 * US Bladder +Residual Post Voiding 03/03/22 * XR Hip Comp Min 2 Views Rt +Pelvis 08/20/21 Functional Status 04/06/22 History of Fall in Last 3 Months Green N o 04/02/22 Recent Travel History No recent travel Other [...] mg ) 1 tab(s), Oral, Daily, x 3 day(s), # 3 tab(s), 0 Refill(s), 04/09/22, Pharmacy: [facility] - [place], [place], Tab, 165, cm, 04/02/22 8:42:00 EDT, Height/Length Dosing, 85.8, kg, 04/02/22 11:45:00 EDT, Weight Dosing Start Date: 04/06/22 Stop Date: 04/09/22 Status: Ordered baclofen 20 mg oral tablet Instructions: TAKE 1 TABLET BY MOUTH NIGHTLY Start Date: 01/04/22 Status: Ordered Belsomra 20 mg oral tablet Instructions: TAKE 1 TABLET BY MOUTH AT BEDTIME Start Date: 01/04/22 Status: Ordered cefdinir 300 mg oral capsule ( 300 mg ) 1 cap(s), Oral, q12hr (scheduled), x 3 day(s), # 6 cap(s), 0 Refill(s), 04/09/22, Pharmacy: [place], [place], Cap, 165, cm, 04/02/22 8:42:00 EDT, Height/Length Dosing, 85.8, kg, 04/02/22 11:45:00 EDT, Weight Dosing Start Date: 04/06/22 Stop Date: 04/09/22 Status: Ordered chlorpheniramine-hydrocodone 8 mg-10 mg/5 mL oral suspension, extended release 5 mL, Oral, q12hr (interval), PRN: for cough, # 120 mL, 0 Refill(s), 04/13/22, handwritten (Rx) Start Date: 04/06/22 Stop Date: 04/13/22 Status: Ordered Depo-Estradiol 5 mg/mL intramuscular solution Instructions: INJECT 1ML (5mg) INTRAMUSCULARLY ONCE EVERY 28 DAYS DIRECTED Start Date: 04/02/22 Status: Ordered Dexilant 60 mg oral delayed release capsule ( 60 mg ) 1 cap(s), Daily, 0 Refill(s) Start Date: 02/28/22 Status: Ordered Diflucan 100 mg oral tablet ( 100 mg ) 1 tab(s), Oral, Daily, x 3 day(s), Instructions: UGH, # 3 tab(s), 0 Refill(s), 04/09/22,Pharmacy: [place], [place], Tab, 165, cm, 04/02/22 8:42:00 EDT, Height/Length Dosing, 85.8, kg, 04/02/22 11:45:00 EDT, Weight... Start Date: 04/06/22 Stop Date: 04/09/22 Status: Ordered docusate sodium 100 mg oral capsule ( 100 mg ) 1 cap(s), Oral, BID, PRN PRN: constipation, 0 Refill(s), Cap Start Date: 04/06/22 Status: Ordered Estrace Vaginal 0.1 mg/g vaginal cream See Instructions, Instructions: 0.5 gm VAG twice a week (at bedtime), # 42.5 gm, 11 Refill(s), Pharmacy: [place], [place], 165, cm, 02/15/22 17:19:00 EDT, Height/Length Dosing, 84.8, kg, 02/15/22 17:19:00 EDT, Weight Dosing Start Date: 02/28/22 Status: Ordered fenofibrate 54 mg oral tablet Instructions: TAKE 1 TABLET BY MOUTH ONCE DAILY Start Date: 01/04/22 Status: Ordered lisinopril 10 mg oral tablet ( 10 mg ) 1 tab(s), Oral, Daily, Instructions: UGH, # 30 tab(s), 0 Refill(s), Pharmacy: [place], [place], Tab, 165, cm, 04/02/22 8:42:00 EDT, Height/Length Dosing, 85.8, kg,04/02/22 11:45:00 EDT, Weight Dosing Start Date: 04/06/22 Stop Date: 05/06/22 Status: Ordered MiraLax ( 17 gm ) [...] # 200 mL, 0 Refill(s), 04/16/22, Pharmacy: [place], [place], Susp, 165, cm, 04/02/22 8:42:00 EDT, [...] # 25 tab(s), 0 Refill(s), 04/27/22, Pharmacy: [facility] - [place], [place], Tab, 165, cm, 04/02/22 8:42:00 EDTLeonila. Start Date: 04/06/22 Stop Date: 04/27/22 Status: [...] Start Date: 01/04/22 Status: Ordered Mental Status 04/06/22 Level of Consciousness Alert Problem List Condition [...] Laboratory List Name Date Automated Differential Standard 04/03/22 CBC w/Diff Standard 04/03/22 Comprehensive Metabolic Panel Standard ( CMP Standard) 04/03/22 Magnesium Level 04/03/22 Arterial Bld Gas (UGH) 04/02/22 Automated Differential Standard 04/02/22 CBC w/Diff Standard 04/02/22 Comprehensive Metabolic Panel Standard ( CMP Standard) 04/02/22 D-Dimer (DDimer) 04/02/22 Lactic Acid Screen 04/02/22 NT Pro-BNP (BNP) 04/02/22 PT/PTT 04/02/22 Troponin I 04/02/22 SARS-CoV-2 (COVID-19) RNA (ID Now) 2 Most recent to oldest [Reference Range]: 1 2 O2 Sat Art [95-99 %] 85 % *LOW* (04/02/22 9:02 AM) Creatinine Level [0.6-1.0 mg/dL] 0.8 mg/ dL (04/03/22 6:13 AM) 0.8 mg/dL (04/02/22 9:02 AM) Puncture Site RT Brachial (04/02/22 9:02 AM) RDW/CV [11.5-14.5 %] 14.8 % *HI* (04/03/22 6:13 AM) 15.2 % *HI* (04/02/22 9:02 AM) Corinna. Calcium [8.5-10.2 mg/dL] 9.6 mg/dL (04/03/22 6:13 AM) 10.3 mg/dL *HI* (04/02/22 9:02 AM) D-Dimer [0.19-0.50 mg/L] 0.48 mg/L (04/02/22 9:02 AM) INR 1.01 *NA* (04/02/22 9:02 AM) Albumin Level [3.4-5.0 mg/dL] 3.3 mg/dL *LOW* (04/03/22 6:13 AM) 3.4 mg/dL (04/02/22 9:02 AM) Alk Phos [40-120 IU/L] 48 IU/L (04/03/22 6:13 AM) 52 IU/L (04/02/22 9:02 AM) Bili Total [0.20-1.00 mg/dL] 0.31 mg/dL (04/03/22 6:13 AM) 0.43 mg/dL (04/02/22 9:02 AM) BUN [7-18 mg/dL] 14 mg/dL (04/03/22 6:13 AM) 12 mg/dL (04/02/22 9:02 AM) Chloride Level [98-107 mmol/L] 101 mmol/ L (04/03/22 6:13 AM) 102 mmol/L (04/02/22 9:02 AM) CO2 [21.0-32.0 mmol/L] 30.6 mmol/L (04/03/22 6:13 AM) 29.9 mmol/L (04/02/22:02 AM) Glucose Level [70-110 mg/dL] 183 mg/dL *HI* (04/03/22 6:13 AM) 111 mg/dL *HI* (04/02/22 9:02 AM) HCO3 Art [22.0-26.0 mmol/L] 36.5 mmol/L *HI* (04/02/22 9:02 AM) Hct [35.0-49.0 %] 38.2 % (04/03/22 6:13 AM) 41.0 % (04/02/22:02 AM) Hgb [12.0-16.0 g/dL] 12.1 g/dL (04/03/22 6:13 AM) 13.1 g/dL (04/02/22 9:02 AM) Magnesium [1.8-2.4] 1.8 (04/03/22 6:13 AM) MCH [26.0-33.0 pg] 32.1 pg (04/03/22 6:13 AM) 32.0 pg (04/02/22:02 AM) MCHC [31.0-36.0 g/dL] 31.7 g/dL (04/03/22 6:13 AM) 32.0 g/dL (04/02/22 9:02 AM) MCV [82-100] 101 *HI* (04/03/22 6:13 AM) 100 (04/02/22:02 AM) MPV [8.0-12.3 fL] 10.6 fL (04/03/22 6:13 AM) 10.5 fL (04/02/22 9:02 AM) pCO2 Art [35.0-45.0 mmHg] 49.0 mmHg 1 *CRIT* (04/02/22 9:02 AM) pH Art [7.35-7.45] 7.48 *HI* (04/02/22 9:02 AM) Platelet [150-450 x10^3/mcL] 180 x10^3/m cL (04/03/22 6:13 AM) 183 x10^3/mcL (04/02/22 9:02 AM) pO2 Art [80-100 mmHg] 46 mmHg 2 *CRIT* (04/02/22 9:02 AM) Potassium Level [3.5-5.2 mmol/L] 4.7 mmo l/L (04/03/22 6:13 AM) 3.5 mmol/L (04/02/22 9:02 AM) PT 10.6 second(s) *NA* (04/02/22 9:02 AM) PTT [26.0-38.0 second(s)] 25.3 second(s) *LOW* (04/02/22 9:02 AM) RBC [4.00-5.20 x10^6/mcL] 3.77 x10^6/mcL *LOW* (04/03/22 6:13 AM) 4.09 x10^6/mcL (04/02/22 9:02 AM) Sodium Level [136-145] 138 (04/03/22 6:13 AM) Sodium Level [136-145 mEq/L] 137 mEq/L (04/02/22 9:02 AM) Protein Total [6.4-8.2 g/dL] 6.2 g/dL *LOW* (04/03/22 6:13 AM) 6.9 g/dL (04/02/22 9:02 AM) WBC [4.3-11.0 x10^3/mcL] 9.3 x10^3/mcL (04/03/22 6:13 AM) 10.9 x10^3/mcL (04/02/22 9:02 AM) Fio2 Art [21-100 %] 21 % (04/02/22 9:02 AM) Troponin-I [0.00-60.40 pg/mL] 5.80 pg/mL (04/02/22 9:02 AM) Anion Gap 11 *NA* (04/03/22 6:13 AM) 9 *NA* (04/02/22 9:02 AM) Calcium Level [8.5-10.2 mg/dL] 9.0 mg/dL (04/03/22 6:13 AM) 9.8 mg/dL (04/02/22 9:02 AM) ALT/SGPT [12-78 IU/L] 22 IU/L (04/03/22 6:13 AM) 10 IU/L *LOW* (04/02/22 9:02 AM) AST/SGOT [15-37 IU/L] 18 IU/L (04/03/22 6:13 AM) 14 IU/L *LOW* (04/02/22 9:02 AM) Auto Eos % [0.0-7.0 %] 0.0 % (04/03/22 6:13 AM) 0.5 % (04/02/22 9:02 AM) Auto Lymph % [10.0-50.0 %] 8.5 % *LOW* (04/03/22 6:13 AM) 20.7 % (04/02/22 9:02 AM) Auto Neut % [37.0-80.0 %] 85.9 % *HI* (04/03/22 6:13 AM) 67.5 % (04/02/22 9:02 AM) Eos Abs# [0.00-0.50 K/uL] 0.00 K/uL (04/03/22 6:13 AM) 0.06 K/uL (04/02/22 9:02 AM) Lymph Abs# [1.00-4.00 K/uL] 0.79 K/uL *LOW* (04/03/22 6:13 AM) 2.26 K/uL (04/02/22 9:02 AM) [place] Abs# [0.20-1.00 K/uL] 0.43 K/uL (04/03/22 6:13 AM) 1.08 K/uL *HI* (04/02/22 9:02 AM) Auto Baso % [0.0-2.5 %] 0.1 % (04/03/22 6:13 AM) 0.4 % (04/02/22 9:02 AM) Auto [place] % [0.0-12.0 %] 4.6 % (04/03/22 6:13 AM) 9.9 % (04/02/22 9:02 AM) Baso Abs# [0.00-0.20 K/uL] 0.01 K/uL (04/03/22 6:13 AM) 0.04 K/uL (04/02/22 9:02 AM) Neut Abs# [2.00-7.50 K/uL] 8.01 K/uL *HI* (04/03/22 6:13 AM) 7.39 K/uL (04/02/22 9:02 AM) Lactic Acid [0.4-1.9 mmol/L] 1.6 mmol/L (04/02/22 9:02 AM) TCO2 Art [23.0-27.0 mmol/L] 38.0 mmol/L *HI* (04/02/22 9:02 AM) Base Excess Art [-2.0-2.0 mEq/L] 11.4 mE q/L *HI* (04/02/22 9:02 AM) Rik Test Art Not Indicated (04/02/22 9:02 AM) GFR AA [>=60 mL/min/1.73 ] 94 mL/min/1.73 (04/03/22 6:13 AM) 84 mL/min/1.73 (04/02/22 9:02 AM) GFR Non AA [>=60 mL/min/1.73 ] 77 mL/min/1.73 (04/03/22 6:13 AM) 70 mL/min/1.73 (04/02/22 9:02 AM) NT Pro-BNP [<=125 pg/mL] 161 pg/mL *HI* (04/02/22 9:02 AM) NRBC Abs # 0 K/uL *NA* (04/03/22 6:13 AM) 0 K/uL *NA* (04/02/22 9:02 AM) IG Auto [0.00-0.50 K/uL] 0.08 K/uL (04/03/22 6:13 AM) 0.11 K/uL (04/02/22 9:02 AM) Auto IG % [0.0-5.0 %] 0.9 % (04/03/22 6:13 AM) 1.0 % (04/02/22 9:02 AM) SARS-CoV-2 (COVID-19) RNA (ID Now) [Nega tive] Negative (04/02/22 9:01 AM) Employed in healthcare? No *NA* (04/02/22 9:01 AM) Symptomatic as defined by CDC? Yes *NA* (04/02/22 9:01 AM) Date of onset (Lab) 27-MAR-2022 *Unknown* (04/02/22 9:01 AM) Hospitalized due to COVID-19? No *NA* (04/02/22 9:01 AM) In ICU? No *NA* (04/02/22 9:01 AM) Group care resident? No *NA* (04/02/22 9:01 AM) status? Not *NA* (04/02/22 9:01 AM) 1Result Comment: Results called to Dr. Estrada by ANQL_ at 04/02/2022 09:14:49 EDT_. Read back and verified. 2Result Comment: Results called to Dr. Estrada by ANQL_ at 04/02/2022 09:14:49 EDT_. Read back and verified. Radiology Reports * Exam Date Time Procedure Performing Provider Status 04/05/22 9:20 AM XR Chest 2 Views Falguni Santizo (Verified) Notes: (XR Chest 2 Views) Reason For Exam: Cough XR Chest 2 Views HISTORY Cough STUDY XR Chest 2 Views COMPARISON 04/02/2022 FINDINGS The cardiomediastinal silhouette is stable. No acute airspace disease. No pneumothorax or effusion.The bony thorax appears intact. ACDF hardware. Left shoulder arthroplasty hardware unchanged. IMPRESSION No acute cardiopulmonary disease. Electronically signed by: SCOTT MCCONNELL (Apr 05, 2022 09:32:58) Final Signed (Electronic Signature): Scott Mcconnell MD 04/05/22 9:32 am Technologist: BF * Exam Date Time Procedure Performing Provider Status 04/02/22 9:20 AM XR Chest 1 View Portable Lilli Snow (Verified) Notes: (XR Chest 1 View Portable) Reason For Exam: Dyspnea XR Chest 1 View Portable XR Chest 1 View Portable HISTORY: Dyspnea Study: Single view of the chest. Comparison:None Findings: The cardiomediastinal silhouette is normal.No focal consolidations, pleural effusions or pneumothorax. Osseous structures demonstrate no acute abnormality. IMPRESSION: 1. No acute cardiopulmonary process. Electronically signed by: ANNE RUEDA (Apr 02, 2022 09:22:26) Final Signed (Electronic Signature): Anne Rueda MD 04/02/22 9:22 am Technologist: DUSTIN Vital Signs Most recent to oldest [Reference Range]: 1 2 3 Temperature Axillary [36.1-38.2 DegC] 36.7 DegC (04/03/22 3:54 AM) Temperature Axillary (DegF) [97-100.9 DegF] 98.06 DegF (04/03/22 3:54 AM) Temperature Oral [35.8-37.3 DegC] 36.6 DegC (04/06/22 7:31 AM) 36.6 DegC (04/06/22 4:18 AM) 36.5 DegC (04/05/22 11:38 PM) Temperature Oral (DegF) [96.4-99.1 DegF] 97.88 DegF (04/06/22 7:31 AM) 97.88 DegF (04/06/22 4:18 AM) 97.7 DegF (04/05/22 11:38 PM) Peripheral Pulse Rate [60-100 bpm] 88 bpm (04/06/22 7:31 AM) 98 bpm (04/06/22 7:28 AM) 90 bpm (04/06/22 4:18 AM) Respiratory Rate [14-20 br/min] 14 br/min (04/06/22 7:31 AM) 20 br/min (04/06/22 7:28 AM) 18 br/min (04/06/22 4:18 AM) Blood Pressure [90-140/60-90 mmHg] 156/83mmHg *HI* (04/06/22 7:31 AM) 169/65mmHg *HI* (04/06/22 4:18 AM) 152/75mmHg *HI* (04/05/22 11:38 PM) Mean Arterial Pressure, Cuff [65-100 mmHg] 107 mmHg *HI* (04/06/22 7:31 AM) 100 mmHg (04/06/22 4:18 AM) 101 mmHg *HI* (04/05/22 11:38 PM) BP Site Right arm (04/06/22 4:18 AM) Right arm (04/05/22 11:38 PM) Right arm (04/05/22 7:05 PM) SpO2 [92-100 %] 96 % (04/06/22 7:31 AM) 97 % (04/06/22 7:28 AM) 94 % (04/06/22 4:18 AM) Oxygen Flow Rate 2 L/min (04/06/22 7:31 AM) 2 L/min (04/06/22 7:28 AM) 2 L/min (04/06/22 4:18 AM) Oxygen Therapy Nasal cannula (04/06/22:31 AM) Nasal cannula (04/06/22 7:28 AM) Nasal cannula (04/06/22 4:18 AM) FIO2. 24 % (04/04/22 7:44 PM) 24 % (04/04/22 7:34 PM) Oxygen Activity Ongoing (04/05/22 7:36 PM) Ongoing (04/05/22 7:05 PM) Ongoing (04/05/22 3:35 PM) Height 165 cm (04/02/22 11:23 AM) 165.000 cm (04/02/22 8:35 AM) Height/Length Measured (inches) 64.96 in (04/02/22 11:23 AM) Height/Length Dosing 165.000 cm (04/02/22 8:42 AM) Weight 83.000 kg (04/02/22 8:35 AM) Weight Dosing 85.8 kg (04/02/22 11:23 AM) 83.000 kg (04/02/22 8:42 AM) Weight Dosing (lbs) 188.76 (04/02/22 11:23 AM) Weight Estimated 83.460 kg (04/02/22 12:17 PM) Triage Ht 165 cm (04/02/22 8:35 AM) Triage Weight 83 kg (04/02/22 8:35 AM) Triage BMI 30.49 (04/02/22 8:35 AM) Social History Social History Type Response Tobacco Former tobacco user Tobacco Use:. 1/2 per day. 40 year(s). Sex Hospital Discharge Instructions Patient Education 04/05/2022 07:56:50 EKG Copy at discharge (JASKARAN) Copy of EKG given to patient. 04/05/2022 07:56:50 Admission Education Packet (JASKARAN) [facility] Brochure [facility] Safety Awareness Program Information Sheet 04/02/2022 09:29:23 Chronic Obstructive Pulmonary Disease, [id number] Chronic Obstructive Pulmonary Disease Chronic obstructive pulmonary disease (COPD) is a long-term (chronic) lung problem. When you have COPD, it is hard for air to get in and out of your lungs. Usually the condition gets worse over time,and your lungs will never return to normal. There are things you can do to keep yourself as healthyas possible. ??? Your doctor may treat your condition with: ??? Medicines. ??? Oxygen. ??? Lung surgery. ??? Your doctor may also recommend: ??? Rehabilitation. This includes steps to make your body work better. It may involve a team of specialists. ??? Quitting smoking, if you smoke. ??? Exercise and changes to your diet. ??? Comfort measures (palliative care). Follow these instructions at home: Medicines ??? Take [id number] and prescription medicines only as told by your doctor. ??? Talk to your doctor before taking any cough or allergy medicines. You may need to avoid medicines that cause your lungs to be dry. Lifestyle ??? If you smoke, stop. Smoking makes the problem worse. If you need help quitting, ask your doctor. ??? Avoid being around things that make your breathing worse. This may include smoke, chemicals, and fumes. ??? Stay active, but remember to rest as well. ??? Learn and use tips on how to relax. ??? Make sure you get enough sleep. Most adults need at least 7 hours of sleep every night. ??? Eat healthy foods. Eat smaller meals more often. Rest before meals. Controlled breathing Learn and use tips on how to control your breathing as told by your doctor. Try: ??? Breathing in (inhaling) through your nose for 1 second. Then, pucker your lips and breath out (exhale) through your lips for 2 seconds. ??? Putting one hand on your belly (abdomen). Breathe in slowly through your nose for 1 second. Your hand on your belly should move out. Pucker your lips and breathe out slowly through your lips. Your hand on your belly should move in as you breathe out. Controlled coughing Learn and use controlled coughing to clear mucus from your lungs. Follow these steps: 1. Lean your head a little forward. 2. Breathe in deeply. 3. Try to hold your breath for 3 seconds. 4. Keep your mouth slightly open while coughing 2 times. 5. Spit any mucus out into a tissue. 6. Rest and do the steps again 1 or 2 times as needed. General instructions ??? Make sure you get all the shots (vaccines) that your doctor recommends. Ask your doctor about aflu shot and a pneumonia shot. ??? Use oxygen therapy and pulmonary rehabilitation if told by your doctor. If you need home oxygentherapy, ask your doctor if you should buy a tool to measure your oxygen level (oximeter). ??? Make a COPD action plan with your doctor. This helps you to know what to do if you feel worse than usual. ??? Manage any other conditions you have as told by your doctor. ??? Avoid going outside when it is very hot, cold, or humid. ??? Avoid people who have a sickness you can catch (contagious). ??? Keep all follow-up visits as told by your doctor. This is important. Contact a doctor if: ??? You cough up more mucus than usual. ??? There is a change in the color or thickness of the mucus. ??? It is harder to breathe than usual. ??? Your breathing is faster than usual. ??? You have trouble sleeping. ??? You need to use your medicines more often than usual. ??? You have trouble doing your normal activities such as getting dressed or walking around the house. Get help right away if: ??? You have shortness of breath while resting. ??? You have shortness of breath that stops you from: ??? Being able to talk. ??? Doing normal activities. ??? Your chest hurts for longer than 5 minutes. ??? Your skin color is more blue than usual. ??? Your pulse oximeter shows that you have low oxygen for longer than 5 minutes. ??? You have a fever. ??? You feel too tired to breathe normally. Summary ??? Chronic obstructive pulmonary disease (COPD) is a long-term lung problem. ??? The way your lungs work will never return to normal. Usually the condition gets worse over time. There are things you can do to keep yourself as healthy as possible. ??? Take [id number] and prescription medicines only as told by your doctor. ??? If you smoke, stop. Smoking makes the problem worse. This information is not intended to replace advice given to you by your health care provider. Make sure you discuss any questions you have with your health care provider. Document Revised: 09/28/2018 Document Reviewed: 11/20/2017 [employer] ?? 2020 [employer]. 04/02/2022 09:29:23 COPD and Physical Activity COPD and Physical Activity Chronic obstructive pulmonary disease (COPD) is a long-term (chronic) condition that affects the lungs. COPD is a general term that can be used to describe many different lung problems that cause lung swelling (inflammation) and limit airflow, including chronic bronchitis and emphysema. The main symptom of COPD is shortness of breath, which makes it harder to do even simple tasks. This can also make it harder to exercise and be active. Talk with your health care provider about treatments to help you breathe better and actions you can take to prevent breathing problems during physical activity. What are the benefits of exercising with COPD? Exercising regularly is an important part of a healthy lifestyle. You can still exercise and do physical activities even though you have COPD. Exercise and physical activity improve your shortness ofbreath by increasing blood flow (circulation). This causes your heart to pump more oxygen through your body. Moderate exercise can improve your: ??? Oxygen use. ??? Energy level. ??? Shortness of breath. ??? Strength in your breathing muscles. ??? Heart health. ??? Sleep. ??? Self-esteem and feelings of self-worth. ??? Depression, stress, and anxiety levels. Exercise can benefit everyone with COPD. The severity of your disease may affect how hard you can exercise, especially at first, but everyone can benefit. Talk with your health care provider about how much exercise is safe for you, and which activities and exercises are safe for you. What actions can I take to prevent breathing problems during physical activity? Sign up for a pulmonary rehabilitation program. This type of program may include: ??? Education about lung diseases. ??? Exercise classes that teach you how to exercise and be more active while improving your breathing. This usually involves: ??? Exercise using your lower extremities, such as a stationary bicycle. ??? About 30 minutes of exercise, 2 to 5 times per week, for 6 to 12 weeks ??? Strength training, such as push ups or leg lifts. ??? Nutrition education. ??? Group classes in which you can talk with others who also have COPD and learn ways to manage stress. ??? If you use an oxygen tank, you should use it while you exercise. Work with your health care provider to adjust your oxygen for your physical activity. Your resting flow rate is different from your flow rate during physical activity. ??? While you are exercising: ??? Take slow breaths. ??? Pace yourself and do not try to go too fast. ??? Purse your lips while breathing out. Pursing your lips is similar to a kissing or whistling position. ??? If doing exercise that uses a quick burst of effort, such as weight lifting: ??? Breathe in before starting the exercise. ??? Breathe out during the hardest part of the exercise (such as raising the weights). Where to find support You can find support for exercising with COPD from: ??? Your health care provider. ??? A pulmonary rehabilitation program. ??? Your local health department or community health programs. ??? Support groups, online or in-person. Your health care provider may be able to recommend supportgroups. Where to find more information You can find more information about exercising with COPD from: ??? [place] [employer]: lung.org. ??? COPD Foundation: copdfoundation.org. Contact a health care provider if: ??? Your symptoms get worse. ??? You have chest pain. ??? You have nausea. ??? You have a fever. ??? You have trouble talking or catching your breath. ??? You want to start a new exercise program or a new activity. Summary ??? COPD is a general term that can be used to describe many different lung problems that cause lung swelling (inflammation) and limit airflow. This includes chronic bronchitis and emphysema. ??? Exercise and physical activity improve your shortness of breath by increasing blood flow (circulation). This causes your heart to provide more oxygen to your body. ??? Contact your health care provider before starting any exercise program or new activity. Ask your health care provider what exercises and activities are safe for you. This information is not intended to replace advice given to you by your health care provider. Make sure you discuss any questions you have with your health care provider. Document Revised: 02/05/2020 Document Reviewed: 11/08/2018 [employer] Patient Education ?? 2020 [employer]. Follow Up Care 04/02/2022 08:31:35 With:Avila Gomez MD Address: [address] [place], [place] [address] [facility] (1) When:04/12/2022 09:45:00 Comments:Follow up appointment scheduled for 04/12/2022 at 10:45 a.m. With:Skinny Mullins MD Address: When:04/19/2022 08:20:00 Comments:Follow up appointment scheduled for at 9:20 a.m. Note * Scott Mcconnell MD: VERIFY, VERIFY DomainUser, Generated: PERFORM Event Display: Radiology Report Authored Date: [id number] HISTORY Cough STUDY XR Chest 2 Views COMPARISON 04/02/2022 FINDINGS The cardiomediastinal silhouette is stable. No acute airspace disease. No pneumothorax or effusion.The bony thorax appears intact. ACDF hardware. Left shoulder arthroplasty hardware unchanged. IMPRESSION No acute cardiopulmonary disease. Electronically signed by: SCOTT MCCONNELL (Apr 05, 2022 09:32:58) Final Signed (Electronic Signature): Scott Mcconnell MD 04/05/22 9:32 am Technologist: Anne Nesbitt MD: VERIFY, VERIFY DomainUser, Generated: PERFORM Event Display: Radiology Report Authored Date: [id number] XR Chest 1 View Portable HISTORY: Dyspnea Study: Single view of the chest. Comparison:None Findings: The cardiomediastinal silhouette is normal.No focal consolidations, pleural effusions or pneumothorax. Osseous structures demonstrate no acute abnormality. IMPRESSION: 1. No acute cardiopulmonary process. Electronically signed by: ANNE RUEDA (Apr 02, 2022 09:22:26) Final Signed (Electronic Signature): Anne Rueda MD 04/02/22 9:22 am Technologist: DUSTIN Care Team Personnel Name: Avila Gomez MD Address: [address] [place] [address]
--- OUTSIDE RECORDS SUMMARY | 2023-05-16 15:43 | XMS_ITS | Continuity of Care Document ---
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 COPD (chronic obstructive pulmonary disease)(Discharge Diagnosis) - 01/24/23 Bronchitis(Discharge Diagnosis) - 01/24/23 COVID(Discharge Diagnosis) - 01/24/23 Discharge Disposition: Home Attending Physician: Mary Tran MD Admitting Physician: Mary Tran MD Allergies, Adverse Reactions, Alerts Substance Reaction Severity Status codeine Unknown Active Macrobid Mild Active Nalbuphine Hydrochloride Unknown Act gwendolyn NSAIDs Bleeding Moderate Active sulfa drug Anaphyllaxis Active Assessment and Plan Extracted from: Title:ED Provider Note Author:Rober Caldwell NP Date:01/24/23 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 Orders: azithromycin 500 mg oral tablet, ( 500 mg ) 1 tab(s), Oral, Daily, x 7 day(s), # 7 tab(s), 0 Refill(s), 01/31/23, Pharmacy: [facility] - [place], [place], Tab, 165.1, cm, 01/24/23 17:13:00 EDT, Height/Length Dosing, 77.11, kg, 01/24/23 17:13:00 EDT, Weight Dosing azithromycin + Sodium Chloride 0.9% 250 mL, 500 mg = 1 EA, Powder-Inj, IV Piggyback, Once, Medication Indication COVID-19, Routine, Start date 01/24/23 17:59:00 EDT, Physician Stop, Stop date 01/24/23 17:59:00 EDT, 250, mL/hr, Infuse over 60 minute(s), 01/24/23 17:59:00 EDT !-Rocephin, 1 gm = 1 EA, Powder-Inj, IV Piggyback, Once, Medication Indication COVID-19, Routine, Start date 01/24/23 17:58:00 EDT, Physician Stop, Stop date 01/24/23 17:58:00 EDT, 200, mL/hr, Infuse over 30 minute(s), 01/24/23 17:58:00 EDT Ativan 1 mg oral tablet, ( 1 mg ) 1 tab(s), Oral, q12hr (scheduled), PRN PRN: as needed for anxiety, # 7 tab(s), 0 Refill(s), 01/25/24, Pharmacy: [facility] [place], [place], Tab, 165.1, cm, 01/24/23 17:13:00 EDT, Height/Length Dosing, 77.11, kg, 01/24/23 17:13... magnesium sulfate, 1 gm = 100 mL, Soln, IV Piggyback, q1hr (interval), Start date 01/24/23 17:58:00 EDT, 2 dose(s)/time(s), Physician Stop, Stop date 01/24/23 19:57:00 EDT, 100 mL/hr, Infuse over 1 hr, 01/24/23 17:58:00 EDT SOLU-Medrol, 125 mg = 2 mL, Powder-Inj, IV Push, Once, Start date 01/24/23 18:00:00 EDT, Physician Stop, Stop date 01/24/23 18:00:00 EDT, 01/24/23 18:00:00 EDT predniSONE 20 mg oral tablet, ( 20 mg ) 1 tab(s), Oral, Daily, x 7 day(s), # 7 tab(s), 0 Refill(s), 01/31/23, Pharmacy: [facility] - [place], [place], Tab, 165.1, cm, 01/24/23 17:13:00 EDT, Height/Length Dosing, 77.11, kg, 01/24/23 17:13:00 EDT, Weight Dosing NS 1,000 mL, 1,000, mL, IV, STAT, Start date 01/24/23 17:58:00 EDT, 999 mL/hr, 1, hr, Total volume (mL): 1,000, 77.11 kg, 1.88, m2, 01/24/23 17:58:00 EDT Discharge Patient, 01/24/23 18:53:00 EDT, Condition on Discharge: Stable, to Home Troponin I, Blood, Timed Study collect, 01/24/23 19:52:00 EDT, Once, Stop date 01/24/23 19:52:00 EDT, Lab Collect, 01/24/23 19:52:00 EDT Urinalysis with Culture, If Indicated Standard, Urine, Stat collect, 01/24/23 16:52:00 EDT, Once, Stop date 01/24/23 16:52:00 EDT, Nurse collect XR Chest 1 View Portable, 01/24/23 16:52:00 EDT, Routine, Once, 01/24/23 16:52:00 EDT, Shortness of Breath, Transport Mode: Wheelchair, , Yes, Rad Type Discharge Disposition Thank you for choosing our Emergency Department??for your healthcare! ??Please take your medicines prescribed as directed and be sure that you follow-up??with the physician provided or your PCP in the next 1 to 2 days to ensure you are improving.?? All medical problems cannot be reasonably diagnosed in your ED visit today.?? Return for any changes or concerns, including if your condition does not improve??or you are unable to obtain a follow-up.?? Some final results, including radiology reports, do not return the same day, but are available on the patient portal or can be obtained through your PCP. Patient Education COVID-19: Quarantine and Isolation - [facility] (01/26/2022) Chronic Obstructive Pulmonary Disease Exacerbation, [id number] Follow Up With When Contact Information Return to Emergency Department Additional Instructions: Return with any concerns or deterioration in condition. Avila Gomez MD [address] [place] [address]- ?? Additional Instructions: Call for follow up appointment. Tylenol/Motrin for Pain/Fever relief Additional Instructions: Drink Fluids Additional Instructions: Future Appointments Future Scheduled Tests Radiology* US Renal Comp 03/03/22 * US Bladder +Residual Post Voiding 03/03/22 * CT Chest w/o Cont 07/14/22 * MRI Abdomen w/ + w/o Cont 02/01/23 * CT Chest Hi-Res w/o Contrast 09/26/22 Functional Status 01/24/23 Recent Travel History No recent travel Other exposure to Infectious Disease COV ID-19 Symptoms Present Family Member Travel History No recent t ravel Medications !-Flexeril ( 10 mg ), Oral, TID, 0 Refill(s) Start Date: 12/28/22 Status: Ordered acetaminophen-oxycodone 325 mg-10 mg oral tablet 1 tab(s), Oral, q4hr (interval), PRN: Pain - Severe, # 10 tab(s), 0 Refill(s), handwritten (Rx), Tab Start Date: 12/31/22 Status: Ordered Ativan 1 mg oral tablet ( 1 mg ) 1 tab(s), Oral, q12hr (scheduled), PRN PRN: as needed for anxiety, # 7 tab(s), 0 Refill(s), 01/25/24, Pharmacy: [place], [place], Tab, 165.1, cm, 01/24/23 17:13:00 EDT, Height/Length Dosing, 77.11, kg, 01/24/23 17:13... Start Date: 01/24/23 Stop Date: 01/25/24 Status: Ordered azithromycin 500 mg oral tablet ( 500 mg ) 1 tab(s), Oral, Daily, x 7 day(s), # 7 tab(s), 0 Refill(s), 01/31/23, Pharmacy: [place], [place], Tab, 165.1, cm, 01/24/23 17:13:00 EDT, Height/Length Dosing, 77.11, kg, 01/24/23 17:13:00 EDT, Weight Dosing Start Date: 01/24/23 Stop Date: 01/31/23 Status: Ordered Belsomra 20 mg oral tablet ( 20 mg ) 1 tab(s), Oral, Once a day (at bedtime) Start Date: 01/04/22 Status: Ordered Dexilant 60 mg oral delayed release capsule ( 60 mg ) 1 cap(s), Daily, 0 Refill(s) Start Date: 02/28/22 Status: Ordered DilTIAZem (Eqv-Cardizem CD) 120 mg/24 hours oral capsule, extended release ( 120 mg ) 1 cap(s), Oral, Daily, 0 Refill(s) Start Date: 09/01/22 Status: Ordered docusate sodium 100 mg oral capsule ( 100 mg ) 1 cap(s), Oral, BID, PRN PRN: constipation, 0 Refill(s), Cap Start Date: 04/06/22 Status: Ordered lovastatin 20 mg oral tablet ( 20 mg ) 1 tab(s), Oral, Daily, # 30 tab(s), 0 Refill(s), Pharmacy: [place], [place], Tab, 165.1, cm, 12/28/22 15:47:00 EST, Height/Length Dosing, 80.29, kg, 12/28/22 15:47:00 EST, Weight Dosing Start Date: 12/31/22 Stop Date: 01/30/23 Status: Ordered magnesium oxide 400 mg oral tablet ( 400 mg ) 1 tab(s), Oral, HS, 0 Refill(s), Tab Start Date: 09/01/22 Status: Ordered predniSONE 20 mg oral tablet ( 20 mg ) 1 tab(s), Oral, Daily, x 7 day(s), # 7 tab(s), 0 Refill(s), 01/31/23, Pharmacy: [place], [place], Tab, 165.1, cm, 01/24/23 17:13:00 EDT, Height/Length Dosing, 77.11, kg, 01/24/23 17:13:00 EDT, Weight Dosing Start Date: 01/24/23 Stop Date: 01/31/23 Status: Ordered pregabalin 150 mg oral capsule ( 150 mg ) 1 cap(s), Oral, TID Start Date: 01/04/22 Status: Ordered Probiotic See Instructions, 0 Refill(s) Start Date: 12/28/22 Status: Ordered Trelegy Ellipta 100 mcg-62.5 mcg-25 mcg/inh inhalation powder 1 puff(s), INH, Daily, Instructions: at the same time every day, # 60 EA, 0 Refill(s), Powder Start Date: 12/28/22 Status: Ordered Problem List Condition Confirmation Course Effective Dates Status Health St atus Informant COPD exacerbation Confirmed Active Arthritis Confirmed Active Bronchitis Confirmed Active Chest wall pain Confirmed Active COPD (chronic obstructive pulmonary disease) Confirmed Active COVID Confirmed Active Kidney cysts Confirmed Active Diarrhea Confirmed Active Cervical spine disease Confirmed Active Dysphonia Confirmed Active Bone marrow transplant status Confirmed Active Herpes Confirmed Active History of kidney stones Confirmed Active IBS (irritable bowel syndrome) Confirmed Active Non Hodgkin's lymphoma Confirmed Active Frequent UTI Confirmed Active Urinary retention Confirmed Active Procedures Procedure Date Related Diagnosis Body Site Status Bladder tract Completed Foot 1 Completed Gallbladder absent Comple juan alberto Hysterectomy Completed Neck 2 Completed Shoulder Completed Tonsillectomy Completed 1surgery 2surgery Results Laboratory List Name Date Troponin I 01/24/23 Influenza A&B 01/24/23 SARS-CoV-2 (COVID-19) RNA (ID Now) Arterial Bld Gas (UGH) 01/24/23 Automated Differential Standard 01/24/23 C-Reactive Protein 01/24/23 CBC w/Diff Standard 01/24/23 Comprehensive Metabolic Panel Standard ( CMP Standard) 01/24/23 Magnesium Level 01/24/23 NT Pro-BNP (BNP) 01/24/23 PT/INR 01/24/23 Troponin I 01/24/23 Most recent to oldest [Reference Range]: 1 2 O2 Sat Art [95-99 %] 88 % *LOW* (01/24/23 5:02 PM) Creatinine Level [0.6-1.0 mg/dL] 1.2 mg/ dL *HI* (01/24/23 5:02 PM) Puncture Site L Radial (01/24/23 5:02 PM) RDW/CV [11.5-14.5 %] 12.3 % (01/24/23 5:02 PM) INR 1.04 *NA* (01/24/23 5:02 PM) Albumin Level [3.4-5.0 mg/dL] 3.6 mg/dL (01/24/23 5:02 PM) Alk Phos [40-120 IU/L] 71 IU/L (01/24/23 5:02 PM) Bili Total [0.20-1.00 mg/dL] 0.26 mg/dL (01/24/23 5:02 PM) BUN [7-18 mg/dL] 15 mg/dL (01/24/23 5:02 PM) Chloride Level [98-107 mmol/L] 102 mmol/ L (01/24/23:02 PM) CO2 [21.0-32.0 mmol/L] 22.7 mmol/L (01/24/23: PM) Glucose Level [70-110 mg/dL] 94 mg/dL (01/24/23 5:02 PM) HCO3 Art [22.0-26.0 mmol/L] 24.3 mmol/L (01/24/23: PM) Hct [35.0-49.0 %] 36.4 % (01/24/23 5:02 PM) Hgb [12.0-16.0 g/dL] 11.4 g/dL *LOW* (01/24/23 5: PM) Magnesium [1.8-2.4] 1.5 *LOW* (01/24/23 5:02 PM) MCH [26.0-33.0 pg] 31.1 pg (01/24/23:02 PM) MCHC [31.0-36.0 g/dL] 31.3 g/dL (01/24/23 5:02 PM) MCV [82-100] 99 (01/24/23 5:02 PM) MPV [8.0-12.3 fL] 10.2 fL (01/24/23 5:02 PM) pCO2 Art [35.0-45.0 mmHg] 42.0 mmHg (01/24/23 5:02 PM) pH Art [7.35-7.45] 7.37 (01/24/23 5:02 PM) Platelet [150-450 x10^3/mcL] 115 x10^3/m cL *LOW* (01/24/23 5:02 PM) pO2 Art [80-100 mmHg] 57 mmHg 1 *CRIT* (01/24/23 5:02 PM) Potassium Level [3.5-5.2 mmol/L] 3.6 mmo l/L (01/24/23 5:02 PM) PT 11.0 second(s) *NA* (01/24/23 5:02 PM) RBC [4.00-5.20 x10^6/mcL] 3.67 x10^6/mcL *LOW* (01/24/23 5:02 PM) Sodium Level [136-145] 135 *LOW* (01/24/23 5:02 PM) Protein Total [6.4-8.2 g/dL] 6.9 g/dL (01/24/23 5:02 PM) WBC [4.3-11.0 x10^3/mcL] 6.9 x10^3/mcL (01/24/23 5:02 PM) Fio2 Art [21-100 %] 21 % (01/24/23 5:02 PM) Troponin-I [0.00-60.40 pg/mL] 5.80 pg/mL (01/24/23 7:47 PM) 5.70 pg/mL (01/24/23 5:02 PM) Anion Gap 14 *NA* (01/24/23 5:02 PM) Calcium Level [8.5-10.2 mg/dL] 8.1 mg/dL *LOW* (01/24/23 5:02 PM) ALT/SGPT [12-78 IU/L] 29 IU/L (01/24/23 5:02 PM) AST/SGOT [15-37 IU/L] 35 IU/L (01/24/23 5:02 PM) Auto Eos % [0.0-7.0 %] 0.3 % (01/24/23 5:02 PM) Auto Lymph % [10.0-50.0 %] 28.0 % (01/24/23 5:02 PM) Auto Neut % [37.0-80.0 %] 55.1 % (01/24/23 5:02 PM) Eos Abs# [0.00-0.50 K/uL] 0.02 K/uL (01/24/23 5:02 PM) Lymph Abs# [1.00-4.00 K/uL] 1.94 K/uL (01/24/23 5:02 PM) [place] Abs# [0.20-1.00 K/uL] 1.10 K/uL *HI* (01/24/23 5:02 PM) Auto Baso % [0.0-2.5 %] 0.3 % (01/24/23 5:02 PM) Auto [place] % [0.0-12.0 %] 15.9 % *HI* (01/24/23 5:02 PM) Baso Abs# [0.00-0.20 K/uL] 0.02 K/uL (01/24/23 5:02 PM) Neut Abs# [2.00-7.50 K/uL] 3.81 K/uL (01/24/23 5:02 PM) CRP [0.05-0.80 mg/dL] 3.37 mg/dL *HI* (01/24/23 5:02 PM) TCO2 Art [23.0-27.0 mmol/L] 25.6 mmol/L (01/24/23 5:02 PM) Base Excess Art [-2.0-2.0 mEq/L] -1.0 mE q/L (01/24/23 5:02 PM) Influenza A [negative] negative (01/24/23 5:58 PM) Influenza B [negative] negative (01/24/23 5:58 PM) Rik Test Art Acceptable (01/24/23 5:02 PM) GFR AA [>=60 mL/min/1.73 ] 53 mL/min/1.73 *LOW* (01/24/23 5:02 PM) GFR Non AA [>=60 mL/min/1.73 ] 44 mL/min/1.73 *LOW* (01/24/23 5:02 PM) NT Pro-BNP [<=125 pg/mL] 797 pg/mL *HI* (01/24/23 5:02 PM) NRBC Abs # 0 K/uL *NA* (01/24/23 5:02 PM) IG Auto [0.00-0.50 K/uL] 0.03 K/uL (01/24/23 5:02 PM) Auto IG % [0.0-5.0 %] 0.4 % (01/24/23 5:02 PM) SARS-CoV-2 (COVID-19) RNA (ID Now) [Nega tive] Positive 2 *CRIT* (01/24/23 5:58 PM) 1Result Comment: Results called to Ellen Granados by ANQL_ at 01/24/2023 17:18:46 EDT_. Read back and verified. 2Result Comment: Results called to les zamudio rn by tdg_ at 1811_. Read back and verified. Radiology Reports * Exam Date Time Procedure Performing Provider Status 01/24/23 5:53 PM XR Chest 1 View Portable Corina Ludwig; Auth (Verified) Notes: (XR Chest 1 View Portable) Reason For Exam: Shortness of Breath XR Chest 1 View Portable HISTORY Shortness of Breath STUDY XR Chest 1 View Portable COMPARISON September 01, 2022 TECHNIQUE Chest radiographic imaging, AP portable projection, 1 image FINDINGS No cardiomegaly. No focal airspace disease. No pleural effusion. No pneumothorax. No acute osseous abnormality. Left total shoulder prosthesis. Fusion hardware in the lower cervical spine. IMPRESSION No imaging findings of acute cardiopulmonary disease. Electronically signed by: Jayesh Cowart (Jan 24, 2023 22:51:10) Final Signed (Electronic Signature): Jayesh Cowart MD 01/24/23 10:51 p Technologist: MS Vital Signs Most recent to oldest [Reference Range]: 1 2 3 Temperature Temporal [36.3-37.8 DegC] 37.5 DegC (01/24/23 5:09 PM) Peripheral Pulse Rate [60-100 bpm] 110 bpm *HI* (01/24/23 8:30 PM) 108 bpm *HI* (01/24/23 8:00 PM) 115 bpm *HI* (01/24/23 7:30 PM) Respiratory Rate [14-20 br/min] 16 br/min (01/24/23 6:15 PM) 20 br/min (01/24/23 6:00 PM) 18 br/min (01/24/23 5:09 PM) Blood Pressure [90-140/60-90 mmHg] 138/73mmHg (01/24/23 8:00 PM) 142/87mmHg *HI* (01/24/23 7:30 PM) 143/91mmHg *HI* (01/24/23 7:00 PM) Mean Arterial Pressure, Cuff [65-100 mmHg] 95 mmHg (01/24/23 8:00 PM) 105 mmHg *HI* (01/24/23 7:30 PM) 108 mmHg *HI* (01/24/23 7:00 PM) SpO2 [92-100 %] 96 % (01/24/23 8:30 PM) 96 % (01/24/23 8:00 PM) 91 % *LOW* (01/24/23 7:30 PM) Oxygen Therapy Room air (01/24/23 5:09 PM) Height/Length Dosing 165.100 cm (01/24/23 5:13 PM) Height/Length Estimated 165.100 cm (01/24/23 5:09 PM) Weight Dosing 77.110 kg (01/24/23 5:13 PM) Weight Estimated 77.110 kg (01/24/23 5:09 PM) Triage Ht 165.10 cm (01/24/23 5:09 PM) Triage Weight 77.11 kg (01/24/23 5:09 PM) Triage BMI 28.29 (01/24/23 5:09 PM) Social History Social History Type Response Smoking Status Smoking tobacco use: Former tobacco user;Never; Number used per day: 1 PPD; Number of years: 40; 1 entered on: 12/28/22 Sex 1currently smoking 5-6 per day 09/01/22 Hospital Discharge Instructions Patient Education 01/24/2023 17:13:49 COVID-19: Quarantine and Isolation - CDC (01/26/2022) COVID-19: Quarantine and Isolation Quarantine If you were exposed Quarantine and stay away from others when you have been in close contact with someone who has COVID-19. Isolate If you are sick or test positive Isolate when you are sick or when you have COVID-19, even if you don't have symptoms. When to stay home Calculating quarantine The date of your exposure is considered day 0. Day 1 is the first full day after your last contact with a person who has had COVID-19. Stay home and away from other people for at least 5 days. Learn why CDC updated guidance for the general public. IF YOU were exposed to COVID-19 and are NOT up to dateIF YOU were exposed to COVID-19 and are NOT on COVID-19 vaccinations ??? Quarantine for at least 5 days ??? Stay home ??? Stay home and quarantine for at least 5 full days. ??? Wear a well-fitting mask if you must be around others in your home. ??? Do not travel. ??? Get tested ??? Even if you don't develop symptoms, get tested at least 5 days after you last had close contactwith someone with COVID-19. ??? After quarantine ??? Watch for symptoms ??? Watch for symptoms until 10 days after you last had close contact with someone with COVID-19. ??? Avoid travel ??? It is best to avoid travel until a full 10 days after you last had close contact with someone with COVID-19. ??? If you develop symptoms ??? Isolate immediately and get tested. Continue to stay home until you know the results. Wear a well-fitting mask around others. ??? Take precautions until day 10 ??? Wear a well-fitting mask ??? Wear a well-fitting mask for 10 full days any time you are around others inside your home or [facility]. Do not go to places where you are unable to wear a well-fitting mask. ??? If you must travel during days 6???10, take precautions. ??? Avoid being around people who are more likely to get very sick from COVID-19. IF YOU were exposed to COVID-19 and are up to dateIF YOU were exposed to COVID-19 and are on COVID-19 vaccinations ??? No quarantine ??? You do not need to stay home unless you develop symptoms. ??? Get tested ??? Even if you don't develop symptoms, get tested at least 5 days after you last had close contactwith someone with COVID-19. ??? Watch for symptoms ??? Watch for symptoms until 10 days after you last had close contact with someone with COVID-19. ??? If you develop symptoms ??? Isolate immediately and get tested. Continue to stay home until you know the results. Wear a well-fitting mask around others. ??? Take precautions until day 10 ??? Wear a well-fitting mask ??? Wear a well-fitting mask for 10 full days any time you are around others inside your home or inpublic. Do not go to places where you are unable to wear a well-fitting mask. ??? Take precautions if traveling ??? Avoid being around people who are more likely to get very sick from COVID-19. IF YOU were exposed to COVID-19 and had confirmed COVID-19 within the past 90 days (you tested positive using a viral test) ??? No quarantine ??? You do not need to stay home unless you develop symptoms. ??? Watch for symptoms ??? Watch for symptoms until 10 days after you last had close contact with someone with COVID-19. ??? If you develop symptoms ??? Isolate immediately and get tested. Continue to stay home until you know the results. Wear a well-fitting mask around others. ??? Take precautions until day 10 ??? Wear a well-fitting mask ??? Wear a well-fitting mask for 10 full days any time you are around others inside your home or inpublic. Do not go to places where you are unable to wear a well-fitting mask. ??? Take precautions if traveling ??? Avoid being around people who are more likely to get very sick from COVID-19. Calculating isolation Day 0 is your first day of symptoms or a positive viral test. Day 1 is the first full day after your symptoms developed or your test specimen was collected. If you have COVID-19 or have symptoms, isolate for at least 5 days. IF YOU tested positive for COVID-19 or have symptoms, regardless of vaccination status ??? Stay home for at least 5 days ??? Stay home for 5 days and isolate from others in your home. ??? Wear a well-fitting mask if you must be around others in your home. ??? Do not travel. ??? Ending isolation if you had symptoms ??? End isolation after 5 full days if you are fever-free for 24 hours (without the use of fever-reducing medication) and your symptoms are improving. ??? Ending isolation if you did NOT have symptoms ??? End isolation after at least 5 full days after your positive test. ??? If you got very sick from COVID-19 or have a weakened immune system ??? You should isolate for at least 10 days. Consult your doctor before ending isolation. ??? Take precautions until day 10 ??? Wear a well-fitting mask ??? Wear a well-fitting mask for 10 full days any time you are around others inside your home or [facility]. Do not go to places where you are unable to wear a well-fitting mask. ??? Do not travel ??? Do not travel until a full 10 days after your symptoms started or the date your positive test was taken if you had no symptoms. ??? Avoid being around people who are more likely to get very sick from COVID-19. Definitions Exposure Contact with someone infected with SARS-CoV-2, the virus that causes COVID-19, in a way that increases the likelihood of getting infected with the virus. Close contact A close contact is someone who was less than 6 feet away from an infected person (laboratory-confirmed or a clinical diagnosis) for a cumulative total of 15 minutes or more over a 24-hour period. Forexample, three individual 5-minute exposures for a total of 15 minutes. People who are exposed to someone with COVID-19 after they completed at least 5 days of isolation are not considered close contacts. Quarantine Quarantine is a strategy used to prevent transmission of COVID-19 by keeping people who have been in close contact with someone with COVID-19 apart from others. Who does not need to quarantine? If you had close contact with someone with COVID-19 and you are in one of the following groups, youdo not need to quarantine. ??? You are up to date with your COVID-19 vaccines. ??? You had confirmed COVID-19 within the last 90 days (meaning you tested positive using a viral test). If you are up to date with COVID-19 vaccines, you should wear a well-fitting mask around others for10 days from the date of your last close contact with someone with COVID-19 (the date of last closecontact is considered day 0). Get tested at least 5 days after you last had close contact with someone with COVID- 19. If you test positive or develop COVID-19 symptoms, isolate from other people and follow recommendations in the Isolation section below. If you tested positive for COVID-19 with a viral test within the previous 90 days and subsequently recovered and remain without COVID-19 symptoms, you do not need to quarantine or get tested after close contact. You should wear a well-fitting mas k around others for 10 days from the date of your last close contact with someone with COVID-19 (the date of last close contact is considered day 0). If you have COVID-19 symptoms, get tested and isolate from other people and follow recommendations in the Isolation section below. Who should quarantine? If you come into close contact with someone with COVID-19, you should quarantine if you are not up to date on COVID-19 vaccines. This includes people who are not vaccinated. What to do for quarantine ??? Stay home and away from other people for at least 5 days (day 0 through day 5) after your last contact with a person who has COVID-19. The date of your exposure is considered day 0. Wear a well-fitting mask when around others at home, if possible. ??? For 10 days after your last close contact with someone with COVID-19, watch for fever (100.4??For greater), cough, shortness of breath, or other COVID-19 symptoms. ??? If you develop symptoms, get tested immediately and isolate until you receive your test results. If you test positive, follow isolation recommendations. ??? If you do not develop symptoms, get tested at least 5 days after you last had close contact with someone with COVID-19. ??? If you test negative, you can leave your home, but continue to wear a well- fitting mask when around others at home and in public until 10 days after your last close contact with someone with COVID-19. ??? If you test positive, you should isolate for at least 5 days from the date of your positive test (if you do not have symptoms). If you do develop COVID-19 symptoms, isolate for at least 5 days from the date your symptoms began (the date the symptoms started is day 0). Follow recommendations in the isolation section below. ??? If you are unable to get a test 5 days after last close contact with someone with COVID-19, youcan leave your home after day 5 if you have been without COVID-19 symptoms throughout the 5-day period. Wear a well-fitting mask for 10 days after your date of last close contact when around others at home and in public. ??? Avoid people who are have weakened immune systems or are more likely to get very sick from COVID-19, and nursing homes and other high-risk settings, until after at least 10 days. ??? If possible, stay away from people you live with, especially people who are at higher risk for getting very sick from COVID-19, as well as others outside your home throughout the full 10 days after your last close contact with someone with COVID-19. ??? If you are unable to quarantine, you should wear a well-fitting mask for 10 days when around others at home and in public. ??? If you are unable to wear a mask when around others, you should continue to quarantine for 10 days. Avoid people who have weakened immune systems or are more likely to get very sick from COVID-19, and nursing homes and other high- risk settings, until after at least 10 days. ??? See additional information about travel. ??? Do not go to places where you are unable to wear a mask, such as restaurants and some gyms, andavoid eating around others at home and at work until after 10 days after your last close contact with someone with COVID-19. After quarantine ??? Watch for symptoms until 10 days after your last close contact with someone with COVID-19. ??? If you have symptoms, isolate immediately and get tested. Quarantine in high-risk congregate settings In certain congregate settings that have high risk of secondary transmission (such as correctional and shelter facilities, homeless shelters, or cruise ships), CDC recommends a 10-day quarantine for residents, regardless of vaccination and booster status. During periods of critical staffing shortages, facilities may consider shortening the quarantine period for staff to ensure continuity of operations. Decisions to shorten quarantine in these settings should be made in consultation with state, local, [place], or territorial health departments and should take into consideration the context and characteristics of the facility. CDC's setting-specific guidance provides additional recommendations for these settings. Isolation Isolation is used to separate people with confirmed or suspected COVID-19 from those without COVID-19. People who are in isolation should stay home until it's safe for them to be around others. At home, anyone sick or infected should separate from others, or wear a well-fitting mask when they need to be around others. People in isolation should stay in a specific sick room or area and use a separate bathroom if available. Everyone who has presumed or confirmed COVID-19 should stay home and isolate from other people for at least 5 full days (day 0 is the first day of symptoms or the date of the day of the positive viral test for asymptomatic persons). They should wear a mask when around others at home and in public for an additional 5 days. People who are confirmed to have COVID-19 or are showing symptoms of COVID-19 need to isolate regardless of their vaccination status. This includes: ??? People who have a positive viral test for COVID-19, regardless of whether or not they have symptoms. ??? People with symptoms of COVID-19, including people who are awaiting test results or have not been tested. People with symptoms should isolate even if they do not know if they have been in close contact with someone with COVID-19. What to do for isolation ??? Monitor your symptoms. If you have an emergency warning sign (including trouble breathing), seek emergency medical care immediately. ??? Stay in a separate room from other household members, if possible. ??? Use a separate bathroom, if possible. ??? Take steps to improve ventilation at home, if possible. ??? Avoid contact with other members of the household and pets. ??? Don't share personal household items, like cups, towels, and utensils. ??? Wear a well-fitting mask when you need to be around other people. Learn more about what to do if you are sick and how to notify your contacts. Ending isolation for people who had COVID-19 and had symptoms If you had COVID-19 and had symptoms, isolate for at least 5 days. To calculate your 5-day isolation period, day 0 is your first day of symptoms. Day 1 is the first full day after your symptoms developed. You can leave isolation after 5 full days. ??? You can end isolation after 5 full days if you are fever-free for 24 hours without the use of fever-reducing medication and your other symptoms have improved (Loss of taste and smell may persist for weeks or months after recovery and need not delay the end of isolation). ??? You should continue to wear a well-fitting mask around others at home and in public for 5 additional days (day 6 through day 10) after the end of your 5-day isolation period. If you are unable towear a mask when around others, you should continue to isolate for a full 10 days. Avoid people whohave weakened immune systems or are more likely to get very sick from COVID-19, and nursing homes and other high-risk settings, until after at least 10 days. ??? If you continue to have fever or your other symptoms have not improved after 5 days of isolation, you should wait to end your isolation until you are fever- free for 24 hours without the use of fever-reducing medication and your other symptoms have improved. Continue to wear a well-fitting mask through day 10. Contact your healthcare provider if you have questions. ??? See additional information about travel. ??? Do not go to places where you are unable to wear a mask, such as restaurants and some gyms, andavoid eating around others at home and at work until a full 10 days after your first day of symptoms. If an individual has access to a test and wants to test, the best approach is to use an antigen test1 towards the end of the 5-day isolation period. Collect the test sample only if you are fever-freefor 24 hours without the use of fever- reducing medication and your other symptoms have improved (loss of taste and smell may persist for weeks or months after recovery and need not delay the end of isolation). If your test result is positive, you should continue to isolate until day 10. If your test result is negative, you can end isolation, but continue to wear a well-fitting mask around others at home and in public until day 10. Follow additional recommendations for masking and avoiding travel as described above. 1As noted in the labeling for authorized over-the counter antigen tests: Negative results should betreated as presumptive. Negative results do not rule out SARS-CoV-2 infection and should not be used as the sole basis for treatment or patient management decisions, including infection control decisions. To improve results, antigen tests should be used twice over a three-day period with at least 24 hours and no more than 48 hours between tests. Note that these recommendations on ending isolation do not apply to people who are moderately ill or very sick from COVID-19 or have weakened immune systems. See section below for recommendations forwhen to end isolation for these groups. Ending isolation for people who tested positive for COVID-19 but had no symptoms If you test positive for COVID-19 and never develop symptoms, isolate for at least 5 days. Day 0 isthe day of your positive viral test (based on the date you were tested) and day 1 is the first fullday after the specimen was collected for your positive test. You can leave isolation after 5 full days. ??? If you continue to have no symptoms, you can end isolation after at least 5 days. ??? You should continue to wear a well-fitting mask around others at home and in public until day 10 (day 6 through day 10). If you are unable to wear a mask when around others, you should continue to isolate for 10 days. Avoid people who have weakened immune systems or are more likely to get very sick from COVID-19, and nursing homes and other high-risk settings, until after at least 10 days. ??? If you develop symptoms after testing positive, your 5-day isolation period should start over. Day 0 is your first day of symptoms. Follow the recommendations above for ending isolation for people who had COVID-19 and had symptoms. ??? See additional information about travel. ??? Do not go to places where you are unable to wear a mask, such as restaurants and some gyms, andavoid eating around others at home and at work until 10 days after the day of your positive test. If an individual has access to a test and wants to test, the best approach is to use an antigen test1 towards the end of the 5-day isolation period. If your test result is positive, you should continue to isolate until day 10. If your test result is positive, you can also choose to test daily and if your test result is negative, you can end isolation, but continue to wear a well-fitting mask around others at home and in public until day 10. Follow additional recommendations for masking and avoiding travel as described above. 1As noted in the labeling for authorized over-the counter antigen tests: Negative results should betreated as presumptive. Negative results do not rule out SARS-CoV-2 infection and should not be used as the sole basis for treatment or patient management decisions, including infection control decisions. To improve results, antigen tests should be used twice over a three-day period with at least 24 hours and no more than 48 hours between tests. Ending isolation for people who were moderately or very sick from COVID-19 or have a weakened immune system People who are moderately ill from COVID-19 (experiencing symptoms that affect the lungs like shortness of breath or difficulty breathing) should isolate for 10 days and follow all other isolation precautions. To calculate your 10-day isolation period, day 0 is your first day of symptoms. Day 1 is the first full day after your symptoms developed. If you are unsure if your symptoms are moderate, talk to a healthcare provider for further guidance. People who are very sick from COVID-19 (this means people who were hospitalized or required intensive care or ventilation support) and people who have weakened immune systems might need to isolate athome longer. They may also require testing with a viral test to determine when they can be around others. CDC recommends an isolation period of at least 10 and up to 20 days for people who were very sick from COVID-19 and for people with weakened immune systems. Consult with your healthcare provider about when you can resume being around other people. If you are unsure if your symptoms are severeor if you have a weakened immune system, talk to a healthcare provider for further guidance. People who have a weakened immune system should talk to their healthcare provider about the potential for reduced immune responses to COVID-19 vaccines and the need to continue to follow current prevention measures (including wearing a well-fitting mask and avoiding crowds and poorly ventilated indoor spaces) to protect themselves against COVID-19 until advised otherwise by their healthcare provider. Close contacts of immunocompromised people???including household members???should also be encouraged to receive all recommended COVID- 19 vaccine doses to help protect these people. Isolation in high-risk congregate settings In certain high-risk congregate settings that have high risk of secondary transmission and where itis not feasible to cohort people (such as correctional and shelter facilities, homeless shelters,and cruise ships), CDC recommends a 10-day isolation period for residents. During periods of critical staffing shortages, facilities may consider shortening the isolation period for staff to ensure continuity of operations. Decisions to shorten isolation in these settings should be made in consultation with state, local, [place], or territorial health departments and should take into considerationthe context and characteristics of the facility. CDC's setting-specific guidance provides additional recommendations for these settings. This CDC guidance is meant to supplement???not replace???any federal, state, local, territorial, ortribal health and safety laws, rules, and regulations. Recommendations for specific settings These recommendations do not apply to healthcare professionals. For guidance specific to these settings, see ??? Healthcare professionals: Interim Guidance for Managing Healthcare Personnel with SARS-CoV-2 Infection or Exposure to SARS-CoV-2 ??? Patients, residents, and visitors to healthcare settings: Interim Infection Prevention and Control Recommendations for Healthcare Personnel During the Coronavirus Disease 2019 (COVID-19) Pandemic Additional setting-specific guidance and recommendations are available. ??? These recommendations on quarantine and isolation do apply to [employer] settings. Additional guidance is available here: Overview of COVID-19 Quarantine for [employer] ??? Travelers: Travel information and recommendations ??? Congregate facilities and other settings: guidance pages for community, work, and school settings Ongoing COVID-19 exposure FAQs I live with someone with COVID-19, but I cannot be from them. How do we manage quarantinein this situation? It is very important for people with COVID-19 to remain apart from other people, if possible, even if they are living together. If separation of the person with COVID-19 from others that they live with is not possible, the other people that they live with will have ongoing exposure, meaning they will be repeatedly exposed until that person is no longer able to spread the virus to other people. Inthis situation, there are precautions you can take to limit the spread of COVID-19: ??? The person with COVID-19 and everyone they live with should wear a well- fitting mask inside thehome. ??? If possible, one person should care for the person with COVID-19 to limit the number of people who are in close contact with the infected person. ??? Take steps to protect yourself and others to reduce transmission in the home: ??? Quarantine if you are not up to date with your COVID-19 vaccines. ??? Isolate if you are sick or tested positive for COVID-19, even if you don't have symptoms. ??? Learn more about the public health recommendations for testing, mask use and quarantine of close contacts, like yourself, who have ongoing exposure. These recommendations differ depending on yourvaccination status. What should I do if I have ongoing exposure to COVID-19 from someone I live with? Recommendations for this situation depend on your vaccination status: If you are not up to date on COVID-19 vaccines and have ongoing exposure to COVID-19, you should: ??? Begin quarantine immediately and continue to quarantine throughout the isolation period of the person with COVID-19. ??? Continue to quarantine for an additional 5 days starting the day after the end of isolation forthe person with COVID-19. ??? Get tested at least 5 days after the end of isolation of the infected person that lives with them. ??? If you test negative, you can leave the home but should continue to wear a well-fitting mask when around others at home and in public until 10 days after the end of isolation for the person with COVID-19. ??? Isolate immediately if you develop symptoms of COVID-19 or test positive. If you are up to date with COVID-19 vaccines and have ongoing exposure to COVID- 19, you should: ??? Get tested at least 5 days after your first exposure. A person with COVID-19 is considered infectious starting 2 days before they develop symptoms, or 2 days before the date of their positive test if they do not have symptoms. ??? Get tested again at least 5 days after the end of isolation for the person with COVID-19. ??? Wear a well-fitting mask when you are around the person with COVID-19, and do this throughout their isolation period. ??? Wear a well-fitting mask around others for 10 days after the infected person's isolation periodends. Isolate immediately if you develop symptoms of COVID-19 or test positive. What should I do if multiple people I live with test positive for COVID-19 at different times? Recommendations for this situation depend on your vaccination status: ??? If you are not up to date with your COVID-19 vaccines, you should: ??? Quarantine throughout the isolation period of any infected person that you live with. ??? Continue to quarantine until 5 days after the end of isolation date for the most recently infected person that lives with you. For example, if the last day of isolation of the person most recently infected with COVID-19 was April 28, the new 5-day quarantine period starts on April 29. ??? Get tested at least 5 days after the end of isolation for the most recently infected person that lives with you. ??? Wear a well-fitting mask when you are around any person with COVID-19 while that person is in isolation. ??? Wear a well-fitting mask when you are around other people until 10 days after your last close contact. ??? Isolate immediately if you develop symptoms of COVID-19 or test positive. ??? If you are up to date with your COVID-19 vaccines, you should: ??? Get tested at least 5 days after your first exposure. A person with COVID-19 is considered infectious starting 2 days before they developed symptoms, or 2 days before the date of their positive test if they do not have symptoms. ??? Get tested again at least 5 days after the end of isolation for the most recently infected person that lives with you. ??? Wear a well-fitting mask when you are around any person with COVID-19 while that person is in isolation. ??? Wear a well-fitting mask around others for 10 days after the end of isolation for the most recently infected person that lives with you. For example, if the last day of isolation for the person most recently infected with COVID-19 was April 28, the new 10-day period to wear a well-fitting mask indoors in public starts on April 29. ??? Isolate immediately if you develop symptoms of COVID-19 or test positive. I had COVID-19 and completed isolation. Do I have to quarantine or get tested if someone I live with gets COVID-19 shortly after I completed isolation? No. If you recently completed isolation and someone that lives with you tests positive for the virus that causes COVID-19 shortly after the end of your isolation period, you do not have to quarantineor get tested as long as you do not develop new symptoms. Once all of the people that live togetherhave completed isolation or quarantine, refer to the guidance below for new exposures to COVID-19. ??? If you had COVID-19 in the previous 90 days and then came into close contact with someone with COVID-19, you do not have to quarantine or get tested if you do not have symptoms. But you should: ??? Wear a well-fitting mask indoors in public for 10 days after your last close contact. ??? Monitor for COVID-19 symptoms for 10 days from the date of your last close contact. ??? Isolate immediately and get tested if symptoms develop. ??? If more than 90 days have passed since your recovery from infection, follow CDC's recommendations for close contacts. These recommendations will differ depending on your vaccination status. 01/26/2022 Content source: National Center for Immunization and Respiratory Diseases (NCIRD), Division of Viral Diseases This information is not intended to replace advice given to you by your health care provider. Make sure you discuss any questions you have with your health care provider. Document Revised: 03/03/2022 Document Reviewed: 03/03/2022 [email or web address] Patient Education ?? 2021 [employer]. 01/24/2023 17:13:48 Chronic Obstructive Pulmonary Disease Exacerbation, Lpck-py-Gchr Chronic Obstructive Pulmonary Disease Exacerbation Chronic obstructive [...] these instructions at home: Medicines ??? Take bijd-tnd-libfwka and prescription medicines only as told by [...] you cannotuse soap and water, use hand university counselor. This may help keep you from getting [...] provider. Document Revised: 09/08/2021 Document Reviewed: 08/24/2021 [email or web address] Patient Education ?? 2021 [employer]. Follow Up Care 01/24/2023 16:30:26 With:Return to Emergency Department Address: When: Unknown Comments:Return with any concerns or deterioration in condition. With:Avila Gomez MD Address: [address] When: Unknown Comments:Call for follow up appointment. With:Tylenol/Motrin for Pain/Fever relief Address:Unknown When: Unknown With:Drink Fluids Address:Unknown When: Unknown Progress note * : PERFORM Event Display: Progress Note - Provider Encounter Summary Ellen Ogden Admin Sex: Female : 1955 Encounter Summary Subsequent evaluation note 01/11/2023 to 01/11/2023 Source: [facility] Created: 01/24/2023 Demographics Contact Information: [address] [place] [address] Tel: Marital Status: Restorationism: -- Race: White Previous Name(s): -- Ethnic Group: Not or Language: Maldivian ID: [id number] Care Team Type Name Represented Organization Address PhonePrimary Care Provider Catina Jose MD, [facility] Work:[place] [address], [facility] Work:[address] [place] [address] Work Tel: Fax: Relationships Relationship Name Address PhoneEmergency Contact Tamela Ogden -- Primary Home Tel: Document Details Source Contact Info [address] [place] [address] Author Contact Info -- Recipient Contact Info -- [employer] Type Name Address PhoneLegal authenticator -- -- -- IDs & Code Type Data Document Type ID: [id number] : [id number] Document Template ID: [id number] : --, [id number] : --, [id number] : 2015-05-30, [id number] : --, [id number] : 2015-05-30 Document ID: [id number] : -- Document Type Code: [id number], [id number] Document Language Code: en-US Document Set ID: [id number] : [id number] Document Version Number: 2 Primary Encounter Encounter Information Registration Date: 01/11/2023 Discharge Date: 01/11/2023 Visit ID: -- Location Information [facility] Work:[address] [place] [address] Providers Type Name Address PhoneAttending Fernie Brothers MD Work:[address] [place] [address], [facility] Work Tel: Reason for Visit ??? Reason CommentsMedication Refill Encounter Details Date Type Department Care Team Agnofvlskxo68/15/2023 Refill [facility] [address] [place] [address] Fernie Brtohers MD [address] [place] [address] Medication Refill Social History Tobacco Use Types Packs/Day Years Used DateSmoking Tobacco: Former Cigarettes 1 45 Quit: 2019 Smokeless Tobacco: Never Alcohol Use Standard Drinks/Week CommentsYes 0 (1 standard drink = 0.6 oz pure alcohol) occasional Sex Assigned at Date RecordedNot on file documented as of this encounter Plan of Treatment Upcoming EncountersDate Type Specialty Care Team Dqtnmzitwqg72/10/2023 Ancillary Procedure Cardiology Fernie Brothers MD [address] [place] [address] 03/06/2023 Wait List Cardiology 06/05/2023 Office Visit Cardiology Fernie Brothers MD [address] [address] documented as of this encounter Visit Diagnoses Not on filedocumented in this encounter Care Teams Programs Manager Relationship Specialty Start Date End Date Barak Dominique Jr., MD [address] [place] [id number] PCP - General Internal Medicine 06/17/19 documented as of this encounter * : PERFORM Event Display: Progress Note - Provider Encounter Summary Ellen Ogden Admin Sex: Female : 1955 Encounter Summary Subsequent evaluation note 12/01/2022 to 12/01/2022 Source: [facility] Created: 01/24/2023 Demographics Contact Information: [address] [place] [id number], [place] Tel: Marital Status: Restorationism: -- Race: White Previous Name(s): -- Ethnic Group: Not or Language: Maldivian ID: [id number] Care Team Type Name Represented Organization Address PhonePrimary Care Provider Catina Jose MD, [facility] Work:[address] Work:[address] [place] [address] Work Tel: Fax: Relationships Relationship Name Address PhoneEmergency Contact Tamela Ogden -- Primary Home Tel: Document Details Source Contact Info [address] [place] [address] Author Contact Info -- Recipient Contact Info -- [employer] Type Name Address PhoneLegal authenticator -- -- -- IDs & Code Type Data Document Type ID: [id number] : [id number] Document Template ID: [id number] : --, [id number] : --, [id number] : 2015-05[birth year], [id number] : --, [id number] : 2015-05-[birth year] Document ID: [id number] : -- Document Type Code: [id number], 68364-3 Document Language Code: en-US Document Set ID: [id number] : [id number] Document Version Number: 4 Primary Encounter Encounter Information Registration Date: 12/01/2022 Discharge Date: 12/01/2022 Visit ID: -- Location Information [facility] Work:[address] [id number] Providers Type Name Address PhoneAttending Fernie Brothers MD Work:[address] [place] [address], [facility] Work Tel: Reason for Referral ???Cardiac Services (Routine) - Authorized: Specialty Diagnoses / Procedures Referred By Contact Referred To ContactCardiology Diagnoses Essential hypertension SOB (shortness of breath) on exertion Mixed hyperlipidemia Chest pain in adult Dizziness Grade I diastolic dysfunction ?? Procedures NM mpi stress and rest pharmacological Fernie Brothers MD [address] [place] [address] [facility] [address] [address] Referral ID Status Reason Start Date Expiration Date Visits Requested Visits [id number] Authorized 12/15/2022 5 5 ?? Reason for Visit ??? Reason CommentsChest Pain Encounter Details Date Type Department Care Team Pmkczxawcty14/02/2023 Office Visit [facility] [address] [id number] Fernie Brothers MD [address] [place], [place] [id number] Chest pain in adult (Primary Dx); Typical atrial flutter (HC); Essential hypertension; SOB (shortness of breath) on exertion; Mixed hyperlipidemia; Dizziness; Non morbid obesity; Grade I diastolic dysfunction Social History Tobacco Use Types Packs/Day Years Used DateSmoking Tobacco: Former Cigarettes 1 45 Quit: 2019 Smokeless Tobacco: Never Tobacco Cessation: Counseling Given: Not Answered Alcohol Use Standard Drinks/Week CommentsYes 0 (1 standard drink = 0.6 oz pure alcohol) occasional Sex Assigned at Date RecordedNot on file COVID-19 Exposure Response Date RecordedIn the last 10 days, have you been in contact with someone who was confirmed or suspected to have Coronavirus/COVID- 19? No / Unsure 12/01/2022 11:17 AM ESTdocumented as of this encounter Last Filed Vital Signs Vital Sign Reading Time Taken CommentsBlood Pressure 166/70 12/01/2022 11:58 AM EST Pulse 90 12/01/2022 11:56 AM EST Temperature - - Respiratory Rate 16 12/01/2022 11:56 AM EST Oxygen Saturation 92% 12/01/2022 11:56 AM EST Inhaled Oxygen Concentration - - Weight 81.2 kg (179 lb) 12/01/2022 11:56 AM EST Height 165.1 cm (5' 5) 12/01/2022 11:56 AM EST Body Mass Index 29.79 12/01/2022 11:56 AM EST documented in this encounter Patient Instructions ???Patient Instructions: yang Vieyra RN - 12/01/2022 11:15 AM EST ?? Restart Losartan 50 mg nightly. You will be scheduled for chemical nuclear stress test here in our office. Follow up with Dr. Brothers in 6 months or sooner as needed. We will call you for sooner follow up if there is anything abnormal seen on your stress test. ?? Patient Prep Instructions for Nuclear Stress Test ?? DIET ?? No caffeine 36 hours before test including chocolate, decaffeinated drinks, and energy drinks. Do not eat or drink anything after midnight EXCEPT water. If testing is in the PM you may have a light breakfast 6 hours prior, then ONLY water. ?? MEDICATIONS ?? No medications to hold prior to stress testing. Do not take Viagra, Levitra, or Cialis 48 hours prior to test. Take all your other medication the morning of procedure. This is especially important if you have high blood pressure. Bring a complete list of ALL your medications, herbal supplements, and vitamins with you. ?? DIABETIC INSTRUCTIONS ?? If you have diabetes, DO NOT take your insulin or other diabetic medications the morning of the test. If you have an insulin pump DO NOT STOP the pump. If your test begins after 11:00AM, please take your diabetic medications in the morning. BRING your diabetic medication and glucose monitoring kit with you. ?? HOW TO DRESS ?? Dress comfortably. Wear athletic type shoes with rubber soles. DO NOT wear slip-on or backless shoes. Wear loose fitting clothing suitable for walking on a treadmill. Wear a short sleeve or sleeveless top. ?? DURATION OF THE TEST ?? Variable but allow 2-3 hours to complete the test. ??Komal Vieyra RN ?Attachments: The following attachments cannot be sent through [facility] Everywhere. oLosartan Tablets (Maldivian) documented in this encounter Progress Notes ???Fernie Brothers MD - 12/01/2022 11:15 AM EST: ?? Subjective: ?? Patient ID: Ellen Ogden is a 67 y.o. female. ?? Chief Complaint: Chest Pain, Tachycardia, Dizziness, High Blood Pressure HPI Mrs. Ellen Ogden presents to the office today for early follow up with reports of tachy palpitations, dizziness and high blood pressure. ?? Today the patient reports intermittent right-sided chest pain radiating to jaw and arm, with exertional component, no associated symptoms, occurring 3-4 times weekly, lasting up to 1 minute, that resolved spontaneously. She continues to have shortness of breath that is unchanged. She is diagnosed with COPD and uses 2 L nasal cannula at bedtime. ?? She also reports continued dizziness that occurs with head movements. She is scheduled for ENT consult in the near future. ?? Her blood pressures at home have been occasionally elevated in the 170s to 180s systolically. She reports not taking losartan that she was prescribed upon discharge from the hospital in March 2022. ?? Her weight is down 10 pounds, and she reports being active walking her dogs multiple times a day. ?? Patient denies orthopnea, PND, lower extremity edema or syncope. Patient has had no recent symptomsof stroke or TIA-like symptoms. ?? The patient appears to be tolerating all Rx well with no reported side effects or concerns. ?? Review of Systems Constitutional: Negative for chills, fever, malaise/fatigue, weight gain and weight loss. HENT: Negative for tinnitus. Eyes: No new visual changes, scotoma, amaurosis fugax or diplopia Cardiovascular: Positive for dyspnea on exertion. Negative for chest pain, claudication, near-syncope, orthopnea, paroxysmal nocturnal dyspnea and syncope. Respiratory: Positive for shortness of breath. Negative for cough, hemoptysis and wheezing. Endocrine: Negative for cold intolerance and heat intolerance. Hematologic/Lymphatic: Negative for bleeding problem. Does not bruise/bleed easily. Skin: No new or changing skin lesions Musculoskeletal: Negative for falls, joint pain, joint swelling, muscle weakness and myalgias. Gastrointestinal: Negative for change in bowel habit, jaundice, melena, nausea and vomiting. Genitourinary: Negative for dysuria, flank pain, hematuria and nocturia. Neurological: Positive for dizziness and light-headedness. Negative for disturbances in coordination, focal weakness, headaches, loss of balance, seizures and vertigo. Psychiatric/Behavioral: Negative. ?? Past Medical History: Diagnosis Date Abnormal EKG Anxiety Aortic valve regurgitation Arthritis Atrial flutter (HC) Chest pain on breathing COPD (chronic obstructive pulmonary disease) (HC) GERD (gastroesophageal reflux disease) H/O ulcer disease Hyperlipidemia Insomnia Kidney stones Lymphoma (HC) ?? Past Surgical History: Procedure Laterality Date SHOULDER SURGERY Left 05/2020 FOOT SURGERY Left 12/2018 CATARACT EXTRACTION, BILATERAL Bilateral 2015 2014 BONE MARROW TRANSPLANT 2013 PORTACATH PLACEMENT 2009 Right chest/ removed CHOLECYSTECTOMY HYSTERECTOMY NECK SURGERY SHOULDER SURGERY Left rotator cuff tear TONSILLECTOMY ?? Family History Problem Relation Age of Onset Heart disease Mother Heart disease Father ?? Social History ?? Tobacco Use Smoking status: Former Packs/day: 1.00 Years: 45.00 Pack years: 45.00 Types: Cigarettes Quit date: 2018 Years since quittin.0 Smokeless tobacco: Never Substance Use Topics Alcohol use: Yes Comment: occasional ?? Allergies Allergen Reactions Neuromuscular Blockers, Steroidal Other (See Comments) Makes her freak out Sulfanilamide Anaphylaxis Morphine Other (See Comments) Does not take pain away, anxiety Nalbuphine Hcl Other (See Comments) Reaction unknown, kept on list for safety Nsaids (Non-Steroidal Anti-Inflammatory Drug) Other (See Comments) stomach bleeds Nitrofurantoin Monohyd/M-Cryst Codeine Nausea And Vomiting ?? Current Outpatient Medications Medication Sig Dispense Refill albuterol 90 mcg/actuation Inhl inhaler Inhale 2 puffs into the lungs 4 (four) times daily. atenoloL (TENORMIN) 25 mg tablet Take 1 tablet (25 mg total) by mouth daily. 30 tablet 6 dexlansoprazole (DEXILANT) 60 mg capsule Take 1 capsule by mouth daily. diltiazem (TIAZAC) 120 MG 24 hr capsule Take 1 capsule (120 mg total) by mouth daily. 30 capsule 6 estradiol cypionate (DEPO-ESTRADIOL) 5 mg/mL injection Inject 5 mLs into the muscle every 4 (four) weeks. qiadwbsutsj-dichskogi-rzspqxjt (TRELEGY ELLIPTA) 100-62.5-25 mcg inhaler Inhale 1 puff into the lungs daily. methocarbamoL (ROBAXIN) 750 MG tablet Take 750 mg by mouth in the morning and 750 mg in the eveningand 750 mg before bedtime. ondansetron (ZOFRAN) 4 MG tablet Take 1 tablet by mouth as needed. oxyCODONE-acetaminophen (PERCOCET) 10-325 mg per tablet Take 1 tablet by mouth every 6 (six) hours as needed for Pain. OXYGEN-AIR DELIVERY SYSTEMS MISC 2 L by Nasal route as needed. pregabalin (LYRICA) 150 MG capsule Take 150 mg by mouth 3 (three) times daily. suvorexant (BELSORMA) 20 mg Tab tablet Take 20 mg by mouth nightly. traZODone (DESYREL) 100 MG tablet Take 100 mg by mouth nightly. ?? No current facility-administered medications for this visit. ?? Objective: ?? Vitals Recorded in This Encounter ?? 12/01/2022 1156 12/01/2022 1158 ? BP: 170/74 166/70 Pulse: 90 -- Resp: 16 -- SpO2: 92 % -- Weight: 179 lb (81.2 kg) -- ? Body mass index is 29.79 kg/m??. No LMP recorded. ?? Physical Exam Constitutional: Appearance: Normal appearance. Comments: Pleasant well developed Obese female No acute distress HENT: Head: Normocephalic and atraumatic. ?? Comments: Oropharynx is benign without lesionsEyes: Comments: PERRLA , EOMI Neck: Thyroid: No thyroid mass or thyromegaly. Vascular: No carotid bruit (Normal carotid upstroke bilaterally without audible bruit ), hepatojugular reflux or JVD (Flat neck veins 45'). Cardiovascular: Rate and Rhythm: Normal rate and regular rhythm. Pulses: Normal pulses. Carotid pulses are 2+ on the right side and 2+ on the left side. Radial pulses are 2+ on the right side and 2+ on the left side. Posterior tibial pulses are 2+ on the right side and 2+ on the left side. Heart sounds: Normal heart sounds, S1 normal and S2 normal. No murmur heard. No friction rub. No gallop. Pulmonary: Effort: No accessory muscle usage or respiratory distress. Breath sounds: Wheezing present. No rhonchi or rales. Comments: Wearing oxygen via NC Abdominal: General: Bowel sounds are normal. There is no distension. Palpations: Abdomen is soft. There is no hepatomegaly, splenomegaly or mass. Tenderness: There is no abdominal tenderness. Comments: Aortic pulsation is not enlarged or displaced There are no audible bruits Musculoskeletal: General: No edema. Comments: No clubbing, cyanosis nor edema Skin: General: Skin is warm and dry. Findings: No lesion. Nails: There is no clubbing or cyanosis. Neurological: Mental Status: She is alert and oriented to person, place, and time. Cranial Nerves: No cranial nerve deficit (Cranial nerves II - XII are grossly intact ). Motor: No tremor, atrophy, abnormal muscle tone or seizure activity. Coordination: Coordination normal. Gait: Gait normal. Comments: Cooperative with history and examination Psychiatric: Speech: Speech normal. Comments: Mentation - normal ?? EKG: NSR 90 with late transition, no ischemic changes ?? Assessment: ?? 1. Chest pain in adult ?? Patient reports intermittent right-sided chest pain radiating to jaw and arm, with exertional component, no associated symptoms, occurring 3-4 times weekly, lasting up to 1 minute, that resolved spontaneously. ?? Atypical in nature, but could be possible anginal equivalent. ?? Recommend pharmacological stress myocardial perfusion study for ischemic evaluation. ?? 1. Essential hypertension ?? B/p in office today 170/74 and 166/70. ?? Patient not taking losartan that was started during admission 03/2022 ?? Will restart losartan 50 mg nightly for better control. ?? 2. Dizziness ?? Cardiac etiology is not suspected. ?? Continue with ENT consult as scheduled. ?? 3. SOB (shortness of breath) on exertion ?? Chronic 2* to COPD. ?? NMS and Echo both negative 07/2021. ?? 4. Palpitations ?? Tachycardia. ?? EKG today shows NSR 90 bpm. ?? Denies palpitations. ?? Continue Atenolol 25 mg daily for rate control. ?? 5. Mixed hyperlipidemia ?? 07/26/2022 - TC 215, HDL 65, LDL 110, TG 198 ?? Not currently on Rx therapy. ?? Managed by PCP. ?? 6. Non morbid obesity ?? Weight down 10 lbs. ?? Recommended weight loss and exercise as able. ?? 7. Grade I diastolic dysfunction ?? 2020 Echo demonstrates Normal LV size and wall motion; LVEF 55-60%. Doppler suggests grade I DD. ? Plan: Plan ?? RTC follow up in 6 months or sooner as needed. ? documented in this encounter Plan of Treatment Upcoming EncountersDate Type Specialty Care Team Wnxuwtrrvql69/10/2023 Ancillary Procedure Cardiology Fernie Brothers MD [address] [address] 03/06/2023 Wait List Cardiology 06/05/2023 Office Visit Cardiology Fernie Brothers MD [address] [address] Scheduled OrdersName Type Priority Associated Diagnoses Order ScheduleNM mpi stress and rest pharmacological Cardiac Services Routine Essential hypertension SOB (shortness of breath) on exertion Mixed hyperlipidemia Chest pain in adult Dizziness Grade I diastolic dysfunction Expected: 12/15/2022, Expires: 4documented as of this encounter Procedures Procedure Name Priority Date/Time Associated Diagnosis CommentsECG 12-LEAD Routine 12/01/2022 1:08 PM EST Essential hypertension documented in this encounter Results ???ECG 12 lead (12/01/2022 1:08 PM EST): Ventricular Rate 90 BPM [facility] Atrial Rate 90 BPM [facility] P-R Interval 178 ms [facility] QRS DURATION 88 ms [facility] Q-T Interval 366 ms [facility] QTC Calculation 447 ms [facility] Calculated P [place] 52 degrees [facility] Calculated R [place] 19 degrees [facility] Calculated T [place] 63 degrees [facility] 12/01/2022 1:08 PM EST 12/14/2022 10:13 AM EST Narrative [facility] - 12/14/2022 10:13 AM EST Normal sinus rhythm ?? Anterior infarct , age undetermined ?? Abnormal ECG ?? When compared with ECG of 26-APR-2022 11:26, ?? premature atrial complexes are no longer present ?? Confirmed by Fernie Brothers ([id number]) on 12/14/2022 10:13:22 AM Procedure Note Fernie Brothers MD - 12/14/2022 ?? Normal sinus rhythm ?? Anterior infarct , age undetermined ?? Abnormal ECG ?? When compared with ECG of 26-APR-2022 11:26, ?? premature atrial complexes are no longer present ?? Confirmed by Fernie Brothers ([id number]) on 12/14/2022 10:13:22 AM ?? Mark Zve CELESTE ECG ORDERABLES [facility] [address] [facility] [place] [address] documented in this encounter Visit Diagnoses Diagnosis Chest pain in adult - Primary Typical atrial flutter (HC) Essential hypertension Unspecified essential hypertension SOB (shortness of breath) on exertion Shortness of breath Mixed hyperlipidemia Dizziness Dizziness and giddiness Non morbid obesity Grade I diastolic dysfunction documented in this encounter Care Teams Programs Manager Relationship Specialty Start Date End Date Barak Dominique Jr., MD [address] [place], [place] [id number] PCP - General Internal Medicine 06/17/19 documented as of this encounter * : PERFORM Event Display: Progress Note - Provider Encounter Summary Ellen Ogden Admin Sex: Female : 1955 Encounter Summary Subsequent evaluation note 12/01/2022 to 12/01/2022 Source: [facility] Created: 12/28/2022 Demographics Contact Information: Jan Guzmán [address] [place] [address] Tel: Marital Status: Restorationism: -- Race: White Previous Name(s): -- Ethnic Group: Not or Language: Maldivian ID: [id number] Care Team Type Name Represented Organization Address PhonePrimary Care Provider Catina Jose MD, Barak Nino [facility] Work:[address] Work:[address] [place] [address] Work Tel: Fax: Relationships Relationship Name Address PhoneEmergency Contact Tamela Ogden -- Primary Home Tel: Document Details Source Contact Info [address] [place] [address] Author Contact Info -- Recipient Contact Info -- [facility] Type Name Address PhoneLegal authenticator -- -- -- IDs & Code Type Data Document Type ID: [id number] : [id number] Document Template ID: [id number] : --, [id number] : --, [id number] : 2015-05-30, ..[id number] : --, [id number] : 2015-05-30 Document ID: [id number] : -- Document Type Code: [id number], 68950-4 Document Language Code: en-US Document Set ID: [id number] : [id number] Document Version Number: 3 Primary Encounter Encounter Information Registration Date: 12/01/2022 Discharge Date: 12/01/2022 Visit ID: -- Location Information [facility] Work:[address] [place] [address] Providers Type Name Address PhoneAttending Fernie Brothers MD Work:[address] [place] [address] Work Tel: Reason for Referral ???Cardiac Services (Routine) - Authorized: Specialty Diagnoses / Procedures Referred By Contact Referred To ContactCardiology Diagnoses Essential hypertension SOB (shortness of breath) on exertion Mixed hyperlipidemia Chest pain in adult Dizziness Grade I diastolic dysfunction ?? Procedures NM mpi stress and rest pharmacological Fernie Brothers MD [address] [place] [address] [facility] [address] [place] [address] Referral ID Status Reason Start Date Expiration Date Visits Requested Visits [id number] Authorized 12/15/2022 5 5 ?? Reason for Visit ??? Reason CommentsChest Pain Encounter Details Date Type Department Care Team Goyocmdztog67/02/2023 [place] [address] Fernie Brothers MD [address] [place] [address] Chest pain in adult (Primary Dx); Typical atrial flutter (HC); Essential hypertension; SOB (shortness of breath) on exertion; Mixed hyperlipidemia; Dizziness; Non morbid obesity; Grade I diastolic dysfunction Social History Tobacco Use Types Packs/Day Years Used DateSmoking Tobacco: Former Cigarettes 1 45 Quit: 2019 Smokeless Tobacco: Never Tobacco Cessation: Counseling Given: Not Answered Alcohol Use Standard Drinks/Week CommentsYes 0 (1 standard drink = 0.6 oz pure alcohol) occasional Sex Assigned at Date RecordedNot on file COVID-19 Exposure Response Date RecordedIn the last 10 days, have you been in contact with someone who was confirmed or suspected to have Coronavirus/COVID- 19? No / Unsure 12/01/2022 11:17 AM ESTdocumented as of this encounter Last Filed Vital Signs Vital Sign Reading Time Taken CommentsBlood Pressure 166/70 12/01/2022 11:58 AM EST Pulse 90 12/01/2022 11:56 AM EST Temperature - - Respiratory Rate 16 12/01/2022 11:56 AM EST Oxygen Saturation 92% 12/01/2022 11:56 AM EST Inhaled Oxygen Concentration - - Weight 81.2 kg (179 lb) 12/01/2022 11:56 AM EST Height 165.1 cm (5' 5) 12/01/2022 11:56 AM EST Body Mass Index 29.79 12/01/2022 11:56 AM EST documented in this encounter Patient Instructions ???Patient Instructions: yang Vieyra RN - 12/01/2022 11:15 AM EST ?? Restart Losartan 50 mg nightly. You will be scheduled for chemical nuclear stress test here in our office. Follow up with Dr. Brothers in 6 months or sooner as needed. We will call you for sooner follow up if there is anything abnormal seen on your stress test. ?? Patient Prep Instructions for Nuclear Stress Test ?? DIET ?? No caffeine 36 hours before test including chocolate, decaffeinated drinks, and energy drinks. Do not eat or drink anything after midnight EXCEPT water. If testing is in the PM you may have a light breakfast 6 hours prior, then ONLY water. ?? MEDICATIONS ?? No medications to hold prior to stress testing. Do not take Viagra, Levitra, or Cialis 48 hours prior to test. Take all your other medication the morning of procedure. This is especially important if you have high blood pressure. Bring a complete list of ALL your medications, herbal supplements, and vitamins with you. ?? DIABETIC INSTRUCTIONS ?? If you have diabetes, DO NOT take your insulin or other diabetic medications the morning of the test. If you have an insulin pump DO NOT STOP the pump. If your test begins after 11:00AM, please take your diabetic medications in the morning. BRING your diabetic medication and glucose monitoring kit with you. ?? HOW TO DRESS ?? Dress comfortably. Wear athletic type shoes with rubber soles. DO NOT wear slip-on or backless shoes. Wear loose fitting clothing suitable for walking on a treadmill. Wear a short sleeve or sleeveless top. ?? DURATION OF THE TEST ?? Variable but allow 2-3 hours to complete the test. ??Komal Vieyra RN ?Attachments: The following attachments cannot be sent through [facility] Everywhere. oLosartan Tablets (Maldivian) documented in this encounter Progress Notes ???Fernie Brothers MD - 12/01/2022 11:15 AM EST: ?? Subjective: ?? Patient ID: Ellen Ogden is a 67 y.o. female. ?? Chief Complaint: Chest Pain, Tachycardia, Dizziness, High Blood Pressure HPI Mrs. Ellen Ogden presents to the office today for early follow up with reports of tachy palpitations, dizziness and high blood pressure. ?? Today the patient reports intermittent right-sided chest pain radiating to jaw and arm, with exertional component, no associated symptoms, occurring 3-4 times weekly, lasting up to 1 minute, that resolved spontaneously. She continues to have shortness of breath that is unchanged. She is diagnosed with COPD and uses 2 L nasal cannula at bedtime. ?? She also reports continued dizziness that occurs with head movements. She is scheduled for ENT consult in the near future. ?? Her blood pressures at home have been occasionally elevated in the 170s to 180s systolically. She reports not taking losartan that she was prescribed upon discharge from the hospital in March 2022. ?? Her weight is down 10 pounds, and she reports being active walking her dogs multiple times a day. ?? Patient denies orthopnea, PND, lower extremity edema or syncope. Patient has had no recent symptomsof stroke or TIA-like symptoms. ?? The patient appears to be tolerating all Rx well with no reported side effects or concerns. ?? Review of Systems Constitutional: Negative for chills, fever, malaise/fatigue, weight gain and weight loss. HENT: Negative for tinnitus. Eyes: No new visual changes, scotoma, amaurosis fugax or diplopia Cardiovascular: Positive for dyspnea on exertion. Negative for chest pain, claudication, near-syncope, orthopnea, paroxysmal nocturnal dyspnea and syncope. Respiratory: Positive for shortness of breath. Negative for cough, hemoptysis and wheezing. Endocrine: Negative for cold intolerance and heat intolerance. Hematologic/Lymphatic: Negative for bleeding problem. Does not bruise/bleed easily. Skin: No new or changing skin lesions Musculoskeletal: Negative for falls, joint pain, joint swelling, muscle weakness and myalgias. Gastrointestinal: Negative for change in bowel habit, jaundice, melena, nausea and vomiting. Genitourinary: Negative for dysuria, flank pain, hematuria and nocturia. Neurological: Positive for dizziness and light-headedness. Negative for disturbances in coordination, focal weakness, headaches, loss of balance, seizures and vertigo. Psychiatric/Behavioral: Negative. ?? Past Medical History: Diagnosis Date Abnormal EKG Anxiety Aortic valve regurgitation Arthritis Atrial flutter (HC) Chest pain on breathing COPD (chronic obstructive pulmonary disease) (HC) GERD (gastroesophageal reflux disease) H/O ulcer disease Hyperlipidemia Insomnia Kidney stones Lymphoma (HC) ?? Past Surgical History: Procedure Laterality Date SHOULDER SURGERY Left 05/2020 FOOT SURGERY Left 12/2018 CATARACT EXTRACTION, BILATERAL Bilateral 2015 2014 BONE MARROW TRANSPLANT 2014 PORTACATH PLACEMENT 2009 Right chest/ removed CHOLECYSTECTOMY HYSTERECTOMY NECK SURGERY SHOULDER SURGERY Left rotator cuff tear TONSILLECTOMY ?? Family History Problem Relation Age of Onset Heart disease Mother Heart disease Father ?? Social History ?? Tobacco Use Smoking status: Former Packs/day: 1.00 Years: 45.00 Pack years: 45.00 Types: Cigarettes Quit date: 2018 Years since quittin.0 Smokeless tobacco: Never Substance Use Topics Alcohol use: Yes Comment: occasional ?? Allergies Allergen Reactions Neuromuscular Blockers, Steroidal Other (See Comments) Makes her freak out Sulfanilamide Anaphylaxis Morphine Other (See Comments) Does not take pain away, anxiety Nalbuphine Hcl Other (See Comments) Reaction unknown, kept on list for safety Nsaids (Non-Steroidal Anti-Inflammatory Drug) Other (See Comments) stomach bleeds Nitrofurantoin Monohyd/M-Cryst Codeine Nausea And Vomiting ?? Current Outpatient Medications Medication Sig Dispense Refill albuterol 90 mcg/actuation Inhl inhaler Inhale 2 puffs into the lungs 4 (four) times daily. atenoloL (TENORMIN) 25 mg tablet Take 1 tablet (25 mg total) by mouth daily. 30 tablet 6 dexlansoprazole (DEXILANT) 60 mg capsule Take 1 capsule by mouth daily. diltiazem (TIAZAC) 120 MG 24 hr capsule Take 1 capsule (120 mg total) by mouth daily. 30 capsule 6 estradiol cypionate (DEPO-ESTRADIOL) 5 mg/mL injection Inject 5 mLs into the muscle every 4 (four) weeks. kugwfbdjmbv-jpaymujoh-yakaalxb (TRELEGY ELLIPTA) 100-62.5-25 mcg inhaler Inhale 1 puff into the lungs daily. methocarbamoL (ROBAXIN) 750 MG tablet Take 750 mg by mouth in the morning and 750 mg in the eveningand 750 mg before bedtime. ondansetron (ZOFRAN) 4 MG tablet Take 1 tablet by mouth as needed. oxyCODONE-acetaminophen (PERCOCET) 10-325 mg per tablet Take 1 tablet by mouth every 6 (six) hours as needed for Pain. OXYGEN-AIR DELIVERY SYSTEMS MISC 2 L by Nasal route as needed. pregabalin (LYRICA) 150 MG capsule Take 150 mg by mouth 3 (three) times daily. suvorexant (BELSORMA) 20 mg Tab tablet Take 20 mg by mouth nightly. traZODone (DESYREL) 100 MG tablet Take 100 mg by mouth nightly. ?? No current facility-administered medications for this visit. ?? Objective: ?? Vitals Recorded in This Encounter ?? 12/01/2022 1156 12/01/2022 1158 ? BP: 170/74 166/70 Pulse: 90 -- Resp: 16 -- SpO2: 92 % -- Weight: 179 lb (81.2 kg) -- ? Body mass index is 29.79 kg/m??. No LMP recorded. ?? Physical Exam Constitutional: Appearance: Normal appearance. Comments: Pleasant well developed Obese female No acute distress HENT: Head: Normocephalic and atraumatic. ?? Comments: Oropharynx is benign without lesionsEyes: Comments: SHARON ROBLEDO Neck: Thyroid: No thyroid mass or thyromegaly. Vascular: No carotid bruit (Normal carotid upstroke bilaterally without audible bruit ), hepatojugular reflux or JVD (Flat neck veins 45'). Cardiovascular: Rate and Rhythm: Normal rate and regular rhythm. Pulses: Normal pulses. Carotid pulses are 2+ on the right side and 2+ on the left side. Radial pulses are 2+ on the right side and 2+ on the left side. Posterior tibial pulses are 2+ on the right side and 2+ on the left side. Heart sounds: Normal heart sounds, S1 normal and S2 normal. No murmur heard. No friction rub. No gallop. Pulmonary: Effort: No accessory muscle usage or respiratory distress. Breath sounds: Wheezing present. No rhonchi or rales. Comments: Wearing oxygen via [place] Abdominal: General: Bowel sounds are normal. There is no distension. Palpations: Abdomen is soft. There is no hepatomegaly, splenomegaly or mass. Tenderness: There is no abdominal tenderness. Comments: Aortic pulsation is not enlarged or displaced There are no audible bruits Musculoskeletal: General: No edema. Comments: No clubbing, cyanosis nor edema Skin: General: Skin is warm and dry. Findings: No lesion. Nails: There is no clubbing or cyanosis. Neurological: Mental Status: She is alert and oriented to person, place, and time. Cranial Nerves: No cranial nerve deficit (Cranial nerves II - XII are grossly intact ). Motor: No tremor, atrophy, abnormal muscle tone or seizure activity. Coordination: Coordination normal. Gait: Gait normal. Comments: Cooperative with history and examination Psychiatric: Speech: Speech normal. Comments: Mentation - normal ?? EKG: NSR 90 with late transition, no ischemic changes ?? Assessment: ?? 1. Chest pain in adult ?? Patient reports intermittent right-sided chest pain radiating to jaw and arm, with exertional component, no associated symptoms, occurring 3-4 times weekly, lasting up to 1 minute, that resolved spontaneously. ?? Atypical in nature, but could be possible anginal equivalent. ?? Recommend pharmacological stress myocardial perfusion study for ischemic evaluation. ?? 1. Essential hypertension ?? B/p in office today 170/74 and 166/70. ?? Patient not taking losartan that was started during admission 03/2022 ?? Will restart losartan 50 mg nightly for better control. ?? 2. Dizziness ?? Cardiac etiology is not suspected. ?? Continue with ENT consult as scheduled. ?? 3. SOB (shortness of breath) on exertion ?? Chronic 2* to COPD. ?? NMS and Echo both negative 07/2021. ?? 4. Palpitations ?? Tachycardia. ?? EKG today shows NSR 90 bpm. ?? Denies palpitations. ?? Continue Atenolol 25 mg daily for rate control. ?? 5. Mixed hyperlipidemia ?? 07/26/2022 - TC 215, HDL 65, LDL 110, TG 198 ?? Not currently on Rx therapy. ?? Managed by PCP. ?? 6. Non morbid obesity ?? Weight down 10 lbs. ?? Recommended weight loss and exercise as able. ?? 7. Grade I diastolic dysfunction ?? 2020 Echo demonstrates Normal LV size and wall motion; LVEF 55-60%. Doppler suggests grade I DD. ? Plan: Plan ?? RTC follow up in 6 months or sooner as needed. ? documented in this encounter Plan of Treatment Upcoming EncountersDate Type Specialty Care Team Nmxqvsoldln08/08/2023 Wait List Cardiology 06/05/2023 Office Visit Cardiology Fernie Brothers MD [address] [place] [address] Scheduled OrdersName Type Priority Associated Diagnoses Order ScheduleNM mpi stress and rest pharmacological Cardiac Services Routine Essential hypertension SOB (shortness of breath) on exertion Mixed hyperlipidemia Chest pain in adult Dizziness Grade I diastolic dysfunction Expected: 12/15/2022, Expires: 4documented as of this encounter Procedures Procedure Name Priority Date/Time Associated Diagnosis CommentsECG 12-LEAD Routine 12/01/2022 1:08 PM EST Essential hypertension documented in this encounter Results ???ECG 12 lead (12/01/2022 1:08 PM EST): Ventricular Rate 90 BPM [facility] Atrial Rate 90 BPM [facility] P-R Interval 178 ms [facility] QRS DURATION 88 ms [facility] Q-T Interval 366 ms [facility] QTC Calculation 447 ms [facility] Calculated P [place] 52 degrees [facility] Calculated R [place] 19 degrees [facility] Calculated T [place] 63 degrees [facility] 12/01/2022 1:08 PM EST 12/14/2022 10:13 AM EST Narrative [facility] - 12/14/2022 10:13 AM EST Normal sinus rhythm ?? Anterior infarct , age undetermined ?? Abnormal ECG ?? When compared with ECG of 26-APR-2022 11:26, ?? premature atrial complexes are no longer present ?? Confirmed by Fernie Brothesr ([id number]) on 12/14/2022 10:13:22 AM Procedure Note Fernie Brothers MD - 12/14/2022 ?? Normal sinus rhythm ?? Anterior infarct , age undetermined ?? Abnormal ECG ?? When compared with ECG of 26-APR-2022 11:26, ?? premature atrial complexes are no longer present ?? Confirmed by Fernie Brothers ([id number]) on 12/14/2022 10:13:22 AM ?? Authorizing Provider Result Leeann Brothers MD ECG ORDERABLES [facility] [address] [place] [address] documented in this encounter Visit Diagnoses Diagnosis Chest pain in adult - Primary Typical atrial flutter (HC) Essential hypertension Unspecified essential hypertension SOB (shortness of breath) on exertion Shortness of breath Mixed hyperlipidemia Dizziness Dizziness and giddiness Non morbid obesity Grade I diastolic dysfunction documented in this encounter Care Teams Programs Manager Relationship Specialty Start Date End Date Barak Dominique Jr., MD [address] [place] [id number] PCP - General Internal Medicine 06/17/19 documented as of this encounter Discharge instructions * [facility] (Comm[facility]), [facility]: PERFORM Event Display: Discharge Instructions Authored Date: [id number] * Kendy Wilson RN: PERFORM Event Display: Discharge Instructions Authored Date: [id number] ELLEN OGDEN :1955 Age:67 years Sex:Female Visit Date:01/24/2023 Primary Care Physician: Avila Gomez MD Discharge Instructions We would like to thank you for allowing us to assist you with your healthcare needs. The following includes patient education materials and information regarding your injury/illness. Diagnosis from Today's Visit COVID Bronchitis COPD (chronic obstructive pulmonary disease) Bone marrow transplant status COVID-19 Discharge Vitals Temperature??(Temporal Artery) 99.5 ??F (37.5 ??C) Heart Rate??(Peripheral) 110 Respiratory Rate?? 16 Blood Pressure?? 138/73?? Height?? 65.00 in (165.100 cm) Weight??(Estimated) 170.03 lb (77.110 kg) Allergies NSAIDs??(Bleeding) Macrobid sulfa drug Nalbuphine Hydrochloride codeine What to Do Next You Need to Schedule the Following Appointments Follow Up with??Return to Emergency Department Why: Return with any concerns or deterioration in condition. Follow Up with??Avila Gomez MD Why: Call for follow up appointment. Where: [address] [place] [id number]- Follow Up with??Tylenol/Motrin for Pain/Fever relief Follow Up with??Drink Fluids Upcoming Scheduled Appointments Monday 10:30 AM EDT ?? You were treated today on an emergency basis; it may be blanco to contact your primary care provider to notify them of your visit today. You may have been referred to your regular doctor or a specialist, please follow up as instructed. If your condition worsens or you can't get in to see the doctor, contact the Emergency Department. Medications What How Much When Instructions Next Dose New azithromycin (azithromycin 500 mg oral tablet) 1 tab(s) Oral Daily Duration: 7 Days Pickup at [place], [place] New LORazepam (Ativan 1 mg oral tablet) 1 tab(s) Oral Every 12 hours as needed for as needed for anxiety Pickup at [place], [place] New predniSONE (predniSONE 20 mg oral tablet) 1 tab(s) Oral Daily Duration: 7 Days Pickup at [place], [place] Unchanged acetaminophen-oxycodone (acetaminophen-oxycodone 325 mg-10 mg oral tablet) 1 tab(s) Oral Every 4 hours as needed for Pain - Severe Unchanged cyclobenzaprine (!-Flexeril) 10 Milligram Oral 3 times a day Unchanged dexlansoprazole (Dexilant 60 mg oral delayed release capsule) 1 cap Daily Unchanged dilTIAZem (DilTIAZem (Eqv-Cardizem CD) 120 mg/ 24 hours oral capsule, extended release) 1 cap Oral Daily Unchanged docusate (docusate sodium 100 mg oral capsule) 1 cap Oral 2 times a day as needed for constipation Unchanged fluticasone/ umeclidinium/ vilanterol (Trelegy Ellipta 100 mcg-62.5 mcg-25 mcg/ inh inhalation powder) 1 puff(s) Inhalation Daily at the same time every day ?? Unchanged lactobacillus acidophilus and bulgaricus (Probiotic) See instructions Unchanged lovastatin (lovastatin 20 mg oral tablet) 1 tab(s) Oral Daily Duration: 30 Days Unchanged magnesium oxide (magnesium oxide 400 mg oral tablet) 1 tab(s) Oral At bedtime Unchanged pregabalin (pregabalin 150 mg oral capsule) 1 cap Oral 3 times a day Unchanged suvorexant (Belsomra 20 mg oral tablet) 1 tab(s) Oral Once a day (at bedtime) Pharmacy Information [facility] - [place], [place]: [address] [place], [place] [phone] Education Materials COVID-19: Quarantine and Isolation Quarantine If you were exposed Quarantine and stay away from others when you have been in close contact with someone who has COVID-19. Isolate If you are sick or test positive Isolate when you are sick or when you have COVID-19, even if you don't have symptoms. When to stay home Calculating quarantine The date of your exposure is considered day 0. Day 1 is the first full day after your last contact with a person who has had COVID-19. Stay home and away from other people for at least 5 days. Learn why CDC updated guidance for the general public. IF YOU were exposed to COVID-19 and are NOT up to dateIF YOU were exposed to COVID-19 and are NOT on COVID-19 vaccinations ? Quarantine for at least 5 days ? Stay home ? Stay home and quarantine for at least 5 full days. ? Wear a well-fitting mask if you must be around others in your home. ? Do not travel. ? Get tested ? Even if you don't develop symptoms, get tested at least 5 days after you last had close contact with someone with COVID-19. ? After quarantine ? Watch for symptoms ? Watch for symptoms until 10 days after you last had close contact with someone with COVID-19. ? Avoid travel ? It is best to avoid travel until a full 10 days after you last had close contact with someone with COVID-19. ? If you develop symptoms ? Isolate immediately and get tested. Continue to stay home until you know the results. Wear a well-fitting mask around others. ? Take precautions until day 10 ? Wear a well-fitting mask ? Wear a well-fitting mask for 10 full days any time you are around others inside your home or in public. Do not go to places where you are unable to wear a well- fitting mask. ? If you must travel during days 6???10, take precautions. ? Avoid being around people who are more likely to get very sick from COVID-19. IF YOU were exposed to COVID-19 and are up to dateIF YOU were exposed to COVID-19 and are on COVID-19 vaccinations ? No quarantine ? You do not need to stay home unless you develop symptoms. ? Get tested ? Even if you don't develop symptoms, get tested at least 5 days after you last had close contact with someone with COVID-19. ? Watch for symptoms ? Watch for symptoms until 10 days after you last had close contact with someone with COVID-19. ? If you develop symptoms ? Isolate immediately and get tested. Continue to stay home until you know the results. Wear a well-fitting mask around others. ? Take precautions until day 10 ? Wear a well-fitting mask ? Wear a well-fitting mask for 10 full days any time you are around others inside your home or in public. Do not go to places where you are unable to wear a well- fitting mask. ? Take precautions if traveling ? Avoid being around people who are more likely to get very sick from COVID-19. IF YOU were exposed to COVID-19 and had confirmed COVID-19 within the past 90 days (you tested positive using a viral test) ? No quarantine ? You do not need to stay home unless you develop symptoms. ? Watch for symptoms ? Watch for symptoms until 10 days after you last had close contact with someone with COVID-19. ? If you develop symptoms ? Isolate immediately and get tested. Continue to stay home until you know the results. Wear a well-fitting mask around others. ? Take precautions until day 10 ? Wear a well-fitting mask ? Wear a well-fitting mask for 10 full days any time you are around others inside your home or in public. Do not go to places where you are unable to wear a well- fitting mask. ? Take precautions if traveling ? Avoid being around people who are more likely to get very sick from COVID-19. Calculating isolation Day 0 is your first day of symptoms or a positive viral test. Day 1 is the first full day after your symptoms developed or your test specimen was collected. If you have COVID-19 or have symptoms, isolate for at least 5 days. IF YOU tested positive for COVID-19 or have symptoms, regardless of vaccination status ? Stay home for at least 5 days ? Stay home for 5 days and isolate from others in your home. ? Wear a well-fitting mask if you must be around others in your home. ? Do not travel. ? Ending isolation if you had symptoms ? End isolation after 5 full days if you are fever-free for 24 hours (without the use of fever-reducing medication) and your symptoms are improving. ? Ending isolation if you did NOT have symptoms ? End isolation after at least 5 full days after your positive test. ? If you got very sick from COVID-19 or have a weakened immune system ? You should isolate for at least 10 days. Consult your doctor before ending isolation. ? Take precautions until day 10 ? Wear a well-fitting mask ? Wear a well-fitting mask for 10 full days any time you are around others inside your home or in public. Do not go to places where you are unable to wear a well- fitting mask. ? Do not travel ? Do not travel until a full 10 days after your symptoms started or the date your positive test was taken if you had no symptoms. ? Avoid being around people who are more likely to get very sick from COVID-19. Definitions Exposure Contact with someone infected with SARS-CoV-2, the virus that causes COVID-19, in a way that increases the likelihood of getting infected with the virus. Close contact A close contact is someone who was less than 6 feet away from an infected person (laboratory-confirmed or a clinical diagnosis) for a cumulative total of 15 minutes or more over a 24-hour period. Forexample, three individual 5-minute exposures for a total of 15 minutes. People who are exposed to someone with COVID-19 after they completed at least 5 days of isolation are not considered close contacts. Quarantine Quarantine is a strategy used to prevent transmission of COVID-19 by keeping people who have been in close contact with someone with COVID-19 apart from others. Who does not need to quarantine? If you had close contact with someone with COVID-19 and you are in one of the following groups, youdo not need to quarantine. ? You are up to date with your COVID-19 vaccines. ? You had confirmed COVID-19 within the last 90 days (meaning you tested positive using a viral test). If you are up to date with COVID-19 vaccines, you should wear a well-fitting mask around others for10 days from the date of your last close contact with someone with COVID-19 (the date of last closecontact is considered day 0). Get tested at least 5 days after you last had close contact with someone with COVID- 19. If you test positive or develop COVID-19 symptoms, isolate from other people and follow recommendations in the Isolation section below. If you tested positive for COVID-19 with a viral test within the previous 90 days and subsequently recovered and remain without COVID-19 symptoms, you do not need to quarantine or get tested after close contact. You should wear a well-fitting mas k around others for 10 days from the date of your last close contact with someone with COVID-19 (the date of last close contact is considered day 0). If you have COVID-19 symptoms, get tested and isolate from other people and follow recommendations in the Isolation section below. Who should quarantine? If you come into close contact with someone with COVID-19, you should quarantine if you are not up to date on COVID-19 vaccines. This includes people who are not vaccinated. What to do for quarantine ? Stay home and away from other people for at least 5 days (day 0 through day 5) after your last contact with a person who has COVID-19. The date of your exposure is considered day 0. Wear a well-fitting mask when around others at home, if possible. ? For 10 days after your last close contact with someone with COVID-19, watch for fever (100.4??F or greater), cough, shortness of breath, or other COVID-19 symptoms. ? If you develop symptoms, get tested immediately and isolate until you receive your test results. Ifyou test positive, follow isolation recommendations. ? If you do not develop symptoms, get tested at least 5 days after you last had close contact with someone with COVID-19. ? If you test negative, you can leave your home, but continue to wear a well- fitting mask when aroundothers at home and in public until 10 days after your last close contact with someone with COVID-19. ? If you test positive, you should isolate for at least 5 days from the date of your positive test (if you do not have symptoms). If you do develop COVID-19 symptoms, isolate for at least 5 days from the date your symptoms began (the date the symptoms started is day 0). Follow recommendations in the isolation section below. ? If you are unable to get a test 5 days after last close contact with someone with COVID-19, you canleave your home after day 5 if you have been without COVID-19 symptoms throughout the 5-day period.Wear a well-fitting mask for 10 days after your date of last close contact when around others at home and in public. ? Avoid people who are have weakened immune systems or are more likely to get very sick from COVID-19, and nursing homes and other high-risk settings, until after at least 10 days. ? If possible, stay away from people you live with, especially people who are at higher risk for getting very sick from COVID-19, as well as others outside your home throughout the full 10 days after your last close contact with someone with COVID-19. ? If you are unable to quarantine, you should wear a well-fitting mask for 10 days when around othersat home and in public. ? If you are unable to wear a mask when around others, you should continue to quarantine for 10 days.Avoid people who have weakened immune systems or are more likely to get very sick from COVID-19, and nursing homes and other high-risk settings, until after at least 10 days. ? See additional information about travel. ? Do not go to places where you are unable to wear a mask, such as restaurants and some gyms, and avoid eating around others at home and at work until after 10 days after your last close contact with someone with COVID-19. After quarantine ? Watch for symptoms until 10 days after your last close contact with someone with COVID-19. ? If you have symptoms, isolate immediately and get tested. Quarantine in high-risk congregate settings In certain congregate settings that have high risk of secondary transmission (such as correctional and shelter facilities, homeless shelters, or cruise ships), CDC recommends a 10-day quarantine for residents, regardless of vaccination and booster status. During periods of critical staffing shortages, facilities may consider shortening the quarantine period for staff to ensure continuity of operations. Decisions to shorten quarantine in these settings should be made in consultation with state, local, [place], or territorial health departments and should take into consideration the context and characteristics of the facility. CDC's setting-specific guidance provides additional recommendations for these settings. Isolation Isolation is used to separate people with confirmed or suspected COVID-19 from those without COVID-19. People who are in isolation should stay home until it's safe for them to be around others. At home, anyone sick or infected should separate from others, or wear a well-fitting mask when they need to be around others. People in isolation should stay in a specific sick room or area and use a separate bathroom if available. Everyone who has presumed or confirmed COVID-19 should stay home and isolate from other people for at least 5 full days (day 0 is the first day of symptoms or the date of the day of the positive viral test for asymptomatic persons). They should wear a mask when around others at home and in public for an additional 5 days. People who are confirmed to have COVID-19 or are showing symptoms of COVID-19 need to isolate regardless of their vaccination status. This includes: ? People who have a positive viral test for COVID-19, regardless of whether or not they have symptoms. ? People with symptoms of COVID-19, including people who are awaiting test results or have not been tested. People with symptoms should isolate even if they do not know if they have been in close contact with someone with COVID-19. What to do for isolation ? Monitor your symptoms. If you have an emergency warning sign (including trouble breathing), seek emergency medical care immediately. ? Stay in a separate room from other household members, if possible. ? Use a separate bathroom, if possible. ? Take steps to improve ventilation at home, if possible. ? Avoid contact with other members of the household and pets. ? Don't share personal household items, like cups, towels, and utensils. ? Wear a well-fitting mask when you need to be around other people. Learn more about what to do if you are sick and how to notify your contacts. Ending isolation for people who had COVID-19 and had symptoms If you had COVID-19 and had symptoms, isolate for at least 5 days. To calculate your 5-day isolation period, day 0 is your first day of symptoms. Day 1 is the first full day after your symptoms developed. You can leave isolation after 5 full days. ? You can end isolation after 5 full days if you are fever-free for 24 hours without the use of fever-reducing medication and your other symptoms have improved (Loss of taste and smell may persist for weeks or months after recovery and need not delay the end of isolation). ? You should continue to wear a well-fitting mask around others at home and in public for 5 additional days (day 6 through day 10) after the end of your 5-day isolation period. If you are unable to wear a mask when around others, you should continue to isolate for a full 10 days. Avoid people who have weakened immune systems or are more likely to get very sick from COVID-19, and nursing homes and other high-risk settings, until after at least 10 days. ? If you continue to have fever or your other symptoms have not improved after 5 days of isolation, you should wait to end your isolation until you are fever- free for 24 hours without the use of fever-reducing medication and your other symptoms have improved. Continue to wear a well-fitting mask through day 10. Contact your healthcare provider if you have questions. ? See additional information about travel. ? Do not go to places where you are unable to wear a mask, such as restaurants and some gyms, and avoid eating around others at home and at work until a full 10 days after your first day of symptoms. If an individual has access to a test and wants to test, the best approach is to use an antigen test1 towards the end of the 5-day isolation period. Collect the test sample only if you are fever-freefor 24 hours without the use of fever- reducing medication and your other symptoms have improved (loss of taste and smell may persist for weeks or months after recovery and need not delay the end of isolation). If your test result is positive, you should continue to isolate until day 10. If your test result is negative, you can end isolation, but continue to wear a well-fitting mask around others at home and in public until day 10. Follow additional recommendations for masking and avoiding travel as described above. 1As noted in the labeling for authorized over-the counter antigen tests: Negative results should betreated as presumptive. Negative results do not rule out SARS-CoV-2 infection and should not be used as the sole basis for treatment or patient management decisions, including infection control decisions. To improve results, antigen tests should be used twice over a three-day period with at least 24 hours and no more than 48 hours between tests. Note that these recommendations on ending isolation do not apply to people who are moderately ill or very sick from COVID-19 or have weakened immune systems. See section below for recommendations forwhen to end isolation for these groups. Ending isolation for people who tested positive for COVID-19 but had no symptoms If you test positive for COVID-19 and never develop symptoms, isolate for at least 5 days. Day 0 isthe day of your positive viral test (based on the date you were tested) and day 1 is the first fullday after the specimen was collected for your positive test. You can leave isolation after 5 full days. ? If you continue to have no symptoms, you can end isolation after at least 5 days. ? You should continue to wear a well-fitting mask around others at home and in public until day 10 (day 6 through day 10). If you are unable to wear a mask when around others, you should continue to isolate for 10 days. Avoid people who have weakened immune systems or are more likely to get very sickfrom COVID-19, and nursing homes and other high-risk settings, until after at least 10 days. ? If you develop symptoms after testing positive, your 5-day isolation period should start over. Day 0 is your first day of symptoms. Follow the recommendations above for ending isolation for people who had COVID-19 and had symptoms. ? See additional information about travel. ? Do not go to places where you are unable to wear a mask, such as restaurants and some gyms, and avoid eating around others at home and at work until 10 days after the day of your positive test. If an individual has access to a test and wants to test, the best approach is to use an antigen test1 towards the end of the 5-day isolation period. If your test result is positive, you should continue to isolate until day 10. If your test result is positive, you can also choose to test daily and if your test result is negative, you can end isolation, but continue to wear a well-fitting mask around others at home and in public until day 10. Follow additional recommendations for masking and avoiding travel as described above. 1As noted in the labeling for authorized over-the counter antigen tests: Negative results should betreated as presumptive. Negative results do not rule out SARS-CoV-2 infection and should not be used as the sole basis for treatment or patient management decisions, including infection control decisions. To improve results, antigen tests should be used twice over a three-day period with at least 24 hours and no more than 48 hours between tests. Ending isolation for people who were moderately or very sick from COVID-19 or have a weakened immune system People who are moderately ill from COVID-19 (experiencing symptoms that affect the lungs like shortness of breath or difficulty breathing) should isolate for 10 days and follow all other isolation precautions. To calculate your 10-day isolation period, day 0 is your first day of symptoms. Day 1 is the first full day after your symptoms developed. If you are unsure if your symptoms are moderate, talk to a healthcare provider for further guidance. People who are very sick from COVID-19 (this means people who were hospitalized or required intensive care or ventilation support) and people who have weakened immune systems might need to isolate athome longer. They may also require testing with a viral test to determine when they can be around others. CDC recommends an isolation period of at least 10 and up to 20 days for people who were very sick from COVID-19 and for people with weakened immune systems. Consult with your healthcare provider about when you can resume being around other people. If you are unsure if your symptoms are severeor if you have a weakened immune system, talk to a healthcare provider for further guidance. People who have a weakened immune system should talk to their healthcare provider about the potential for reduced immune responses to COVID-19 vaccines and the need to continue to follow current prevention measures (including wearing a well-fitting mask and avoiding crowds and poorly ventilated indoor spaces) to protect themselves against COVID-19 until advised otherwise by their healthcare provider. Close contacts of immunocompromised people???including household members???should also be encouraged to receive all recommended COVID- 19 vaccine doses to help protect these people. Isolation in high-risk congregate settings In certain high-risk congregate settings that have high risk of secondary transmission and where itis not feasible to cohort people (such as correctional and shelter facilities, homeless shelters,and cruise ships), CDC recommends a 10-day isolation period for residents. During periods of critical staffing shortages, facilities may consider shortening the isolation period for staff to ensure continuity of operations. Decisions to shorten isolation in these settings should be made in consultation with state, local, [place], or territorial health departments and should take into considerationthe context and characteristics of the facility. CDC's setting-specific guidance provides additional recommendations for these settings. This CDC guidance is meant to supplement???not replace???any federal, state, local, territorial, ortribal health and safety laws, rules, and regulations. Recommendations for specific settings These recommendations do not apply to healthcare professionals. For guidance specific to these settings, see ? Healthcare professionals: Interim Guidance for Managing Healthcare Personnel with SARS-CoV-2 Infection or Exposure to SARS-CoV-2 ? Patients, residents, and visitors to healthcare settings: Interim Infection Prevention and Control Recommendations for Healthcare Personnel During the Coronavirus Disease 2019 (COVID-19) Pandemic Additional setting-specific guidance and recommendations are available. ? These recommendations on quarantine and isolation do apply to K-12 School settings. Additional guidance is available here: Overview of COVID-19 Quarantine for K-12 Schools ? Travelers: Travel information and recommendations ? Congregate facilities and other settings: guidance pages for community, work, and school settings Ongoing COVID-19 exposure FAQs I live with someone with COVID-19, but I cannot be from them. How do we manage quarantinein this situation? It is very important for people with COVID-19 to remain apart from other people, if possible, even if they are living together. If separation of the person with COVID-19 from others that they live with is not possible, the other people that they live with will have ongoing exposure, meaning they will be repeatedly exposed until that person is no longer able to spread the virus to other people. Inthis situation, there are precautions you can take to limit the spread of COVID-19: ? The person with COVID-19 and everyone they live with should wear a well-fitting mask inside the home. ? If possible, one person should care for the person with COVID-19 to limit the number of people who are in close contact with the infected person. ? Take steps to protect yourself and others to reduce transmission in the home: ? Quarantine if you are not up to date with your COVID-19 vaccines. ? Isolate if you are sick or tested positive for COVID-19, even if you don't have symptoms. ? Learn more about the public health recommendations for testing, mask use and quarantine of close contacts, like yourself, who have ongoing exposure. These recommendations differ depending on your vaccination status. What should I do if I have ongoing exposure to COVID-19 from someone I live with? Recommendations for this situation depend on your vaccination status: If you are not up to date on COVID-19 vaccines and have ongoing exposure to COVID-19, you should: ? Begin quarantine immediately and continue to quarantine throughout the isolation period of the person with COVID-19. ? Continue to quarantine for an additional 5 days starting the day after the end of isolation for theperson with COVID-19. ? Get tested at least 5 days after the end of isolation of the infected person that lives with them. ? If you test negative, you can leave the home but should continue to wear a well- fitting mask when around others at home and in public until 10 days after the end of isolation for the person with COVID-19. ? Isolate immediately if you develop symptoms of COVID-19 or test positive. If you are up to date with COVID-19 vaccines and have ongoing exposure to COVID- 19, you should: ? Get tested at least 5 days after your first exposure. A person with COVID-19 is considered infectious starting 2 days before they develop symptoms, or 2 days before the date of their positive test ifthey do not have symptoms. ? Get tested again at least 5 days after the end of isolation for the person with COVID-19. ? Wear a well-fitting mask when you are around the person with COVID-19, and do this throughout theirisolation period. ? Wear a well-fitting mask around others for 10 days after the infected person's isolation period ends. Isolate immediately if you develop symptoms of COVID-19 or test positive. What should I do if multiple people I live with test positive for COVID-19 at different times? Recommendations for this situation depend on your vaccination status: ? If you are not up to date with your COVID-19 vaccines, you should: ? Quarantine throughout the isolation period of any infected person that you live with. ? Continue to quarantine until 5 days after the end of isolation date for the most recently infected person that lives with you. For example, if the last day of isolation of the person most recently infected with COVID-19 was April 28, the new 5-day quarantine period starts on April 29. ? Get tested at least 5 days after the end of isolation for the most recently infected person that lives with you. ? Wear a well-fitting mask when you are around any person with COVID-19 while that person is in isolation. ? Wear a well-fitting mask when you are around other people until 10 days after your last close contact. ? Isolate immediately if you develop symptoms of COVID-19 or test positive. ? If you are up to date with your COVID-19 vaccines, you should: ? Get tested at least 5 days after your first exposure. A person with COVID-19 is considered infectious starting 2 days before they developed symptoms, or 2 days before the date of their positive test if they do not have symptoms. ? Get tested again at least 5 days after the end of isolation for the most recently infected person that lives with you. ? Wear a well-fitting mask when you are around any person with COVID-19 while that person is in isolation. ? Wear a well-fitting mask around others for 10 days after the end of isolation for the most recentlyinfected person that lives with you. For example, if the last day of isolation for the person most recently infected with COVID-19 was April 28, the new 10-day period to wear a well-fitting mask indoors in public starts on April 29. ? Isolate immediately if you develop symptoms of COVID-19 or test positive. I had COVID-19 and completed isolation. Do I have to quarantine or get tested if someone I live with gets COVID-19 shortly after I completed isolation? No. If you recently completed isolation and someone that lives with you tests positive for the virus that causes COVID-19 shortly after the end of your isolation period, you do not have to quarantineor get tested as long as you do not develop new symptoms. Once all of the people that live togetherhave completed isolation or quarantine, refer to the guidance below for new exposures to COVID-19. ? If you had COVID-19 in the previous 90 days and then came into close contact with someone with COVID-19, you do not have to quarantine or get tested if you do not have symptoms. But you should: ? Wear a well-fitting mask indoors in public for 10 days after your last close contact. ? Monitor for COVID-19 symptoms for 10 days from the date of your last close contact. ? Isolate immediately and get tested if symptoms develop. ? If more than 90 days have passed since your recovery from infection, follow CDC's recommendations for close contacts. These recommendations will differ depending on your vaccination status. 01/26/2022 Content source: National Center for Immunization and Respiratory Diseases (NCIRD), Division of Viral Diseases This information is not intended to replace advice given to you by your health care provider. Make sure you discuss any questions you have with your health care provider. Document Revised: 03/03/2022 Document Reviewed: 03/03/2022 [email or web address] Patient Education ?? 2021 [email or web address] Chronic Obstructive Pulmonary Disease Exacerbation Chronic obstructive [...] infections that affect your airways and lungs. ? Being exposed to: ? Smoke. ? Air pollution. ? Chemical fumes. ? Dust. ? Things that can cause an allergic reaction (allergens). ? Not taking your usual COPD medicines as told. ? Having medical problems already, such as heart failure or infections not involving the lungs. In many cases, the cause is not known. What increases the risk? Smoking. ? Being an older adult. ? Having frequent prior COPD exacerbations. What are the signs or symptoms? Increased coughing. ? Increased mucus from your lungs. ? Increased wheezing. ? Increased shortness of breath. ? Fast breathing and finding it hard to breathe. ? Chest tightness. ? Less energy than usual. ? Sleep disruption from symptoms. ? Confusion. ? Increased sleepiness. Often, these symptoms happen or get worse even with the use of medicines. How is this treated? Treatment for this condition depends on how bad it is and the cause of the symptoms. You may need to stay in the hospital for treatment. Treatment may include: ? Taking medicines. ? Using oxygen. ? Being treated with different ways to clear your airway, such as using a mask to deliver oxygen. Follow these instructions at home: Medicines ? Take ifaf-wft-cohctks and prescription medicines only as told by your doctor. ? Use all inhaled medicines the correct way. ? If you were prescribed an antibiotic or steroid medicine, take it as told by your doctor. Do not stop taking it even if you start to feel better. Lifestyle ? Do not smoke or use any products that contain nicotine or tobacco. If you need help quitting, ask your doctor. ? Eat healthy foods. ? Exercise regularly. ? Get enough sleep. Most adults need 7 or more hours per night. ? Avoid tobacco smoke and other things that can bother your lungs. ? Several times a day, wash your hands with soap and water for at least 20 seconds. If you cannot usesoap and water, use hand university counselor. This may help keep you from getting an infection. ? During flu season, avoid areas that are crowded with people. General instructions ? Drink enough fluid to keep your pee (urine) pale yellow. Do not do this if your doctor has told younot to. ? Use a cool mist machine (vaporizer). ? If you use oxygen or a machine that turns medicine into a mist (nebulizer), continue to use it as told. ? Keep all follow-up visits. How is this prevented? Keep up with shots (vaccinations) as told by your doctor. Be sure to get a yearly flu (influenza) shot. ? If you smoke, quit smoking. Smoking makes the problem worse. ? Follow all instructions for rehabilitation. These are steps you can take to make your body work better. ? Work with your doctor to develop and follow an action plan. This tells you what steps to take when you experience certain symptoms. Contact a doctor if: ? Your COPD symptoms get worse than normal. Get help right away if: ? You are short of breath and it gets worse, even when you are resting. ? You have trouble talking. ? You have chest pain. ? You cough up blood. ? You have a fever. ? You keep vomiting. ? You feel weak or you pass out (faint). ? You feel confused. ? You are not able to sleep because of your symptoms. ? You have trouble doing daily activities. These symptoms may be an emergency. Get help right away. Call your local emergency services ([facility] [place] ? Do not wait to see if the symptoms will go away. ? Do not drive yourself to the hospital. Summary ? COPD exacerbations are times that breathing gets worse and you need more treatment than normal. ? COPD exacerbations can be very serious and may cause your lungs to become more damaged. ? Do not smoke. If you need help quitting, ask your doctor. ? Stay up to date on your shots. Get a flu shot every year. This information is not intended to replace advice given to you by your health care provider. Make sure you discuss any questions you have with your health care provider. Document Revised: 09/08/2021 Document Reviewed: 08/24/2021 [employer] Patient Education ?? 2021 [email or web address] Tests Performed Medications and Immunizations Administered Given NS, 1000 mL, IV !-Rocephin, IV Piggyback azithromycin + Sodium Chloride 0.9% 250 mL, IV Piggyback magnesium oxide, 800 mg, Oral SOLU-Medrol, 125 mg, IV Push Tylenol, 1000 mg, Oral Lab Test Name Test Result Date/Time SARS-CoV-2 (COVID-19) RNA (ID Now) Positive 01/24/2023 17:58 EDT Sodium Level 135 01/24/2023 17:02 EDT Potassium Level 3.6 mmol/L 01/24/2023 17:02 EDT Chloride Level 102 mmol/L 01/24/2023 17:02 EDT CO2 22.7 mmol/L 01/24/2023 17:02 EDT Anion Gap 14 01/24/2023 17:02 EDT Glucose Level 94 mg/dL 01/24/2023 17:02 EDT BUN 15 mg/dL 01/24/2023 17:02 EDT Creatinine Level 1.2 mg/dL 01/24/2023 17:02 EDT GFR AA 53 mL/min/1.73 01/24/2023 17:02 EDT GFR Non AA 44 mL/min/1.73 01/24/2023 17:02 EDT Calcium Level 8.1 mg/dL 01/24/2023 17:02 EDT Magnesium 1.5 01/24/2023 17:02 EDT Bili Total 0.26 mg/dL 01/24/2023 17:02 EDT Alk Phos 71 IU/L 01/24/2023 17:02 EDT AST/SGOT 35 IU/L 01/24/2023 17:02 EDT ALT/SGPT 29 IU/L 01/24/2023 17:02 EDT Protein Total 6.9 g/dL 01/24/2023 17:02 EDT Albumin Level 3.6 mg/dL 01/24/2023 17:02 EDT Troponin-I 5.80 pg/mL 01/24/2023 19:47 EDT NT Pro-BNP 797 pg/mL 01/24/2023 17:02 EDT CRP 3.37 mg/dL 01/24/2023 17:02 EDT WBC 6.9 x10^3/mcL 01/24/2023 17:02 EDT RBC 3.67 x10^6/mcL 01/24/2023 17:02 EDT Hgb 11.4 g/dL 01/24/2023 17:02 EDT Hct 36.4 % 01/24/2023 17:02 EDT MCV 99 01/24/2023 17:02 EDT MCH 31.1 pg 01/24/2023 17:02 EDT MCHC 31.3 g/dL 01/24/2023 17:02 EDT RDW/CV 12.3 % 01/24/2023 17:02 EDT Platelet 115 x10^3/mcL 01/24/2023 17:02 EDT MPV 10.2 fL 01/24/2023 17:02 EDT Auto Lymph % 28.0 % 01/24/2023 17:02 EDT Auto Neut % 55.1 % 01/24/2023 17:02 EDT Auto [place] % 15.9 % 01/24/2023 17:02 EDT Auto Eos % 0.3 % 01/24/2023 17:02 EDT Auto Baso % 0.3 % 01/24/2023 17:02 EDT Auto IG % 0.4 % 01/24/2023 17:02 EDT Lymph Abs# 1.94 K/uL 01/24/2023 17:02 EDT Neut Abs# 3.81 K/uL 01/24/2023 17:02 EDT [place] Abs# 1.10 K/uL 01/24/2023 17:02 EDT Eos Abs# 0.02 K/uL 01/24/2023 17:02 EDT Baso Abs# 0.02 K/uL 01/24/2023 17:02 EDT IG Auto 0.03 K/uL 01/24/2023 17:02 EDT NRBC Abs # 0 K/uL 01/24/2023 17:02 EDT PT 11.0 second(s) 01/24/2023 17:02 EDT INR 1.04 01/24/2023 17:02 EDT Influenza A negative - Leatha 01/24/2023 17:58 EDT Influenza B negative - Leatha 01/24/2023 17:58 EDT Rik Test Art Acceptable 01/24/2023 17:02 EDT pH Art 7.37 01/24/2023 17:02 EDT pCO2 Art 42.0 mmHg 01/24/2023 17:02 EDT pO2 Art 57 mmHg 01/24/2023 17:02 EDT HCO3 Art 24.3 mmol/L 01/24/2023 17:02 EDT Base Excess Art -1.0 mEq/L 01/24/2023 17:02 EDT TCO2 Art 25.6 mmol/L 01/24/2023 17:02 EDT Fio2 Art 21 % 01/24/2023 17:02 EDT O2 Sat Art 88 % 01/24/2023 17:02 EDT Puncture Site L Radial 01/24/2023 17:02 EDT Patient/Packing And Final Assembly Supervisor Signature Patient Name:ELLEN OGDEN I have received this information and my questions have been answered. Patient/Packing And Final Assembly Supervisor Name: Patient/Packing And Final Assembly Supervisor Signature: Relationship to Patient: Witness Name/Signature: Date: Electronically Signed on: 01/24/2023 20:33 EDT Signed by:LEANDRO Physician Emergency department Note * Rober Caldwell PUMP TESTER: PERFORM Event Display: ED Note - Physician Authored Date: [id number] ELLEN OGDEN :1955 Age:67 years Sex:Female Visit Date:01/24/2023 Primary Care Physician: Avila Gomez MD Basic Information Time Seen: Rober Caldwell PUMP TESTER / 01/24/2023 17:57 Chief Complaint COVID + dx today, has hx of COPD and wanted to be checked out, has home O2, wears at night History Of Present Illness: The patient presents with a Cough, Covid.?? The patient reports developing a sore throat and intermittent cough yesterday.?? The patient denies fever, chills.?? She reports having shortness of breath, no worse than normal.?? Hx: COPD.?? She denies chest pain.?? The patient took a home Covid test which was Positive today.?? She presents for an exam.?? She wears O2 at night.?? She states her spouseis Covid + as well.?? Review of Systems: Constitutional:??No fever, no chills, no sweats, no weakness. Skin:??No Jaundice, no rash, no lesions, no petechiae.?? ENMT:??No ear pain, sore throat, no congestion, no hoarseness. Respiratory:??Shortness of breath, cough, no orthopnea, no wheezing. Cardiovascular:??No chest pain, no palpitations, no edema.?? Gastrointestinal:??No nausea, no vomiting, no diarrhea, no GI bleeding. Genitourinary:??No dysuria, no hematuria, no discharge, no pain.?? Musculoskeletal:??No back pain, no trauma.?? Neurologic:??No headache, no??dizziness, no numbness, no weakness.?? Psychiatric:??No sleeping problems, no irritability, no mood swings/depression. Heme/Lymph:??No bleeding tendency, no bruising tendency, no petechiae, no swollen nodes. Allergy/Immunologic:??No seasonal allergies, no??food allergies, no recurrent infections, no??impaired immunity. Additional ROS info:??Except as noted in the above Review of Systems and in the History of Present Illness all other systems have been reviewed and are negative or noncontributory.?? Physical Exam Vitals & Measurements T:??37.5?C ??(Temporal Artery)?? HR:??117??(Peripheral)?? RR:??16?? BP:??137/78?? SpO2:??94%?? HT:??165.100??cm?? WT:??77.110??kg??(Estimated)?? O2 Therapy:??Room air?? General: Alert, no acute distress.?? Skin: Warm, dry. Head: No trauma, normocephalic.?? Neck: Trachea midline, no adenopathy, no tenderness. Eye: Normal conjunctiva, sclera clear. Cardiovascular: Regular rate and rhythm, normal peripheral perfusion. Respiratory: Lungs CTA, respirations non-labored.?? Chest wall: No deformity.?? Gastrointestinal: Soft, non-distended, no tenderness, no guarding. Extremities: No deformity, no trauma.?? Neurological: Oriented x 4, LOC appropriate for age, CN II-XII intact, motor strength equal & normal bilaterally, sensation equal & normal bilaterally, speech normal. Psychiatric: Cooperative, affect appropriate for age, normal judgement, normal psychiatric thoughts. Medical Decision Makin. Number and Complexity of Problems Addressed (CoPA) Presenting Complaint(s):??Cough, Shortness of Breath, Sore Throat, Covid + Differential Diagnosis: Covid, COPD Exacerbation ?? 2. Amount and Complexity of data analyzed (DATA) --The Emergency Department Physician Luncheonette Manager??performed a face to face evaluation of this patient?? --History reported/obtained from: Patient --Independent Historian: --Labs ordered and reviewed --Imaging ordered and reviewed --12-lead ECG ordered and reviewed --Controlled Substances (i.e PDMP Aware) has been reviewed ?? --Utilization of Risk Calculators (HEART, NYHA, etc):?None ?? 3. Impressions/Risk of Complications and/or Morbidity/Mortality (RISK) ---(high, moderate, or low) Moderate ?? 4. Plan of Care: --Shared Decision Making incorporated: ?? --Concerns: ?? ----Over the counter treatment recommendations: Tylenol, Motrin ?? 5. Emergency Department Course ----Treatment in the Emergency Department:??labs, Xray Chest, Medications ?? ----Disposition:??Home The patient is well-appearing and nontoxic. ??After careful history, physical exam, vital signs, and review of any laboratory or diagnostic data as ordered,??I made the decision??the patient does notappear to have a life- threatening illness and can be carefully discharged with close follow-up.?? Bertram not feel any further imaging or laboratory data is needed at this time.?? I have considered bothemergent and urgent disease pathology. ??I have given written and verbal discharge instructions, aswell as the current differential diagnosis.?? Patient advised of the importance of following up with??their PCP concerning findings, treatment,??and status posttreatment.?? All laboratory, radiology, respiratory, and assessment findings were reviewed in detail with the patient.?? Patient was educated on all prescriptions and proper usage as well as the importance??of following up with primary care in a timely fashion for ongoing health and wellness management.?? The nursing staff has reiteratedthe disposition plan as well.?? 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 Orders: azithromycin 500 mg oral tablet, ( 500 mg ) 1 tab(s), Oral, Daily, x 7 day(s), # 7 tab(s), 0 Refill(s), 01/31/23, Pharmacy: [facility] - [place], [place], Tab, 165.1, cm, 01/24/23 17:13:00 EDT, Height/Length Dosing, 77.11, kg, 01/24/23 17:13:00 EDT, Weight Dosing azithromycin + Sodium Chloride 0.9% 250 mL, 500 mg = 1 EA, Powder-Inj, IV Piggyback, Once, Medication Indication COVID-19, Routine, Start date 01/24/23 17:59:00 EDT, Physician Stop, Stop date 01/24/23 17:59:00 EDT, 250, mL/hr, Infuse over 60 minute(s), 01/24/23 17:59:00 EDT !-Rocephin, 1 gm = 1 EA, Powder-Inj, IV Piggyback, Once, Medication Indication COVID-19, Routine, Start date 01/24/23 17:58:00 EDT, Physician Stop, Stop date 01/24/23 17:58:00 EDT, 200, mL/hr, Infuseover 30 minute(s), 01/24/23 17:58:00 EDT Ativan 1 mg oral tablet, ( 1 mg ) 1 tab(s), Oral, q12hr (scheduled), PRN PRN: as needed for anxiety, # 7 tab(s), 0 Refill(s), 01/25/24, Pharmacy: [facility] [place], [place], Tab, 165.1, cm, 01/24/23 17:13:00 EDT, Height/Length Dosing, 77.11, kg, 01/24/23 17:13... magnesium sulfate, 1 gm = 100 mL, Soln, IV Piggyback, q1hr (interval), Start date 01/24/23 17:58:00EDT, 2 dose(s)/time(s), Physician Stop, Stop date 01/24/23 19:57:00 EDT, 100 mL/hr, Infuse over 1 hr, 01/24/23 17:58:00 EDT SOLU-Medrol, 125 mg = 2 mL, Powder-Inj, IV Push, Once, Start date 01/24/23 18:00:00 EDT, Physician Stop, Stop date 01/24/23 18:00:00 EDT, 01/24/23 18:00:00 EDT predniSONE 20 mg oral tablet, ( 20 mg ) 1 tab(s), Oral, Daily, x 7 day(s), # 7 tab(s), 0 Refill(s),01/31/23, Pharmacy: [facility] [place], [place], Tab, 165.1, cm, 01/24/23 17:13:00 EDT, Height/Length Dosing, 77.11, kg, 01/24/23 17:13:00 EDT, Weight Dosing NS 1,000 mL, 1,000, mL, IV, STAT, Start date 01/24/23 17:58:00 EDT, 999 mL/hr, 1, hr, Total volume (mL): 1,000, 77.11 kg, 1.88, m2, 01/24/23 17:58:00 EDT Discharge Patient, 01/24/23 18:53:00 EDT, Condition on Discharge: Stable, to Home Troponin I, Blood, Timed Study collect, 01/24/23 19:52:00 EDT, Once, Stop date 01/24/23 19:52:00 EDT, Lab Collect, 01/24/23 19:52:00 EDT Urinalysis with Culture, If Indicated Standard, Urine, Stat collect, 01/24/23 16:52:00 EDT, Once, Stop date 01/24/23 16:52:00 EDT, Nurse collect XR Chest 1 View Portable, 01/24/23 16:52:00 EDT, Routine, Once, 01/24/23 16:52:00 EDT, Shortness ofBreath, Transport Mode: Wheelchair, , Yes, Rad Type Discharge Disposition Thank you for choosing our Emergency Department??for your healthcare! ??Please take your medicines prescribed as directed and be sure that you follow-up??with the physician provided or your PCP in the next 1 to 2 days to ensure you are improving.?? All medical problems cannot be reasonably diagnosed in your ED visit today.?? Return for any changes or concerns, including if your condition does notimprove??or you are unable to obtain a follow-up.?? Some final results, including radiology reports, do not return the same day, but are available on the patient portal or can be obtained through your PCP. Patient Education COVID-19: Quarantine and Isolation - [facility] (01/26/2022) Chronic Obstructive Pulmonary Disease Exacerbation, [id number] Follow Up With When Contact Information Return to Emergency Department Additional Instructions: Return with any concerns or deterioration in condition. Avila Gomez MD [address] [place] [address]- Additional Instructions: Call for follow up appointment. Tylenol/Motrin for Pain/Fever relief Additional Instructions: Drink Fluids Additional Instructions: Medication Reconciliation New Prescription azithromycin (azithromycin 500 mg oral tablet)1 tab(s) Oral Daily for 7 Days. Refills: 0. ?? LORazepam (Ativan 1 mg oral tablet)1 tab(s) Oral Every 12 hours as needed as needed for anxiety. Refills: 0. ?? predniSONE (predniSONE 20 mg oral tablet)1 tab(s) Oral Daily for 7 Days. Refills: 0. ?? Unchanged acetaminophen-oxycodone (acetaminophen-oxycodone 325 mg-10 mg oral tablet)1 tab(s) Oral every 4 hours as needed Pain - Severe. Refills: 0. ?? cyclobenzaprine (!-Flexeril)10 Milligram Oral 3 times a day. ?? dexlansoprazole (Dexilant 60 mg oral delayed release capsule)1 cap Daily. ?? dilTIAZem (DilTIAZem (Eqv-Cardizem CD) 120 mg/24 hours oral capsule, extended release)1 cap Oral Daily. ?? docusate (docusate sodium 100 mg oral capsule)1 cap Oral 2 times a day as needed constipation. ?? fluticasone/umeclidinium/vilanterol (Trelegy Ellipta 100 mcg-62.5 mcg-25 mcg/inh inhalation powder)1 puff(s) Inhalation Daily. at the same time every day. ?? lactobacillus acidophilus and bulgaricus (Probiotic) ?? lovastatin (lovastatin 20 mg oral tablet)1 tab(s) Oral Daily for 30 Days. Refills: 0. ?? magnesium oxide (magnesium oxide 400 mg oral tablet)1 tab(s) Oral At bedtime. ?? pregabalin (pregabalin 150 mg oral capsule)1 cap Oral 3 times a day. ?? suvorexant (Belsomra 20 mg oral tablet)1 tab(s) Oral once a day (at bedtime). Problem List/Past Medical History Ongoing Arthritis Bone marrow transplant status Bronchitis Cervical spine disease Chest wall pain COPD (chronic obstructive pulmonary disease) COPD exacerbation COVID Diarrhea Dysphonia Frequent UTI Herpes History of kidney stones IBS (irritable bowel syndrome) Kidney cysts Non Hodgkin's lymphoma Urinary retention Historical No qualifying data Procedure/Surgical History ???Bladder tract???Foot???Gallbladder absent???Hysterectomy???Neck???Shoulder???Tonsillectomy Allergies NSAIDs??(Bleeding) Macrobid sulfa drug Nalbuphine Hydrochloride codeine Social History Alcohol Past, Liquor, 3-5 times per week Electronic Cigarette/Vaping Electronic Cigarette Use: Never. Employment/School [...] Years. Cause of : COPD Diagnostic Results Diagnostic Study Interpretation: Xray Chest reveals no acute intrathoracic abnormalities. ?? I have personally reviewed the diagnostic study as ordered and this is my preliminary findings, as often??the formal radiology report will, after the patient is dispositioned or later in the course of care. ??The hospital has a formal discrepancy process, and if there are any additional findings, the patient/family will be notified. ?? I have personally reviewed and interpreted the results of the diagnostic findings as ordered, including the need for the test based upon the history and physical exam performed to ensure we rule out any emergent/urgent findings.?? This also includes my independent review and analysis of any EKG or radiographic studies ordered,??as timely preliminary interpretation is important to the care of the patient.?? Any pertinent findings will be addressed as needed, as well as relayed to the patient or appropriate parties that they are aware. Lab Results COVID-19 Testing?? LATEST RESULTS?? HISTORICAL RESULTS?? SARS-CoV-2 (COVID-19) RNA (ID Now)?? 01/24/23 17:58?? Positive ??Critical?? 09/01/22?? Negative? Routine Chemistry?? LATEST RESULTS?? HISTORICAL RESULTS?? Sodium Level?? 01/24/23 17:02?? 135 ??Low?? 12/31/22?? 139?? Potassium Level?? 01/24/23 17:02?? 3.6?? 12/31/22?? 3.8?? Chloride Level?? 01/24/23 17:02?? 102?? 12/31/22?? 103?? CO2?? 01/24/23 17:02?? 22.7?? 12/31/22?? 26.2?? Anion Gap?? 01/24/23 17:02?? 14?? 12/31/22?? 14?? Glucose Level?? 01/24/23 17:02?? 94?? 12/31/22?? 116 ??High?? BUN?? 01/24/23 17:02?? 15?? 12/31/22?? 5 ??Low?? Creatinine Level?? 01/24/23 17:02?? 1.2 ??High?? 12/31/22?? 0.6?? GFR AA?? 01/24/23 17:02?? 53 ??Low?? 12/31/22?? 133?? GFR Non AA?? 01/24/23 17:02?? 44 ??Low?? 12/31/22?? 110?? Calcium Level?? 01/24/23 17:02?? 8.1 ??Low?? 12/31/22?? 8.0 ??Low?? Magnesium?? 01/24/23 17:02?? 1.5 ??Low?? 12/31/22?? 1.8?? Bili Total?? 01/24/23 17:02?? 0.26?? 12/31/22?? 0.56?? Alk Phos?? 01/24/23 17:02?? 71?? 12/31/22?? 85?? AST/SGOT?? 01/24/23 17:02?? 35?? 12/31/22?? 50 ??High?? ALT/SGPT?? 01/24/23 17:02?? 29?? 12/31/22?? 33?? Protein Total?? 01/24/23 17:02?? 6.9?? 12/31/22?? 6.2 ??Low?? Albumin Level?? 01/24/23 17:02?? 3.6?? 12/31/22?? 3.2 ??Low? Cardiac Isoenzymes?? LATEST RESULTS?? HISTORICAL RESULTS?? Troponin-I?? 01/24/23 17:02?? 5.70?? 09/01/22?? 7.50?? NT Pro-BNP?? 01/24/23 17:02?? 797 ??High?? 09/01/22?? 221 ??High? Other Chemistry?? LATEST RESULTS?? HISTORICAL RESULTS?? CRP?? 01/24/23 17:02?? 3.37 ??High?? 12/28/22?? 4.16 ??High? CBC?? LATEST RESULTS?? HISTORICAL RESULTS?? WBC?? 01/24/23 17:02?? 6.9?? 12/31/22?? 5.3?? RBC?? 01/24/23 17:02?? 3.67 ??Low?? 12/31/22?? 3.36 ??Low?? Hgb?? 01/24/23 17:02?? 11.4 ??Low?? 12/31/22?? 10.7 ??Low?? Hct?? 01/24/23 17:02?? 36.4?? 12/31/22?? 36.8?? MCV?? 01/24/23 17:02?? 99?? 12/31/22?? 110 ??High?? MCH?? 01/24/23 17:02?? 31.1?? 12/31/22?? 31.8?? MCHC?? 01/24/23 17:02?? 31.3?? 12/31/22?? 29.1 ??Low?? RDW/CV?? 01/24/23 17:02?? 12.3?? 12/31/22?? 12.6?? Platelet?? 01/24/23 17:02?? 115 ??Low?? 12/31/22?? 76 ??Low?? MPV?? 01/24/23 17:02?? 10.2?? 12/31/22?? 11.1? Differential?? LATEST RESULTS?? HISTORICAL RESULTS?? Auto Lymph %?? 01/24/23 17:02?? 28.0?? 12/31/22?? 32.1?? Auto Neut %?? 01/24/23 17:02?? 55.1?? 12/31/22?? 52.8?? Auto Hopewell %?? 01/24/23 17:02?? 15.9 ??High?? 12/31/22?? 13.8 ??High?? Auto Eos %?? 01/24/23 17:02?? 0.3?? 12/31/22?? 1.1?? Auto Baso %?? 01/24/23 17:02?? 0.3?? 12/31/22?? 0.2?? Auto IG %?? 01/24/23 17:02?? 0.4?? 12/31/22?? 0.0?? Lymph Abs#?? 01/24/23 17:02?? 1.94?? 12/31/22?? 1.70?? Neut Abs#?? 01/24/23 17:02?? 3.81?? 12/31/22?? 2.79?? Hopewell Abs#?? 01/24/23 17:02?? 1.10 ??High?? 12/31/22?? 0.73?? Eos Abs#?? 01/24/23 17:02?? 0.02?? 12/31/22?? 0.06?? Baso Abs#?? 01/24/23 17:02?? 0.02?? 12/31/22?? 0.01?? IG Auto?? 01/24/23 17:02?? 0.03?? 12/31/22?? 0.00?? NRBC Abs #?? 01/24/23 17:02?? 0?? 12/31/22?? 0? Coagulation?? LATEST RESULTS?? HISTORICAL RESULTS?? PT?? 01/24/23 17:02?? 11.0?? 04/19/22?? 9.8?? INR?? 01/24/23 17:02?? 1.04?? 04/19/22?? 0.93? Immunology General?? LATEST RESULTS?? HISTORICAL RESULTS?? Influenza A?? 01/24/23 17:58?? negative?? 12/28/22?? negative?? Influenza B?? 01/24/23 17:58?? negative?? 12/28/22?? negative? Blood Gases?? LATEST RESULTS?? HISTORICAL RESULTS?? Rik Test Art?? 01/24/23 17:02?? Acceptable?? 09/01/22?? Not Indicated?? pH Art?? 01/24/23 17:02?? 7.37?? 09/01/22?? 7.38?? pCO2 Art?? 01/24/23 17:02?? 42.0?? 09/01/22?? 46.0 ??Critical?? pO2 Art?? 01/24/23 17:02?? 57 ??Critical?? 09/01/22?? 88?? HCO3 Art?? 01/24/23 17:02?? 24.3?? 09/01/22?? 27.2 ??High?? Base Excess Art?? 01/24/23 17:02?? -1.0?? 09/01/22?? 1.6?? TCO2 Art?? 01/24/23 17:02?? 25.6?? 09/01/22?? 28.6 ??High?? Fio2 Art?? 01/24/23 17:02?? 21?? 09/01/22?? 40?? O2 ??Sat Art?? 01/24/23 17:02?? 88 ??Low?? 09/01/22?? 97?? Puncture Site?? 01/24/23 17:02?? L Radial?? 09/01/22?? R Radial? Attending Attestation I personally saw and evaluated the patient on the date of service noted by the JENNIFER. ??I personally reviewed the most current data available, including vitals, diagnostics, and ancillary staff records.?? The management was discussed with the JENNIFER??and other treatment team members as appropriate, and I agree with the documentation, unless otherwise noted below. ??I performed the substantive portion of the medical decision making. [Electronically Signed by: 01/24/2023 18:55 EDT] Rober Caldwell PUMP TESTER PUMP TESTER-C Mary Tran MD, M.D. [Verified on: 01/24/2023 18:55 EDT] Rober Caldwell PUMP TESTER PUMP TESTER-C Portable XR Chest AP single view * Jayesh Cowart MD: VERIFY, VERIFY DomainUser, Generated: PERFORM Event Display: Radiology Report Authored Date: [id number] HISTORY Shortness of Breath STUDY XR Chest 1 View Portable COMPARISON September 01, 2022 TECHNIQUE Chest radiographic imaging, AP portable projection, 1 image FINDINGS No cardiomegaly. No focal airspace disease. No pleural effusion. No pneumothorax. No acute osseous abnormality. Left total shoulder prosthesis. Fusion hardware in the lower cervical spine. IMPRESSION No imaging findings of acute cardiopulmonary disease. Electronically signed by: Jayesh Cowart (Jan 24, 2023 22:51:10) Final Signed (Electronic Signature): Jayesh Cowart MD 01/24/23 10:51 p Technologist: MS Patient Care team information Care Team Personnel Name: Avila Gomez MD Position: [facility] Physician OB LP Member Role: Primary Care Physician Address: Address: [address] [place] [address] Name: Mary Biswas Position: [facility] Care Management Member Role: Chain Hoist Operator Name: Lizzie Cancino Position: [facility] Care Management Member Role: Chain Hoist Operator Name: Kendy Wilson RN Position: [facility] RN LP PCSC Member Role: ED Nurse Name: Rober Caldwell PUMP TESTER Position: [facility] ED Mid-Level (w/Cosign) LP Member Role: ED Mid-Level Address: Address: [address] [place] [address] Name: Hailey Jacobs RN Position: [facility] RN LP PCSC Member Role: ED Nurse Care Team Related Persons Name: TAMELA OGDEN Address: Home [address] [place] [address] [address] [place], [place] [id number]
--- OUTSIDE RECORDS SUMMARY | 2023-05-16 15:43 | XMS_ITS | Continuity of Care Document ---
Author Name Unknown Organization [facility] Address [address] [place] [id number] Care Team Providers Care Cracking Machine Operator Name Role Phone Avila Gomez Primary Care Physician Encounter 08/19/21 - 11/18/[address] [address]- Discharge Disposition: Home Attending Physician: Darren Randhawa MD Admitting Physician: Darren Randhawa MD Allergies, Adverse Reactions, Alerts Substance Reaction Severity Status NSAIDs Active sulfa drug Anaphyllaxis Active Assessment and Plan Future Scheduled Tests Radiology* XR Hip Comp Min 2 Views Rt +Pelvis 08/20/21 Medications acetaminophen-oxycodone 325 mg-10 mg oral tablet [...]
--- OUTSIDE RECORDS SUMMARY | 2023-05-16 15:44 | XMS_ITS | Continuity of Care Document ---
Author Name Unknown Organization [facility] Address [address] [place] [id number] Care Team Providers Care Corporate Director Talent Assessment Name Role Phone Avila Gomez Primary Care Physician Encounter 05/27/20 - 05/27/[address] [address]- Encounter Diagnosis Intercostal pain(Final) - Discharge Disposition: [...] Hysterectomy Completed Neck 2 Completed 1surgery 2surgery Social History Social History Type Response Smoking Status Former smoker, quit more than 30 days ago entered on: 07/24/19 Sex
--- OUTSIDE RECORDS SUMMARY | 2023-05-16 15:44 | XMS_ITS | Continuity of Care Document ---
Author Name Unknown Organization [facility] Address [address], [place] [address] Care Team Providers Care Lingo Cleaner Name Role Phone Avila Gomez Primary Care Physician [phone] Encounter 10/19/21 - 10/19/21 [facility] [address] [place] [phone] [place] Discharge Disposition: Home Attending Physician: Abe Jackson MD Allergies, Adverse Reactions, Alerts Substance Reaction Severity Status NSAIDs Active sulfa drug Anaphyllaxis Active Assessment and Plan Future Scheduled Tests Radiology* XR Hip Comp Min 2 Views Rt +Pelvis 08/20/21 Medications albuterol 90 mcg/inh inhalation aerosol 2 [...]
--- OUTSIDE RECORDS SUMMARY | 2023-05-16 15:44 | XMS_ITS | Continuity of Care Document ---
Author Name Unknown Organization [facility] Address [address] [place] [address] Care Team Providers Care Paleontological Helper Name Role Phone Avila Gomez Primary Care Physician Encounter 02/28/22 - 02/28/22 [facility] [address] [place] [phone] [place] Encounter Diagnosis Urinary retention(Discharge Diagnosis) - 02/28/22 History of kidney stones(Discharge Diagnosis) - 02/28/22 Frequent UTI(Discharge Diagnosis) - 02/28/22 Discharge Disposition: Home Attending Physician: Abe Jackson MD Referring Physician: Avila Gomez MD Allergies, Adverse Reactions, Alerts Substance Reaction Severity Status Macrobid Mild Active NSAIDs Bleeding Moderate Active sulfa drug Anaphyllaxis Active Assessment and Plan Extracted from: Title:Office Visit Note Author:Abe Jackson MD Date:02/28/22 1.??Urinary retention??R33.9 Urinary tension she is to do intermittent catheterization dilatation we gave her catheter so that she can cath herself as needed I told her if she needs more catheter she need to call us to put the prescription in.?? Was told to stop the caffeine??to do Kegel exercises and to Premarin vaginal normal.?? We will see her back in a couple months to see if she is??told this to stop all caffeinated drinks. 2.??Frequent UTI??N39.0 Has also recurrent UTIs she never had evaluation recently we will going to do a renal bladder ultrasound I told her to have her bladder full when she has her ultrasound. 3.??History of kidney stones??Z87.442 Patient has history of kidney stones we will going to do ultrasound we will see if she has any. Future Appointments Future Scheduled Tests Radiology* US Renal Comp 5/5/22 * US Bladder +Residual Post Voiding 03/03/22 * XR Hip Comp Min 2 Views Rt +Pelvis 08/20/21 Functional Status 02/28/22 Other exposure to Infectious Disease Non e [...] bedtime), # 42.5 gm, 11 Refill(s), Pharmacy: [facility] - [place], [place], 165, cm, 02/15/22 17:19:00 EDT, Height/Length [...] Most recent to oldest [Reference Range]: 1 Temperature Temporal [36.3-37.8 DegC] 36 .9 DegC (02/28/22 9:08 AM) Peripheral Pulse Rate [60-100 bpm] 91 bp m (02/28/22 9:08 AM) Blood Pressure [90-140/60-90 mmHg] 144/7 6mmHg *HI* (02/28/22 9:08 AM) Height 165 cm (02/28/22 9:08 AM) Height/Length Measured (inches) 64.96 in (02/28/22 9:08 AM) Weight 84.8 kg (02/28/22 9:08 AM) Weight Measured (lbs) 186.952 lb (02/28/22 9:08 AM) Body Mass Index 31.15 kg/m2 (02/28/22 9:08 AM) Flora Body Weight Calculated 56.909 kg (02/28/22 9:08 AM) BSA Measured 1.97 m2 (02/28/22 9:08 AM) Social History Social History Type Response Tobacco Former tobacco user Tobacco Use:. 1/2 per day. 40 year(s). Sex Hospital Discharge Instructions Follow Up Care 02/25/2022 04:06:19 With:Return to this practice Address:Unknown When: Unknown Care Team Personnel Name: Avila Gomez MD Address: [address] [place] [address]
--- OUTSIDE RECORDS SUMMARY | 2023-05-16 15:44 | XMS_ITS | Continuity of Care Document ---
Author Name Unknown Organization [facility] Address [address] [place] [phone] Care Team Providers Care Pilot Supervisor Name Role Phone Avila Gomez Primary Care Physician Encounter 07/08/20 - 07/08/[address] [address]- Discharge Disposition: Home Attending Physician: MAHAMED DE [...]
--- OUTSIDE RECORDS SUMMARY | 2023-05-16 15:44 | XMS_ITS | Continuity of Care Document ---
Author Name Unknown Organization [facility] Address [address] [place] [id number] Care Team Providers Care Wool Broker Name Role Phone Avila Gmoez Primary Care Physician Encounter 12/28/22 - 12/31/[address] [address]- Encounter Diagnosis Pancreatitis(Discharge Diagnosis) - 12/28/22 Discharge Disposition: Home Attending Physician: Reuben Lai MD Admitting Physician: Reuben Lai MD Allergies, Adverse Reactions, Alerts Substance Reaction Severity Status codeine Unknown Active Macrobid Mild Active Nalbuphine Hydrochloride Unknown Act gwendolyn NSAIDs Bleeding Moderate Active sulfa drug Anaphyllaxis Active Assessment and Plan Extracted from: Title:Discharge Note Author:Alondra Wolfe Date:12/31/22 Discharge Plan Pancreatitis - CT abdomen and pelvis finds??CT of abdomen and pelvis finds 1. ??Moderate inflammatory change surrounding the pancreatic head and duodenum is consistent with either acute pancreatitis or duodenitis.?? 2.?? Common bile duct dilatation without obstructing stone or mass, while this can be seen secondary to pancreatitis or duodenitis??a noncalcified stone or obstructing lesion within the common bile duct cannot be excluded.?? Consider contrast-enhanced??MRI/MRCP for further evaluation.?? - Amylase 102 - Lipase 872, 408, 117, 76 - Lipid profile: Cholesterol 196. HDL 69, Cholesterol/HDL ration 2.8,??triglyceride 638.? - NPO except for ice chips, clear liquids advance as tolerated to bland, low fat - Dilaudid 0.5mg IV Q4hrs PRN pain - Zofran 4mg IV Q6hrs PRN nausea - phenergan 25mg per rectum Q6hrs PRN, d/c on 3/2 - NS with 20meq K+ at 125ml/hr, d/c on 3 -??I & O - US??RUQ abdomen-probable pancreatitis in the head of the pancreas with dilation of the pancreatic duct. Possible dilation of the biliary ducts but this appearance could possibly be prior cholecystectomy.?? - MRCP-1.Findings of acute pancreatitis without definite evidence of pancreatic necrosis or pseudocyst formation. ??2. Double duct sign which raises at least some concern for possible obstruction of the ducts in the region of the pancreatic head. No obstructing stone is seen and there is no definite pancreatic head mass. Would recommend reimaging after acute symptoms have resolved (approximately 1-2 months).?3. Mild hepatic steatosis.?? - Consult to Gastroenterology, Dr. Curtis Coronado input appreciated--->patient was seen in consultation by Dr Medina, general surgery, who agrees with MRCP??recommendation??of repeat CT or MRCP in a month or so.?? Will order Dulcolax for her constipation.?? I do not see a surgical problem at this point and we will therefore see her as needed. -slowly advance diet to bland, low fat -increased lovastatin from 10mg daily to 20mg daily at discharge -patient requested prescription for extra Percocet until she can follow up with her PCP -f/u with PCP in 1 week ?? Hyponatremia, resolved - sodium 131, 138, 138, 139 - 2LNS given in ED - NS??with 20meq K+ on admission? Hypokalemia - potassium 3.2, 3.5, 3.6, 3.8 - Fluids as above - AM labs, trend? Hyperglycemia - random blood glucose 123 - A1C 5.5 - AM labs, trend ? Acute kidney injury - BUN 30, 20, 10, 5 - creatinine 2.2, 1.1, 0.8, 0.6 - GFR 22?? - Baseline creatinine 0.8 - Fluids as above - I & O - AM labs, trend ? Hypomagnesemia - Magnesium level 1.3, 1.7, 2.0, 1.8 - magnesium sulfate 1gm IV given in ED - magnesium oxide 400mg POQHS - AM labs, trend ?? GERD - pantoprazole 40mg IV Qday, changed to PO 12/29 ?? COPD - Patient is on??oxygen 2L/min chronically.?? On admission patient is at baseline - DuoNeb QID, d/c on 12/29 - Albuterol neb Q2hrs PRN - Oxygen to keep sat >90% - Incentive Spirometry - Flutter therapy ?? 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 Thrombocytopenia -platelet count 67K, 71K, 76K -d/c SQ heparin on 12/29 -trend ?? Insomnia - Restoril 30mg PO QHS ?? Other - DVT proph: SCD, heparin 5000 units SQ BID, d/c on 12/29/2212/01 thrombocytopenia - Milk of Magnesia 30ml PO Q8hrs PRN constipation - Colace 100mg PO BID - Tylenol 650mg PO or per rectum Q4hrs PRN pain/fever - Zofran 4mg IV Q6hrs PRN nausea - [place] nasal spray PRN - Artificial tears PRN - Trazodone 50mg PO QHS PRN sleep, d/c on 12/29 - Atarax 10mg PO Q6hrs PRN anxiety, d/c on 12/29 Patient Discharge Condition stable Discharge Disposition home Patient Education Admission Education Packet (JASKARAN) Rehydration, Adult Diarrhea, Adult Acute Pancreatitis Follow Up With When Contact Information Avila Gomez MD Within 1 week [address] [place] [address]- Additional Instructions: Call for follow up appointment Extracted from: Title:ED Provider Note Author:Joselo Barksdale ate:12/28/22 1.??Pancreatitis??K85.90 Orders: Normal Saline 1,000 mL, 1,000, mL, IV, STAT, Start date 12/28/22 15:55:00 EST, 999 mL/hr, 1, hr, Total volume (mL): 1,000, 80.29 kg, 1.92, m2, 12/28/22 15:55:00 EST Blood Culture x 2, Blood, Stat collect, 12/28/22 15:55:00 EST, Once, Stop date 12/28/22 15:55:00 EST, Lab Collect, 12/28/22 15:55:00 EST Urinalysis with Culture, If Indicated Standard, Urine, Stat collect, 12/28/22 15:55:00 EST, Once, Stop date 12/28/22 15:55:00 EST, Nurse collect Addendum by Chris Roldan MD on December 28, 2022 19:20:26 EST I personally saw and evaluated the patient on the day of service noted by the JENNIFER.?I personally reviewed the most current data available, including vitals, diagnostics, and ancillary staff records.?The management was discussed with the JENNIFER and other treatment team members as appropriate, and I agree with the documentation, unless otherwise noted below. I performed the substantive portion of the Medical Decision Making.?? Diagnostic Tests Pending * Lipase Level 12/31/22 * Blood Culture x 2 12/28/22 * CBC w/Diff Standard 12/28/22 * Comprehensive Metabolic Panel Standard 12/28/22 * Magnesium Level 12/28/22 Future Scheduled Tests Radiology* US Renal Comp 03/03/22 * US Bladder +Residual Post Voiding 03/03/22 * CT Chest w/o Cont 07/14/22 * CT Chest Hi-Res w/o Contrast 09/26/22 Functional Status 12/31/22 History of Fall in Last 3 Months Green Y es 12/28/22 Recent Travel History No recent travel Other exposure to Infectious Disease Non e Family Member Travel History No recent t ravel Medications !-Flexeril ( 10 mg ), Oral, TID, 0 Refill(s) Start Date: 12/28/22 Status: Ordered !-Zofran ODT 4 mg oral [...] (Rx), Tab Start Date: 12/31/22 Status: Ordered Belsomra 20 mg oral tablet [...] Daily, # 30 tab(s), 0 Refill(s), Pharmacy: [facility] - [place], [place], Tab, 165.1, cm, 12/28/22 15:47:00 EST, Height/Length Dosing, 80.29, kg, 12/28/22 15:47:00 EST, Weight Dosing Start Date: 12/31/22 Stop Date: 01/30/23 Status: Ordered magnesium oxide 400 mg oral tablet ( 400 mg ) 1 tab(s), Oral, HS, 0 Refill(s), Tab Start Date: 09/01/22 Status: Ordered pregabalin 150 mg oral capsule ( 150 mg ) 1 cap(s), Oral, TID Start Date: 01/04/22 Status: Ordered Probiotic See Instructions, 0 Refill(s) Start Date: 12/28/22 Status: Ordered traZODone 100 mg oral tablet ( 100 mg ) 1 tab(s), Oral, Once a day (at bedtime) Start Date: 01/04/22 Status: Ordered Trelegy Ellipta 100 mcg-62.5 mcg-25 mcg/inh inhalation powder 1 puff(s), INH, Daily, Instructions: at the same time every day, # 60 EA, 0 Refill(s), Powder Start Date: 12/28/22 Status: Ordered Mental Status 12/31/22 Level of Consciousness Alert Problem List Condition [...] Laboratory List Name Date Automated Differential Standard 12/31/22 CBC w/Diff Standard 12/31/22 Comprehensive Metabolic Panel Standard ( CMP Standard) 12/31/22 Lipase Level 12/31/22 Magnesium Level 12/31/22 Lipase Level 12/30/22 Automated Differential Standard 12/30/22 CBC w/Diff Standard 12/30/22 Comprehensive Metabolic Panel Standard ( CMP Standard) 12/30/22 Magnesium Level 12/30/22 Automated Differential Standard 12/29/22 CBC w/Diff Standard 12/29/22 Comprehensive Metabolic Panel Standard ( CMP Standard) 12/29/22 Lipase Level 12/29/22 Lipid Panel Standard 12/29/22 Magnesium Level 12/29/22 Urinalysis Microscopic 12/28/22 Urinalysis with Culture, If Indicated [place] 12/28/22 Amylase Level 12/28/22 Lipase Level 12/28/22 Lipid Panel Standard 12/28/22 Influenza A&B 12/28/22 .Smear Review (UG) 12/28/22 Automated Differential Standard 12/28/22 C-Reactive Protein 12/28/22 CBC w/Diff Standard 12/28/22 Comprehensive Metabolic Panel Standard ( CMP Standard) 12/28/22 Hemoglobin A1c 12/28/22 Lactic Acid Screen 12/28/22 Magnesium Level 12/28/22 Most recent to oldest [Reference Range]: 1 2 3 4 Plt Clmp [None] Occasional *ABN* (12/28/22 4:09 PM) UA Epithelials [None Seen] Few *ABN* (12/28/22 11:55 PM) Slide Review? Smear Review (12/28/22 4:09 PM) Urine Source RANDOM (12/28/22 11:55 PM) Creatinine Level [0.6-1.0 mg/dL] 0.6 mg/dL (12/31/22 5:30 AM) 0.8 mg/dL (12/30/22 5:15 AM) 1.1 mg/dL *HI* (12/29/22 4:46 AM) 2.2 mg/dL 1 *HI* (12/28/22 4:09 PM) RDW/CV [11.5-14.5 %] 12.6 % (12/31/22 5:30 AM) 12.5 % (12/30/22 5:15 AM) 12.4 % (12/29/22 4:46 AM) 12.3 % (12/28/22 4:09 PM) UA Bacteria [None Seen] Trace *ABN* (12/28/22 11:55 PM) UA Blood [Negative] Negative (12/28/22 11:55 PM) UA Color [Colorless] Yellow (12/28/22 11:55 PM) UA Glucose [Negative] Negative (12/28/22 11:55 PM) UA Ketones [Negative] Negative (12/28/22 11:55 PM) UA Leuk Est [Negative] Negative (12/28/22 11:55 PM) UA Nitrite [Negative] Negative (12/28/22 11:55 PM) UA Protein [Negative] 1+ *ABN* (12/28/22 11:55 PM) UA RBC [0-5] 0-5 (12/28/22 11:55 PM) UA Urobilinogen [0.2] 0.2 (12/28/22 11:55 PM) UA WBC [None Seen] 0-5 (12/28/22 11:55 PM) Chol/HDL Ratio [<=4.6 %] 3.3 % (12/29/22 4:46 AM) 2.8 % (12/28/22 6:05 PM) Trig [15-150 mg/dL] 619 mg/dL *HI* (12/29/22 4:46 AM) 638 mg/dL *HI* (12/28/22 6:05 PM) UA pH 5.5 (12/28/22 11:55 PM) Albumin Level [3.4-5.0 mg/dL] 3.2 mg/dL *LOW* (12/31/22 5:30 AM) 3.5 mg/dL (12/30/22 5:15 AM) 3.4 mg/dL (12/29/22 4:46 AM) 4.0 mg/dL 2 (12/28/22 4:09 PM) Alk Phos [40-120 IU/L] 85 IU/L (12/31/22 5:30 AM) 90 IU/L (12/30/22 5:15 AM) 78 IU/L (12/29/22 4:46 AM) 87 IU/L 3 (12/28/22 4:09 PM) Amylase Level [25-115 IU/L] 102 IU/L (12/28/22 6:05 PM) Bili Total [0.20-1.00 mg/dL] 0.56 mg/dL (12/31/22 5:30 AM) 0.55 mg/dL (12/30/22 5:15 AM) 0.64 mg/dL (12/29/22 4:46 AM) 0.99 mg/dL 4 (12/28/22 4:09 PM) BUN [7-18 mg/dL] 5 mg/dL *LOW* (12/31/22 5:30 AM) 10 mg/dL (12/30/22 5:15 AM) 20 mg/dL *HI* (12/29/22 4:46 AM) 30 mg/dL 5 *HI* (12/28/22 4:09 PM) Chloride Level [98-107 mmol/L] 103 mmol/L (12/31/22 5:30 AM) 103 mmol/L (12/30/22 5:15 AM) 106 mmol/L (12/29/22 4:46 AM) 96 mmol/L 6 *LOW* (12/28/22 4:09 PM) CO2 [21.0-32.0 mmol/L] 26.2 mmol/L (12/31/22 5:30 AM) 25.4 mmol/L (12/30/22 5:15 AM) 19.3 mmol/L *LOW* (12/29/22 4:46 AM) 19.0 mmol/L 7 *LOW* (12/28/22 4:09 PM) Glucose Level [70-110 mg/dL] 116 mg/dL *HI* (12/31/22 5:30 AM) 108 mg/dL (12/30/22 5:15 AM) 115 mg/dL *HI* (12/29/22 4:46 AM) 123 mg/dL 8 *HI* (12/28/22 4:09 PM) Hct [35.0-49.0 %] 36.8 % (12/31/22 5:30 AM) 35.0 % (12/30/22 5:15 AM) 34.9 % *LOW* (12/29/22 4:46 AM) 37.5 % (12/28/22 4:09 PM) HDL [>=40 mg/dL] 67 mg/dL (12/29/22 4:46 AM) 69 mg/dL (12/28/22 6:05 PM) Hgb [12.0-16.0 g/dL] 10.7 g/dL *LOW* (12/31/22 5:30 AM) 11.1 g/dL *LOW* (12/30/22 5:15 AM) 11.1 g/dL *LOW* (12/29/22 4:46 AM) 12.3 g/dL (12/28/22 4:09 PM) Hgb A1c [4.0-6.0 %] 5.5 % (12/28/22 4:09 PM) Lipase Level [73-393 IU/L] 76 IU/L (12/31/22 5:30 AM) 117 IU/L (12/30/22 11:22 AM) 408 IU/L *HI* (12/29/22 4:46 AM) 872 IU/L 9 *CRIT* (12/28/22 6:05 PM) Magnesium [1.8-2.4] 1.8 (12/31/22 5:30 AM) 2.0 (12/30/22 5:15 AM) 1.7 *LOW* (12/29/22 4:46 AM) 1.3 10 *LOW* (12/28/22 4:09 PM) MCH [26.0-33.0 pg] 31.8 pg (12/31/22 5:30 AM) 32.1 pg (12/30/22 5:15 AM) 31.7 pg (12/29/22 4:46 AM) 32.3 pg (12/28/22 4:09 PM) MCHC [31.0-36.0 g/dL] 29.1 g/dL *LOW* (12/31/22 5:30 AM) 31.7 g/dL (12/30/22 5:15 AM) 31.8 g/dL (12/29/22 4:46 AM) 32.8 g/dL (12/28/22 4:09 PM) MCV [82-100] 110 *HI* (12/31/22 5:30 AM) 101 *HI* (12/30/22 5:15 AM) 100 (12/29/22 4:46 AM) 98 (12/28/22 4:09 PM) MPV [8.0-12.3 fL] 11.1 fL (12/31/22 5:30 AM) 10.7 fL (12/30/22 5:15 AM) 10.8 fL (12/29/22 4:46 AM) 10.5 fL (12/28/22 4:09 PM) Platelet [150-450 x10^3/mcL] 76 x10^3/mcL *LOW* (12/31/22 5:30 AM) 71 x10^3/mcL 11 *LOW* (12/30/22 5:15 AM) 67 x10^3/mcL 12 *LOW* (12/29/22 4:46 AM) 89 x10^3/mcL *LOW* (12/28/22 4:09 PM) Potassium Level [3.5-5.2 mmol/L] 3.8 mmol/L (12/31/22 5:30 AM) 3.6 mmol/L (12/30/22 5:15 AM) 3.5 mmol/L (12/29/22 4:46 AM) 3.2 mmol/L 13 *LOW* (12/28/22 4:09 PM) RBC [4.00-5.20 x10^6/mcL] 3.36 x10^6/mcL *LOW* (12/31/22 5:30 AM) 3.46 x10^6/mcL *LOW* (12/30/22 5:15 AM) 3.50 x10^6/mcL *LOW* (12/29/22 4:46 AM) 3.81 x10^6/mcL *LOW* (12/28/22 4:09 PM) Sodium Level [136-145 mEq/L] 139 mEq/L (12/31/22 5:30 AM) 138 mEq/L (12/30/22 5:15 AM) 138 mEq/L (12/29/22 4:46 AM) Sodium Level [136-145] 131 14 *LOW* (12/28/22 4:09 PM) Protein Total [6.4-8.2 g/dL] 6.2 g/dL *LOW* (12/31/22 5:30 AM) 6.4 g/dL (12/30/22 5:15 AM) 6.2 g/dL *LOW* (12/29/22 4:46 AM) 7.5 g/dL 15 (12/28/22 4:09 PM) WBC [4.3-11.0 x10^3/mcL] 5.3 x10^3/mcL (12/31/22 5:30 AM) 5.6 x10^3/mcL (12/30/22 5:15 AM) 7.0 x10^3/mcL (12/29/22 4:46 AM) 9.3 x10^3/mcL (12/28/22 4:09 PM) UA Spec Grav 1.020 (12/28/22 11:55 PM) Anion Gap 14 *NA* (12/31/22 5:30 AM) 13 *NA* (12/30/22 5:15 AM) 16 *NA* (12/29/22 4:46 AM) 19 16 *NA* (12/28/22 4:09 PM) Calcium Level [8.5-10.2 mg/dL] 8.0 mg/dL *LOW* (12/31/22 5:30 AM) 8.0 mg/dL *LOW* (12/30/22 5:15 AM) 7.6 mg/dL *LOW* (12/29/22 4:46 AM) 8.4 mg/dL 17 *LOW* (12/28/22 4:09 PM) ALT/SGPT [12-78 IU/L] 33 IU/L (12/31/22 5:30 AM) 36 IU/L (12/30/22 5:15 AM) 40 IU/L (12/29/22 4:46 AM) 49 IU/L 18 (12/28/22 4:09 PM) AST/SGOT [15-37 IU/L] 50 IU/L *HI* (12/31/22 5:30 AM) 60 IU/L *HI* (12/30/22 5:15 AM) 115 IU/L *HI* (12/29/22 4:46 AM) 88 IU/L 19 *HI* (12/28/22 4:09 PM) Cholesterol [50-200 mg/dL] 221 mg/dL *HI* (12/29/22 4:46 AM) 196 mg/dL (12/28/22 6:05 PM) LDL Calc [<=130 mg/dL] 30 mg/dL (12/29/22:46 AM) <0 mg/dL (12/28/22 6:05 PM) Auto Eos % [0.0-7.0 %] 1.1 % (12/31/22 5:30 AM) 0.9 % (12/30/22 5:15 AM) 0.9 % (12/29/22:46 AM) 0.3 % (12/28/22 4:09 PM) Auto Lymph % [10.0-50.0 %] 32.1 % (12/31/22 5:30 AM) 33.5 % (12/30/22 5:15 AM) 32.3 % (12/29/22:46 AM) 33.7 % (12/28/22 4:09 PM) Auto Neut % [37.0-80.0 %] 52.8 % (12/31/22 5:30 AM) 53.9 % (12/30/22 5:15 AM) 56.3 % (12/29/22:46 AM) 56.0 % (12/28/22 4:09 PM) Eos Abs# [0.00-0.50 K/uL] 0.06 K/uL (12/31/22 5:30 AM) 0.05 K/uL (12/30/22 5:15 AM) 0.06 K/uL (12/29/22 4:46 AM) 0.03 K/uL (12/28/22 4:09 PM) Lymph Abs# [1.00-4.00 K/uL] 1.70 K/uL (12/31/22 5:30 AM) 1.87 K/uL (12/30/22 5:15 AM) 2.25 K/uL (12/29/22 4:46 AM) 3.13 K/uL (12/28/22 4:09 PM) Steele Abs# [0.20-1.00 K/uL] 0.73 K/uL (12/31/22 5:30 AM) 0.61 K/uL (12/30/22 5:15 AM) 0.68 K/uL (12/29/22 4:46 AM) 0.88 K/uL (12/28/22 4:09 PM) UA Clarity [Clear] Cloudy *ABN* (12/28/22 11:55 PM) Auto Baso % [0.0-2.5 %] 0.2 % (12/31/22 5:30 AM) 0.4 % (12/30/22 5:15 AM) 0.3 % (12/29/22 4:46 AM) 0.2 % (12/28/22 4:09 PM) Auto Steele % [0.0-12.0 %] 13.8 % *HI* (12/31/22 5:30 AM) 10.9 % (12/30/22 5:15 AM) 9.8 % (12/29/22 4:46 AM) 9.5 % (12/28/22 4:09 PM) Baso Abs# [0.00-0.20 K/uL] 0.01 K/uL (12/31/22 5:30 AM) 0.02 K/uL (12/30/22 5:15 AM) 0.02 K/uL (12/29/22 4:46 AM) 0.02 K/uL (12/28/22 4:09 PM) Neut Abs# [2.00-7.50 K/uL] 2.79 K/uL (12/31/22 5:30 AM) 3.01 K/uL (12/30/22 5:15 AM) 3.93 K/uL (12/29/22 4:46 AM) 5.20 K/uL (12/28/22 4:09 PM) Smear Comment Stomatocytes 3+ *NA* (12/28/22 4:09 PM) Micro? Indicated (12/28/22 11:55 PM) CRP [0.05-0.80 mg/dL] 4.16 mg/dL 20 *HI* (12/28/22 4:09 PM) Lactic Acid [0.4-1.9 mmol/L] 1.5 mmol/L (12/28/22 4:09 PM) Plt Large [None] Occasional *ABN* (12/28/22 4:09 PM) Influenza A [negative] negative (12/28/22 4:14 PM) Influenza B [negative] negative (12/28/22 4:14 PM) GFR AA [>=60 mL/min/1.73 ] 133 mL/min/1.73 (12/31/22 5:30 AM) 83 mL/min/1.73 (12/30/22 5:15 AM) 59 mL/min/1.73 *LOW* (12/29/22 4:46 AM) 26 mL/min/1.73 *LOW* (12/28/22 4:09 PM) GFR Non AA [>=60 mL/min/1.73 ] 110 mL/min/1.73 (12/31/22 5:30 AM) 69 mL/min/1.73 (12/30/22 5:15 AM) 49 mL/min/1.73 *LOW* (12/29/22 4:46 AM) 22 mL/min/1.73 *LOW* (12/28/22 4:09 PM) Culture? [Not Indicated] Not Indicated (12/28/22 11:55 PM) NRBC Abs # 0 K/uL *NA* (12/31/22 5:30 AM) 0 K/uL *NA* (12/30/22 5:15 AM) 0 K/uL *NA* (12/29/22 4:46 AM) 0 K/uL *NA* (12/28/22 4:09 PM) IG Auto [0.00-0.50 K/uL] 0.00 K/uL (12/31/22 5:30 AM) 0.02 K/uL (12/30/22 5:15 AM) 0.03 K/uL (12/29/22 4:46 AM) 0.03 K/uL (12/28/22 4:09 PM) Auto IG % [0.0-5.0 %] 0.0 % (12/31/22 5:30 AM) 0.4 % (12/30/22 5:15 AM) 0.4 % (12/29/22 4:46 AM) 0.3 % (12/28/22 4:09 PM) UA Bilirubin [Negative] Negative (12/28/22 11:55 PM) 1Result Comment: reran to verify 2Result Comment: reran to verify 3Result Comment: reran to verify 4Result Comment: reran to verify 5Result Comment: reran to verify 6Result Comment: reran to verify 7Result Comment: reran to verify 8Result Comment: reran to verify 9Result Comment: Results called to idris richards rn by tdg_ at _.[phone] Read back and verified. 10Result Comment: reran to verify 11Result Comment: consistent 12Result Comment: consistent 13Result Comment: reran to verify 14Result Comment: reran to verify 15Result Comment: reran to verify 16Result Comment: reran to verify 17Result Comment: reran to verify 18Result Comment: reran to verify 19Result Comment: reran to verify 20Result Comment: reran to verify Orders for Microbiology Reports Name Date Blood Culture 12/28/22 Blood Culture 12/28/22 Microbiology Reports TEST:Blood Culture STATUS:Order in Progress BODY SITE:Right Arm SOURCE:Blood COLLECTED DATE/TIME:12/28/22 4:15 PM PRELIMINARY REPORT No growth at 2 days. TEST:Blood Culture STATUS:Order in Progress BODY SITE:Left Arm SOURCE:Blood COLLECTED DATE/TIME:12/28/22 4:09 PM PRELIMINARY REPORT No growth at 2 days. Radiology Reports * Exam Date Time Procedure Performing Provider Status 12/28/22 11:07 PM US Abdomen Upper Quadrant Rt Gi Jang; Auth (Verified) Notes: (US Abdomen Upper Quadrant Rt) Reason For Exam: pancreatitis US Abdomen Upper Quadrant Rt HISTORY pancreatitis STUDY US Abdomen Upper Quadrant Rt COMPARISON CT 12/28/2022 TECHNIQUE Multiple cortez scale and color flow Doppler images of the right upper quadrant of the abdomen were obtained with image documentation. FINDINGS Mild hepatomegaly and fatty infiltration of the liver. Hepatopetal portal venous flow is seen on Doppler ultrasound. Prior cholecystectomy. Common bile duct measures 1.1 cm in diameter. There is slight intrahepatic biliary ductal dilation. Findings may be due to prior cholecystectomy or associated with pancreatitis. Indistinct head of the pancreas is seen with dilation of the pancreatic duct of 4 mm. Findings are concerning for possible pancreatitis as suggested on CT. No right renal abnormality. Right kidney measures 7.7 cm in length. Visualized portions of the IVC appear normal. IMPRESSION Probable pancreatitis in the head of the pancreas with dilation of the pancreatic duct. Possible dilation of the biliary ducts but this appearance could possibly be prior cholecystectomy. Electronically signed by: Oscar Goyal (Dec 29, 2022 10:24:24) Final Signed (Electronic Signature): Oscar Goyal MD 12/29/22 10:24 a Technologist: KF * Exam Date Time Procedure Performing Provider Status 12/29/22 9:08 AM MRI MRCP Chong Mike; Marium (Kuldeep ified) Notes: (MRI MRCP) Reason For Exam: RUQ abdominal pain, US nondiagnostic MRI MRCP MRI MRCP Clinical indication: Right upper quadrant pain Procedure: Multiplanar multi sequence MRI of the abdomen were obtained with and without the administration of intravenous contrast according to standard departmental protocol. MRCP sequences also obtained. Contrast: 20 cc of ProHance Comparisons:CT December 28, 2022 demonstrating common bile duct dilatation and pancreatitis. Findings: Examination moderately compromised by patient motion and overly small [id number] resulting in artifact. MRI of the abdomen without contrast: Mild hepatic steatosis. No significant ascites. MRI of the abdomen with contrast: Liver and spleen are normal in size and morphology. No focal lesions. Gallbladder absent. Common bile duct measures 1.4 cm and is without obstructing stone. Main pancreatic duct measures up to 6 mm. Intrahepatic ductal dilatation is also present. Diffuse low signalthroughout the pancreas. There is moderate inflammatory change surrounding the pancreatic head. No definite pancreatic masses. Adrenal glands are normal. Kidneys demonstrate normal cortical medullarydifferentiation. No hydronephrosis. No suspicious lymph nodes. Tiny simple bilateral renal cysts are present. Impression: 1.Findings of acute pancreatitis without definite evidence of pancreatic necrosis or pseudocyst formation. 2. Double duct sign which raises at least some concern for possible obstruction of the ducts in theregion of the pancreatic head. No obstructing stone is seen and there is no definite pancreatic head mass. Would recommend reimaging after acute symptoms have resolved (approximately 1-2 months). 3. Mild hepatic steatosis. Electronically signed by: ANNE LOCKETT (Dec 29, 2022 10:23:21) Final Signed (Electronic Signature): Anne Lockett MD 12/29/22 10:23 a Technologist: ROVERTO * Exam Date Time Procedure Performing Provider Status 12/28/22 5:[address] Abdomen +Pelvis w/o Cont Kristal Liu; Auth (Verified) Notes: (CT Abdomen +Pelvis w/o Cont) Reason For Exam: Abdominal pain vomiting CT Abdomen +Pelvis w/o Cont HISTORY Abdominal pain vomiting STUDY CT Abdomen +Pelvis w/o Cont COMPARISON None available TECHNIQUE Multiple axial images of the abdomen and pelvis were obtained from the lung bases to the pubic symphysis without the administration of IV contrast. Dose reduction techniques including Automated Exposure Control (AEC) and adjustment of mA and kV were utilized. FINDINGS [Lung bases are clear. No focal hepatic lesion. Liver morphology is unremarkable. Gallbladder is not definitely seen, correlate for prior cholecystectomy. Common bile duct is dilated to the level theampulla. Spleen is normal. Peripancreatic stranding is noted most severely affecting the pancreatic head with small amount of non localizing fluid within the retroperitoneum. Shotty peripancreatic lymph nodes. Adrenal glands are normal. Few small hypoattenuating lesions are noted within the right and left kidney Hounsfield attenuation are compatible with cysts. No nephrolithiasis, hydronephrosis or solid mass. Urinary bladder is normal. No pelvic or adnexal mass. Upper GI tract demonstrates mild bowel wall thickening involving the 2nd-3rd portion duodenum. No evidence of mass or obstruction. The rectum and colon are normal. No pelvic free fluid. No adenopathy. Abdominal aorta is normal in caliber with scattered calcified atherosclerotic disease. Review of bone windows demonstrates no acute osseous abnormality. IMPRESSION Moderate inflammatory change surrounding the pancreatic head and duodenum is consistent with eitheracute pancreatitis or duodenitis. Common bile duct dilatation without obstructing stone or mass, while this can be seen secondary to pancreatitis or duodenitis a noncalcified stone or obstructing lesion within the common bile duct cannot be excluded. Consider contrast enhanced MRI/MRCP for further evaluation. Additional incidental, nonacute findings as described above. Electronically signed by: KEON MOJICA (Dec 28, 2022 17:22:35) Final Signed (Electronic Signature): Keon Mojica MD 12/28/22 5:22 pm Technologist: HERLINDA Vital Signs Most recent to oldest [Reference Range]: 1 2 3 Temperature Oral [35.8-37.3 DegC] 36.4 DegC (12/31/22 8:00 AM) 36.5 DegC (12/30/22 11:34 PM) 36.7 DegC (12/30/22 8:00 PM) Temperature Oral (DegF) [96.4-99.1 DegF] 97.52 DegF (12/31/22 8:00 AM) 97.7 DegF (12/30/22 11:34 PM) 98.06 DegF (12/30/22 8:00 PM) Apical Heart Rate [60-100 bpm] 99 bpm (12/30/22 11:34 PM) 104 bpm *HI* (12/30/22 8:00 PM) Peripheral Pulse Rate [60-100 bpm] 101 bpm *HI* (12/31/22 8:00 AM) 100 bpm (12/30/22 4:00 PM) 121 bpm *HI* (12/30/22 11:57 AM) Heart Rate Monitored [60-100 bpm] 113 bpm *HI* (12/28/22 8:34 PM) 120 bpm *HI* (12/28/22 7:26 PM) 117 bpm *HI* (12/28/22 6:45 PM) Respiratory Rate [14-20 br/min] 18 br/min (12/31/22 8:00 AM) 19 br/min (12/30/22 11:34 PM) 20 br/min (12/30/22 8:00 PM) Blood Pressure [90-140/60-90 mmHg] 119/62mmHg (12/31/22 8:00 AM) 122/67mmHg (12/30/22 11:34 PM) 129/67mmHg (12/30/22 8:00 PM) Mean Arterial Pressure, Cuff [65-100 mmHg] 85 mmHg (12/30/22 11:34 PM) 88 mmHg (12/30/22 8:00 PM) 84 mmHg (12/30/22 4:00 PM) BP Site Right arm (12/30/22 11:34 PM) Right arm (12/30/22 8:00 PM) SpO2 [92-100 %] 95 % (12/31/22 8:00 AM) 90 % *LOW* (12/30/22 11:34 PM) 93 % (12/30/22 8:00 PM) Oxygen Flow Rate 2 L/min (12/31/22 8:15 AM) 2 L/min (12/31/22 8:00 AM) 2 L/min (12/31/22 8:00 AM) Oxygen Therapy Nasal cannula (12/31/22 8:15 AM) Nasal cannula (12/31/22 8:00 AM) Nasal cannula (12/31/22 8:00 AM) BP Method Automatic (12/30/22 11:34 PM) Automatic (12/30/22 8:00 PM) Automatic (12/30/22 4:00 PM) Height 165.1 cm (12/28/22 9:57 PM) 165.100 cm (12/28/22 3:38 PM) Height/Length Measured (inches) 65 in (12/28/22 9:57 PM) Height/Length Dosing 165.100 cm (12/28/22 3:47 PM) Height/Length Estimated 165.1 cm (12/28/22 10:37 PM) Weight 83.5 kg (12/30/22 5:24 AM) 86.8 kg (12/29/22 5:30 AM) 85.1 kg (12/28/22 9:57 PM) Weight Measured (lbs) 184.086 lb (12/30/22 5:24 AM) 191.361 lb (12/29/22 5:30 AM) 187.613 lb (12/28/22 9:57 PM) Weight Dosing 80.290 kg (12/28/22 3:47 PM) Scale Type Bed (12/30/22 5:24 AM) Bed (12/29/22 5:30 AM) Bed (12/28/22 9:57 PM) Weight Estimated 83.460 kg (12/28/22 10:37 PM) BSA 1.98 (12/28/22 9:57 PM) Body Mass Index 31.22 kg/m2 (12/28/22 9:57 PM) 29.460 kg/m2 (12/28/22 3:38 PM) Body Mass Index Estimated 30.62 kg/m2 (12/28/22 10:37 PM) Triage Ht 165.1 cm (12/28/22 3:38 PM) Triage Weight 80.29 kg (12/28/22 3:38 PM) Triage BMI 29.46 (12/28/22 3:38 PM) Social History Social History Type Response Smoking Status Smoking tobacco use: Former tobacco user;Never; Number used per day: 1 PPD; Number of years: 40; 1 entered on: 12/28/22 Sex 1currently smoking 5-6 per day 09/01/22 Hospital Discharge Instructions Patient Education 12/29/2022 07:17:47 Admission Education Packet ([facility]ASKARAN) [facility] Brochure [facility] Safety Awareness Program Information Sheet 12/28/2022 21:16:43 Rehydration, Adult Rehydration, Adult Rehydration is the replacement of body fluids, salts, and minerals (electrolytes) that are lost during dehydration. Dehydration is when there is not enough water or other fluids in the body. This happens when you lose more fluids than you take in. Common causes of dehydration include: ??? Not drinking enough fluids. This can occur when you are ill or doing activities that require a lot of energy, especially in hot weather. ??? Conditions that cause loss of water or other fluids, such as diarrhea, vomiting, sweating, or urinating a lot. ??? Other illnesses, such as fever or infection. ??? Certain medicines, such as those that remove excess fluid from the body (diuretics). Symptoms of mild or moderate dehydration may include thirst, dry lips and mouth, and dizziness. Symptoms of severe dehydration may include increased heart rate, confusion, fainting, and not urinating. For severe dehydration, you may need to get fluids through an IV at the hospital. For mild or moderate dehydration, you can usually rehydrate at home by drinking certain fluids as told by your healthcare provider. What are the risks? Generally, rehydration is safe. However, taking in too much fluid (overhydration) can be a problem.This is rare. Overhydration can cause an electrolyte imbalance, kidney failure, or a decrease in salt (sodium) levels in the body. Supplies needed You will need an oral rehydration solution (ORS) if your health care provider tells you to use one.This is a drink to treat dehydration. It can be found in pharmacies and retail stores. How to rehydrate Fluids Follow instructions from your health care provider for rehydration. The kind of fluid and the amount you should drink depend on your condition. In general, you should choose drinks that you prefer. ??? If told by your health care provider, drink an ORS. ??? Make an ORS by following instructions on the package. ??? Start by drinking small amounts, about ?? cup (120 mL) every 5???10 minutes. ??? Slowly increase how much you drink until you have taken the amount recommended by your health care provider. ??? Drink enough clear fluids to keep your urine pale yellow. If you were told to drink an ORS, finish it first, then start slowly drinking other clear fluids. Drink fluids such as: ??? Water. This includes sparkling water and flavored water. Drinking only water can lead to havingtoo little sodium in your body (hyponatremia). Follow the advice of your health care provider. ??? Water from ice chips you suck on. ??? Fruit juice with water you add to it (diluted). ??? Sports drinks. ??? Hot or cold herbal teas. ??? Broth-based soups. ??? Milk or milk products. Food Follow instructions from your health care provider about what to eat while you rehydrate. Your health care provider may recommend that you slowly begin eating regular foods in small amounts. ??? Eat foods that contain a healthy balance of electrolytes, such as bananas, oranges, potatoes, tomatoes, and spinach. ??? Avoid foods that are greasy or contain a lot of sugar. In some cases, you may get nutrition through a feeding tube that is passed through your nose and into your stomach (nasogastric tube, or NG tube). This may be done if you have uncontrolled vomiting or diarrhea. Beverages to avoid Certain beverages may make dehydration worse. While you rehydrate, avoid drinking alcohol. How to tell if you are recovering from dehydration You may be recovering from dehydration if: ??? You are urinating more often than before you started rehydrating. ??? Your urine is pale yellow. ??? Your energy level improves. ??? You vomit less frequently. ??? You have diarrhea less frequently. ??? Your appetite improves or returns to normal. ??? You feel less dizzy or less light-headed. ??? Your skin tone and color start to look more normal. Follow these instructions at home: ??? Take xmhl-ajs-ifkbphn and prescription medicines only as told by your health care provider. ??? Do not take sodium tablets. Doing this can lead to having too much sodium in your body (hypernatremia). Contact a health care provider if: ??? You continue to have symptoms of mild or moderate dehydration, such as: ??? Thirst. ??? Dry lips. ??? Slightly dry mouth. ??? Dizziness. ??? Dark urine or less urine than normal. ??? Muscle cramps. ??? You continue to vomit or have diarrhea. Get help right away if you: ??? Have symptoms of dehydration that get worse. ??? Have a fever. ??? Have a severe headache. ??? Have been vomiting and the following happens: ??? Your vomiting gets worse or does not go away. ??? Your vomit includes blood or green matter (bile). ??? You cannot eat or drink without vomiting. ??? Have problems with urination or bowel movements, such as: ??? Diarrhea that gets worse or does not go away. ??? Blood in your stool (feces). This may cause stool to look black and tarry. ??? Not urinating, or urinating only a small amount of very dark urine, within 6???8 hours. ??? Have trouble breathing. ??? Have symptoms that get worse with treatment. These symptoms may represent a serious problem that is an emergency. Do not wait to see if the symptoms will go away. Get medical help right away. Call your local emergency services (911 in the [place] Do not drive yourself to the hospital. Summary ??? Rehydration is the replacement of body fluids and minerals (electrolytes) that are lost during dehydration. ??? Follow instructions from your health care provider for rehydration. The kind of fluid and amount you should drink depend on your condition. ??? Slowly increase how much you drink until you have taken the amount recommended by your health care provider. ??? Contact your health care provider if you continue to show signs of mild or moderate dehydration. This information is not intended to replace advice given to you by your health care provider. Make sure you discuss any questions you have with your health care provider. Document Revised: 12/16/2020 Document Reviewed: 10/26/2020 [employer] Patient Education ?? 2021 [employer]. 12/28/2022 21:16:43 Diarrhea, Adult Diarrhea, Adult Diarrhea is frequent loose and watery bowel movements. Diarrhea can make you feel weak and cause you to become dehydrated. Dehydration can make you tired and thirsty, cause you to have a dry mouth, and decrease how often you urinate. Diarrhea typically lasts 2???3 days. However, it can last longer if it is a sign of something more serious. It is important to treat your diarrhea as told by your health care provider. Follow these instructions at home: Eating and drinking Follow these recommendations as told by your health care provider: ??? Take an oral rehydration solution (ORS). This is an ydle-rpl-hcxissl medicine that helps returnyour body to its normal balance of nutrients and water. It is found at pharmacies and retail stores. ??? Drink plenty of fluids, such as water, ice chips, diluted fruit juice, and low-calorie sports drinks. You can drink milk also, if desired. ??? Avoid drinking fluids that contain a lot of sugar or caffeine, such as energy drinks, sports drinks, and soda. ??? Eat bland, nmyf-wf-jitmkf foods in small amounts as you are able. These foods include bananas, applesauce, rice, lean meats, toast, and crackers. ??? Avoid alcohol. ??? Avoid spicy or fatty foods. Medicines ??? Take ayml-mct-gqpcuqr and prescription medicines only as told by your health care provider. ??? If you were prescribed an antibiotic medicine, take it as told by your health care provider. Donot stop using the antibiotic even if you start to feel better. General instructions ??? Wash your hands often using soap and water. If soap and water are not available, use a hand building drafting officer. Others in the household should wash their hands as well. Hands should be washed: ??? After using the toilet or changing a diaper. ??? Before preparing, cooking, or serving food. ??? While caring for a sick person or while visiting someone in a hospital. ??? Drink enough fluid to keep your urine pale yellow. ??? Rest at home while you recover. ??? Watch your condition for any changes. ??? Take a warm bath to relieve any burning or pain from frequent diarrhea episodes. ??? Keep all follow-up visits as told by your health care provider. This is important. Contact a health care provider if: ??? You have a fever. ??? Your diarrhea gets worse. ??? You have new symptoms. ??? You cannot keep fluids down. ??? You feel light-headed or dizzy. ??? You have a headache. ??? You have muscle cramps. Get help right away if: ??? You have chest pain. ??? You feel extremely weak or you faint. ??? You have bloody or black stools or stools that look like tar. ??? You have severe pain, cramping, or bloating in your abdomen. ??? You have trouble breathing or you are breathing very quickly. ??? Your heart is beating very quickly. ??? Your skin feels cold and clammy. ??? You feel confused. ??? You have signs of dehydration, such as: ??? Dark urine, very little urine, or no urine. ??? Cracked lips. ??? Dry mouth. ??? Sunken eyes. ??? Sleepiness. ??? Weakness. Summary ??? Diarrhea is frequent loose and watery bowel movements. Diarrhea can make you feel weak and cause you to become dehydrated. ??? Drink enough fluids to keep your urine pale yellow. ??? Make sure that you wash your hands after using the toilet. If soap and water are not available,use hand building drafting officer. ??? Contact a health care provider if your diarrhea gets worse or you have new symptoms. ??? Get help right away if you have signs of dehydration. This information is not intended to replace advice given to you by your health care provider. Make sure you discuss any questions you have with your health care provider. Document Revised: 03/03/2020 Document Reviewed: 03/22/2019 [employer] Patient Education ?? 2021 [employer]. 12/28/2022 21:16:43 Acute Pancreatitis Acute Pancreatitis The pancreas is a gland that is located behind the stomach on the left side of the abdomen. It produces enzymes that help to digest food. The pancreas also releases the hormones glucagon and insulin,which help to regulate blood sugar. Acute pancreatitis happens when inflammation of the pancreas suddenly occurs and the pancreas becomes irritated and swollen. Most acute attacks last a few days and cause serious problems. Some people become dehydrated and develop low blood pressure. In severe cases, bleeding in the abdomen can lead to shock and can be life-threatening. The lungs, heart, and kidneys may fail. What are the causes? This condition may be caused by: ??? Alcohol abuse. ??? Drug abuse. ??? Gallstones or other conditions that can block the tube that drains the pancreas (pancreatic duct). ??? A tumor in the pancreas. Other causes include: ??? Certain medicines. ??? Exposure to certain chemicals. ??? Diabetes. ??? An infection in the pancreas. ??? Damage caused by an accident (trauma). ??? The poison (venom) from a scorpion bite. ??? Abdominal surgery. ??? Autoimmune pancreatitis. This is when the body's disease-fighting (immune) system attacks the pancreas. ??? Genes that are passed from parent to child (inherited). In some cases, the cause of this condition is not known. What are the signs or symptoms? Symptoms of this condition include: ??? Pain in the upper abdomen that may radiate to the back. Pain may be severe. ??? Tenderness and swelling of the abdomen. ??? Nausea and vomiting. ??? Fever. How is this diagnosed? This condition may be diagnosed based on: ??? A physical exam. ??? Blood tests. ??? Imaging tests, such as X-rays, CT or MRI scans, or an ultrasound of the abdomen. How is this treated? Treatment for this condition usually requires a stay in the hospital. Treatment for this condition may include: ??? Pain medicine. ??? Fluid replacement through an IV. ??? Placing a tube in the stomach to remove stomach contents and to control vomiting (NG tube, or nasogastric tube). ??? Not eating for 3???4 days. This gives the pancreas a rest, because enzymes are not being produced that can cause further damage. ??? Antibiotic medicines, if your condition is caused by an infection. ??? Treating any underlying conditions that may be the cause. ??? Steroid medicines, if your condition is caused by your immune system attacking your body's own tissues (autoimmune disease). ??? Surgery on the pancreas or gallbladder. Follow these instructions at home: Eating and drinking ??? Follow instructions from your health care provider about diet. This may involve avoiding alcohol and decreasing the amount of fat in your diet. ??? Eat smaller, more frequent meals. This reduces the amount of digestive fluids that the pancreasproduces. ??? Drink enough fluid to keep your urine pale yellow. ??? Do not drink alcohol if it caused your condition. General instructions ??? Take jouu-mvb-zikmlbw and prescription medicines only as told by your health care provider. ??? Do not drive or use heavy machinery while taking prescription pain medicine. ??? Ask your health care provider if the medicine prescribed to you can cause constipation. You mayneed to take steps to prevent or treat constipation, such as: ??? Take an vvvm-nrj-plntpnv or prescription medicine for constipation. ??? Eat foods that are high in fiber such as whole grains and beans. ??? Limit foods that are high in fat and processed sugars, such as fried or sweet foods. ??? Do not use any products that contain nicotine or tobacco, such as cigarettes, e-cigarettes, andchewing tobacco. If you need help quitting, ask your health care provider. ??? Get plenty of rest. ??? If directed, check your blood sugar at home as told by your health care provider. ??? Keep all follow-up visits as told by your health care provider. This is important. Contact a health care provider if you: ??? Do not recover as quickly as expected. ??? Develop new or worsening symptoms. ??? Have persistent pain, weakness, or nausea. ??? Recover and then have another episode of pain. ??? Have a fever. Get help right away if: ??? You cannot eat or keep fluids down. ??? Your pain becomes severe. ??? Your skin or the white part of your eyes turns yellow (jaundice). ??? You have sudden swelling in your abdomen. ??? You vomit. ??? You feel dizzy or you faint. ??? Your blood sugar is high (over 300 mg/dL). Summary ??? Acute pancreatitis happens when inflammation of the pancreas suddenly occurs and the pancreas becomes irritated and swollen. ??? This condition is typically caused by alcohol abuse, drug abuse, or gallstones. ??? Treatment for this condition usually requires a stay in the hospital. This information is not intended to replace advice given to you by your health care provider. Make sure you discuss any questions you have with your health care provider. Document Revised: 08/05/2019 Document Reviewed: 04/22/2019 [employer] Patient Education ?? 2021 [employer]. Follow Up Care 12/28/2022 15:36:33 With:Avila Gomez MD Address: [address] [place], [place] [id number]- When:1 week Comments:Call for follow up appointment. Recommend repeat CT abd/pelvis or MRCP in 1-2 months. Discharge summary * Alondra Wolfe CARTOGRAPHIC DESIGNER: PERFORM, MODIFY Event Display: Discharge Summary Authored Date: [id number] SAYDA OGDEN :1955 Age:67 years Sex:Female Visit Date:12/28/2022 Primary Care Physician: Avila Gomez MD Hospital Course SAYDA OGDEN??presented as an admission from the ED on 12/28/22 for concerns of abdominal pain. Patient is a??67 years??of age??female??with a past medical history significant for: Arthritis, bone marrow transplant, COPD, frequent UTI, herpes, IBS, and non-hodgkin's lymphoma who presented to the ED with a week long history of abdominal pain.?? Pain is concentrated in the LUQ and radiates to??her??back.?? She had a cholecystectomy when she was 17.?? Patient describes the pain as??crampy and deep.?? She denies fever but states she has been dizzy off and on.?? She has had some transient hypotension while in the ED.?? Patient states that pain??is worse after eating.?? She states that she has been very thirsty and has been drinking well but has been vomiting multiple times a day.?? While in??the ED patient had bring her a six piece chicken McNugget which she ate heartily and vomited about an hour later.?? On admission exam patient is tender to??RUQ.?? Nurse has administered pain medication and patient is becoming more comfortable.?? She is on opiates chronically for??extremity pain secondary to treatment for Non-Hodgkin's lymphoma.?? Long discussion was??had about??pain management plan, risk of respiratory depression, and expectations for pain level.?? Patient denies chest pain, shortness of breath, cough, fever, headache, and syncope.? ED workup finds vital signs on arrival to be BP??90/57??HR??126, Oxygen Saturation??94% on room air, Temp??36.8, RR??20.?? CT of abdomen and pelvis finds 1. ??Moderate inflammatory change surroundingthe pancreatic head and duodenum is consistent with either acute pancreatitis or duodenitis. 2.?? Common bile duct dilatation without obstructing stone or mass, while this can be seen secondary to pancreatitis or duodenitis??a noncalcified stone or obstructing lesion within the common bile duct cannot be excluded.?? Consider contrast- enhanced??MRI/MRCP for further evaluation.?? Labs identified hyponatremia with a sodium of 131. ??Hypokalemia??is noted with a potassium of 3.2. ??Chloride is low at 96 CO2 is also low at 19.?? Hyperglycemia is found with a blood glucose of 123.?? Acute kidney injury is documented with a BUN of 30 creatinine of 2.2, GFR of 22.?? Baseline creatinine is 0.8.?? Magnesium is low at 1.3??lipase is elevated at 872. ??Amylase is normal at 102.?? Triglycerides are wildly elevated at 638.?? Remainder of lipid panel is normal. ?? In the ED patient was medicated for pain and nausea. ??Fluids were administered??potassium and magnesium??was replaced.? Plan of care to include MRCP and gastroenterology??consult explained to patient who is in agreement with the treatment plan. ??Patient will be admitted to the hospitalist service for continued assessment and treatment. ?? Lipase down from 872 to 76. Lipid profile: Cholesterol 196. HDL 69, Cholesterol/HDL ration 2.8,??triglyceride 638.?Tolerating a bland, low fat.??US??RUQ abdomen-probable pancreatitis in the head of the pancreas with dilation of the pancreatic duct. Possible dilation of the biliary ducts but this appearance could possibly be prior cholecystectomy.??MRCP-1.Findings of acute pancreatitis without definite evidence of pancreatic necrosis or pseudocyst formation. 2. Double duct sign which raises at least some concern for possible obstruction of the ducts in the region of the pancreatic head. No obstructing stone is seen and there is no definite pancreatic head mass. Would recommend reimaging after acute symptoms have resolved (approximately 1-2 months).??3. Mild hepatic steatosis.??Patient was seen in consultation by Dr Medina, general surgery, who agrees with MRCP??recommendation??of repeat CT or MRCP in a month or so.??Increased lovastatin from 10mg daily to 20mg daily at discharge. Patient requested prescription for extra Percocet until she can follow up with her PCP. Recommend f/u with PCP in 1 week. Slowly advance diet at home to bland, low fat. Physical Exam Vitals & Measurements T:??36.4?C ??(Oral)?? TMIN:??36.4?C ??(Oral)?? TMAX:??36.7?C ??(Oral)?? HR:??101??(Peripheral)?? RR:??18?? BP:??119/62?? SpO2:??95%?? O2 Flow Rate:??2?? O2 Therapy:??Nasal cannula?? General: NAD, calm, cooperative. Neuro: AAOx4, speech clear and coherent, no acute focal deficit. HEENT: Non-traumatic, EOMI, normal hearing, nose patent, trachea midline. CV: RRR, S1, S2, no murmurs, rubs, or gallop. Lungs: CTA bilaterally, no wheezing or rhonchi, good air movement. Abd: Soft, mild upper abdominal tenderness, non-distended, normoactive bowel sounds. : No strauss. Musculoskeletal: Good ROM. Skin: Warm and dry. Extremities: No clubbing, cyanosis, or edema. Peripheral pulses intact. Medications Inpatient !-DuoNeb, 3 mL, NEB, q4hr (interval), PRN !-Flexeril, 10 mg= 1 tab(s), Oral, TID, PRN !-Zofran, 4 mg= 2 mL, IV Push, q6hr (interval), PRN acetaminophen-oxycodone 325 mg-10 mg oral tablet, 1 tab(s), Oral, q4hr (interval), PRN albuterol 0.083% inhalation solution, 2.5 mg= 3 mL, NEB, q2hr (interval), PRN Artificial Tears, 1 drop(s), OPTH, q2hr (interval), PRN Cardizem CD, 120 mg= 1 cap(s), Oral, Daily Colace, 100 mg= 1 cap(s), Oral, BID, PRN magnesium oxide, 400 mg, Oral, HS Milk of Magnesia, 30 mL, Oral, q8hr (interval), PRN MiraLax, 17 gm= 1 packet(s), Oral, Daily, PRN [place] 0.65% nasal spray, 1 spray(s), Nostrils-Both, q2hr (interval), PRN pantoprazole, 40 mg= 1 tab(s), Oral, Daily patient specific bin, 1 EA, N/A, As Directed, PRN patient specific respiratory, 1 EA, N/A, As Directed, PRN pregabalin, 150 mg= 3 cap(s), Oral, TID refrigerated med, 1 EA, N/A, As Directed, PRN Restoril, 30 mg= 2 cap(s), Oral, HS, PRN Tums, 500 mg= 1 tab(s), Oral, q2hr (interval), PRN Tylenol, 650 mg= 2 tab(s), Oral, q4hr (interval), PRN Tylenol, 650 mg= 1 supp, Per Rectum, q4hr (interval), PRN Home !-Flexeril, 10 mg, Oral, TID !-Zofran ODT 4 mg oral tablet, disintegrating, 4 mg= 1 tab(s), Oral, q8hr (scheduled), PRN acetaminophen-oxycodone 325 mg-10 mg oral tablet, 1 tab(s), Oral, q4hr (interval), PRN Belsomra 20 mg oral tablet, 20 mg= 1 tab(s), Oral, Once a day (at bedtime) Dexilant 60 mg oral delayed release capsule, 60 mg= 1 cap(s), Daily DilTIAZem (Eqv-Cardizem CD) 120 mg/24 hours oral capsule, extended release, 120 mg= 1 cap(s), Oral,Daily docusate sodium 100 mg oral capsule, 100 mg= 1 cap(s), Oral, BID, PRN lovastatin 20 mg oral tablet, 20 mg= 1 tab(s), Oral, Daily magnesium oxide 400 mg oral tablet, 400 mg= 1 tab(s), Oral, HS pregabalin 150 mg oral capsule, 150 mg= 1 cap(s), Oral, TID Probiotic, See Instructions traZODone 100 mg oral tablet, 100 mg= 1 tab(s), Oral, Once a day (at bedtime) Trelegy Ellipta 100 mcg-62.5 mcg-25 mcg/inh inhalation powder, 1 puff(s), INH, Daily Procedure/Surgical History ???Bladder tract???Foot???Gallbladder absent???Hysterectomy???Neck???Shoulder???Tonsillectomy Social History Alcohol Past, Liquor, 3-5 times [...] Event Name?? Event Result?? Date/Time?? Sodium Level 139 mEq/L 12/31/22 05:30:00 Potassium Level 3.8 mmol/L 12/31/22 05:30:00 Chloride Level 103 mmol/L 12/31/22 05:30:00 CO2 26.2 mmol/L 12/31/22 05:30:00 Anion Gap 14 12/31/22 05:30:00 Glucose Level 116 mg/dL??High 12/31/22 05:30:00 BUN 5 mg/dL??Low 12/31/22 05:30:00 Creatinine Level 0.6 mg/dL 12/31/22 05:30:00 GFR AA 133 mL/min/1.73 12/31/22 05:30:00 GFR Non AA 110 mL/min/1.73 12/31/22 05:30:00 Calcium Level 8 mg/dL??Low 12/31/22 05:30:00 Magnesium 1.8 12/31/22 05:30:00 Bili Total 0.56 mg/dL 12/31/22 05:30:00 Alk Phos 85 IU/L 12/31/22 05:30:00 AST/SGOT 50 IU/L??High 12/31/22 05:30:00 ALT/SGPT 33 IU/L 12/31/22 05:30:00 Protein Total 6.2 g/dL??Low 12/31/22 05:30:00 Albumin Level 3.2 mg/dL??Low 12/31/22 05:30:00 Lipase Level 76 IU/L 12/31/22 05:30:00 ? Hematology ? Event Name?? Event Result?? Date/Time?? WBC 5.3 x10^3/mcL 12/31/22 05:30:00 RBC 3.36 x10^6/mcL??Low 12/31/22 05:30:00 Hgb 10.7 g/dL??Low 12/31/22 05:30:00 Hct 36.8 % 12/31/22 05:30:00 MCV 110??High 12/31/22 05:30:00 MCH 31.8 pg 12/31/22 05:30:00 MCHC 29.1 g/dL??Low 12/31/22 05:30:00 RDW/CV 12.6 % 12/31/22 05:30:00 Platelet 76 x10^3/mcL??Low 12/31/22 05:30:00 MPV 11.1 fL 12/31/22 05:30:00 Auto Lymph % 32.1 % 12/31/22 05:30:00 Auto Neut % 52.8 % 12/31/22 05:30:00 Auto Steele % 13.8 %??High 12/31/22 05:30:00 Auto Eos % 1.1 % 12/31/22 05:30:00 Auto Baso % 0.2 % 12/31/22 05:30:00 Auto IG % 0 % 12/31/22 05:30:00 Lymph Abs# 1.7 K/uL 12/31/22 05:30:00 Neut Abs# 2.79 K/uL 12/31/22 05:30:00 Steele Abs# 0.73 K/uL 12/31/22 05:30:00 Eos Abs# 0.06 K/uL 12/31/22 05:30:00 Baso Abs# 0.01 K/uL 12/31/22 05:30:00 IG Auto 0 K/uL 12/31/22 05:30:00 NRBC Abs # 0 K/uL 12/31/22 05:30:00 ? Diagnostic Results X-Ray:?? Computed Tomography:?? Ultrasound:?? MRI: ?? MRI MRCP ?? 12/29/22 10:23:21 MRI MRCP ?? Clinical indication: Right upper quadrant pain ?? Procedure: Multiplanar multi sequence MRI of the abdomen were obtained with and without the administration of intravenous contrast according to standard departmental protocol. MRCP sequences also obtained. ?? Contrast: 20 cc of ProHance ?? Comparisons:CT December 28, 2022 demonstrating common bile duct dilatation and pancreatitis. ?? Findings: Examination moderately compromised by patient motion and overly small [id number] resulting in artifact. ?? MRI of the abdomen without contrast: Mild hepatic steatosis. No significant ascites. ?? MRI of the abdomen with contrast: Liver and spleen are normal in size and morphology. No focal lesions. Gallbladder absent. Common bile duct measures 1.4 cm and is without obstructing stone. Main pancreatic duct measures up to 6 mm. Intrahepatic ductal dilatation is also present. Diffuse low signalthroughout the pancreas. There is moderate inflammatory change surrounding the pancreatic head. No definite pancreatic masses. Adrenal glands are normal. Kidneys demonstrate normal cortical medullarydifferentiation. No hydronephrosis. No suspicious lymph nodes. Tiny simple bilateral renal cysts are present. ?? Impression: ?? 1.Findings of acute pancreatitis without definite evidence of pancreatic necrosis or pseudocyst formation. ?? 2. Double duct sign which raises at least some concern for possible obstruction of the ducts in theregion of the pancreatic head. No obstructing stone is seen and there is no definite pancreatic head mass. Would recommend reimaging after acute symptoms have resolved (approximately 1-2 months). ?? 3. Mild hepatic steatosis. ? Electronically signed by: ?? Signed By: Anne Lockett MD Echo:?? Nuclear Medicine:?? Mammography:? Discharge Plan Pancreatitis - CT abdomen and pelvis finds??CT of abdomen and pelvis finds 1. ??Moderate inflammatory change surrounding the pancreatic head and duodenum is consistent with either acute pancreatitis or duodenitis.?? 2.?? Common bile duct dilatation without obstructing stone or mass, while this can be seen secondary to pancreatitis or duodenitis??a noncalcified stone or obstructing lesion within the common bile duct cannot be excluded.?? Consider contrast-enhanced??MRI/MRCP for further evaluation.?? - Amylase 102 - Lipase 872, 408, 117, 76 - Lipid profile: Cholesterol 196. HDL 69, Cholesterol/HDL ration 2.8,??triglyceride 638.? - NPO except for ice chips, clear liquids advance as tolerated to bland, low fat - Dilaudid 0.5mg IV Q4hrs PRN pain - Zofran 4mg IV Q6hrs PRN nausea - phenergan 25mg per rectum Q6hrs PRN, d/c on 3 - NS with 20meq K+ at 125ml/hr, d/c on 32 -??I & O - US??RUQ abdomen-probable pancreatitis in the head of the pancreas with dilation of the pancreaticduct. Possible dilation of the biliary ducts but this appearance could possibly be prior cholecystectomy.?? - MRCP-1.Findings of acute pancreatitis without definite evidence of pancreatic necrosis or pseudocyst formation. ??2. Double duct sign which raises at least some concern for possible obstruction of the ducts in the region of the pancreatic head. No obstructing stone is seen and there is no definite pancreatic head mass. Would recommend reimaging after acute symptoms have resolved (approximately 1-2 months).?3. Mild hepatic steatosis.?? - Consult to Gastroenterology, Dr. Curtis Coronado input appreciated--->patient was seen in consultation by Dr Medina, general surgery, who agrees with MRCP??recommendation??of repeat CT or MRCP prem month or so.?? Will order Dulcolax for her constipation.?? I do not see a surgical problem at this point and we will therefore see her as needed. -slowly advance diet to bland, low fat -increased lovastatin from 10mg daily to 20mg daily at discharge -patient requested prescription for extra Percocet until she can follow up with her PCP -f/u with PCP in 1 week ?? Hyponatremia, resolved - sodium 131, 138, 138, 139 - 2LNS given in ED - NS??with 20meq K+ on admission? Hypokalemia - potassium 3.2, 3.5, 3.6, 3.8 - Fluids as above - AM labs, trend? Hyperglycemia - random blood glucose 123 - A1C 5.5 - AM labs, trend ? Acute kidney injury - BUN 30, 20, 10, 5 - creatinine 2.2, 1.1, 0.8, 0.6 - GFR 22?? - Baseline creatinine 0.8 - Fluids as above - I & O - AM labs, trend ? Hypomagnesemia - Magnesium level 1.3, 1.7, 2.0, 1.8 - magnesium sulfate 1gm IV given in ED - magnesium oxide 400mg POQHS - AM labs, trend ?? GERD - pantoprazole 40mg IV Qday, changed to PO / ?? COPD - Patient is on??oxygen 2L/min chronically.?? On admission patient is at baseline - DuoNeb QID, d/c on 12/29 - Albuterol neb Q2hrs PRN - Oxygen to keep sat >90% - Incentive Spirometry - Flutter therapy ?? 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 Thrombocytopenia -platelet count 67K, 71K, 76K -d/c SQ heparin on 12/29 -trend ?? Insomnia - Restoril 30mg PO QHS ?? Other - DVT proph: SCD, heparin 5000 units SQ BID, d/c on 12/29/2212/01 thrombocytopenia - Milk of Magnesia 30ml PO Q8hrs PRN constipation - Colace 100mg PO BID - Tylenol 650mg PO or per rectum Q4hrs PRN pain/fever - Zofran 4mg IV Q6hrs PRN nausea - [place] nasal spray PRN - Artificial tears PRN - Trazodone 50mg PO QHS PRN sleep, d/c on 12/29 - Atarax 10mg PO Q6hrs PRN anxiety, d/c on 12/29 Patient Discharge Condition stable Discharge Disposition home Patient Education Admission Education Packet (JASKARAN) Rehydration, Adult Diarrhea, Adult Acute Pancreatitis Follow Up With When Contact Information Avila Gomez MD Within 1 week [address] [place] [address]- Additional Instructions: Call for follow up appointment Medication Reconciliation Changed acetaminophen-oxycodone (acetaminophen-oxycodone 325 mg-10 mg oral tablet)1 tab(s) Oral every 4 hours as needed Pain - Severe. Refills: 0. ?? lovastatin (lovastatin 20 mg oral tablet)1 tab(s) Oral Daily for 30 Days. Refills: 0. ?? Unchanged cyclobenzaprine (!-Flexeril)10 Milligram Oral 3 times a [...] ?? lactobacillus acidophilus and bulgaricus (Probiotic) ?? magnesium oxide (magnesium oxide 400 mg oral tablet)1 tab(s) Oral At bedtime. ?? ondansetron (!-Zofran ODT 4 mg oral tablet, disintegrating)1 tab(s) Oral Every 8 hours as needed asneeded for nausea/vomiting. Refills: 0. ?? pregabalin (pregabalin 150 mg oral capsule)1 cap Oral 3 times a day. ?? suvorexant (Belsomra 20 mg oral tablet)1 tab(s) Oral once a day (at bedtime). ?? traZODone (traZODone 100 mg oral tablet)1 tab(s) Oral once a day (at bedtime). ?? Discontinued methocarbamol (methocarbamol 750 mg oral tablet)1 tab(s) Oral 3 times a day for 30 Days. TAKE 1 TABLET BY MOUTH THREE TIMES DAILY. Refills: 0. Professional Services/Counseling Attending Physician Statement I personally reviewed the patient on the day of service noted by the JENNIFER.?I personally reviewed the most current data available, including vitals, diagnostics, and ancillary staff records.?The management was discussed with the JENNIFER and other treatment team members as appropriate, and I agree with the documentation, unless otherwise noted below. I performed the substantive portion of the Medical Decision Making.?? [Electronically Signed by: 12/31/2022 09:10 EST] Alondra Wolfe NP CARTOGRAPHIC DESIGNER Reuben Lai MD, MD [Verified on: 12/31/2022 09:10 EST] Alondra Wolfe NP CARTOGRAPHIC DESIGNER manager patient Note * Madalyn Verdin: PERFORM Event Display: Case Management Note Authored Date: [id number] * MlSilvioChencho, Madalyn: PERFORM Event Display: Case Management Note Authored Date: [id number] Nurse Progress note * Alondra Chanel: PERFORM Event Display: Progress Note - Nurse Authored Date: [id number] Realized at 0930, the computer had me logged in as another employee. AM meds and assessment documentation performed by this RN [Electronically Signed by: 12/31/2022 09:31 EST] Alondra Chanel [Verified on: 12/31/2022 09:31 EST] Alondra Chanel Physician Emergency department Note * Joselo Barksdale: PERFORM Event Display: ED Note - Physician Authored Date: [id number] ALIN SAYDA Pravin :1955 Age:67 years Sex:Female Visit Date:12/28/2022 Primary Care Physician: Avila Gomez MD Basic Information Time Seen: Joselo Barksdale / 12/28/2022 15:55 Chief Complaint mid-abdominal pain radiating around right flank to back. N/V/D x 1 week. Pt states I haven't been able to eat hardly anything. History Of Present Illness: Patient presents to the emergency department with complaints of abdominal pain.?? Patient reports??central abdominal pain??that radiates to her back. ??Nothing seems to make pain worse or better. ??Patient states pain is sharp and waxes and wanes in intensity.?? Patient also reports??episodic vomiting and diarrhea??for same duration. ??Patient denies??any fever.?? Patient reports??prior??cholecystectomy.?? Patient denies EtOH. Review of Systems: Constitutional: [No fevers, chills, sweats] Eye: [No recent visual problems] ENT: [No ear pain, nasal congestion, sore throat] Respiratory: [No shortness of breath, cough] Cardiovascular: [No Chest pain, palpitations, syncope, edema] Gastrointestinal: [No nausea, + vomiting, + diarrhea] Genitourinary: [No hematuria] Elder/Lymph: [Negative for bruising tendency, swollen lymph glands] Endocrine: [Negative for excessive thirst, excessive hunger] Musculoskeletal: [No back pain, neck pain, joint pain, muscle pain, decreased range of motion] Integumentary: [No rash, pruritus, abrasions] Neurologic: [Alert & oriented X 3] Psychiatric: [No anxiety, depression] Physical Exam Vitals & Measurements T:??36.8?C ??(Oral)?? HR:??111??(Peripheral)?? HR:??110??(Monitored)?? RR:??20?? BP:??133/60?? SpO2:??94%?? HT:??165.100??cm?? WT:??80.290??kg?? BMI:??29.460?? O2 Flow Rate:??2?? O2 Therapy:??Nasal cannula?? General: [Alert and oriented, well nourished, no acute distress]. Eye: [PERRL, EOMI, normal conjunctiva]. HENT: [Normocephalic, clear tympanic membranes, normal hearing, moist oral mucosa, no scleral icterus]. Neck: [Supple, non-tender, no carotid bruits, no JVD, no lymphadenopathy]. Lungs: [Clear to auscultation and percussion, non-labored respiration]. Heart: [Normal rate, regular rhythm, no murmur, gallop or edema]. Genitourinary: [No CVA tenderness]. Abdomen: [Soft, moderate diffuse abdominal tenderness,??no guarding, non- distended, normal bowel sounds, no masses]. Musculoskeletal: [Normal range of motion and strength, no tenderness or swelling]. Skin: [Skin is warm, dry and pink, no rashes or lesions]. Neurologic: [Awake, alert and oriented X3, CN II-XII intact]. Psychiatric: [Cooperative, appropriate mood and affect]. Medical Decision Making: Nursing assessment reviewed ?? 1. Complexity of Problems Presenting Complaint(s):??Abdominal pain??vomiting diarrhea High complexity due to??nature of complaints??and other chronic problems??and comorbidities. 2. Amount and Complexity of data --History reported/obtained from:??Patient primary historian --Independent Historian: --Labs ordered and reviewed --Imaging ordered and reviewed --12-lead ECG ordered and reviewed --Controlled Substances (i.e PDMP Aware) has been reviewed ?? --Utilization of Risk Calculators (HEART, NYHA, etc) ?? 3. Impressions/Risk of Complications and/or Morbidity/Mortality (RISK) ---(high, moderate, or low) ?? 4. Plan of Care: --Shared Decision Making incorporated:??Patient's vital signs remained stable in the ED. ??Patient agreeable to??overnight admission??for pain control and perhaps MRCP tomorrow. --Concerns: ?? 5. Emergency Department Course ----Treatment in the Emergency Department:? ----Disposition:??Admit Assessment/Plan 1.??Pancreatitis??K85.90 Orders: Normal Saline 1,000 mL, 1,000, mL, IV, STAT, Start date 12/28/22 15:55:00 EST, 999 mL/hr, 1, hr, Total volume (mL): 1,000, 80.29 kg, 1.92, m2, 12/28/22 15:55:00 EST Blood Culture x 2, Blood, Stat collect, 12/28/22 15:55:00 EST, Once, Stop date 12/28/22 15:55:00 EST, Lab Collect, 12/28/22 15:55:00 EST Urinalysis with Culture, If Indicated Standard, Urine, Stat collect, 12/28/22 15:55:00 EST, Once, Stop date 12/28/22 15:55:00 EST, Nurse collect Medication Reconciliation Unchanged acetaminophen-oxycodone (acetaminophen-oxycodone 325 mg-10 [...] mcg/inh inhalation powder)1 puff(s) Inhalation Daily. ?? fluticasone/umeclidinium/vilanterol (Trelegy Ellipta 100 mcg-62.5 mcg-25 mcg/inh inhalation powder)1 puff(s) Inhalation Daily. at the same time every day. ?? magnesium oxide (magnesium oxide 400 mg oral tablet)1 tab(s) Oral At bedtime. ?? methocarbamol (methocarbamol 750 mg oral tablet)1 tab(s) Oral 3 times a day for 30 Days. TAKE 1 TABLET BY MOUTH THREE TIMES DAILY. Refills: 0. ?? ondansetron (!-Zofran ODT 4 mg oral tablet, disintegrating)1 tab(s) Oral Every 8 hours as needed asneeded for nausea/vomiting. Refills: 0. ?? pregabalin (pregabalin 150 mg oral capsule)1 [...] History ???Bladder tract???Foot???Gallbladder absent???Hysterectomy???Neck???Shoulder???Tonsillectomy Medication Administration Given Normal Saline, 1000 mL, IV !-Zofran, 4 mg, IV Push Dilaudid, 0.5 mg, IV Push Dilaudid, 0.5 mg, IV Push Allergies NSAIDs??(Bleeding) Macrobid sulfa drug Nalbuphine Hydrochloride codeine Social History Alcohol Current, Liquor, 3-5 times per week Electronic Cigarette/Vaping [...] Years. Cause of : COPD Diagnostic Results CT Abdomen +Pelvis w/o Cont 12/28/2022 17:[address] Abdomen +Pelvis w/o Cont ?? 12/28/22 17:22:35 HISTORY ?? Abdominal pain vomiting ?? STUDY ?? CT Abdomen +Pelvis w/o Cont ?? COMPARISON ?? None available ?? TECHNIQUE ?? Multiple axial images of the abdomen and pelvis were obtained from the lung bases to the pubic symphysis without the administration of IV contrast. Dose reduction techniques including Automated Exposure Control (AEC) and adjustment of mA and kV were utilized. ?? FINDINGS ?? [Lung bases are clear. No focal hepatic lesion. Liver morphology is unremarkable. Gallbladder is not definitely seen, correlate for prior cholecystectomy. Common bile duct is dilated to the level theampulla. Spleen is normal. Peripancreatic stranding is noted most severely affecting the pancreatic head with small amount of non localizing fluid within the retroperitoneum. Shotty peripancreatic lymph nodes. ?? Adrenal glands are normal. Few small hypoattenuating lesions are noted within the right and left kidney Hounsfield attenuation are compatible with cysts. No nephrolithiasis, hydronephrosis or solid mass. Urinary bladder is normal. No pelvic or adnexal mass. ?? Upper GI tract demonstrates mild bowel wall thickening involving the 2nd-3rd portion duodenum. No evidence of mass or obstruction. The rectum and colon are normal. No pelvic free fluid. No adenopathy. Abdominal aorta is normal in caliber with scattered calcified atherosclerotic disease. Review of bone windows demonstrates no acute osseous abnormality. ?? IMPRESSION ?? Moderate inflammatory change surrounding the pancreatic head and duodenum is consistent with eitheracute pancreatitis or duodenitis. ?? Common bile duct dilatation without obstructing stone or mass, while this can be seen secondary to pancreatitis or duodenitis a noncalcified stone or obstructing lesion within the common bile duct cannot be excluded. Consider contrast enhanced MRI/MRCP for further evaluation. ?? Additional incidental, nonacute findings as described above. ? Electronically signed by: ?? Signed By: Keon Mojica MD ECG Sinus tachycardia ventricular rate 120??appropriate ST segments Diagnostic Study Interpretation: CT abdomen pelvis??suggest??peripancreatic inflammatory changes, common bile duct somewhat dilated but no evidence of??calculus Lab Results Routine Chemistry?? LATEST RESULTS?? HISTORICAL RESULTS?? Sodium Level?? 12/28/22 16:09?? 131 ??Low?? 09/06/22?? 137?? Potassium Level?? 12/28/22 16:09?? 3.2 ??Low?? 09/06/22?? 4.2?? Chloride Level?? 12/28/22 16:09?? 96 ??Low?? 09/06/22?? 98?? CO2?? 12/28/22 16:09?? 19.0 ??Low?? 09/06/22?? 34.8 ??High?? Anion Gap?? 12/28/22 16:09?? 19?? 09/06/22?? 8?? Glucose Level?? 12/28/22 16:09?? 123 ??High?? 09/06/22?? 152 ??High?? BUN?? 12/28/22 16:09?? 30 ??High?? 09/06/22?? 21 ??High?? Creatinine Level?? 12/28/22 16:09?? 2.2 ??High?? 09/06/22?? 0.8?? GFR AA?? 12/28/22 16:09?? 26 ??Low?? 09/06/22?? 83?? GFR Non AA?? 12/28/22 16:09?? 22 ??Low?? 09/06/22?? 69?? Calcium Level?? 12/28/22 16:09?? 8.4 ??Low?? 09/06/22?? 8.5?? Magnesium?? 12/28/22 16:09?? 1.3 ??Low?? 09/06/22?? 2.5 ??High?? Bili Total?? 12/28/22 16:09?? 0.99?? 09/06/22?? 0.39?? Alk Phos?? 12/28/22 16:09?? 87?? 09/06/22?? 52?? AST/SGOT?? 12/28/22 16:09?? 88 ??High?? 09/06/22?? no reagent?? ALT/SGPT?? 12/28/22 16:09?? 49?? 09/06/22?? 38?? Protein Total?? 12/28/22 16:09?? 7.5?? 09/06/22?? 6.7?? Albumin Level?? 12/28/22 16:09?? 4.0?? 09/06/22?? 3.4?? Amylase Level?? 12/28/22 18:05?? 102? Lipase Level?? 12/28/22 18:05?? 872 ??Critical?? 03/18/22?? 98?? Lactic Acid?? 12/28/22 16:09?? 1.5?? 09/01/22?? 0.7? Other Chemistry?? LATEST RESULTS?? HISTORICAL RESULTS?? CRP?? 12/28/22 16:09?? 4.16 ??High?? 09/06/22?? 0.25? CBC?? LATEST RESULTS?? HISTORICAL RESULTS?? WBC?? 12/28/22 16:09?? 9.3?? 09/06/22?? 7.0?? RBC?? 12/28/22 16:09?? 3.81 ??Low?? 09/06/22?? 4.52?? Hgb?? 12/28/22 16:09?? 12.3?? 09/06/22?? 14.1?? Hct?? 12/28/22 16:09?? 37.5?? 09/06/22?? 44.7?? MCV?? 12/28/22 16:09?? 98?? 09/06/22?? 99?? MCH?? 12/28/22 16:09?? 32.3?? 09/06/22?? 31.2?? MCHC?? 12/28/22 16:09?? 32.8?? 09/06/22?? 31.5?? RDW/CV?? 12/28/22 16:09?? 12.3?? 09/06/22?? 13.2?? Platelet?? 12/28/22 16:09?? 89 ??Low?? 09/06/22?? 143 ??Low?? MPV?? 12/28/22 16:09?? 10.5?? 09/06/22?? 10.3? Differential?? LATEST RESULTS?? HISTORICAL RESULTS?? Auto Lymph %?? 12/28/22 16:09?? 33.7?? 09/06/22?? 15.8?? Auto Neut %?? 12/28/22 16:09?? 56.0?? 09/06/22?? 69.8?? Auto Steele %?? 12/28/22 16:09?? 9.5?? 09/06/22?? 8.5?? Auto Eos %?? 12/28/22 16:09?? 0.3?? 09/06/22?? 0.1?? Auto Baso %?? 12/28/22 16:09?? 0.2?? 09/06/22?? 0.4?? Auto IG %?? 12/28/22 16:09?? 0.3?? 09/06/22?? 5.4 ??High?? Lymph Abs#?? 12/28/22 16:09?? 3.13?? 09/06/22?? 1.11?? Neut Abs#?? 12/28/22 16:09?? 5.20?? 09/06/22?? 4.90?? Steele Abs#?? 12/28/22 16:09?? 0.88?? 09/06/22?? 0.60?? Eos Abs#?? 12/28/22 16:09?? 0.03?? 09/06/22?? 0.01?? Baso Abs#?? 12/28/22 16:09?? 0.02?? 09/06/22?? 0.03?? IG Auto?? 12/28/22 16:09?? 0.03?? 09/06/22?? 0.38?? Plt Clmp?? 12/28/22 16:09?? Occasional Abnormal? NRBC Abs #?? 12/28/22 16:09?? 0?? 09/06/22?? 0? Morphology?? LATEST RESULTS?? Plt Large?? 12/28/22 16:09?? Occasional Abnormal?? Smear Comment?? 12/28/22 16:09?? Smear Comment? Other Hematology?? LATEST RESULTS?? HISTORICAL RESULTS?? Slide Review??? 12/28/22 16:09?? Smear Review?? 09/05/22?? Manual Diff? Immunology General?? LATEST RESULTS?? HISTORICAL RESULTS?? Influenza A?? 12/28/22 16:14?? negative?? 09/01/22?? negative?? Influenza B?? 12/28/22 16:14?? negative?? 09/01/22?? negative? [Electronically Signed by: 12/28/2022 18:52 EST] Joselo Barksdale [Verified on: 12/28/2022 18:52 EST] Joselo Barksdale * Chris Roldan MD: PERFORM Event Display: ED Note - Physician Authored Date: I personally saw and evaluated the patient on the day of service noted by the JENNIFER.?I personally reviewed the most current data available, including vitals, diagnostics, and ancillary staff records.?The management was discussed with the JENNIFER and other treatment team members as appropriate, and I agree with the documentation, unless otherwise noted below. I performed the substantive portion ofthe Medical Decision Making.?? [Electronically Signed by: 12/28/2022 19:20 EST] Chris Roldan MD, MD Consultation/Specialist Note * Lul Medina MD: PERFORM Event Display: Consultation/Specialist Note Authored Date: [id number] SAYDA OGDEN :1955 Age:67 years Sex:Female Visit Date:12/28/2022 Primary Care Physician: Avila Gomez MD Chief Complaint mid-abdominal pain radiating around right flank to back. N/V/D x 1 week. Pt states I haven't been able to eat hardly anything. Reason for Consultation Pancreatitis History of Present Illness Recent onset of pancreatitis.?? She??s/p cholecystectomy at age 17.?? She is experiencing a moderate amount of epigastric??and mid abdominal pain??with some radiation to her back.?? She said the painstarted about a week ago.?? No history of similar symptoms. MRCP shows??dilation of common duct andpancreatic duct??with no obvious??source such as tumor or stone. ??Images and report reviewed.?? Discussed with patient.?? She says she had non-Hodgkin's lymphoma and??would have??abdominal pain associated with a lymphoma that would resolve with chemotherapy.?? She said her oncologist told her he thought she had??pancreatitis??though no scan or blood work would??show evidence of that, she says.??She is complaining of some constipation.?? This is new. Review of Systems See chart Physical Exam Vitals & Measurements T:??36.6?C ??(Oral)?? TMIN:??36.5?C ??(Oral)?? TMAX:??37.2?C ??(Oral)?? HR:??102??(Peripheral)?? RR:??17?? BP:??120/75?? SpO2:??91%?? HT:??165.1??cm?? WT:??86.8??kg?? BMI:??30.62?? O2 Flow Rate:??2?? O2 Therapy:??Nasal cannula?? Awake, alert. ??Seems??comfortable??and not in??distress at this point. Abdomen mildly distended. ??Mild diffuse tenderness without mass. Assessment/Plan 1.??Pancreatitis??K85.90 Seems to be idiopathic. ??Agree with??MRCP??recommendation??of repeat CT or MRCP in a month or so.?? Will order Dulcolax for her constipation.?? I do not see a surgical problem at this point and we will therefore see her as needed. Problem List/Past Medical History Ongoing Arthritis Bone marrow transplant status Cervical spine disease Chest wall pain COPD (chronic obstructive pulmonary disease) COPD exacerbation Dehydration Diarrhea Dysphonia Frequent UTI Herpes History of kidney stones IBS (irritable bowel syndrome) Kidney cysts Nausea and vomiting Non Hodgkin's lymphoma Urinary retention Historical No qualifying data Procedure/Surgical History ???Bladder tract???Foot???Gallbladder absent???Hysterectomy???Neck???Shoulder???Tonsillectomy Medications Inpatient !-DuoNeb, 3 mL, NEB, q4hr (interval), PRN !-Flexeril, 10 mg= 1 tab(s), Oral, TID, PRN !-Zofran, 4 mg= 2 mL, IV Push, q6hr (interval), PRN acetaminophen-oxycodone 325 mg-10 mg oral tablet, 1 tab(s), Oral, q4hr (interval), PRN albuterol 0.083% inhalation solution, 2.5 mg= 3 mL, NEB, q2hr (interval), PRN Artificial Tears, 1 drop(s), OPTH, q2hr (interval), PRN Cardizem CD, 120 mg= 1 cap(s), Oral, Daily Colace, 100 mg= 1 cap(s), Oral, BID, PRN HYDROmorphone 0.5 mg/0.5 mL injectable solution, 0.5 mg= 0.5 mL, IV Push, q3hr (interval), PRN magnesium oxide, 400 mg, Oral, HS Milk of Magnesia, 30 mL, Oral, q8hr (interval), PRN [place] 0.65% nasal spray, 1 spray(s), Nostrils-Both, q2hr (interval), PRN pantoprazole, 40 mg= 1 tab(s), Oral, Daily patient specific bin, 1 EA, N/A, As Directed, PRN patient specific respiratory, 1 EA, N/A, As Directed, PRN pregabalin, 150 mg= 3 cap(s), Oral, TID refrigerated med, 1 EA, N/A, As Directed, PRN Restoril, 30 mg= 2 cap(s), Oral, HS, PRN Tums, 500 mg= 1 tab(s), Oral, q2hr (interval), PRN Tylenol, 650 mg= 2 tab(s), Oral, q4hr (interval), PRN Tylenol, 650 mg= 1 supp, Per Rectum, q4hr (interval), PRN Home !-Flexeril, 10 mg, Oral, TID !-Zofran ODT 4 mg oral tablet, disintegrating, 4 mg= 1 tab(s), Oral, q8hr (scheduled), PRN acetaminophen-oxycodone 325 mg-10 mg oral tablet, 1 tab(s), Oral, q4hr (interval), PRN Belsomra 20 mg oral tablet, 20 mg= 1 tab(s), Oral, Once a day (at bedtime) Dexilant 60 mg oral delayed release capsule, 60 mg= 1 cap(s), Daily DilTIAZem (Eqv-Cardizem CD) 120 mg/24 hours oral capsule, extended release, 120 mg= 1 cap(s), Oral,Daily docusate sodium 100 mg oral capsule, 100 mg= 1 cap(s), Oral, BID, PRN lovastatin 10 mg oral tablet, 10 mg= 1 tab(s), Oral, Daily magnesium oxide 400 mg oral tablet, 400 mg= 1 tab(s), Oral, HS pregabalin 150 mg oral capsule, 150 mg= 1 cap(s), Oral, TID Probiotic, See Instructions traZODone 100 mg oral tablet, 100 mg= [...] Event Name?? Event Result?? Date/Time?? Sodium Level 138 mEq/L 12/29/22 04:46:00 Potassium Level 3.5 mmol/L 12/29/22 04:46:00 Chloride Level 106 mmol/L 12/29/22 04:46:00 CO2 19.3 mmol/L??Low 12/29/22 04:46:00 Anion Gap 16 12/29/22 04:46:00 Glucose Level 115 mg/dL??High 12/29/22 04:46:00 BUN 20 mg/dL??High 12/29/22 04:46:00 Creatinine Level 1.1 mg/dL??High 12/29/22 04:46:00 GFR AA 59 mL/min/1.73??Low 12/29/22 04:46:00 GFR Non AA 49 mL/min/1.73??Low 12/29/22 04:46:00 Calcium Level 7.6 mg/dL??Low 12/29/22 04:46:00 Magnesium 1.7??Low 12/29/22 04:46:00 Bili Total 0.64 mg/dL 12/29/22 04:46:00 Alk Phos 78 IU/L 12/29/22 04:46:00 AST/SGOT 115 IU/L??High 12/29/22 04:46:00 ALT/SGPT 40 IU/L 12/29/22 04:46:00 Protein Total 6.2 g/dL??Low 12/29/22 04:46:00 Albumin Level 3.4 mg/dL 12/29/22 04:46:00 Lipase Level 408 IU/L??High 12/29/22 04:46:00 Cholesterol 221 mg/dL??High 12/29/22 04:46:00 HDL 67 mg/dL 12/29/22 04:46:00 Chol/HDL Ratio 3.3 % 12/29/22 04:46:00 LDL Calc 30 mg/dL 12/29/22 04:46:00 Trig 619 mg/dL??High 12/29/22 04:46:00 ? Hematology ? Event Name?? Event Result?? Date/Time?? WBC 7 x10^3/mcL 12/29/22 04:46:00 RBC 3.5 x10^6/mcL??Low 12/29/22 04:46:00 Hgb 11.1 g/dL??Low 12/29/22 04:46:00 Hct 34.9 %??Low 12/29/22 04:46:00 MCV 100 12/29/22 04:46:00 MCH 31.7 pg 12/29/22 04:46:00 MCHC 31.8 g/dL 12/29/22 04:46:00 RDW/CV 12.4 % 12/29/22 04:46:00 Platelet 67 x10^3/mcL??Low 12/29/22 04:46:00 MPV 10.8 fL 12/29/22 04:46:00 Auto Lymph % 32.3 % 12/29/22 04:46:00 Auto Neut % 56.3 % 12/29/22 04:46:00 Auto Steele % 9.8 % 12/29/22 04:46:00 Auto Eos % 0.9 % 12/29/22 04:46:00 Auto Baso % 0.3 % 12/29/22 04:46:00 Auto IG % 0.4 % 12/29/22 04:46:00 Lymph Abs# 2.25 K/uL 12/29/22 04:46:00 Neut Abs# 3.93 K/uL 12/29/22 04:46:00 Steele Abs# 0.68 K/uL 12/29/22 04:46:00 Eos Abs# 0.06 K/uL 12/29/22 04:46:00 Baso Abs# 0.02 K/uL 12/29/22 04:46:00 IG Auto 0.03 K/uL 12/29/22 04:46:00 NRBC Abs # 0 K/uL 12/29/22 04:46:00 ? Urinalysis ? Event Name?? Event Result?? Date/Time?? UA Color Yellow 12/28/22 23:55:00 UA Clarity Cloudy Abnormal 12/28/22 23:55:00 UA Glucose Negative 12/28/22 23:55:00 UA Ketones Negative 12/28/22 23:55:00 UA Spec Grav 1.020 12/28/22 23:55:00 UA Blood Negative 12/28/22 23:55:00 UA pH 5.5 12/28/22 23:55:00 UA Protein 1+ Abnormal 12/28/22 23:55:00 UA Urobilinogen 0.2 12/28/22 23:55:00 UA Nitrite Negative 12/28/22 23:55:00 UA Leuk Est Negative 12/28/22 23:55:00 UA Bilirubin Negative 12/28/22 23:55:00 Urine Source RANDOM 12/28/22 23:55:00 Micro? Indicated 12/28/22 23:55:00 Culture? Not Indicated 12/28/22 23:55:00 UA WBC 0-5 12/28/22 23:55:00 UA RBC 0-5 12/28/22 23:55:00 UA Bacteria Trace Abnormal 12/28/22 23:55:00 UA Epithelials Few Abnormal 12/28/22 23:55:00 ? [Electronically Signed by: 12/29/2022 19:34 EST] Lul Medina MD, MD [Verified on: 12/29/2022 19:34 EST] Lul Medina MD, MD History and physical note * Fartun Restrepo CARTOGRAPHIC DESIGNER: PERFORM Event Display: History and Physical Authored Date: [id number] SAYDA OGDEN :1955 Age:67 years Sex:Female Visit Date:12/28/2022 Primary Care Physician: Avila Gomez MD Chief Complaint mid-abdominal pain radiating around right flank to back. N/V/D x 1 week. Pt states I haven't been able to eat hardly anything. History of Present Illness ??SAYDA OGDEN??is a??67 years??of age??Female??with a past medical history significant for: ??Arthritis, bone marrow transplant, COPD, frequent UTI, herpes, IBS, and non- hodgkin's lymphoma who presented to the ED with a week long history of abdominal pain.?? Pain is concentrated in the LUQ and radiates to??her??back.?? She had a cholecystectomy when she was 17.?? Patient describes the pain as??crampy and deep.?? She denies fever but states she has been dizzy off and on.?? She has had some transient hypotension while in the ED.?? Patient states that pain??is worse after eating.?? She states that she has been very thirsty and has been drinking well but has been vomiting multiple times a day.?? While in??the ED patient had bring her a six piece chicken McNugget which she ate heartily and vomited about an hour later.?? On admission exam patient is tender to??RUQ.?? Nursehas administered pain medication and patient is becoming more comfortable.?? She is on opiates chronically for??extremity pain secondary to treatment for Non-Hodgkin's lymphoma.?? Long discussion was??had about??pain management plan, risk of respiratory depression, and expectations for pain level.?? Patient denies chest pain, shortness of breath, cough, fever, headahce, and syncope.? ED workup finds vital signs on arrival to be BP??90/57??HR??126, Oxygen Saturation??94% on room air, Temp??36.8, RR??20.?? CT of abdomen and pelvis finds 1. ??Moderate inflammatory change surroundingthe pancreatic head and duodenum is consistent with either acute pancreatitis or duodenitis. 2.?? Common bile duct dilatation without obstructing stone or mass, while this can be seen secondary to pancreatitis or duodenitis??a noncalcified stone or obstructing lesion within the common bile duct cannot be excluded.?? Consider contrast- enhanced??MRI/MRCP for further evaluation.?? Labs identified hyponatremia with a sodium of 131. ??Hypokalemia??is noted with a potassium of 3.2. ??Chloride is low at 96 CO2 is also low at 19.?? Hyperglycemia is found with a blood glucose of 123.?? Acute kidney injury is documented with a BUN of 30 creatinine of 2.2, GFR of 22.?? Baseline creatinine is 0.8.?? Magnesium is low at 1.3??lipase is elevated at 872. ??Amylase is normal at 102.?? Triglycerides are wildly elevated at 638.?? Remainder of lipid panel is normal. ?? In the ED patient was medicated for pain and nausea. ??Fluids were administered??potassium and magnesium??was replaced.? Plan of care to include MRCP and gastroenterology??consult explained to patient who is in agreement with the treatment plan. ??Patient will be admitted to the hospitalist service for continued assessment and treatment. Review of Systems Constitutional: [No fevers, chills, sweats] Eye: [No recent visual problems] ENT: [No ear pain, nasal congestion, sore throat] Respiratory: [No shortness of breath, cough] Cardiovascular: [No Chest pain, palpitations, syncope] Gastrointestinal: [+ nausea, + vomiting, + diarrhea] Genitourinary: [No hematuria] Elder/Lymph: [Negative for bruising tendency, swollen lymph glands] Endocrine: [Negative for excessive thirst, excessive hunger] Musculoskeletal: [No back pain, neck pain, joint pain, muscle pain, decreased range of motion] Integumentary: [No rash, pruritus, abrasions] Neurologic: [Alert & oriented X 3] Psychiatric: [No anxiety, depression] Physical Exam Vitals & Measurements T:??37.2?C ??(Oral)?? TMIN:??36.8?C ??(Oral)?? TMAX:??37.2?C ??(Oral)?? HR:??110??(Peripheral)?? RR:??18?? BP:??127/74?? SpO2:??94%?? HT:??165.1??cm?? WT:??83.460??kg??(Estimated)?? BMI:??30.62?? O2 Flow Rate:??2?? O2 Therapy:??Nasal cannula?? General: [Alert and oriented, obese, no acute distress]. Eye: [PERRL, EOMI, normal conjunctiva]. HENT: [Normocephalic, clear tympanic membranes, normal hearing, moist oral mucosa, no scleral icterus, no sinus tenderness]. Neck: [Supple, non-tender, no carotid bruits, no JVD, no lymphadenopathy]. Lungs: [Clear to auscultation and percussion, non-labored respiration]. Heart: [Normal rate, regular rhythm, no murmur, gallop or edema]. Genitourinary: [No CVA tenderness, No pelvic tenderness Abdomen: [Soft, tender, distended, normal bowel sounds, no masses]. Musculoskeletal: [Normal range of motion and strength, no tenderness or swelling]. Skin: [Skin is warm, dry and pink, no rashes or lesions]. Neurologic: [Awake, alert and oriented x3. Psychiatric: [Cooperative, appropriate mood and affect]. Assessment/Plan Pancreatitis - Admit to [facility] - CT abdomen and pelvis finds??CT of abdomen and pelvis finds 1. ??Moderate inflammatory change surrounding the pancreatic head and duodenum is consistent with either acute pancreatitis or duodenitis.?? 2.?? Common bile duct dilatation without obstructing stone or mass, while this can be seen secondary to pancreatitis or duodenitis??a noncalcified stone or obstructing lesion within the common bile duct cannot be excluded.?? Consider contrast-enhanced??MRI/MRCP for further evaluation.?? - Amylase 102 - Lipase 872 - Lipid profile: Cholesterol 196. HDL 69, Cholesterol/HDL ration 2.8,??triglyceride 638.? - NPO except for ice chips - Dilaudid 0.5mg IV Q4hrs PRN pain - Zofran 4mg IV Q6hrs PRN nausea - phenergan 25mg per rectum Q6hrs PRN - NS with 20meq K+ at 125ml/hr -??I & O - US??RUQ abdomen - MRCP - Consult to Gastroenterology, Dr. Curtis Coronado input appreciated ?? Hyponatremia - sodium 131 - 2LNS given in ED - NS??with 20meq K+ on admission? Hypokalemia - potassium 3.2 - Fluids as above - AM labs, trend? Hyperglycemia - random blood glucose 123 - A1C - AM labs, trend ? Acute kidney injury - BUN 30 - creatinine 2.2 - GFR 22?? - Baseline creatinine 0.8 - Fluids as above - I & O - AM labs, trend ? Hypomagnesemia - Magnesium level 1.3?? - magnesium sulfate 1gm IV given in ED - magnesium oxide 400mg POQHS - AM labs, trend ?? GERD - pantoprazole 40mg IV Qday ?? COPD - Patient is on??oxygen 2L/min chronically.?? On admission patient is at baseline - DuoNeb QID - Albuterol neb Q2hrs PRN - Oxygen to keep sat >90% - Incentive Spirometry - Flutter therapy ?? Insomnia - Restoril 30mg PO QHS ?? Other - DVT proph: SCD, heparin 5000 units SQ BID - Milk of Magnesia 30ml PO Q8hrs PRN constipation - Colace 100mg PO BID - Tylenol 650mg PO or per rectum Q4hrs PRN pain/fever - Zofran 4mg IV Q6hrs PRN nausea - [place] nasal spray PRN - Artificial tears PRN - Trazodone 50mg PO QHS PRN sleep - Atarax 10mg PO Q6hrs PRN anxiety ? Critical Care Time: 0 minutes ? Referral Orders Gastroenterology - Dr. Curtis Coronado Problem List/Past Medical History Ongoing Arthritis Bone marrow transplant status Cervical spine disease Chest wall pain COPD (chronic obstructive pulmonary disease) COPD exacerbation Dehydration Diarrhea Dysphonia Frequent UTI Herpes History of kidney stones IBS (irritable bowel syndrome) Kidney cysts Nausea and vomiting Non Hodgkin's lymphoma Urinary retention Historical No qualifying data Procedure/Surgical History ???Bladder tract???Foot???Gallbladder absent???Hysterectomy???Neck???Shoulder???Tonsillectomy Medications Inpatient !-Atarax, 10 mg= 1 tab(s), Oral, q4hr (interval), PRN !-DuoNeb, 3 mL, NEB, QID !-DuoNeb, 3 mL, NEB, q4hr (interval), PRN !-Zofran, 4 mg= 2 mL, IV Push, q6hr (interval), PRN albuterol 0.083% inhalation solution, 2.5 mg= 3 mL, NEB, q2hr (interval), PRN Artificial Tears, 1 drop(s), OPTH, q2hr (interval), PRN Cardizem CD, 120 mg= 1 cap(s), Oral, Daily Colace, 100 mg= 1 cap(s), Oral, BID, PRN Dilaudid, 0.5 mg= 0.5 mL, IV Push, q4hr (interval), PRN heparin, 5000 unit(s)= 1 mL, Subcutaneous, q12hr (scheduled) magnesium oxide, 400 mg, Oral, HS Milk of Magnesia, 30 mL, Oral, q8hr (interval), PRN [place] 0.65% nasal spray, 1 spray(s), Nostrils-Both, q2hr (interval), PRN pantoprazole, 40 mg= 1 tab(s), Oral, Daily patient specific bin, 1 EA, N/A, As Directed, PRN patient specific respiratory, 1 EA, N/A, As Directed, PRN Phenergan, 12.5 mg= 1 supp, Per Rectum, q6hr (interval), PRN pregabalin, 150 mg= 3 cap(s), Oral, TID refrigerated med, 1 EA, N/A, As Directed, PRN Restoril, 30 mg= 2 cap(s), Oral, HS, PRN Sodium Chloride 0.9% with KCl 20 mEq/L 1,000 mL, 1000 mL, IV traZODone, 100 mg= 2 tab(s), Oral, Once a day (at bedtime) traZODone, 50 mg= 1 tab(s), Oral, HS, PRN Tums, 500 mg= 1 tab(s), Oral, q2hr (interval), PRN Tylenol, 650 mg= 2 tab(s), Oral, q4hr (interval), PRN Tylenol, 650 mg= 1 supp, Per Rectum, q4hr (interval), PRN Home !-Flexeril, 10 mg, Oral, TID !-Zofran ODT 4 mg oral tablet, disintegrating, 4 mg= 1 tab(s), Oral, q8hr (scheduled), PRN acetaminophen-oxycodone 325 mg-10 mg oral tablet, 1 tab(s), Oral, q4hr (interval), PRN Belsomra 20 mg oral tablet, 20 mg= 1 tab(s), Oral, Once a day (at bedtime) Dexilant 60 mg oral delayed release capsule, 60 mg= 1 cap(s), Daily DilTIAZem (Eqv-Cardizem CD) 120 mg/24 hours oral capsule, extended release, 120 mg= 1 cap(s), Oral,Daily docusate sodium 100 mg oral capsule, 100 mg= 1 cap(s), Oral, BID, PRN lovastatin 10 mg oral tablet, 10 mg= 1 tab(s), Oral, Daily magnesium oxide 400 mg oral tablet, 400 mg= 1 tab(s), Oral, HS pregabalin 150 mg oral capsule, 150 mg= 1 cap(s), Oral, TID Probiotic, See Instructions traZODone 100 mg oral tablet, 100 mg= [...] Cause of : COPD Lab Results Last 48 Hours?? Chemistry ? Event Name?? Event Result?? Date/Time?? Sodium Level 131??Low 12/28/22 16:09:00 Potassium Level 3.2 mmol/L??Low 12/28/22 16:09:00 Chloride Level 96 mmol/L??Low 12/28/22 16:09:00 CO2 19 mmol/L??Low 12/28/22 16:09:00 Anion Gap 19 12/28/22 16:09:00 Glucose Level 123 mg/dL??High 12/28/22 16:09:00 BUN 30 mg/dL??High 12/28/22 16:09:00 Creatinine Level 2.2 mg/dL??High 12/28/22 16:09:00 GFR AA 26 mL/min/1.73??Low 12/28/22 16:09:00 GFR Non AA 22 mL/min/1.73??Low 12/28/22 16:09:00 Calcium Level 8.4 mg/dL??Low 12/28/22 16:09:00 Magnesium 1.3??Low 12/28/22 16:09:00 Bili Total 0.99 mg/dL 12/28/22 16:09:00 Alk Phos 87 IU/L 12/28/22 16:09:00 AST/SGOT 88 IU/L??High 12/28/22 16:09:00 ALT/SGPT 49 IU/L 12/28/22 16:09:00 Protein Total 7.5 g/dL 12/28/22 16:09:00 Albumin Level 4 mg/dL 12/28/22 16:09:00 Amylase Level 102 IU/L 12/28/22 18:05:00 Lipase Level 872 IU/L??Critical 12/28/22 18:05:00 Hgb A1c 5.5 % 12/28/22 16:09:00 Lactic Acid 1.5 mmol/L 12/28/22 16:09:00 Cholesterol 196 mg/dL 12/28/22 18:05:00 HDL 69 mg/dL 12/28/22 18:05:00 Chol/HDL Ratio 2.8 % 12/28/22 18:05:00 LDL Calc <0 12/28/22 18:05:00 Trig 638 mg/dL??High 12/28/22 18:05:00 CRP 4.16 mg/dL??High 12/28/22 16:09:00 ? Hematology ? Event Name?? Event Result?? Date/Time?? WBC 9.3 x10^3/mcL 12/28/22 16:09:00 RBC 3.81 x10^6/mcL??Low 12/28/22 16:09:00 Hgb 12.3 g/dL 12/28/22 16:09:00 Hct 37.5 % 12/28/22 16:09:00 MCV 98 12/28/22 16:09:00 MCH 32.3 pg 12/28/22 16:09:00 MCHC 32.8 g/dL 12/28/22 16:09:00 RDW/CV 12.3 % 12/28/22 16:09:00 Platelet 89 x10^3/mcL??Low 12/28/22 16:09:00 MPV 10.5 fL 12/28/22 16:09:00 Auto Lymph % 33.7 % 12/28/22 16:09:00 Auto Neut % 56 % 12/28/22 16:09:00 Auto Steele % 9.5 % 12/28/22 16:09:00 Auto Eos % 0.3 % 12/28/22 16:09:00 Auto Baso % 0.2 % 12/28/22 16:09:00 Auto IG % 0.3 % 12/28/22 16:09:00 Lymph Abs# 3.13 K/uL 12/28/22 16:09:00 Neut Abs# 5.2 K/uL 12/28/22 16:09:00 Steele Abs# 0.88 K/uL 12/28/22 16:09:00 Eos Abs# 0.03 K/uL 12/28/22 16:09:00 Baso Abs# 0.02 K/uL 12/28/22 16:09:00 IG Auto 0.03 K/uL 12/28/22 16:09:00 Plt Clmp Occasional Abnormal 12/28/22 16:09:00 NRBC Abs # 0 K/uL 12/28/22 16:09:00 Plt Large Occasional Abnormal 12/28/22 16:09:00 Smear Comment Smear Comment 12/28/22 16:09:00 Slide Review? Smear Review 12/28/22 16:09:00 ? All Other Results ? Event Name?? Event Result?? Date/Time?? Influenza A negative - Leatha 12/28/22 16:14:00 Influenza B negative - Leatha 12/28/22 16:14:00 ? Diagnostic Results X-Ray:?? Computed Tomography: ?? CT Abdomen +Pelvis w/o Cont ?? 12/28/22 17:22:35 HISTORY ?? Abdominal pain vomiting ?? STUDY ?? CT Abdomen +Pelvis w/o Cont ?? COMPARISON ?? None available ?? TECHNIQUE ?? Multiple axial images of the abdomen and pelvis were obtained from the lung bases to the pubic symphysis without the administration of IV contrast. Dose reduction techniques including Automated Exposure Control (AEC) and adjustment of mA and kV were utilized. ?? FINDINGS ?? [Lung bases are clear. No focal hepatic lesion. Liver morphology is unremarkable. Gallbladder is not definitely seen, correlate for prior cholecystectomy. Common bile duct is dilated to the level theampulla. Spleen is normal. Peripancreatic stranding is noted most severely affecting the pancreatic head with small amount of non localizing fluid within the retroperitoneum. Shotty peripancreatic lymph nodes. ?? Adrenal glands are normal. Few small hypoattenuating lesions are noted within the right and left kidney Hounsfield attenuation are compatible with cysts. No nephrolithiasis, hydronephrosis or solid mass. Urinary bladder is normal. No pelvic or adnexal mass. ?? Upper GI tract demonstrates mild bowel wall thickening involving the 2nd-3rd portion duodenum. No evidence of mass or obstruction. The rectum and colon are normal. No pelvic free fluid. No adenopathy. Abdominal aorta is normal in caliber with scattered calcified atherosclerotic disease. Review of bone windows demonstrates no acute osseous abnormality. ?? IMPRESSION ?? Moderate inflammatory change surrounding the pancreatic head and duodenum is consistent with eitheracute pancreatitis or duodenitis. ?? Common bile duct dilatation without obstructing stone or mass, while this can be seen secondary to pancreatitis or duodenitis a noncalcified stone or obstructing lesion within the common bile duct cannot be excluded. Consider contrast enhanced MRI/MRCP for further evaluation. ?? Additional incidental, nonacute findings as described above. ? Electronically signed by: ?? Signed By: Keon Mojica MD Ultrasound:?? MRI:?? Echo:?? Nuclear Medicine:?? Mammography:? [Electronically Signed by: 12/28/2022 23:37 EST] Fartun Restrepo NP CARTOGRAPHIC DESIGNER [Electronically Signed by: 12/29/2022 07:04 EST] Reuben Lai MD, MD [Verified on: 12/28/2022 23:37 EST] Fartun Restrepo NP, NP Progress note * Alondra Wolfe NP: PERFORM Event Display: Progress Note-Physician Authored Date: [id number] SAYDA OGDEN :1955 Age:67 years Sex:Female Visit Date:12/28/2022 Primary Care Physician: Avila Gomez MD Subjective Patient is seen ambulating around her room. She is requesting that her oral Percocet be discontinued because she is taking it more frequently than she does at home and would like her IV dilaudid increased, but states that she plans to go home tomorrow. She is tolerating clear liquids. She has been constipated but reports passing a small amount of stool today. She denies any acute cardiopulmonary complaints. Objective Vitals & Measurements T:??36.4?C ??(Oral)?? TMIN:??36.4?C ??(Oral)?? TMAX:??37.2?C ??(Oral)?? HR:??121??(Peripheral)?? RR:??16?? BP:??135/61?? SpO2:??90%?? WT:??83.5??kg?? O2 Flow Rate:??92?? O2 Therapy:??Roomair?? Physical Exam General: NAD, calm, cooperative. Neuro: AAOx4, speech clear and coherent, no acute focal deficit. HEENT: Non-traumatic, EOMI, normal hearing, nose patent, trachea midline. CV: RRR, S1, S2, no murmurs, rubs, or gallop. Lungs: CTA bilaterally, no wheezing or rhonchi, good air movement. Abd: Soft, upper abdominal tenderness, non-distended, normoactive bowel sounds. : No strauss. Musculoskeletal: Good ROM. Skin: Warm and dry. Extremities: No clubbing, cyanosis, or edema. Peripheral pulses intact. Lab Results Last 24 Hours?? Chemistry ? Event Name?? Event Result?? Date/Time?? Sodium Level 138 mEq/L 12/30/22 05:15:00 Potassium Level 3.6 mmol/L 12/30/22 05:15:00 Chloride Level 103 mmol/L 12/30/22 05:15:00 CO2 25.4 mmol/L 12/30/22 05:15:00 Anion Gap 13 12/30/22 05:15:00 Glucose Level 108 mg/dL 12/30/22 05:15:00 BUN 10 mg/dL 12/30/22 05:15:00 Creatinine Level 0.8 mg/dL 12/30/22 05:15:00 GFR AA 83 mL/min/1.73 12/30/22 05:15:00 GFR Non AA 69 mL/min/1.73 12/30/22 05:15:00 Calcium Level 8 mg/dL??Low 12/30/22 05:15:00 Magnesium 2 12/30/22 05:15:00 Bili Total 0.55 mg/dL 12/30/22 05:15:00 Alk Phos 90 IU/L 12/30/22 05:15:00 AST/SGOT 60 IU/L??High 12/30/22 05:15:00 ALT/SGPT 36 IU/L 12/30/22 05:15:00 Protein Total 6.4 g/dL 12/30/22 05:15:00 Albumin Level 3.5 mg/dL 12/30/22 05:15:00 Lipase Level 117 IU/L 12/30/22 11:22:00 ? Hematology ? Event Name?? Event Result?? Date/Time?? WBC 5.6 x10^3/mcL 12/30/22 05:15:00 RBC 3.46 x10^6/mcL??Low 12/30/22 05:15:00 Hgb 11.1 g/dL??Low 12/30/22 05:15:00 Hct 35 % 12/30/22 05:15:00 MCV 101??High 12/30/22 05:15:00 MCH 32.1 pg 12/30/22 05:15:00 MCHC 31.7 g/dL 12/30/22 05:15:00 RDW/CV 12.5 % 12/30/22 05:15:00 Platelet 71 x10^3/mcL??Low 12/30/22 05:15:00 MPV 10.7 fL 12/30/22 05:15:00 Auto Lymph % 33.5 % 12/30/22 05:15:00 Auto Neut % 53.9 % 12/30/22 05:15:00 Auto Steele % 10.9 % 12/30/22 05:15:00 Auto Eos % 0.9 % 12/30/22 05:15:00 Auto Baso % 0.4 % 12/30/22 05:15:00 Auto IG % 0.4 % 12/30/22 05:15:00 Lymph Abs# 1.87 K/uL 12/30/22 05:15:00 Neut Abs# 3.01 K/uL 12/30/22 05:15:00 Steele Abs# 0.61 K/uL 12/30/22 05:15:00 Eos Abs# 0.05 K/uL 12/30/22 05:15:00 Baso Abs# 0.02 K/uL 12/30/22 05:15:00 IG Auto 0.02 K/uL 12/30/22 05:15:00 NRBC Abs # 0 K/uL 12/30/22 05:15:00 ? Diagnostic Results X-Ray:?? Computed Tomography: ?? CT Abdomen +Pelvis w/o Cont ?? 12/28/22 17:22:35 HISTORY ?? Abdominal pain vomiting ?? STUDY ?? CT Abdomen +Pelvis w/o Cont ?? COMPARISON ?? None available ?? TECHNIQUE ?? Multiple axial images of the abdomen and pelvis were obtained from the lung bases to the pubic symphysis without the administration of IV contrast. Dose reduction techniques including Automated Exposure Control (AEC) and adjustment of mA and kV were utilized. ?? FINDINGS ?? [Lung bases are clear. No focal hepatic lesion. Liver morphology is unremarkable. Gallbladder is not definitely seen, correlate for prior cholecystectomy. Common bile duct is dilated to the level theampulla. Spleen is normal. Peripancreatic stranding is noted most severely affecting the pancreatic head with small amount of non localizing fluid within the retroperitoneum. Shotty peripancreatic lymph nodes. ?? Adrenal glands are normal. Few small hypoattenuating lesions are noted within the right and left kidney Hounsfield attenuation are compatible with cysts. No nephrolithiasis, hydronephrosis or solid mass. Urinary bladder is normal. No pelvic or adnexal mass. ?? Upper GI tract demonstrates mild bowel wall thickening involving the 2nd-3rd portion duodenum. No evidence of mass or obstruction. The rectum and colon are normal. No pelvic free fluid. No adenopathy. Abdominal aorta is normal in caliber with scattered calcified atherosclerotic disease. Review of bone windows demonstrates no acute osseous abnormality. ?? IMPRESSION ?? Moderate inflammatory change surrounding the pancreatic head and duodenum is consistent with eitheracute pancreatitis or duodenitis. ?? Common bile duct dilatation without obstructing stone or mass, while this can be seen secondary to pancreatitis or duodenitis a noncalcified stone or obstructing lesion within the common bile duct cannot be excluded. Consider contrast enhanced MRI/MRCP for further evaluation. ?? Additional incidental, nonacute findings as described above. ? Electronically signed by: ?? Signed By: Keon Mojica MD Ultrasound: ?? US Abdomen Upper Quadrant Rt ?? 12/29/22 10:24:24 HISTORY ?? pancreatitis ?? STUDY ?? US Abdomen Upper Quadrant Rt ?? COMPARISON ?? CT 12/28/2022 ?? TECHNIQUE ?? Multiple cortez scale and color flow Doppler images of the right upper quadrant of the abdomen were obtained with image documentation. ?? FINDINGS ?? Mild hepatomegaly and fatty infiltration of the liver. Hepatopetal portal venous flow is seen on Doppler ultrasound. ?? Prior cholecystectomy. Common bile duct measures 1.1 cm in diameter. There is slight intrahepatic biliary ductal dilation. Findings may be due to prior cholecystectomy or associated with pancreatitis. ?? Indistinct head of the pancreas is seen with dilation of the pancreatic duct of 4 mm. Findings are concerning for possible pancreatitis as suggested on CT. ?? No right renal abnormality. Right kidney measures 7.7 cm in length. ?? Visualized portions of the IVC appear normal. ?? IMPRESSION ?? Probable pancreatitis in the head of the pancreas with dilation of the pancreatic duct. Possible dilation of the biliary ducts but this appearance could possibly be prior cholecystectomy. ? Electronically signed by: ?? Signed By: Oscar Goyal MD MRI: ?? MRI MRCP ?? 12/29/22 10:23:21 MRI MRCP ?? Clinical indication: Right upper quadrant pain ?? Procedure: Multiplanar multi sequence MRI of the abdomen were obtained with and without the administration of intravenous contrast according to standard departmental protocol. MRCP sequences also obtained. ?? Contrast: 20 cc of ProHance ?? Comparisons:CT December 28, 2022 demonstrating common bile duct dilatation and pancreatitis. ?? Findings: Examination moderately compromised by patient motion and overly small [id number] resulting in artifact. ?? MRI of the abdomen without contrast: Mild hepatic steatosis. No significant ascites. ?? MRI of the abdomen with contrast: Liver and spleen are normal in size and morphology. No focal lesions. Gallbladder absent. Common bile duct measures 1.4 cm and is without obstructing stone. Main pancreatic duct measures up to 6 mm. Intrahepatic ductal dilatation is also present. Diffuse low signalthroughout the pancreas. There is moderate inflammatory change surrounding the pancreatic head. No definite pancreatic masses. Adrenal glands are normal. Kidneys demonstrate normal cortical medullarydifferentiation. No hydronephrosis. No suspicious lymph nodes. Tiny simple bilateral renal cysts are present. ?? Impression: ?? 1.Findings of acute pancreatitis without definite evidence of pancreatic necrosis or pseudocyst formation. ?? 2. Double duct sign which raises at least some concern for possible obstruction of the ducts in theregion of the pancreatic head. No obstructing stone is seen and there is no definite pancreatic head mass. Would recommend reimaging after acute symptoms have resolved (approximately 1-2 months). ?? 3. Mild hepatic steatosis. ? Electronically signed by: ?? Signed By: Anne Lockett MD Echo:?? Nuclear Medicine:?? Mammography:? Assessment/Plan Pancreatitis - CT abdomen and pelvis finds??CT of abdomen and pelvis finds 1. ??Moderate inflammatory change surrounding the pancreatic head and duodenum is consistent with either acute pancreatitis or duodenitis.?? 2.?? Common bile duct dilatation without obstructing stone or mass, while this can be seen secondary to pancreatitis or duodenitis??a noncalcified stone or obstructing lesion within the common bile duct cannot be excluded.?? Consider contrast-enhanced??MRI/MRCP for further evaluation.?? - Amylase 102 - Lipase 872, 408, 117 - Lipid profile: Cholesterol 196. HDL 69, Cholesterol/HDL ration 2.8,??triglyceride 638.? - NPO except for ice chips, clear liquids advance as tolerated to bland, low fat - Dilaudid 0.5mg IV Q4hrs PRN pain - Zofran 4mg IV Q6hrs PRN nausea - phenergan 25mg per rectum Q6hrs PRN, d/c on 3 - NS with 20meq K+ at 125ml/hr, d/c on 3 -??I & O - US??RUQ abdomen-probable pancreatitis in the head of the pancreas with dilation of the pancreaticduct. Possible dilation of the biliary ducts but this appearance could possibly be prior cholecystectomy.?? - MRCP-1.Findings of acute pancreatitis without definite evidence of pancreatic necrosis or pseudocyst formation. ??2. Double duct sign which raises at least some concern for possible obstruction of the ducts in the region of the pancreatic head. No obstructing stone is seen and there is no definite pancreatic head mass. Would recommend reimaging after acute symptoms have resolved (approximately 1-2 months).?3. Mild hepatic steatosis.?? - Consult to Gastroenterology, Dr. Curtis Coronado input appreciated--->patient was seen in consultation by Dr Medina, general surgery, who agrees with MRCP??recommendation??of repeat CT or MRCP prem month or so.?? Will order Dulcolax for her constipation.?? I do not see a surgical problem at this point and we will therefore see her as needed. ?? Hyponatremia - sodium 131, 138, 138 - 2LNS given in ED - NS??with 20meq K+ on admission? Hypokalemia - potassium 3.2, 3.5, 3.6 - Fluids as above - AM labs, trend? Hyperglycemia - random blood glucose 123 - A1C 5.5 - AM labs, trend ? Acute kidney injury - BUN 30, 20, 10 - creatinine 2.2, 1.1, 0.8 - GFR 22?? - Baseline creatinine 0.8 - Fluids as above - I & O - AM labs, trend ? Hypomagnesemia - Magnesium level 1.3, 1.7, 2.0 - magnesium sulfate 1gm IV given in ED - magnesium oxide 400mg POQHS - AM labs, trend ?? GERD - pantoprazole 40mg IV Qday, changed to PO 12/29 ?? COPD - Patient is on??oxygen 2L/min chronically.?? On admission patient is at baseline - DuoNeb QID, d/c on 12/29 - Albuterol neb Q2hrs PRN - Oxygen to keep sat >90% - Incentive Spirometry - Flutter therapy ?? 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 Thrombocytopenia -platelet count 67K, 71K -d/c SQ heparin on 12/29 -trend ?? Insomnia - Restoril 30mg PO QHS ?? Other - DVT proph: SCD, heparin 5000 units SQ BID, d/c on 12/29/2212/01 thrombocytopenia - Milk of Magnesia 30ml PO Q8hrs PRN constipation - Colace 100mg PO BID - Tylenol 650mg PO or per rectum Q4hrs PRN pain/fever - Zofran 4mg IV Q6hrs PRN nausea - [place] nasal spray PRN - Artificial tears PRN - Trazodone 50mg PO QHS PRN sleep, d/c on 12/29 - Atarax 10mg PO Q6hrs PRN anxiety, d/c on 12/29 ?? Attending Physician Statement I personally reviewed the patient on the day of service noted by the JENNIFER.?I personally reviewed the most current data available, including vitals, diagnostics, and ancillary staff records.?The management was discussed with the JENNIFER and other treatment team members as appropriate, and I agree with the documentation, unless otherwise noted below. I performed the substantive portion of the Medical Decision Making.?? [Electronically Signed by: 12/30/2022 14:38 EST] Alondra Wolfe NP CARTOGRAPHIC DESIGNER [Electronically Signed by: 12/30/2022 17:20 EST] Reuben Lai MD, MD [Verified on: 12/30/2022 14:38 EST] Alondra Wolfe NP CARTOGRAPHIC DESIGNER * Alondra Wolfe NP: MODIFY, PERFORM, MODIFY Event Display: Progress Note-Physician Authored Date: [id number] SAYDA OGDEN :1955 Age:67 years Sex:Female Visit Date:12/28/2022 Primary Care Physician: Avila Gomez MD Subjective Patient is sitting up on the edge of her bed talking on her phone. She states that her abdominal pain has not bee well controlled stating the 0.5mg dilaudid does nothing. She also reports some self limited nausea. She denies any acute cardiopulmonary complaints. Objective Vitals & Measurements T:??36.5?C ??(Oral)?? TMIN:??36.5?C ??(Oral)?? TMAX:??37.2?C ??(Oral)?? HR:??98??(Peripheral)?? RR:??16?? BP:??112/73?? SpO2:??98%?? HT:??165.1??cm?? WT:??86.8??kg?? BMI:??30.62?? O2 FlowRate:??2?? O2 Therapy:??Nasal cannula?? Physical Exam General: NAD, calm, cooperative. Neuro: AAOx4, speech clear and coherent, no acute focal deficit. HEENT: Non-traumatic, EOMI, normal hearing, nose patent, trachea midline. CV: RRR, S1, S2, no murmurs, rubs, or gallop. Lungs: CTA bilaterally, no wheezing or rhonchi, good air movement. Abd: Soft, upper abdominal tenderness, non-distended, normoactive bowel sounds. : No strauss. Musculoskeletal: Good ROM. Skin: Warm and dry. Extremities: No clubbing, cyanosis, or edema. Peripheral pulses intact. Lab Results Last 24 Hours?? Chemistry Event Name?? Event Result?? Date/Time?? Sodium Level 138 mEq/L 12/29/22 04:46:00 Potassium Level 3.5 mmol/L 12/29/22 04:46:00 Chloride Level 106 mmol/L 12/29/22 04:46:00 CO2 19.3 mmol/L??Low 12/29/22 04:46:00 Anion Gap 16 12/29/22 04:46:00 Glucose Level 115 mg/dL??High 12/29/22 04:46:00 BUN 20 mg/dL??High 12/29/22 04:46:00 Creatinine Level 1.1 mg/dL??High 12/29/22 04:46:00 GFR AA 59 mL/min/1.73??Low 12/29/22 04:46:00 GFR Non AA 49 mL/min/1.73??Low 12/29/22 04:46:00 Calcium Level 7.6 mg/dL??Low 12/29/22 04:46:00 Magnesium 1.7??Low 12/29/22 04:46:00 Bili Total 0.64 mg/dL 12/29/22 04:46:00 Alk Phos 78 IU/L 12/29/22 04:46:00 AST/SGOT 115 IU/L??High 12/29/22 04:46:00 ALT/SGPT 40 IU/L 12/29/22 04:46:00 Protein Total 6.2 g/dL??Low 12/29/22 04:46:00 Albumin Level 3.4 mg/dL 12/29/22 04:46:00 Amylase Level 102 IU/L 12/28/22 18:05:00 Lipase Level 408 IU/L??High 12/29/22 04:46:00 Hgb A1c 5.5 % 12/28/22 16:09:00 Lactic Acid 1.5 mmol/L 12/28/22 16:09:00 Cholesterol 221 mg/dL??High 12/29/22 04:46:00 HDL 67 mg/dL 12/29/22 04:46:00 Chol/HDL Ratio 3.3 % 12/29/22 04:46:00 LDL Calc 30 mg/dL 12/29/22 04:46:00 Trig 619 mg/dL??High 12/29/22 04:46:00 CRP 4.16 mg/dL??High 12/28/22 16:09:00 ? Hematology Event Name?? Event Result?? Date/Time?? WBC 7 x10^3/mcL 12/29/22 04:46:00 RBC 3.5 x10^6/mcL??Low 12/29/22 04:46:00 Hgb 11.1 g/dL??Low 12/29/22 04:46:00 Hct 34.9 %??Low 12/29/22 04:46:00 MCV 100 12/29/22 04:46:00 MCH 31.7 pg 12/29/22 04:46:00 MCHC 31.8 g/dL 12/29/22 04:46:00 RDW/CV 12.4 % 12/29/22 04:46:00 Platelet 67 x10^3/mcL??Low 12/29/22 04:46:00 MPV 10.8 fL 12/29/22 04:46:00 Auto Lymph % 32.3 % 12/29/22 04:46:00 Auto Neut % 56.3 % 12/29/22 04:46:00 Auto Steele % 9.8 % 12/29/22 04:46:00 Auto Eos % 0.9 % 12/29/22 04:46:00 Auto Baso % 0.3 % 12/29/22 04:46:00 Auto IG % 0.4 % 12/29/22 04:46:00 Lymph Abs# 2.25 K/uL 12/29/22 04:46:00 Neut Abs# 3.93 K/uL 12/29/22 04:46:00 Steele Abs# 0.68 K/uL 12/29/22 04:46:00 Eos Abs# 0.06 K/uL 12/29/22 04:46:00 Baso Abs# 0.02 K/uL 12/29/22 04:46:00 IG Auto 0.03 K/uL 12/29/22 04:46:00 Plt Clmp Occasional Abnormal 12/28/22 16:09:00 NRBC Abs # 0 K/uL 12/29/22 04:46:00 Plt Large Occasional Abnormal 12/28/22 16:09:00 Smear Comment Smear Comment 12/28/22 16:09:00 Slide Review? Smear Review 12/28/22 16:09:00 ? Urinalysis Event Name?? Event Result?? Date/Time?? UA Color Yellow 12/28/22 23:55:00 UA Clarity Cloudy Abnormal 12/28/22 23:55:00 UA Glucose Negative 12/28/22 23:55:00 UA Ketones Negative 12/28/22 23:55:00 UA Spec Grav 1.020 12/28/22 23:55:00 UA Blood Negative 12/28/22 23:55:00 UA pH 5.5 12/28/22 23:55:00 UA Protein 1+ Abnormal 12/28/22 23:55:00 UA Urobilinogen 0.2 12/28/22 23:55:00 UA Nitrite Negative 12/28/22 23:55:00 UA Leuk Est Negative 12/28/22 23:55:00 UA Bilirubin Negative 12/28/22 23:55:00 Urine Source RANDOM 12/28/22 23:55:00 Micro? Indicated 12/28/22 23:55:00 Culture? Not Indicated 12/28/22 23:55:00 UA WBC 0-5 12/28/22 23:55:00 UA RBC 0-5 12/28/22 23:55:00 UA Bacteria Trace Abnormal 12/28/22 23:55:00 UA Epithelials Few Abnormal 12/28/22 23:55:00 ? All Other Results Event Name?? Event Result?? Date/Time?? Influenza A negative - Leatha 12/28/22 16:14:00 Influenza B negative - Leatha 12/28/22 16:14:00 ? Diagnostic Results X-Ray:?? Computed Tomography: ?? CT Abdomen +Pelvis w/o Cont ?? 12/28/22 17:22:35 HISTORY ?? Abdominal pain vomiting ?? STUDY ?? CT Abdomen +Pelvis w/o Cont ?? COMPARISON ?? None available ?? TECHNIQUE ?? Multiple axial images of the abdomen and pelvis were obtained from the lung bases to the pubic symphysis without the administration of IV contrast. Dose reduction techniques including Automated Exposure Control (AEC) and adjustment of mA and kV were utilized. ?? FINDINGS ?? [Lung bases are clear. No focal hepatic lesion. Liver morphology is unremarkable. Gallbladder is not definitely seen, correlate for prior cholecystectomy. Common bile duct is dilated to the level theampulla. Spleen is normal. Peripancreatic stranding is noted most severely affecting the pancreatic head with small amount of non localizing fluid within the retroperitoneum. Shotty peripancreatic lymph nodes. ?? Adrenal glands are normal. Few small hypoattenuating lesions are noted within the right and left kidney Hounsfield attenuation are compatible with cysts. No nephrolithiasis, hydronephrosis or solid mass. Urinary bladder is normal. No pelvic or adnexal mass. ?? Upper GI tract demonstrates mild bowel wall thickening involving the 2nd-3rd portion duodenum. No evidence of mass or obstruction. The rectum and colon are normal. No pelvic free fluid. No adenopathy. Abdominal aorta is normal in caliber with scattered calcified atherosclerotic disease. Review of bone windows demonstrates no acute osseous abnormality. ?? IMPRESSION ?? Moderate inflammatory change surrounding the pancreatic head and duodenum is consistent with eitheracute pancreatitis or duodenitis. ?? Common bile duct dilatation without obstructing stone or mass, while this can be seen secondary to pancreatitis or duodenitis a noncalcified stone or obstructing lesion within the common bile duct cannot be excluded. Consider contrast enhanced MRI/MRCP for further evaluation. ?? Additional incidental, nonacute findings as described above. ? Electronically signed by: ?? Signed By: Keon Mojica MD Ultrasound:?? MRI:?? Echo:?? Nuclear Medicine:?? Mammography:? Assessment/Plan Pancreatitis - CT abdomen and pelvis finds??CT of abdomen and pelvis finds 1. ??Moderate inflammatory change surrounding the pancreatic head and duodenum is consistent with either acute pancreatitis or duodenitis.?? 2.?? Common bile duct dilatation without obstructing stone or mass, while this can be seen secondary to pancreatitis or duodenitis??a noncalcified stone or obstructing lesion within the common bile duct cannot be excluded.?? Consider contrast-enhanced??MRI/MRCP for further evaluation.?? - Amylase 102 - Lipase 872, 408 - Lipid profile: Cholesterol 196. HDL 69, Cholesterol/HDL ration 2.8,??triglyceride 638.? - NPO except for ice chips, clear liquids advance as tolerated to bland, low fat - Dilaudid 0.5mg IV Q4hrs PRN pain - Zofran 4mg IV Q6hrs PRN nausea - phenergan 25mg per rectum Q6hrs PRN, d/c on 3/2 - NS with 20meq K+ at 125ml/hr, d/c on 3/2 -??I & O - US??RUQ abdomen-probable pancreatitis in the head of the pancreas with dilation of the pancreaticduct. Possible dilation of the biliary ducts but this appearance could possibly be prior cholecystectomy.?? - MRCP-1.Findings of acute pancreatitis without definite evidence of pancreatic necrosis or pseudocyst formation. ??2. Double duct sign which raises at least some concern for possible obstruction of the ducts in the region of the pancreatic head. No obstructing stone is seen and there is no definite pancreatic head mass. Would recommend reimaging after acute symptoms have resolved (approximately 1-2 months).?3. Mild hepatic steatosis.?? - Consult to Gastroenterology, Dr. Curtis Coronado input appreciated ?? Hyponatremia - sodium 131, 138 - 2LNS given in ED - NS??with 20meq K+ on admission? Hypokalemia - potassium 3.2, 3.5 - Fluids as above - AM labs, trend? Hyperglycemia - random blood glucose 123 - A1C 5.5 - AM labs, trend ? Acute kidney injury - BUN 30, 20 - creatinine 2.2, 1.1 - GFR 22?? - Baseline creatinine 0.8 - Fluids as above - I & O - AM labs, trend ? Hypomagnesemia - Magnesium level 1.3, 1.7 - magnesium sulfate 1gm IV given in ED - magnesium oxide 400mg POQHS - AM labs, trend ?? GERD - pantoprazole 40mg IV Qday ?? COPD - Patient is on??oxygen 2L/min chronically.?? On admission patient is at baseline - DuoNeb QID, d/c on 12/29 - Albuterol neb Q2hrs PRN - Oxygen to keep sat >90% - Incentive Spirometry - Flutter therapy ?? 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 Thrombocytopenia -platelet count 67K -d/c SQ heparin on 12/29 -trend ?? Insomnia - Restoril 30mg PO QHS ?? Other - DVT proph: SCD, heparin 5000 units SQ BID, d/c on 12/29/2212/01 thrombocytopenia - Milk of Magnesia 30ml PO Q8hrs PRN constipation - Colace 100mg PO BID - Tylenol 650mg PO or per rectum Q4hrs PRN pain/fever - Zofran 4mg IV Q6hrs PRN nausea - [place] nasal spray PRN - Artificial tears PRN - Trazodone 50mg PO QHS PRN sleep, d/c on 12/29 - Atarax 10mg PO Q6hrs PRN anxiety, d/c on 12/29 [Electronically Signed by: 12/29/2022 11:55 EST] Alondra Wolfe NP CARTOGRAPHIC DESIGNER [Electronically Signed by: 12/29/2022 12:17 EST] Alondra Wolfe CARTOGRAPHIC DESIGNER CARTOGRAPHIC DESIGNER [Electronically Signed by: 12/29/2022 16:04 EST] Reuben Lai MD, MD [Verified on: 12/29/2022 11:55 EST] Alondra Wolfe NP CARTOGRAPHIC DESIGNER CT Abdomen and Pelvis WO contrast * Keon Mojica MD: VERIFY, VERIFY DomainUser, Generated: PERFORM Event Display: Radiology Report Authored Date: [id number] HISTORY Abdominal pain vomiting STUDY CT Abdomen +Pelvis w/o Cont COMPARISON None available TECHNIQUE Multiple axial images of the abdomen and pelvis were obtained from the lung bases to the pubic symphysis without the administration of IV contrast. Dose reduction techniques including Automated Exposure Control (AEC) and adjustment of mA and kV were utilized. FINDINGS [Lung bases are clear. No focal hepatic lesion. Liver morphology is unremarkable. Gallbladder is not definitely seen, correlate for prior cholecystectomy. Common bile duct is dilated to the level theampulla. Spleen is normal. Peripancreatic stranding is noted most severely affecting the pancreatic head with small amount of non localizing fluid within the retroperitoneum. Shotty peripancreatic lymph nodes. Adrenal glands are normal. Few small hypoattenuating lesions are noted within the right and left kidney Hounsfield attenuation are compatible with cysts. No nephrolithiasis, hydronephrosis or solid mass. Urinary bladder is normal. No pelvic or adnexal mass. Upper GI tract demonstrates mild bowel wall thickening involving the 2nd-3rd portion duodenum. No evidence of mass or obstruction. The rectum and colon are normal. No pelvic free fluid. No adenopathy. Abdominal aorta is normal in caliber with scattered calcified atherosclerotic disease. Review of bone windows demonstrates no acute osseous abnormality. IMPRESSION Moderate inflammatory change surrounding the pancreatic head and duodenum is consistent with eitheracute pancreatitis or duodenitis. Common bile duct dilatation without obstructing stone or mass, while this can be seen secondary to pancreatitis or duodenitis a noncalcified stone or obstructing lesion within the common bile duct cannot be excluded. Consider contrast enhanced MRI/MRCP for further evaluation. Additional incidental, nonacute findings as described above. Electronically signed by: KEON MOJICA (Dec 28, 2022 17:22:35) Final Signed (Electronic Signature): Keon Mojica MD 12/28/22 5:22 pm Technologist: HERLINDA Note * Anne Lockett MD: VERIFY, VERIFY DomainUser, Generated: PERFORM Event Display: Radiology Report Authored Date: [id number] MRI MRCP Clinical indication: Right upper quadrant pain Procedure: Multiplanar multi sequence MRI of the abdomen were obtained with and without the administration of intravenous contrast according to standard departmental protocol. MRCP sequences also obtained. Contrast: 20 cc of ProHance Comparisons:CT December 28, 2022 demonstrating common bile duct dilatation and pancreatitis. Findings: Examination moderately compromised by patient motion and overly small [id number] resulting in artifact. MRI of the abdomen without contrast: Mild hepatic steatosis. No significant ascites. MRI of the abdomen with contrast: Liver and spleen are normal in size and morphology. No focal lesions. Gallbladder absent. Common bile duct measures 1.4 cm and is without obstructing stone. Main pancreatic duct measures up to 6 mm. Intrahepatic ductal dilatation is also present. Diffuse low signalthroughout the pancreas. There is moderate inflammatory change surrounding the pancreatic head. No definite pancreatic masses. Adrenal glands are normal. Kidneys demonstrate normal cortical medullarydifferentiation. No hydronephrosis. No suspicious lymph nodes. Tiny simple bilateral renal cysts are present. Impression: 1.Findings of acute pancreatitis without definite evidence of pancreatic necrosis or pseudocyst formation. 2. Double duct sign which raises at least some concern for possible obstruction of the ducts in theregion of the pancreatic head. No obstructing stone is seen and there is no definite pancreatic head mass. Would recommend reimaging after acute symptoms have resolved (approximately 1-2 months). 3. Mild hepatic steatosis. Electronically signed by: ANNE LOCKETT (Dec 29, 2022 10:23:21) Final Signed (Electronic Signature): Anne Lockett MD 12/29/22 10:23 a Technologist: Oscar Syed MD: VERIFY, VERIFY DomainUser, Generated: PERFORM Event Display: Radiology Report Authored Date: [id number] HISTORY pancreatitis STUDY US Abdomen Upper Quadrant Rt COMPARISON CT 12/28/2022 TECHNIQUE Multiple cortez scale and color flow Doppler images of the right upper quadrant of the abdomen were obtained with image documentation. FINDINGS Mild hepatomegaly and fatty infiltration of the liver. Hepatopetal portal venous flow is seen on Doppler ultrasound. Prior cholecystectomy. Common bile duct measures 1.1 cm in diameter. There is slight intrahepatic biliary ductal dilation. Findings may be due to prior cholecystectomy or associated with pancreatitis. Indistinct head of the pancreas is seen with dilation of the pancreatic duct of 4 mm. Findings are concerning for possible pancreatitis as suggested on CT. No right renal abnormality. Right kidney measures 7.7 cm in length. Visualized portions of the IVC appear normal. IMPRESSION Probable pancreatitis in the head of the pancreas with dilation of the pancreatic duct. Possible dilation of the biliary ducts but this appearance could possibly be prior cholecystectomy. Electronically signed by: Oscar Goyal (Dec 29, 2022 10:24:24) Final Signed (Electronic Signature): Oscar Goyal MD 12/29/22 10:24 a Technologist: ANDRIA Patient Care team information Care Team Personnel Name: Avila Gomez MD Position: [facility] Physician OB LP Member Role: Primary Care Physician Address: Address: [address] Name: Mary Biswas Position: [facility] Care Management Member Role: [employer] Machine Tender Name: Lizzie Cancino Position: [facility] Care Management Member Role: [employer] Machine Tender Name: Joselo Barksdale Position: [facility] ED Mid-Level (w/Cosign) LP Member Role: ED Mid-Level Address: Address: [address] [place] [address] Name: Lyn Wolfe RN Position: [facility] Member Role: ED Nurse Name: Madalyn Osorio RN Position: [facility] Member Role: ED Nurse Care Team Related Persons Name: TAMELA OGDEN Address: [address] [place], [place] [id number]
== END 2023-05-16 15:35 | disposition home or self-care (01) ==
LOC: LBO 15:40
PROVIDERS: Visit Provider Physical Therapy Assistant
DX: R73.03 Prediabetes (principal); L97.508 Non-pressure chronic ulcer of other part of unspecified foot with other specified severity; S01.312A Laceration without foreign body of left ear, initial encounter; S90.112A Contusion of left great toe without damage to nail, initial encounter; W54.0XXA Bitten by dog, initial encounter
CPT/HCPCS: 36415; 80053; 85652; 99205; 73630; 83036; 85025

== ENCOUNTER 2023-05-16 16:07 | Outpatient (CLI) | payer MEDICARE, SELFPAY ==
--- NOTE | 2023-05-16 14:00 | DI.RAD_ITS ---
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 TECHNIQUE: 2D digital imaging was performed of the left foot. Three images were obtained. AP, obli que and lateral views were obtained. COMPARISON: No exams were available for comparison FINDINGS: BONES: No acute fracture is present. No bony destructive lesion is seen. There is a plantar calcaneal spur. There is a nonspecific well corticated osseous density in the soft tissues on the plantar nancy face of the foot. Postsurgical changes are seen in the foot. JOINTS: No dislocation present. Degenerative changes are seen in the foot characterized by bony hyper trophy seen at the articulation of the navicular and the cuneiform. SOFT TISSUE: Soft tissue swelling is seen in the foot. IMPRESSION: No radiographic evidence to suggest osteomyelitis. DATA REPOSITORY: RADIATION DOSE DELIVERED:
== END 2023-05-16 16:27 ==
PROVIDERS: Visit Provider Physical Therapy Assistant
DX: M19.072 Primary osteoarthritis, left ankle and foot (principal); Z98.890 Other specified postprocedural states; M77.32 Calcaneal spur, left foot
CPT/HCPCS: 73630